=== PATIENT | female | born 1940 | race Caucasian/White ===

== ENCOUNTER 2016-07-26 19:29 | Emergency (ER) | payer MEDICARE ==
[2016-07-26 19:38] VITALS: BP 148/58
--- NOTE | 2016-07-26 20:06 | UC ---
HPI Febrile Illness - History of Current Complaint Chief Complaint: UCGeneralIllness Time Seen by Provider: 07/26/16 19:59 Hx Obtained From: Patient Onset/Duration: Started Days Ago - 9 days ago with UTI symptoms received 7 days of amoxicillin without improvement. Received 2nd antibiotic yesterday and Timing: Constant Initial Severity: Mild Current Severity: Moderate Aggravating Factors: Nothing Alleviating Factors: Nothing Associated Signs and Symptoms: Chills, Dysuria - Risk Factors Serious Bacterial Infection Risk Factors: Negative - Additional Pertinent History Primary Care Physician: NAREHS - Allergy/Home Medications Allergies/Adverse Reactions: Allergies Allergy/AdvReac Type Severity Reaction Status Date / Time Sulfa Drugs Allergy Unknown Unknown Verified 07/26/16 20:18 Reaction Details PMH/Surg Hx/FS Hx/Imm Hx Endocrine/Hematology History: Denies: Hx Diabetes, Hx Thyroid Disease Cardiovascular History: Reports: Hx Hypercholesterolemia, Hx Hypertension Denies: Hx Pacemaker/ICD Respiratory History: Denies: Hx Asthma Comment Only: Hx Chronic Obstructive Pulmonary Disease (COPD) - Alpha 1 antitrypsin GI History: Denies: Hx Ulcer Musculoskeletal History: Denies: Hx Osteoporosis Sensory History: Reports: Hx Deafness - left Denies: Hx Hearing Aid Psychiatric History: Denies: Hx Panic Disorder - Cancer History Cancer Type, Location and Year: MELANOMA 2010 Hx Chemotherapy: No Hx Radiation Therapy: No - Surgical History Surgery Procedure, Year, and Place: hyster/bladder lift 2006, tonsillectomy, Infectious Disease History: Denies: Hx Hepatitis, Hx Human Immunodeficiency Virus (HIV), History Other Infectious Disease, Traveled Outside the [place] in Last 30 Days - Family History Known Family History: Positive: Hypertension Negative: Cardiac Disease, Diabetes - Social History Occupation: Retired Lives: With Family Alcohol Use: None Substance Use Type: Reports: None Smoking Status (MU): Never Smoked Tobacco Review of Systems Constitutional: Fever, Chills All Other Systems Reviewed And Are Negative: Yes Physical Exam Triage Information Reviewed: Yes Appearance: Well-Appearing, No Pain Distress, Ill-Appearing - mild Vital Signs: Initial Vital Signs Temp 101.6 F 07/26/16 19:34 Pulse 85 07/26/16 19:34 Resp 18 07/26/16 19:34 BP 148/58 07/26/16 19:34 Pulse Ox 97 07/26/16 19:34 Vital Signs Reviewed: Yes Eyes: Positive: Conjunctiva Clear ENT: Positive: Pharynx normal, TMs normal - , AD obscurred by obstructing cerumen Neck exam: Normal Respiratory Exam: Normal Cardiovascular: Positive: RRR, No Murmur Abdomen Description: Positive: No Organomegaly. Negative: Nontender - minimal bilateral upper abdominal tenderness., CVA Tenderness (R), CVA Tenderness (L), McBurney's Point Tenderness, Peritoneal Signs Bowel Sounds: Positive: Present Musculoskeletal Exam: Normal Neurological Exam: Normal Psychological Exam: Normal Skin Exam: Normal Course/Dx - Febrile Illness Differential Diagnoses: Abd. Infection, Abscess, Pyelonephritis - Diagnoses Clinic Provider Diagnoses: Pyelonephritis Is Visit Related: No Discharge - Discharge Plan Condition: Stable Disposition: HOME Prescriptions: Ciprofloxacin TAB* [Cipro 500 MG TAB*] 500 mg PO BID #20 tab Patient Education Materials: Kidney Infection (ED), Ciprofloxacin (By mouth) Referrals: Wilson Moody MD [Primary Care Provider] - 2 Weeks (Recheck urine for clearence.)
[2016-07-26] MEDS ORDERED: Ciprofloxacin TAB* 500 MG PO ONE (20:30)
== END 2016-07-26 20:48 | disposition home or self-care (01) ==
LOC: UCEAST 19:29
DX: N12 Tubulo-interstitial nephritis, not specified as acute or chronic (principal); E78.00 Pure hypercholesterolemia, unspecified; I10 Essential (primary) hypertension; H91.92 Unspecified hearing loss, left ear; Z88.2 Allergy status to sulfonamides
CPT/HCPCS: 81003; 87086; 99212; A9270-GY; G0463

== ENCOUNTER 2017-06-29 14:05 | Emergency (ER) | payer MEDICARE ==
[2017-06-29 14:36] VITALS: BP 145/68
--- NOTE | 2017-06-29 14:44 | UC ---
Abdominal Pain Female HPI - HPI Summary HPI Summary: Pt presents with constipation. She is accompanied by her . Both are very poor historians and often get sidetracked or forget what they were speaking about mid-sentence. From what I am able to gather - about 3 weeks ago pt developed generalized abdominal cramping and felt "gassy". She would pass gas and her stomach would feel better. This lasted for about 2 weeks, but has been improved over the last week. During this 3 week period, however, she has had small and hard BMs with some mucus. About 1 week ago she took an OTC "laxative" but is unsure of the name - the next day she had a BM and felt ok. Today she tells me that she is back to small hard stools for the last 3-4 days. Her last colonoscopy was 6.5 years ago and was normal - per pt. Denies fever, chills, SOB, chest pain, abdominal, n/v, dysuria, or back pain. - History of Current Complaint Chief Complaint: UCAbdominalPain Stated Complaint: BOWEL ISSUE Time Seen by Provider: 06/29/17 14:43 Hx Obtained From: Patient, Family/Hourly Shift Manager Onset/Duration: Gradual Onset Severity Currently: None Pain Intensity: 0 Allergies/Adverse Reactions: Allergies Allergy/AdvReac Type Severity Reaction Status Date / Time Sulfa (Sulfonamide Allergy Unknown Verified 06/29/17 14:37 Antibiotics) Reaction Details Home Medications: Home Medications Amlodipine Besylate [Norvasc 5 mg tab] 5 mg PO DAILY 06/29/17 [History Confirmed 06/29/17] Donepezil TAB* [Aricept 5 MG TAB*] 5 mg PO DAILY 06/29/17 [History Confirmed 09/09] PMH/Surg Hx/FS Hx/Imm Hx - Additional Past Medical History Additional PMH: Dementia Overactive bladder Endocrine History: Dyslipidemia Cardiovascular History: Hypertension - Surgical History Surgical History: Yes Surgery Procedure, Year, and Place: hyster/bladder lift 2006, tonsillectomy, - Family History Known Family History: Positive: Hypertension Negative: Cardiac Disease, Diabetes - Social History Occupation: Retired Lives: With Family Alcohol Use: Rare Substance Use Type: None Smoking Status (MU): Never Smoked Tobacco - Immunization History Most Recent Influenza Vaccination: fall 2014 Most Recent Tetanus Shot: Believes to be within 5 years Most Recent Pneumonia Vaccination: <5 yrs Review of Systems Constitutional: Negative Skin: Negative Respiratory: Negative Cardiovascular: Negative Gastrointestinal: Other - Constipation Genitourinary: Frequency Neurovascular: Negative Neurological: Negative Psychological: Negative All Other Systems Reviewed And Are Negative: Yes Physical Exam - Summary Physical Exam Summary: GENERAL: NAD. WDWN. No pain distress. SKIN: No rashes, sores, lesions, or open wounds. NECK: Supple. Nontender. No lymphadenopathy. CHEST: CTAB. No r/r/w. No accessory muscle use. Breathing comfortably and in no distress. CV: RRR. Without m/r/g. Pulses intact. Brisk cap refill. ABDOMEN: Soft. NTTP. No distention or guarding. No organomegaly. No CVA tenderness. Bowel sounds present NEURO: Alert. CN II-XII grossly intact. PSYCH: Age appropriate behavior. Triage Information Reviewed: Yes Vital Signs: Initial Vital Signs Temp 97.8 F 06/29/17 14:31 Pulse 64 06/29/17 14:31 Resp 16 06/29/17 14:31 BP 145/68 06/29/17 14:31 Pulse Ox 98 06/29/17 14:31 Abd Pain Female Course/Dx - Course Course Of Treatment: CT: IMPRESSION: No abnormal masses or fluid collections are noted. No evidence of obstructive. uropathy is noted. Diverticulosis without definite evidence of diverticulitis. Bilateral adrenal hyperplasia is noted. Suspect slow motility constipation. I will try her with daily miralax for at least 1 week and have her follow up with her PCP B[facility] for this and CT findings of b/l adrenal hyperplasia. - Differential Dx/Diagnosis Provider Diagnoses: Constipation Discharge - Sign-Out/Discharge Documenting (check all that apply): Discharge/Admit/Transfer - Discharge Plan Condition: Stable Disposition: HOME Prescriptions: Polyethylene Glycol 3350 BTL* [Miralax] 17 gm PO DAILY PRN #1 [id number] PRN Reason: Constipation Patient Education Materials: Constipation (ED) Referrals: Wilson Moody MD [Primary Care Provider] - As Soon As Possible Additional Instructions: If you develop a fever, shortness of breath, chest pain, new or worsening symptoms - please call your PCP or go to the ED. 1) Please schedule a follow up appointment with Dr. Moody as soon as possible for further evaluation of your abdominal pain and constipation 2) Please call your GI doctor to ask about another colonoscopy. - Billing Disposition and Condition Condition: STABLE Disposition: HOME
--- NOTE | 2017-06-29 15:49 | RAD ---
Indication: Abdominal pain, constipation. CT of the abdomen and pelvis was performed without oral or IV contrast administration. Coronal and sagittal reconstructed images were obtained. Lung bases demonstrate no pleural fluid. Thickening of the fissure on the left is noted. Heart demonstrates no pericardial effusion. Liver is normal in size. No focal lesions or intrahepatic ductal dilatation is noted. The spleen is normal in size. Pancreas demonstrates no mass or pancreatic duct dilatation. The common duct is not dilated. The gallbladder demonstrates no calcified gallstones. No pericholecystic fluid or wall thickening is noted. Adrenal hyperplasia is noted. No hydronephrosis is noted. Cortical cysts are noted in both kidneys. Atherosclerotic aorta is noted. No pelvic adenopathy is noted. CT of the pelvis demonstrates diverticulosis of the colon. No definite diverticulitis is noted. No dilated loops of bowel are noted. No dilated loops of bowel are noted. No pelvic adenopathy is noted. No hernias are noted. IMPRESSION: No abnormal masses or fluid collections are noted. No evidence of obstructive uropathy is noted. Diverticulosis without definite evidence of diverticulitis. Bilateral adrenal hyperplasia is noted.
== END 2017-06-29 16:10 | disposition home or self-care (01) ==
LOC: UCEAST 14:05
DX: K59.00 Constipation, unspecified (principal); E78.5 Hyperlipidemia, unspecified; I10 Essential (primary) hypertension; N32.81 Overactive bladder; F03.90 Unspecified dementia, unspecified severity, without behavioral disturbance, psychotic disturbance, mood disturbance, and anxiety; Z88.2 Allergy status to sulfonamides
CPT/HCPCS: 74176; 81003; 99212; G0463

== ENCOUNTER 2017-07-22 11:09 | Emergency (ER) | payer MEDICARE ==
[2017-07-22 13:42] VITALS: BP 132/67
--- NOTE | 2017-07-22 14:21 | UC ---
Throat Pain/Nasal Ajay HPI - HPI Summary HPI Summary: Sore throat for 2 days - History of Current Complaint Chief Complaint: UCRespiratory Stated Complaint: COUGH Time Seen by Provider: 07/22/17 13:33 Hx Obtained From: Patient ?: No Onset/Duration: Sudden Onset, Lasting Days - 2 Pain Intensity: 0 Cough: None Associated Signs & Symptoms: Positive: Hoarseness - Allergies/Home Medications Allergies/Adverse Reactions: Allergies Allergy/AdvReac Type Severity Reaction Status Date / Time Sulfa (Sulfonamide Allergy Unknown Verified 07/22/17 13:42 Antibiotics) Reaction Details PMH/Surg Hx/FS Hx/Imm Hx Previously Healthy: No Endocrine History: Dyslipidemia Cardiovascular History: Hypertension - Surgical History Surgical History: Yes Surgery Procedure, Year, and Place: hyster/bladder lift 2006, tonsillectomy, - Family History Known Family History: Positive: Hypertension Negative: Cardiac Disease, Diabetes - Social History Occupation: Retired Lives: With Family Alcohol Use: Rare Substance Use Type: None Smoking Status (MU): Never Smoked Tobacco - Immunization History Most Recent Influenza Vaccination: fall 2014 Most Recent Tetanus Shot: Believes to be within 5 years Most Recent Pneumonia Vaccination: <5 yrs Review of Systems Constitutional: Negative Skin: Negative Eyes: Negative ENT: Sore Throat Respiratory: Negative Cardiovascular: Negative Gastrointestinal: Negative Genitourinary: Negative Motor: Negative Neurovascular: Negative Musculoskeletal: Negative Neurological: Negative Psychological: Negative Is Patient Immunocompromised?: No All Other Systems Reviewed And Are Negative: Yes Physical Exam Triage Information Reviewed: Yes Appearance: Well-Appearing, No Pain Distress, Well-Nourished Vital Signs: Initial Vital Signs Temp 99.6 F 07/22/17 13:40 Pulse 75 07/22/17 13:40 Resp 14 07/22/17 13:40 BP 132/67 07/22/17 13:40 Pulse Ox 97 07/22/17 13:40 Vital Signs Reviewed: Yes Eye Exam: Normal Eyes: Positive: Conjunctiva Clear ENT Exam: Normal ENT: Positive: Normal ENT inspection, Hearing grossly normal, Pharynx normal, TMs normal, Uvula midline. Negative: Nasal congestion, Trismus, Muffled voice, Hoarse voice, Dental tenderness, Sinus tenderness Dental Exam: Normal Neck exam: Normal Neck: Positive: Supple, Nontender Respiratory Exam: Normal Respiratory: Positive: Chest non-tender, Lungs clear, Normal breath sounds, No respiratory distress, No accessory muscle use Cardiovascular Exam: Normal Cardiovascular: Positive: RRR, No Murmur, Pulses Normal, Brisk Capillary Refill Musculoskeletal Exam: Normal Musculoskeletal: Positive: Strength Intact, ROM Intact, No Edema Neurological Exam: Normal Neurological: Positive: Alert, Muscle Tone Normal Psychological Exam: Normal Skin Exam: Normal Diagnostics - Laboratory Diagnostic Studies Completed/Ordered: RST (-) Throat Pain/Nasal Course/Dx - Course Assessment/Plan: tylenol, ibuprofen, throat raffy. and spray follow with pcp prn - Differential Dx/Diagnosis Provider Diagnoses: pharyngitis, viral syndrome Discharge - Sign-Out/Discharge Documenting (check all that apply): Discharge/Admit/Transfer, Post-Discharge Follow Up - Discharge Plan Condition: Stable Disposition: HOME Patient Education Materials: Acetaminophen (By mouth), Phenol (By mouth), Pharyngitis (ED), Viral Syndrome (ED) Referrals: Wilson Moody MD [Primary Care Provider] - If Needed - Billing Disposition and Condition Condition: STABLE Disposition: Home
== END 2017-07-22 14:34 | disposition home or self-care (01) ==
LOC: UCEAST 11:09
DX: J02.9 Acute pharyngitis, unspecified (principal); B34.9 Viral infection, unspecified; E78.5 Hyperlipidemia, unspecified; I10 Essential (primary) hypertension; Z88.2 Allergy status to sulfonamides; Z82.49 Family history of ischemic heart disease and other diseases of the circulatory system
CPT/HCPCS: 87651; 99211; G0463

== ENCOUNTER 2017-12-11 19:39 | Emergency (ER) | payer MEDICARE ==
[2017-12-11 19:52] VITALS: BP 114/67
--- NOTE | 2017-12-11 20:30 | UC ---
General HPI - HPI Summary HPI Summary: This patient is a 77 year old F presenting to [facility] with a chief complaint of weakness. On 12/08/17, the patient saw Dr. Gloria who took a sample of her urine. She went to [facility] that same day and returned the following day. On at night, she received a call from Dr. Gloria who said she had a UTI and sent her rx for Augmentin. She took Augmentin yesterday and today. Last night, the patient reports she had chills and rigors. Today, she had a fever up to 103/ 104F but took Tylenol and her fever is now down to 98F. She continues to take her medications but she still doesnt feel good and feeling weak. The patient rates the pain 0/10 in severity. Symptoms aggravated by nothing. Symptoms alleviated by nothing. 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 Onset/Duration: Sudden Onset, Lasting Days, Still Present Current Severity: None Pain Intensity: 0 Aggravating: nothing Alleviating: nothing Associated Signs & Symptoms: Positive: Fever, Weakness, Other - chills, rigors - Allergy/Home Medications Allergies/Adverse Reactions: Allergies Allergy/AdvReac Type Severity Reaction Status Date / Time Sulfa (Sulfonamide Allergy Unknown Verified 12/11/17 19:52 Antibiotics) Reaction Details Home Medications: Home Medications Amoxicillin/Clavulanate TAB* [Augmentin TAB 875*] 875 mg PO BID 12/11/17 [ History Confirmed 12/11/17] PMH/Surg Hx/FS Hx/Imm Hx Endocrine History: Other Other Endocrine History: No DM Cardiovascular History: Hypertension Respiratory History: COPD - Surgical History Surgical History: Yes Surgery Procedure, Year, and Place: hyster/bladder lift 2006, tonsillectomy, CATARACT REPAIR WITH LENS REPLACEMENTS - Family History Known Family History: Positive: Hypertension Negative: Cardiac Disease, Diabetes - Social History Alcohol Use: Rare Substance Use Type: None Smoking Status (MU): Never Smoked Tobacco - Immunization History Most Recent Influenza Vaccination: fall 2014 Most Recent Tetanus Shot: Believes to be within 5 years Most Recent Pneumonia Vaccination: <5 yrs Review of Systems Constitutional: Fever, Chills, Other - rigors Neurological: Weakness All Other Systems Reviewed And Are Negative: Yes Physical Exam - Summary Physical Exam Summary: VITAL SIGNS: Reviewed. GENERAL: Patient is an elderly, well-developed and nourished FEMALE who is lying comfortable in the stretcher. Patient is not in any acute respiratory distress. She seems tired and disheveled. HEAD AND FACE: Normocephalic EYES: PERRLA, EOMI x 2. EARS: Hearing grossly intact. MOUTH: Oropharynx within normal limits. NECK: Supple, trachea is midline, no adenopathy, no JVD, no carotid bruit. CHEST: Symmetric, no tenderness at palpation LUNGS: Clear to auscultation bilaterally. No wheezing or crackles. CVS: Regular rate and rhythm, S1 and S2 present, no murmurs or gallops appreciated. ABDOMEN: Soft, non-tender. Bowel sounds are normal. No abdominal abnormal pulsations. EXTREMITIES: Full ROM in all major joints, no edema, no cyanosis or clubbing. NEURO: Alert and oriented x 3. No acute neurological deficits. Speech is normal and follows commands. Slight hx of dementia. She has R-sided weakness secondary to a stroke. SKIN: Dry and warm Triage Information Reviewed: Yes Vital Signs: Initial Vital Signs Temp 98.7 F 12/11/17 19:43 Pulse 78 12/11/17 19:43 Resp 14 12/11/17 19:43 BP 114/67 12/11/17 19:43 Pulse Ox 96 12/11/17 19:43 Vital Signs Reviewed: Yes Course/Dx - Course Course Of Treatment: Patient is a 77-year-old female who presents to the urgent care with chief complaint of having back pain, fevers, chills and weakness. She reports that she was diagnosed with a UTI and she is taking Augmentin. However she has only taken 3 doses of Augmentin and the symptoms have not improved. This afternoon the patient had a fever 100.3- 100.4 for which the patient took Tylenol. Right now the patient is afebrile. However because of the symptoms the patient will be sent to the emergency department for further workup and management. Patient is hemodynamically stable alert and oriented 3. The patient and the patient's declined ambulance. - Differential Dx - Multi-Symptom Provider Diagnoses: fever, weakness Discharge - Sign-Out/Discharge Documenting (check all that apply): Patient Departure All imaging exams completed and their final reports reviewed: No Studies - Discharge Plan Condition: Stable Disposition: HOME-RECOMMEND TO ED Patient Education Materials: Fever in Adults (ED), Weakness (ED) Referrals: Wilson Moody MD [Primary Care Provider] - Additional Instructions: Patient will be discharged to the emergency department. They declined the ambulance transfer. - Billing Disposition and Condition Condition: STABLE Disposition: Home-Recommend to ED - Attestation Statements Document Initiated by Scribe: Yes Documenting Scribe: Ezekiel Flores Provider For Whom Catherine is Documenting (Include Credential): Wilson Metcalf MD Scribe Attestation: Ezekiel Baca, scribed for Wilson Metcalf MD on 12/11/17 at 2039. Scribe Documentation Reviewed: Yes Provider Attestation: The documentation as recorded by the Ezekiel weston accurately reflects the service I personally performed and the decisions made by me, Wilson Metcalf MD
== END 2017-12-11 20:41 | disposition home health service (06) ==
LOC: UCEAST 19:39
DX: R53.1 Weakness (principal); R50.9 Fever, unspecified; I10 Essential (primary) hypertension; J44.9 Chronic obstructive pulmonary disease, unspecified
CPT/HCPCS: 99212; G0463

== ENCOUNTER 2017-12-11 20:57 | Emergency (ER) | payer MEDICARE ==
--- NOTE | 2017-12-11 21:40 | ED ---
GI/ HPI - HPI Summary HPI Summary: This patient is a 77 year old female presenting to [facility] accompanied by with a chief complaint of urogenital problems since last week. Patient states that she had incontinence last night and has had frequent urination. Patient had general weakness and trouble getting up out of her chair. The pain is rated 0/10 in severity. Symptoms aggravated by nothing. Symptoms alleviated by nothing. Patient additionally reports chills. Patient denies nausea, abd pain. Patient was given abx while recovering from a UTI. 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 Onset/Duration: Still Present Timing: Intermittent, Lasting Days Severity: Mild Current Severity: Mild Pain Intensity: 0 Location of Pain: None Associated Signs and Symptoms: Positive: Negative - abd pain, Other: - weakness incontinence, frequent urination Aggravating Factor(s): Nothing Alleviating Factor(s): Nothing - Additional Pertinent History Primary Care Physician: NARESH - Allergy/Home Medications Allergies/Adverse Reactions: Allergies Allergy/AdvReac Type Severity Reaction Status Date / Time Sulfa (Sulfonamide Allergy Unknown Verified 12/11/17 19:52 Antibiotics) Reaction Details PMH/Surg Hx/FS Hx/Imm Hx Previously Healthy: No Endocrine/Hematology History: Denies: Hx Diabetes, Hx Thyroid Disease Cardiovascular History: Reports: Hx Hypercholesterolemia, Hx Hypertension Denies: Hx Pacemaker/ICD Respiratory History: Reports: Hx Chronic Obstructive Pulmonary Disease (COPD) - Alpha 1 antitrypsin Denies: Hx Asthma GI History: Denies: Hx Ulcer Musculoskeletal History: Denies: Hx Osteoporosis Sensory History: Reports: Hx Deafness - left Denies: Hx Hearing Aid Psychiatric History: Denies: Hx Panic Disorder - Cancer History Cancer Type, Location and Year: melanoma Hx Chemotherapy: No Hx Radiation Therapy: No - Surgical History Surgery Procedure, Year, and Place: hyster/bladder lift 2006, tonsillectomy, CATARACT REPAIR WITH LENS REPLACEMENTS Infectious Disease History: No Infectious Disease History: Denies: Hx Hepatitis, Hx Human Immunodeficiency Virus (HIV), History Other Infectious Disease, Traveled Outside the [place] in Last 30 Days - Family History Known Family History: Positive: Hypertension Negative: Cardiac Disease, Diabetes - Social History Lives: With Family Alcohol Use: Rare Hx Substance Use: No Substance Use Type: Reports: None Hx Tobacco Use: No Smoking Status (MU): Never Smoked Tobacco Review of Systems Positive: Chills. Negative: Fever Negative: Abdominal Pain, Nausea Positive: frequency, incontinence Positive: Weakness All Other Systems Reviewed And Are Negative: Yes Physical Exam - Summary Physical Exam Summary: Appearance: Well-appearing, Well-nourished, lying in bed comfortable Skin: Warm, dry, no obvious rash Eyes: sclera anicteric, no conjunctival pallor ENT: mucous membranes moist Neck: deferred Respiratory: No signs of respiratory distress Cardiovascular: Appears well perfused, pulses are nml Abdomen: deferred Musculoskeletal: Moving all 4 extremities without obvious discomfort Neurological: Awake and alert, mentation is normal, speech is fluent and appropriate Psychiatric: affect is normal, does not appear anxious or depressed Triage Information Reviewed: Yes Vital Signs On Initial Exam: Initial Vitals Temp Pulse Resp BP Pulse Ox 98.7 F 76 18 138/76 95 12/11/17 21:00 12/11/17 21:00 12/11/17 21:00 12/11/17 21:00 12/11/17 21:00 Vital Signs Reviewed: Yes Diagnostics - Vital Signs Vital Signs Temp Pulse Resp BP Pulse Ox 12/11/17 21:00 98.7 F 76 18 138/76 95 - Laboratory Result Diagrams: 12/11/17 21:48 12/11/17 21:48 Lab Statement: Any lab studies that have been ordered have been reviewed, and results considered in the medical decision making process. GIGU Course/Dx - Course Course Of Treatment: This is a 77-year-old woman who was seen and routine follow -up by her urologist last week. A urinalysis and culture was done at that time which subsequently grew Escherichia coli. Because she was away on a trip to [facility], there was a delay in getting her started on antibiotics but she has been on them now since yesterday. Her urinalysis today does not appear infected. White blood cell count is normal. The patient does not appear toxic and is afebrile in triage and on recheck now. The culture and sensitivity results on the urine specimen didn't do show it is sensitive to Augmentin, the antibiotic the patient is taking. She actually is feeling somewhat better today than she did yesterday and I think continuing the antibiotic would be appropriate. She does not appear to require hospitalization at this point. - Diagnoses Provider Diagnoses: Weakness Discharge - Sign-Out/Discharge Documenting (check all that apply): Patient Departure - Discharge Plan Condition: Stable Disposition: HOME Patient Education Materials: Urinary Tract Infection in Women (ED) Referrals: Wilson Moody MD [Primary Care Provider] - Additional Instructions: Continue the antibiotic that was prescribed by your doctor. If you start feeling worse, you should return here. - Billing Disposition and Condition Condition: STABLE Disposition: Home - Attestation Statements Document Initiated by Catherine: Yes Documenting Xiomyibe: Gordo Flores Provider For Whom Catherine is Documenting (Include Credential): Brian Tovar MD Scribe Attestation: Gordo Baca scribed for Brian Tovar MD on 12/12/17 at 0343. Scribe Documentation Reviewed: Yes Provider Attestation: The documentation as recorded by the Gordo weston accurately reflects the service I personally performed and the decisions made by me, Brian Tovar MD
[2017-12-11 21:58] LABS: ABS Basophils 0.1 10^3/ul (0-0.2); ABS Eosinophils 0 10^3/ul (0-0.6); ABS Lymphocytes 1.3 10^3/ul (1.0-4.8); ABS Monocytes 0.4 10^3/ul (0-0.8); ABS Neutrophils 6.8 10^3/ul (1.5-7.7); ABS Nucleated RBC 0 10^3/ul; Eosinophil % 0.5 % (0-6); Hematocrit 40 % (35-47); Hemoglobin 13.2 g/dl (12.0-16.0); Lymphocyte % 15.5 % (25-47); Mean Corpuscular HGB Conc 33 g/dl (31-36); Mean Corpuscular Hemoglobin 32 pg (27-31); Mean Corpuscular Volume 95 fL (80-97); Mean Platelet Volume 7.6 um3 (7.4-10.4); Nucleated Red Blood Cells % 0; Platelet Count 290 10^3/ul (150-450); Red Blood Count 4.18 10^6/ul (4.00-5.40); Red Cell Distribution Width 14 % (10.5-15); White Blood Count 8.6 10^3/ul (3.5-10.8)
[2017-12-11 22:12] LABS: EGFR Non-African American 31.2 (>60)
[2017-12-11] MEDS: NS 0.9% 1000 ML*IV.FLUID IV ONE (22:13)
[2017-12-11 22:29] LABS: Urine Appearance Clear; Urine Blood 2+ (Negative); Urine Color Yellow; Urine Ketones Negative (Negative); Urine Protein Negative (Negative); Urine Red Blood Cell Absent (Absent); Urine Specific Gravity 1.011 (1.010-1.030); Urine Urobilinogen Negative (Negative); Urine White Blood Cell Trace(0-5/hpf) (Absent)
[2017-12-12 00:23] VITALS: BP 149/78
== END 2017-12-12 00:26 | disposition home or self-care (01) ==
LOC: ED 20:57
DX: R53.1 Weakness (principal); I10 Essential (primary) hypertension; J44.9 Chronic obstructive pulmonary disease, unspecified; E78.00 Pure hypercholesterolemia, unspecified; H91.92 Unspecified hearing loss, left ear; R50.9 Fever, unspecified
CPT/HCPCS: 36415; 80053; 81003; 81015; 83605; 85025; 87040; 87086; 96360; 99283

== ENCOUNTER 2017-12-15 11:15 | Inpatient (IN) | payer MEDICARE ==
[2017-12-15 12:00] LABS: Urine Appearance Cloudy; Urine Blood 2+ (Negative); Urine Color Yellow; Urine Ketones Negative (Negative); Urine Protein 1+(30 mg/dL) (Negative); Urine Red Blood Cell 2+(6-10/hpf) (Absent); Urine Specific Gravity 1.015 (1.010-1.030); Urine Urobilinogen Negative (Negative); Urine White Blood Cell Trace(0-5/hpf) (Absent)
--- OUTSIDE RECORDS SUMMARY | 2017-12-15 12:23 | XMS REPORT ---
:1940 External Reference #:[id number] Author Organization [employer] Address [address] [place] [address] [place] [address] Phone [phone] Care Team Providers Name Role Phone Wilson Moody III, MD Primary Care Physician Unavailable Payers Type Date Identification Numbers Payment Provider Subscriber Medicare Primary Effective: Policy Number: Medicare Jennifer Aleman 2004 [id number] PayID: [id number] [address] [place] [address] [facility] Policy Number: [id number] [facility] Jennifer Aleman PayID: [id number] [address] [place] [address] Problems Date Description Provider Status Onset: 11/12/2010 Diverticulitis of colon Wilson Moody M.D. Active Onset: 10/17/2014 Dementia Veronika Hill M.D. Active Onset: 10/17/2014 Cerebral amyloid angiopathy Veronika Hill M.D. Active Onset: 10/17/2014 Altered mental status Veronika Hill M.D. Active Onset: 08/10/2017 Chronic fatigue syndrome Juwan Alexandre M.D. Active Onset: 08/10/2017 Abnormal gait Juwan Alexandre M.D. Active Onset: 08/10/2017 Amnesia Juwan Alexandre M.D. Active Social History Type Date Description Comments Hand Dominance Right-handed Cigarette Use Never Smoked Cigarettes ETOH Use Rarely consumes alcohol Smoking Patient has never smoked Recreational Drug Use Denies Drug Use Daily Caffeine Consumes on average 1 soda per day Exercise Type/Frequency Exercises sporadically Allergies, Adverse Reactions, Alerts Date Description Reaction Status Severity Comments 07/26/2007 Sulfa active hives Medications Medication Date Status Form Strength Qnty SIG Indications Ordering Provider Donepezil HCL 11/11/ Active Tablets 10mg 90tab 1 by F03.90 Tariq Chowdhury 2016 s mouth Tiffany, every day M.D. Amlodipine 02/06/ Active Tablets 5mg 30tab 1 by Zain Besgillian 2014 s mouth YEYO [place] every day Lipitor 12/15/ Active Tablets 20mg 90tab one tab Wilson Lees 2011 s po qhs John Moody Myrbetriq / Active 50mg once a 599.70 Unknown 0000 day Centrum Silver / Active Tablets 50+Women once Unknown 50+Women 0000 daily Augmentin / Active Tablets 875-125mg 1 tablet Unknown 0000 by mouth q12 hours for 10 days Donepezil HCL 10/03/ Hx Tablets 5mg 60tab 1-2 tabs F03.90 Veronika Hernandez 2016 - s by mouth Liz, 11/11/ every day M.D. 2016 as directed Fluticasone 12/23/ Hx Suspension 50mcg/Act 16gm 2 sprays J02.9 Matthew Propionate 2015 - each YEYO Mao 10/02/ nostril 2016 qd. Augmentin 02/06/ Hx Tablets 875-125mg 14tab by mouth N39.0 Zain 2014 - s twice a YEYO [place] 02/27/ day x 7 2015 days Ciprofloxacin 01/30/ Hx Tablets 500mg 14tab 1 tab by R35.0 Zain WILDE 2014 - s mouth YEYO [place] 02/06/ twice a 2014 day x 7 days Ciprofloxacin 10/10/ Hx Tablets 500mg 14tab 1 po Wilson Lees HCL 2014 - s twice a Heidy, 10/16/ day M.D. 2014 Cipro 10/21/ Hx Tablets 500mg 14tab 1 po bid Wilson Lees 2010 - s for 7 Heidy, 11/08/ days M.D. 2010 Robitussin With 12/04/ Hx 6Oz 10 cc qhs Wilson Lees Codeine Elixer 2009 - and q 4 Heidy, 07/31/ hrs prn M.D. 2010 Augmentin 09/19/ Hx Tablets 875-125mg 20tab 1 bid 562.11 Sivananda 2010 - s , Poopal, 2009 Z Pack 07/24/ Hx Tablets 250mg 5tabs as Wilson Lees 2009 - directed. Heidy, 11/08/ M.D. 2010 Lipitor 07/25/ Hx Tablets 10mg 90tab 1 PO QHS Wilson Lees 2007 - s Heidy, M.D. 2011 Asa 07/25/ Hx 81mg 90uni 1 PO qd Wilsno Lees 2007 - ts Heidy, M.D. 2014 Calcium/Vitamin 07/25/ Hx Tablets 600mg 100ta qd Wilson Dias 2007 - bs Heidy, M.D. 2014 Centrum Silver 07/25/ Hx Tablets 1 PO qd Wilson Lees 2007 - Heidy, M.D. 2016 Vitamin B-6 / Hx Tablets 1 po qd Unknown 0000 - 2013 Vitamin B-12 / Hx Tablets Sub 1 po qd Unknown 0000 - 2016 Fish Oil / Hx Capsules 1 po Unknown 0000 - capsules 12/15/ 2011 Cipro /00/ Hx Unknown 0000 - 2014 Immunizations CPT Code Status Date Vaccine Lot # [id number] Given 12/04/2017 Fluzone High Dose 25598 Given 12/10/2016 Influenza Virus Vaccine, Quadrivalent, Split, Preservative Free [id number] Given 12/08/2015 Fluzone High Dose 73778 Given 12/14/2014 Fluzone High Dose 50142 Given 12/08/2013 Flu Vaccine Split Virus Preservative Free For [id number] Indiv 3Yr Older 96857 Given 08/18/2013 Tdap - Tetanus/Diptheria/Acellular Pertussis [id number] 00271 Given 08/18/2013 Pneumococcal Conjugate Vaccine 13 Valent For [id number] Intramuscular Use 17703 Given 12/11/2012 Flu Vaccine Split Virus Preservative Free For Indiv 3Yr Older 60158 Given 03/11/2012 Zoster (Zostavax) [id number] 13110 Given 12/17/2011 Pneumonia Vaccine [id number] Q2037 Given 12/10/2011 Fluvirin Im 3Yrs And Older [id number] Q2038 Given 12/20/2010 Fluzone Vaccine [id number] 90868 Given 12/14/2009 Influenza Virus 3Yrs & Over [id number] 47925 Given 12/13/2008 Influenza Virus 3Yrs & Over 39754 Given 12/20/2007 Influenza Virus 3Yrs & Over 68446 Given 11/30/2006 Influenza Virus 3Yrs & Over 70120 Given 11/30/2006 Influenza Virus 3Yrs & Over 77275 Given 11/30/2006 Influenza Virus 3Yrs & Over [id number] 48200 Given 09/21/2002 Td (History By Patient) 39639 Given 01/04/2002 Pneumovax (History By Patient) 138iu Vital Signs Date Vital Result Comment 12/15/2017 Height 62.25 inches 5'2.25" Weight 147.00 lb Heart Rate 62 /min BP Systolic Sitting 112 mmHg BP Diastolic Sitting 70 mmHg Respiratory Rate 15 /min BMI (Body Mass Index) 26.7 kg/m2 10/07/2017 Height 62.25 inches 5'2.25" Weight 149.00 lb Heart Rate 60 /min BP Systolic Sitting 120 mmHg BP Diastolic Sitting 62 mmHg O2 % BldC Oximetry 97 % BMI (Body Mass Index) 27.0 kg/m2 09/14/2017 Height 62.25 inches 5'2.25" Weight 140.00 lb Heart Rate 66 /min BP Systolic 106 mmHg BP Diastolic 78 mmHg BMI (Body Mass Index) 25.4 kg/m2 08/10/2017 Height 62.25 inches 5'2.25" Weight 140.00 lb Heart Rate 72 /min BP Systolic Sitting 116 mmHg BP Diastolic Sitting 80 mmHg Respiratory Rate 16 /min BMI (Body Mass Index) 25.4 kg/m2 08/04/2017 Height 62.25 inches 5'2.25" Weight 145.00 lb Heart Rate 65 /min BP Systolic Sitting 120 mmHg BP Diastolic Sitting 72 mmHg Body Temperature 98.6 F O2 % BldC Oximetry 96 % BMI (Body Mass Index) 26.3 kg/m2 02/26/2017 Height 62.25 inches 5'2.25" Weight 139.00 lb Heart Rate 74 /min BP Systolic 132 mmHg BP Diastolic 72 mmHg Respiratory Rate 14 /min BMI (Body Mass Index) 25.2 kg/m2 10/03/2016 Height 62.25 inches 5'2.25" Weight 149.00 lb Heart Rate 76 /min BP Systolic Sitting 108 mmHg BP Diastolic Sitting 72 mmHg Respiratory Rate 16 /min Pain Level 0 BMI (Body Mass Index) 27.0 kg/m2 08/27/2016 Weight 155.38 lb Heart Rate 82 /min BP Systolic 136 mmHg BP Diastolic 82 mmHg Body Temperature 97.9 F O2 % BldC Oximetry 97 % 01/31/2016 Height 62.25 inches 5'2.25" Weight 162.00 lb Heart Rate 68 /min BP Systolic Sitting 126 mmHg BP Diastolic Sitting 82 mmHg Respiratory Rate 14 /min BMI (Body Mass Index) 29.4 kg/m2 12/24/2015 Weight 165.00 lb Heart Rate 96 /min BP Systolic Sitting 122 mmHg BP Diastolic Sitting 82 mmHg Respiratory Rate 15 /min Body Temperature 97.7 F O2 % BldC Oximetry 97 % 07/31/2015 Height 62.25 inches 5'2.25" Weight 155.00 lb Heart Rate 64 /min BP Systolic Sitting 122 mmHg BP Diastolic Sitting 86 mmHg Respiratory Rate 14 /min BMI (Body Mass Index) 28.1 kg/m2 07/19/2015 Height 62.25 inches 5'2.25" Weight 160.00 lb Heart Rate 64 /min BP Systolic Sitting 112 mmHg BP Diastolic Sitting 76 mmHg Respiratory Rate 14 /min BMI (Body Mass Index) 29.0 kg/m2 02/27/2015 Height 62.25 inches 5'2.25" Weight 161.00 lb Heart Rate 68 /min BP Systolic 134 mmHg BP Diastolic 60 mmHg Body Temperature 99.2 F O2 % BldC Oximetry 97 % BMI (Body Mass Index) 29.2 kg/m2 02/09/2015 Weight 163.00 lb Heart Rate 78 /min BP Systolic Sitting 134 mmHg BP Diastolic Sitting 70 mmHg Body Temperature 99.1 F 02/06/2015 Height 62.25 inches 5'2.25" Weight 161.00 lb Heart Rate 70 /min BP Systolic 114 mmHg BP Diastolic 70 mmHg Body Temperature 98.7 F BMI (Body Mass Index) 29.2 kg/m2 01/30/2015 Weight 160.00 lb Heart Rate 72 /min BP Systolic Sitting 143 mmHg BP Diastolic Sitting 76 mmHg Body Temperature 98.7 F 10/23/2014 Height 62.25 inches 5'2.25" Weight 159.50 lb Heart Rate 68 /min BP Systolic Sitting 134 mmHg BP Diastolic Sitting 80 mmHg Body Temperature 98.6 F O2 % BldC Oximetry 95 % BMI (Body Mass Index) 28.9 kg/m2 10/17/2014 Height 62.25 inches 5'2.25" Weight 155.00 lb Heart Rate 64 /min BP Systolic Sitting 128 mmHg BP Diastolic Sitting 72 mmHg Respiratory Rate 16 /min BMI (Body Mass Index) 28.1 kg/m2 10/13/2014 Height 62.25 inches 5'2.25" Weight 162.50 lb Heart Rate 75 /min BP Systolic Sitting 122 mmHg BP Diastolic Sitting 60 mmHg Body Temperature 98.5 F O2 % BldC Oximetry 98 % BMI (Body Mass Index) 29.5 kg/m2 10/10/2014 Height 62.25 inches 5'2.25" Weight 165.00 lb Heart Rate 72 /min BP Systolic Sitting 124 mmHg BP Diastolic Sitting 82 mmHg Respiratory Rate 16 /min Body Temperature 98.8 F O2 % BldC Oximetry 94 % BMI (Body Mass Index) 29.9 kg/m2 08/18/2013 Height 62.25 inches 5'2.25" Weight 160.00 lb Heart Rate 70 /min BP Systolic Sitting 132 mmHg BP Diastolic Sitting 80 mmHg Body Temperature 98.6 F BMI (Body Mass Index) 29.0 kg/m2 03/24/2012 Height 62.5 inches 5'2.50" Weight 160.25 lb Heart Rate 76 /min BP Systolic Sitting 128 mmHg BP Diastolic Sitting 76 mmHg Body Temperature 99.5 F O2 % BldC Oximetry 98 % BMI (Body Mass Index) 28.8 kg/m2 12/24/2011 Height 62.5 inches 5'2.50" Weight 165.00 lb Heart Rate 84 /min BP Systolic Sitting 122 mmHg BP Diastolic Sitting 82 mmHg BMI (Body Mass Index) 29.7 kg/m2 12/16/2011 Height 62.25 inches 5'2.25" Weight 163.00 lb Heart Rate 66 /min BP Systolic Sitting 140 mmHg BP Diastolic Sitting 88 mmHg BMI (Body Mass Index) 29.6 kg/m2 01/24/2011 Height 62.5 inches 5'2.50" Weight 158.75 lb Heart Rate 64 /min BP Systolic Sitting 144 mmHg BP Diastolic Sitting 80 mmHg Respiratory Rate 20 /min Body Temperature 98.1 F O2 % BldC Oximetry 92 % BMI (Body Mass Index) 28.6 kg/m2 07/31/2010 Weight 158.00 lb Heart Rate 66 /min BP Systolic Sitting 120 mmHg BP Diastolic Sitting 78 mmHg Body Temperature 97.4 F lt ear 12/04/2009 Weight 150.00 lb Heart Rate 76 /min BP Systolic Sitting 138 mmHg BP Diastolic Sitting 80 mmHg Body Temperature 98.2 F tympanic 09/24/2009 Weight 148.00 lb Heart Rate 69 /min BP Systolic Sitting 128 mmHg BP Diastolic Sitting 80 mmHg 09/19/2009 Weight 152.00 lb Heart Rate 72 /min BP Systolic 106 mmHg BP Diastolic 76 mmHg Body Temperature 100.1 F 07/24/2009 Weight 150.00 lb Heart Rate 68 /min BP Systolic Sitting 128 mmHg BP Diastolic Sitting 74 mmHg Body Temperature 99.5 F 03/21/2008 Heart Rate 68 /min BP Systolic Sitting 144 mmHg BP Diastolic Sitting 76 mmHg Body Temperature 101.2 F 07/26/2007 Height 62.5 inches 5'2.50" Weight 161.00 lb Heart Rate 68 /min BP Systolic Sitting 136 mmHg BP Diastolic Sitting 80 mmHg BMI (Body Mass Index) 29.0 kg/m2 Results Test Date Test Result H/L Range Note Laboratory test finding 12/11/2017 Lactic Acid 0.7 mmol/L 0.5-2.0 1 Comp Metabolic Panel 12/11/2017 Sodium 137 mmol/L 135-145 Potassium 4.1 mmol/L 3.5-5.0 Chloride 102 mmol/L 101-111 Co2 Carbon Dioxide 26 mmol/L 22-32 Anion Gap 9 mmol/L 2-11 Glucose 109 mg/dL High 70-100 Blood Urea Nitrogen 28 mg/dL High 6-24 Creatinine 1.60 mg/dL High 0.51-0.95 BUN/Creatinine Ratio 17.5 8-20 Calcium 9.7 mg/dL 8.6-10.3 Total Protein 7.3 g/dL 6.4-8.9 Albumin 4.4 g/dL 3.2-5.2 Globulin 2.9 g/dL 2-4 Albumin/Globulin Ratio 1.5 1-3 Total Bilirubin 0.60 mg/dL 0.2-1.0 Alkaline Phosphatase 76 U/L 34-104 Alt 32 U/L 7-52 Ast 56 U/L High 13-39 Egfr Non- 31.2 >60 Egfr 37.7 >60 2 CBC Auto Diff 12/11/2017 White Blood Count 8.6 10^3/uL 3.5-10.8 Red Blood Count 4.18 10^6/uL 4.00-5.40 Hemoglobin 13.2 g/dL 12.0-16.0 Hematocrit 40 % 35-47 Mean Corpuscular Volume 95 fL 80-97 Mean Corpuscular Hemoglobin 32 pg High 27-31 Mean Corpuscular HGB Conc 33 g/dL 31-36 Red Cell Distribution Width 14 % 10.5-15 Platelet Count 290 10^3/uL 150-450 Mean Platelet Volume 7.6 um3 7.4-10.4 Abs Neutrophils 6.8 10^3/uL 1.5-7.7 Abs Lymphocytes 1.3 10^3/uL 1.0-4.8 Abs Monocytes 0.4 10^3/uL 0-0.8 Abs Eosinophils 0 10^3/uL 0-0.6 Abs Basophils 0.1 10^3/uL 0-0.2 Abs Nucleated RBC 0 10^3/uL Granulocyte % 78.4 % 38-83 Lymphocyte % 15.5 % Low 25-47 Monocyte % 4.8 % 0-7 Eosinophil % 0.5 % 0-6 Basophil % 0.8 % 0-2 Nucleated Red Blood Cells % 0 Urinalysis Profile 12/11/2017 Urine Color Yellow Urine Appearance Clear Urine Specific [place] 1.011 1.010-1.030 Urine pH 5.0 5-9 Urine Urobilinogen Negative Negative Urine Ketones Negative Negative Urine Protein Negative Negative Urine Leukocytes Negative Negative Urine Blood 2+ Negative Urine Nitrite Negative Negative Urine Bilirubin Negative Negative Urine Glucose Negative Negative Urine White Blood Cell Trace(0-5/hpf) Absent Urine Red Blood Cell Absent Absent Urine Bacteria 1+ Absent Urine Squamous Epithelial Cell Present Absent Urine Renal Epithelial Cells Present Absent Laboratory test finding 12/11/2017 Blood Culture SEE RESULT BELOW 3 Urine Culture And 12/11/2017 Urine Culture SEE RESULT BELOW 4 Sensitivities Vitamin B12 And Folate Serum 08/10/2017 Vitamin B12 614 pg/mL 180-914 5 Folic Acid (Folate) > 20.00 ng/mL >3.99 Laboratory test finding 08/10/2017 C Reactive Protein < 1.00 mg/L < 5.00 6 Erythrocyte Sed Rate 23 mm/Hr 0-40 Laboratory test finding 07/22/2017 Rapid Strep Molecular Negative Negative 7 Poc Urinalysis 06/29/2017 Poc Glucose, Urine Negative Negative Poc Bilirubin, Urine Negative Negative Poc Ketone, Urine Negative Negative Poc Specific [place], Urine 1.020 1.010-1.030 Poc Blood, Urine 2+ Negative Poc pH, Urine 5.0 5-9 Poc Protein, Urine Negative Negative Poc Urobilinogen, Urine 0.2 Negative Poc Nitrite, Urine Negative Negative Poc Leukocytes, Urine Negative Negative Poc Color, Urine Yellow Poc Clarity, Urine Clear 8 Urine Culture And Sensitivities 07/26/2016 Urine Culture SEE RESULT BELOW 9, 10 Urinalysis Profile 02/21/2015 Urine Color Yellow Urine Appearance Clear Urine Specific [place] 1.015 1.010-1.030 Urine pH 5.0 5-9 Urine Urobilinogen Negative Negative Urine Ketones Negative Negative Urine Protein Negative Negative Urine Leukocytes Trace Negative Urine Blood 1+ Negative * * Negative 11 Urine Nitrite Negative Negative Urine Bilirubin Negative Negative Urine Glucose Negative Negative Urine White Blood Cell Trace(0-5/hpf) Absent Urine Red Blood Cell 1+(3-5/hpf) Absent Urine Bacteria Absent Absent Urine Squamous Epithelial Cell Present Absent Laboratory test 02/21/2015 Urine Culture And SEE RESULT BELOW 12 finding Sensitivities Comp Metabolic Panel 02/10/2015 Sodium 134 mmol/L 133-145 Potassium 3.8 mmol/L 3.5-5.0 Chloride 101 mmol/L 101-111 Co2 Carbon Dioxide 24 mmol/L 22-32 Anion Gap 9 mmol/L 2-11 Glucose 106 mg/dL High 70-100 Blood Urea Nitrogen 15 mg/dL 6-24 Creatinine 1.40 mg/dL High 0.51-0.95 BUN/Creatinine Ratio 10.7 8-20 Calcium 9.0 mg/dL 8.6-10.3 Total Protein 6.8 g/dL 6.4-8.9 Albumin 4.0 g/dL 3.2-5.2 Globulin 2.8 g/dL 2-4 Albumin/Globulin Ratio 1.4 1-3 Total Bilirubin 0.60 mg/dL 0.2-1.0 Alkaline Phosphatase 63 U/L 34-104 Alt 15 U/L 7-52 Ast 29 U/L 13-39 Egfr Non- 36.6 >60 Egfr 47.0 >60 13 Laboratory test finding 02/10/2015 C Reactive Protein 4.34 mg/L < 5.00 14 Laboratory test finding 02/10/2015 Rapid Influenza A B SEE RESULT BELOW 15 Antigen Urinalysis Profile 02/10/2015 Urine Color Yellow Urine Appearance Clear Urine Specific [place] 1.012 1.010-1.030 Urine pH 5.0 5-9 Urine Urobilinogen Negative Negative Urine Ketones Negative Negative Urine Protein Negative Negative Urine Leukocytes Negative Negative Urine Blood 3+ Negative Urine Nitrite Negative Negative Urine Bilirubin Negative Negative Urine Glucose Negative Negative Urine White Blood Cell Absent Absent Urine Red Blood Cell 3+(>10/hpf) Absent Urine Bacteria Absent Absent Urine Squamous Epithelial Cell Present Absent CBC Auto Diff 02/10/2015 White Blood Count 8.3 10^3/uL 3.5-10.8 Red Blood Count 4.42 10^6/uL 4.0-5.4 Hemoglobin 13.9 g/dL 12.0-16.0 Hematocrit 42 % 35-47 Mean Corpuscular Volume 96 fL 80-97 Mean Corpuscular Hemoglobin 32 pg High 27-31 Mean Corpuscular HGB Conc 33 g/dL 31-36 Red Cell Distribution Width 13 % 10.5-15 Platelet Count 224 10^3/uL 150-450 Mean Platelet Volume 8 um3 7.4-10.4 Abs Neutrophils 5.1 10^3/uL 1.5-7.7 Abs Lymphocytes 2.4 10^3/uL 1.0-4.8 Abs Monocytes 0.6 10^3/uL 0-0.8 Abs Eosinophils 0.1 10^3/uL 0-0.6 Abs Basophils 0.1 10^3/uL 0-0.2 Abs Nucleated RBC 0.01 10^3/uL Granulocyte % 61.8 % 38-83 Lymphocyte % 29.4 % 25-47 Monocyte % 6.7 % 1-9 Eosinophil % 1.1 % 0-6 Basophil % 1.0 % 0-2 Nucleated Red Blood Cells % 0.1 Laboratory test finding 02/10/2015 Troponin-I (TnI) 0.01 ng/mL <0.03 16 Inr/Protime 02/10/2015 Inr 1.00 0.89-1.11 Rapid Influenza A & B 02/10/2015 Influenza A Molecular NEGATIVE Negative 17 Molecular Influenza B Molecular NEGATIVE Negative Laboratory test finding 02/10/2015 Partial Thrombo Time 31.6 seconds 26.0 -36.3 PTT Lactic Acid 0.7 mmol/L 0.5-2.0 18 Blood Culture SEE RESULT BELOW 19 Ua Routine 02/06/2015 Ua Specific [place] 1.015 Ua PH 5 Ua Color yellow Ua Appera clear Ua WBC positive Ua Protein trace Ua Glucose negative Ua Ketones negative Ua Bilirubin negative Ua Urobilinogen normal Ua Nitrite negative Ua Occult Blood positive Ua Routine 01/30/2015 Ua Specific [place] 1.015 Ua PH 5 Ua Color yellow Ua Appera cloudy Ua WBC positive Ua Protein trace Ua Glucose neg Ua Ketones neg Ua Bilirubin neg Ua Urobilinogen normal Ua Nitrite neg Ua Occult Blood large Laboratory test 01/30/2015 Urine Culture And SEE RESULT BELOW 20 finding Sensitivities Laboratory test 10/19/2014 Margot (Antinuclear Negative Negative finding Antibodies) Erythrocyte Sed Rate 32 mm/Hr 0-40 C Reactive Protein 1.00 mg/L < 5.00 21 Anti Ssa/Ro <0.2 U 22 Anti SSB LA <0.2 U 23 Laboratory test finding 10/19/2014 Urine Culture And SEE RESULT BELOW 24 Sensitivities Urinalysis Profile 10/19/2014 Urine Color Yellow Urine Appearance Cloudy Urine Specific [place] 1.014 1.010-1.030 Urine pH 5.0 5-9 Urine Urobilinogen Negative Negative Urine Ketones Negative Negative Urine Protein Negative Negative Urine Leukocytes 1+ Negative Urine Blood 2+ Negative Urine Nitrite Negative Negative Urine Bilirubin Negative Negative Urine Glucose Negative Negative Urine White Blood Cell Trace(0-5/hpf) Absent Urine Red Blood Cell Trace(0-2/hpf) Absent Urine Bacteria Absent Absent Urine Squamous Epithelial Cell Present Absent Urine Transitional Epithelial Present Absent Vitamin B12 And Folate Serum 10/13/2014 Vitamin B12 > 1450 pg/mL High 180- 914 25 Folic Acid (Folate) > 20.00 ng/mL >3.99 Laboratory test finding 10/13/2014 Lyme Disease Serology Negative Negative 26 Syphilis Screen 10/13/2014 Pediatric/Maternal NO Syphilis IgG Nonreactive Nonreactive 27 RPR TNP Nonreactive RPR Titer TNP CBC Auto Diff 10/11/2014 White Blood Count 7.9 10^3/uL 4.8-10.8 Red Blood Count 3.91 10^6/uL Low 4.0-5.4 Hemoglobin 12.0 g/dL 12.0-16.0 Hematocrit 38 % 35-47 Mean Corpuscular Volume 96 fL 80-97 Mean Corpuscular Hemoglobin 31 pg 27-31 Mean Corpuscular HGB Conc 32 g/dL 31-36 Red Cell Distribution Width 13 % 10.5-15 Platelet Count 268 10^3/uL 150-450 Mean Platelet Volume 8 um3 7.4-10.4 Abs Neutrophils 4.7 10^3/uL 1.5-7.7 Abs Lymphocytes 2.5 10^3/uL 1.0-4.8 Abs Monocytes 0.4 10^3/uL 0-0.8 Abs Eosinophils 0.2 10^3/uL 0-0.6 Abs Basophils 0.1 10^3/uL 0-0.2 Abs Nucleated RBC 0 10^3/uL Granulocyte % 59.6 % 38-83 Lymphocyte % 31.8 % 25-47 Monocyte % 5.7 % 1-9 Eosinophil % 2.2 % 0-6 Basophil % 0.7 % 0-2 Nucleated Red Blood Cells % 0 Comp Metabolic Panel 10/11/2014 Sodium 139 mmol/L 133-145 Potassium 4.1 mmol/L 3.5-5.0 Chloride 104 mmol/L 101-111 Co2 Carbon Dioxide 27 mmol/L 22-32 Anion Gap 8 mmol/L 2-11 Glucose 170 mg/dL High 70-100 Blood Urea Nitrogen 21 mg/dL 6-24 Creatinine 1.52 mg/dL High 0.51-0.95 BUN/Creatinine Ratio 13.8 8-20 Calcium 8.9 mg/dL 8.6-10.3 Total Protein 6.3 g/dL Low 6.4-8.9 Albumin 3.8 g/dL 3.2-5.2 Globulin 2.5 g/dL 2-4 Albumin/Globulin Ratio 1.5 1-3 Total Bilirubin 0.50 mg/dL 0.2-1.0 Alkaline Phosphatase 71 U/L 34-104 Alt 23 U/L 7-52 Ast 36 U/L 13-39 Egfr Non- 33.3 >60 Egfr 42.9 >60 28 Laboratory test finding 10/11/2014 Erythrocyte Sed Rate 50 mm/Hr High 0- 40 C Reactive Protein 13.44 mg/L High < 5.00 29 TSH (Thyroid Stim Horm) 1.51 ?IU/mL 0.34-5.60 Laboratory test finding 10/10/2014 Urine Culture And SEE RESULT BELOW 30 Sensitivities Ua Routine 10/10/2014 Ua Specific [place] 1.005 Ua PH 5 Ua Color yellow Ua Appera clear Ua WBC positive Ua Protein neg Ua Glucose neg Ua Ketones trace Ua Bilirubin neg Ua Urobilinogen neg Ua Nitrite neg Ua Occult Blood positive Throat-Beta Strept 03/24/2014 Throat Beta Strep (SEE NOTE) 31 Culture Urine Culture And Sensitivities 03/24/2014 Urine Culture (SEE NOTE) 32 Vitamin D, 25 Hydroxy 10/06/2013 25-Hydroxy Vitamin D2 <4.0 ng/mL 25-Hydroxy Vitamin D3 60 ng/mL 25-Hydroxy Vitamin D Total 60 ng/mL 33 Laboratory test finding 12/17/2011 TSH (Thyroid Stimulating 2.41 MIU/ML 0.34-5.60 Horm) Erythrocyte Sed Rate 25 MM/HR 0-40 CBC With Manual Diff 12/17/2011 White Blood Count 5.9 10^3/uL 4.8-10.8 Red Blood Count 4.07 10^6/uL 4.0-5.4 Hemoglobin 12.9 g/dL 12.0-16.0 Hematocrit 39 % 35-47 Mean Corpuscular Volume 95 fL 80-97 Mean Corpuscular Hemoglobin 32 pg High 27-31 Mean Corpuscular HGB Conc 33 g/dL 31-36 Red Cell Distribution Width 14 % 10.5-15 Platelet Count 226 10^3/uL 150-450 Mean Platelet Volume 9 um3 7.4-10.4 Abs Neutrophils 3.2 10^3/uL 1.5-7.7 Abs Lymphocytes 2.0 10^3/uL 1.0-4.8 Abs Monocytes 0.4 10^3/uL 0-0.8 Abs Eosinophils 0.3 10^3/uL 0-0.6 Abs Basophils 0.1 10^3/uL 0-0.2 Abs Nucleated RBC 0 10^3/uL Neutrophil % 51.0 % 38-83 Band % 0 % 0-8 Lymphocytes % 37.0 % 25-47 Monocytes % 3.0 % 0-13 Eosinophils % 6.0 % 0-6 Basophil % 0 % 0-2 Reactive Lymph % 3.0 % 0-6 Metamyelocytes % 0 % 0-2 Myelocytes % 0 % 0-1 Promyelocytes % 0 % Blast % 0 % RBC Morphology Normal Normal Comp Metabolic Panel 12/17/2011 Sodium 139 mmol/L 133-145 Potassium 4.2 mmol/L 3.5-5.0 Chloride 106 mmol/L 101-111 Co2 Carbon Dioxide 26.0 mmol/L 22-32 Anion Gap 7.0 mmol/L 2-11 Glucose 99 mg/dL 70-100 Blood Urea Nitrogen 24 mg/dL 6-24 Creatinine 1.20 mg/dL 0.50-1.40 BUN/Creatinine Ratio 20.0 8-20 Calcium 10.1 mg/dL High 8.1-9.9 Total Protein 6.5 GM/DL 6.2-8.1 Albumin 4.0 GM/DL 3.2-5.2 Globulin 2.5 GM/DL 2-4 Albumin/Globulin Ratio 1.6 1-3 Total Bilirubin 0.8 mg/dL 0.1-1.0 34 Alkaline Phosphatase 60 U/L 30-110 Alt 44 U/L 14-54 Ast 65 U/L High 12-42 Egfr Non- 44.2 >60 Egfr 56.8 >60 35 Urinalysis W/Microscopic 11/07/2010 Ua Color YELLOW Yellow Appearance-Urine CLEAR Clear Specific [place]-Ur 1.007 Low 1.010-1.030 Esterase-Urine NEGATIVE Negative Nitrite NEGATIVE Negative [id number] NEGATIVE Negative Protein-Urine NEGATIVE Negative PH-Urine 7.0 5-9 Blood-Urine 1+ Negative Ketones-Urine NEGATIVE Negative Bilirubin-Ur NEGATIVE Negative Glucose-Urine NEGATIVE Negative WBC-Urine 0-2 0-5 RBC-Urine 1-3 0-2 Epith Cells-Ur SMALL None Bacteria-Urine TRACE None Urine Culture & Sensitivi 11/07/2010 Urine Culture Sensitivi NF1 36 Ua W/Microscopic 10/21/2010 Ua Color YELLOW Yellow Appearance-Urine CLEAR Clear Specific [place]-Ur 1.012 1.010-1.030 Esterase-Urine 3+ Negative Nitrite NEGATIVE Negative [id number] NEGATIVE Negative Protein-Urine NEGATIVE Negative PH-Urine 6.5 5-9 Blood-Urine 3+ Negative Ketones-Urine NEGATIVE Negative Bilirubin-Ur NEGATIVE Negative Glucose-Urine NEGATIVE Negative WBC-Urine 25-30 0-5 RBC-Urine TNTC 0-2 Epith Cells-Ur FEW None Bacteria-Urine TRACE None Culture Urine 10/21/2010 Urine Culture Sensitivi SN1 37 Laboratory test finding 09/21/2009 BUN 13 mg/dL 6-24 CBC With Electronic Diff 09/21/2009 White Blood Count 8.1 CUMM 4.8-10.8 Red Cell Count 3.84 CUMM Low 4.2-5.4 Hemoglobin 12.5 g/dL 12.0-16.0 Hematocrit 36 % 35-47 Mean Corpuscular Volume 94 um3 79-97 Mean Corpuscular Hemoglob 33 pg High 27-31 Mean Corpuscular HGB Cone 35 g/dL 32-36 Redcell Distribution WDTH 14 % 10.5-15 Platelet Count 224 CUMM 150-450 Mean Platelet Volume 7.3 um3 Low 7.4-10.4 Gran % 64.1 % 38-83 Lymph % 24.6 % Low 25-47 Mononuclear % 7.1 % 1-9 Eosinophil % 3.8 % 0-6 Basophil % 0.4 % 0-2 Abs Lymphs 2.0 1.0-4.8 Abs Mononuclear 0.6 0-0.8 Absolute Neutrophil Count 5.2 1.5-7.7 Abs Eosinophils 0.3 0-0.6 Abs Basophils 0 0-0.2 Laboratory test finding 09/09/2006 Clotest N^NEGATIVE^REJI 1 [facility] Severe Sepsis and Septic Shock Management Bundle Measure requires all lactic acids initially measuring >2.0 mmol/L be repeated. 2 Because ethnic data is not always readily available, this report includes an eGFR for both -Americans and non- Americans. The National Kidney Disease Education Program (NKDEP) does not endorse the use of the MDRD equation for patients that are not between the ages of 18 and 70, are , have extremes of body size, muscle mass, or nutritional status, or are non- or non-. According to the National Kidney Foundation, irrespective of diagnosis, the stage of the disease is based on the level of kidney function: Stage Description GFR(mL/min/1.73 m(2)) 1 Kidney damage with normal or decreased GFR 90 2 Kidney damage with mild decrease in GFR 60-89 3 Moderate decrease in GFR 30-59 4 Severe decrease in GFR 15-29 5 Kidney failure <15 (or dialysis) 3 SEE RESULT BELOW Name: JENNIFER ALEMAN : [address]: Brian Tovar MD Acct: [id number] Unit: [id number] AGE: 77 Location: ED Re12/11/17 SEX: F Status: DEP ER SPEC: [id number] PHIL: 12/11/[address]: Brian Tovar MD REQ: [id number] RECD: 12/11/17 STATUS: RES OTHR DR: Wilson Moody III, MD _ SOURCE: BLOOD,VENO SPDESC: ORDERED: Blood Cult Procedure Result Reported Site Aerobic Culture Bottle Preliminary 12/14/172218 ML No Growth Day 3 Anaerobic Culture Bottle Preliminary 12/14/172218 ML No Growth Day 3 * ML - Main Lab . END OF REPORT DEPARTMENT OF PATHOLOGY, [address] [place] [address] Chino Hwang M.D. Director [facility] # [id number] 4 SEE RESULT BELOW Name: JENNIFER ALEMAN : [address]: Brian Tovar MD Acct: [id number] Unit: [id number] AGE: 77 Location: ED Re12/11/17 SEX: F Status: DEP ER SPEC: [id number] PHIL: 12/11/17 [facility] DR: Brian Tovar MD REQ: [id number] RECD: 12/11/17 STATUS: JOHNSON PADILLA DR: Wilson Moody III, MD _ SOURCE: URINE SPDESC: ORDERED: Urine Culture Procedure Result Reported Site Urine Culture Final 12/13/17- 818 ML No Growth (<1,000 CFU/mL) * ML - Main Lab . END OF REPORT DEPARTMENT OF PATHOLOGY, [address] [place] [address] Chino Hwang M.D. Director [facility] # [id number] 5 Normal Range 180 to 914 Indeterminate Range 145 to 180 Deficient Range <145 6 Acute inflammation: >10.00 7 Loan Underwriter: [id number] Loan Underwriter: [id number] SEE RESULT BELOW Name: ASHJENNIFER Crystal : [address]: Jhonny Saavedra MD Acct: [id number] Unit: [id number] AGE: 76 Location: [facility] Re07/26/16 SEX: F Status: DEP ER SPEC: [id number] PHIL: 07/26/16-[address]: Jhonny Saavedra MD REQ: [id number] RECD: 07/27/16-1325 STATUS: JOHNSON PADILLA DR: Wilson Moody III, MD _ SOURCE: URINE SPDESC: ORDERED: Urine Culture COMMENTS: [id number] Procedure Result Reported Site Urine Culture Final 07/28/16- 1257 ML No Growth (<1,000 CFU/mL) * ML - MAIN LAB (PSYCHIATRIC1) . END OF REPORT * ML=Testing performed at Main Lab DEPARTMENT OF PATHOLOGY, [address] [place] [address] Chino Hwang M.D. Director [facility] # [id number] 11 *Ascorbic acid is present which may interfere with detection of blood. 12 SEE RESULT BELOW Name: JENNIFER ALEMAN : [address]: Zain Westbrook NP Acct: [id number] Unit: [id number] AGE: 75 Location: [facility] Re02/21/15 SEX: F Status: REG REF SPEC: [id number] PHIL: 02/21/15-1249 [facility] DR: Zain Westbrook NP REQ: [id number] RECD: 02/21/15 STATUS: JOHNSON PADILLA DR: Parag Moody III, MD _ SOURCE: URINE SPDESC: ORDERED: Urine Culture Procedure Result Reported Site Urine Culture Final 02/23/15- 904 ML No growth of clinically significant organisms * ML - [facility] LAB (PSC1) . END OF REPORT * ML=Testing performed at Main Lab DEPARTMENT OF PATHOLOGY, [address] [place] [address] Chino Hwang M.D. Director [facility] # [id number] 13 Because ethnic data is not always readily available, this report includes an eGFR for both -Americans and non- Americans. The National Kidney Disease Education Program (NKDEP) does not endorse the use of the MDRD equation for patients that are not between the ages of 18 and 70, are , have extremes of body size, muscle mass, or nutritional status, or are non- or non-. According to the National Kidney Foundation, irrespective of diagnosis, the stage of the disease is based on the level of kidney function: Stage Description GFR(mL/min/1.73 m(2)) 1 Kidney damage with normal or decreased GFR 90 2 Kidney damage with mild decrease in GFR 60-89 3 Moderate decrease in GFR 30-59 4 Severe decrease in GFR 15-29 5 Kidney failure <15 (or dialysis) 14 Acute inflammation: >10.00 15 SEE RESULT BELOW Name: JENNIFER ALEMAN : [address]: Brian Castellon MD Acct: [id number] Unit: [id number] AGE: 75 Location: ED Re02/10/15 SEX: F Status: REG ER SPEC: [id number] PHIL: 02/10/15-[address]: Brian Castellon MD REQ: [id number] RECD: 02/10/15 STATUS: JOHNSON PADILLA DR: Wilson Moody III, MD _ SOURCE: [facility]: ORDERED: Flu A B Request Procedure Result Reported Site Rapid Influenza A B Request Final 02/10/15- 1336 ML Specimen received for Influenza A/B Molecular testing * ML - MAIN LAB (PSYCHIATRIC1) . END OF REPORT * ML=Testing performed at Main Lab DEPARTMENT OF PATHOLOGY, [address] [place] [address] Chino Hwang M.D. Director [facility] # [id number] 16 Reference Range and Interpretation: TnI (ng/mL) Interpretation Less Than 0.03 ng/mL Not supportive of diagnosis of MA 0.03 - 0.50 ng/mL Indeterminate: suggest serial studies if clinically indicated. Greater than 0.5 ng/mL Consistent with diagnosis of MA 17 Loan Underwriter: [id number] PASQUALE JACINTO 18 [facility] Severe Sepsis and Septic Shock Management Bundle Measure requires all lactic acids initially measuring >2.0mmol/L be repeated. 19 SEE RESULT BELOW Name: ASHJENNIFER Crystal : [address]: Marilyn Carpenter MD Acct: [id number] Unit: [id number] AGE: 75 Location: [place] [address] Re02/11/15 Dis: 02/13/15 SEX: F Status: DIS IN SPEC: [id number] PHIL: 02/10/15 [facility] DR: Magdiel Hughes DO REQ: [id number] RECD: 02/10/15 STATUS: JOHNSON PADILLA DR: Wilson Moody III, MD _ SOURCE: BLOOD,VENO SPDES: ORDERED: Blood Cult Procedure Result Reported Site Aerobic Culture Bottle Final 02/15/15- 2350 ML No Growth Day 5 Anaerobic Culture Bottle Final 02/15/15- 2350 ML No Growth Day 5 * ML - MAIN LAB (PSC1) . END OF REPORT * ML=Testing performed at Main Lab DEPARTMENT OF PATHOLOGY, [address] [place] [address] Chino Hwang M.D. Director [facility] # [id number] 20 SEE RESULT BELOW Name: JENNIFER ALEMAN : [address]: Zain Westbrook NP Acct: [id number] Unit: [id number] AGE: 74 Location: [facility] Re01/30/15 SEX: F Status: REG REF SPEC: [id number] PHIL: 01/30/15-1204 [facility] DR: Zain Westbrook NP REQ: [id number] RECD: 01/30/15 STATUS: COMP _ SOURCE: URINE SPDESC: ORDERED: Urine Culture Procedure Result Reported Site Urine Culture Final 02/02/15- 08 ML Organism 1 KLEBSIELLA PNEUMONIAE Storden Count 75-100,000 (Many) CFU/ML 1. KLEBSIELLA PNEUMONIAE M.I.C. RX --------- ------ Ampicillin >=32 R Cefazolin <=4 S Cefepime <=1 S Ceftriaxone <=1 S Ciprofloxacin <=0.25 S Gentamicin <=1 S Levofloxacin <=0.12 S Meropenem <=0.25 S Nitrofurantoin 64 I Tetracycline >=16 R Pipercillin/Tazobactam <=4 S Trimethoprim/Sulfamethoxazole <=20 S Amoxicillin/Clavulanic Acid <=2 S Aztreonam <=1 S Contact the Microbiology Department for any additional antibiotic reporting. * ML - MAIN LAB ([facility]) . END OF REPORT * ML=Testing performed at Main Lab DEPARTMENT OF PATHOLOGY, [address] [place] [address] Chino Hwang M.D. Director [facility] # [id number] 21 Acute inflammation: >10.00 22 REFERENCE VALUE <1.0 (Negative) Test Performed by: [place] [address] Payment Analyst: Hakeem Cortez II, M.D., Ph.D. 23 REFERENCE VALUE <1.0 (Negative) Test Performed by: [place] [address] Payment Analyst: Hakeem Cortez II, M.D., Ph.D. 24 SEE RESULT BELOW Name: JENNIFER ALEMAN : [address]: Veronika Hill MD Acct: [id number] Unit: [id number] AGE: 74 Location: [facility] Re10/19/14 SEX: F Status: REG REF SPEC: [id number] PHIL: 10/19/14-[address]: Wilson Moody III, MD REQ: [id number] RECD: 10/19/14 STATUS: COMP _ SOURCE: URINE SPDESC: ORDERED: Urine Culture Procedure Result Verified Site Urine Culture Final 08/906 ML Organism 1 STAPHYLOCOCCUS EPIDERMIDIS Storden Count 10-25,000 (Moderate) CFU/ML SIGNIFICANCE QUESTIONED; LOWER COLONY COUNT. ORGANISM MAY BE NORMAL SKIN SANTHOSH 1. STAPHYLOCOCCUS EPIDERMIDIS M.I.C. RX --------- ------ Penicillin >=0.5 R Gentamicin >=16 R Linezolid 1 S Nitrofurantoin <=16 S Oxacillin >=4 R * Quinupristin/Dalfopristin <=0.25 S Rifampin <=0.5 S Tetracycline >=16 R Tigecycline 0.25 S Vancomycin 2 S Imipenem-Deduced R * Ampicillin/Sulbactam-Deduced R Cefazolin-Deduced R CONTINUED ON NEXT PAGE * ML=Testing performed at Main Lab DEPARTMENT OF PATHOLOGY, [address] [place] [address] Chino Hwang M.D. Director [facility] # [id number] Patient: JENNIFER ALEMAN [id number] (Continued) Specimen: [id number] Collected: 10/19/14 Received: 10/19/14 (Continued) Procedure Result Verified Site Urine Culture Final (continued) * These antibiotics are not available in the [facility] Formulary Contact the Microbiology Department for any additional antibiotic reporting. * ML - MAIN LAB ([facility]) . END OF REPORT * ML=Testing performed at Main Lab DEPARTMENT OF PATHOLOGY, [address] [place] [address] Chino Hwang M.D. Director [facility] # [id number] 25 Normal Range 180 to 914 Indeterminate Range 145 to 180 Deficient Range <145 26 Serologic response to B. burgdorferi infection is not detected, but cannot rule out early infection during which low or undetectable antibody levels to B. burgdorferi may be present. If clinically indicated, a new serum specimen should be submitted in 7-14 days. Test Performed by: [address] [address] Payment Analyst: Hakeem Cortez II, M.D., Ph.D. 27 Warning: A positive result is not useful for establishing a diagnosis of syphilis. In most situations, such a result may reflect a prior treated infection; a negative result can exclude a diagnosis of syphilis except for incubating or early primary disease. 28 Because ethnic data is not always readily available, this report includes an eGFR for both -Americans and non- Americans. The National Kidney Disease Education Program (NKDEP) does not endorse the use of the MDRD equation for patients that are not between the ages of 18 and 70, are , have extremes of body size, muscle mass, or nutritional status, or are non- or non-. According to the National Kidney Foundation, irrespective of diagnosis, the stage of the disease is based on the level of kidney function: Stage Description GFR(mL/min/1.73 m(2)) 1 Kidney damage with normal or decreased GFR 90 2 Kidney damage with mild decrease in GFR 60-89 3 Moderate decrease in GFR 30-59 4 Severe decrease in GFR 15-29 5 Kidney failure <15 (or dialysis) 29 Acute inflammation: >10.00 30 SEE RESULT BELOW Name: JENNIFER ALEMAN : [address]: Wilson Moody III, MD Acct: [id number] Unit: [id number] AGE: 74 Location: [facility] Re10/10/14 SEX: F Status: REG REF SPEC: [id number] PHIL: 10/10/14-[address]: Wilson Moody III, MD REQ: [id number] RECD: 10/10/14 STATUS: COMP _ SOURCE: URINE SPDESC: ORDERED: Urine Culture Procedure Result Verified Site Urine Culture Final 10/12/14- 1247 ML No Growth Day 2 (<1,000 CFU/mL) * ML - MAIN LAB (PSYCHIATRIC1) . END OF REPORT * ML=Testing performed at Main Lab DEPARTMENT OF PATHOLOGY, [facility] [employer] [place], [place] [address] Chino Hwang M.D. Director [facility] # [id number] 31 RUN DATE: 03/26/14 [facility] LAB LIVE PAGE 1 RUN TIME: 819 [facility] [employer] [place], [place] [address] Specimen Inquiry Name: JENNIFER ALEMAN : [address]: Angela Cartagena MD Acct: [id number] Unit: [id number] AGE: 74 Location: [facility] Re03/24/14 SEX: F Status: DEP ER SPEC: [id number] PHIL: 03/24/14-1001 [facility] DR: Angela Cartagena MD REQ: [id number] RECD: 03/24/14140 STATUS: JOHNSON PADILLA DR: Parag Moody III, MD _ SOURCE: THROAT SPDESC: ORDERED: Throat Beta Str Procedure Result Verified Site Throat Beta Strep Culture Final 03/26/14- 0820 ML Negative For Group A Beta Streptococcus END OF REPORT * ML=Testing performed at Main Lab DEPARTMENT OF PATHOLOGY, [facility] [employer] [place], [place] [address] Chino Hwang M.D. Director [facility] # [id number] 32 RUN DATE: 03/26/14 [facility] LAB LIVE PAGE 1 RUN TIME: 931 [facility] [employer] [place], [place] [address] Specimen Inquiry Name: JENNIFER ALEMAN : [address]: Angela Cartagena MD Acct: [id number] Unit: [id number] AGE: 74 Location: [facility] Re03/24/14 SEX: F Status: DEP ER SPEC: [id number] PHIL: 03/24/14-1211 [facility] DR: Angela Cartagena MD REQ: [id number] RECD: 03/24/14-150 STATUS: JOHNSON PADILLA DR: Parag Moody III, MD _ SOURCE: URINE SPDESC: ORDERED: Urine Culture Procedure Result Verified Site Urine Culture Final 03/26/14- 930 ML Organism 1 STAPHYLOCOCCUS EPIDERMIDIS Storden Count 50-75,000 (Many) CFU/ML 1. STAPHYLOCOCCUS EPIDERMIDIS M.I.C. RX --------- ------ Penicillin >=0.5 R Gentamicin <=0.5 S Linezolid 1 S Nitrofurantoin <=16 S Oxacillin >=4 R * Quinupristin/Dalfopristin <=0.25 S Rifampin <=0.5 S Tetracycline 4 S Doxycycline - Deduced S * Minocycline - Deduced S Tigecycline 0.5 S Vancomycin 2 S Imipenem-Deduced R * Ampicillin/Sulbactam-Deduced R Cefazolin-Deduced R * These antibiotics are not available in the [facility] Formulary Contact the Microbiology Department for any additional antibiotic reporting. END OF REPORT * ML=Testing performed at Main Lab DEPARTMENT OF PATHOLOGY, [address] [place] [address] Chino Hwang M.D. Director [facility] # [id number] 33 Interpretation: 51-80 ng/mL (increased risk of hypercalciuria) -- REFERENCE VALUE -- 25-HYDROXY D TOTAL (D2+D3) Optimum levels in the healthy population are 20-50, patients with bone disease may benefit from higher levels within this range. Test Performed by: [facility] [address] [address] Payment Analyst: Hal Duque III, M.D. 34 A metabolite of Naproxen, O-desmethylnaproxen, has been shown to interfere with the Jendrassik-Mulino method for measuring total bilirubin. Samples from patients who have taken Naproxen have shown spurious elevation in total bilirubin levels. 35 Because ethnic data is not always readily available, this report includes an eGFR for both -Americans and non- Americans. The National Kidney Disease Education Program (NKDEP) does not endorse the use of the MDRD equation for patients that are not between the ages of 18 and 70, are , have extremes of body size, muscle mass, or nutritional status, or are non- or non-. According to the National Kidney Foundation, irrespective of diagnosis, the stage of the disease is based on the level of kidney function: Stage Description GFR(mL/min/1.73 m(2)) 1 Kidney damage with normal or decreased GFR 90 2 Kidney damage with mild decrease in GFR 60-89 3 Moderate decrease in GFR 30-59 4 Severe decrease in GFR 15-29 5 Kidney failure <15 (or dialysis) 36 SPECIMEN CONTAINS NORMAL URETHRAL OR PERINEAL SANTHOSH AND DOES NOT SUGGEST URINARY TRACT INFECTION 37 SCANT NORMAL URETHRAL OR PERINEAL SANTHOSH Procedures Date CPT Code Description Status Comment 12/04/2017 Mammogram Completed 09/30/2016 Mammogram Completed 09/28/2015 Mammogram Completed 02/12/2015 43194 EEG Recording Awake & Drowsy Completed 09/18/2014 Mammogram Completed 09/15/2013 Bone Mineral Density Test Completed 09/15/2013 Mammogram Completed 03/03/2011 Mammogram Completed 01/24/2011 Diabetic Retinal Eye Exam Completed Document: 01/24/11 - Consult Ophthalmology/[place] 10/14/2010 Bone Mineral Density Test Completed 01/07/2010 Mammogram Completed 12/14/2009 82869 Admin Of Inj Completed 11/28/2008 Mammogram Completed 09/09/2006 Colonoscopy Completed 07/21/2006 Bone Mineral Density Test Completed Encounters Type Date Location Provider CPT E/M Dx Office Visit 10/07/2017 [facility] Wilson Moody, [address] Z02.89 3:00p - Roger Lopez Office Visit 09/14/2017 [facility] Emigdiogarret Baldomero, 60590 R41.1 9:15a [facility] M.D. R26.89 R53.82 Office Visit 08/10/2017 11:15a [facility] Juwan Alexandre, [address]33[address] R41.1 [facility] Of [facility]er M.D. R26.89 R53.82 G93.9 Office Visit 08/04/2017 1:00p [facility] Wilson Moody, [address] K59.00 - Roger Lopez F03.90 Office Visit 02/26/2017 11:15a [facility] Veronika Hill, 48867 F03.90 Services Of Body Designer M.D. Office Visit 10/03/2016 2:00p [place], 14649 F03.90 Neurologic Serv Of M.D. Body Designer Office Visit 08/27/2016 11:40a [facility] Wilson Moody, 31798 R50.9 - Roger Lopez Office Visit 01/31/2016 9:45a [facility] Veronika Hill, 48088 R41.3 Services Of [facility]er M.D. Office Visit 12/24/2015 10:20a [facility] [place] [address] J02.9 - Beba Office Visit 07/31/2015 12:00p [facility] Veronika Hill, 26102 R41.3 Services Of [facility]er M.D. Office Visit 07/19/2015 3:45p [facility] Veronika Hill, 78994 I68.0 Services Of [facility]er M.D. F03.90 Office Visit 02/27/2015 2:40p [facility] Wilson Moody, 648[address] R50.9 - Beba Lopez R31.2 Office Visit 02/13/2015 10:15a [facility] Johann Franklin, 63832 R31.2 Infectious Diseases M.D. F03.90 Z86.73 Z87.440 Office Visit 02/13/2015 9:48a [facility], Marilyn Carpenter, 92902 R40.4 Hospitalists M.D. E86.0 R50.9 Office Visit 02/12/2015 9:40a [facility], Marilyn Carpenter, 11487 R40.4 Hospitalists M.D. E86.0 R50.9 Office Visit 02/12/2015 8:41a [facility] Basilio Franklin, 94850 R50.9 Infectious Diseases M.D. I68.0 R91.8 R41.82 E85.4 Z86.73 Office Visit 02/11/2015 9:39a [facility], Marilyn Carpenter, 13386 R40.4 Hospitalists M.D. E86.0 R50.9 Office Visit 02/10/2015 9:38a [facility], Raad Garcia M.D. 77530 R40.4 Hospitalists E86.0 Office Visit 02/09/2015 1:00p [facility] - Zain Westbrook, YEYO [address] J06.9 [place] Office Visit 02/06/2015 10:40a [facility] - Zain Westbrook, YEY[place] [address] N39.0 [place] R82.99 Office Visit 01/30/2015 11:30a [facility] [place] [address] R35.0 [place] N39.0 J06.9 Office Visit 10/23/2014 10:20a [facility] Wilson Moody, [address]702 599.70 - Beba Lopez 780.97 Office Visit 10/17/2014 9:30a [facility] Veronika Hill, [address] [address] John 780.93 780.97 437.8 Office Visit 10/13/2014 10:40a [facility] Wilson Moody, [address] 780.97 - Beba Lopez 599.0 599.70 Office Visit 10/10/2014 3:40p [facility] Wilson Moody, 39195 599.0 - Beba Lopez 780.97 380.4 Office Visit 08/18/2013 3:40p [facility] Wilson Moody, [address] V72.84 - Beba Lopez 369.9 272.0 733.90 V76.10 V03.82 V06.1 Office Visit 03/24/2012 3:00p [facility] Wilson Moody, [address] 465.9 - Beba Lopez Office Visit 12/24/2011 10:00a [facility] Wilson Moody, 37451 437.7 - Beba Medina.Margret Office Visit 12/16/2011 4:00p [facility] Wilson Moody, 11681 437.7 - Beba Medina.Margret Office Visit 01/24/2011 11:00a DO Not Use [facility] AT [place] Yoana Moody, [address]398 V72.81 Kelsie Lopez 366.9 272.0 Office Visit 07/31/2010 11:20a DO Not Use [facility] [place] Yo[place] Moody, [address] 465.9 [place] Medina.Margret Office Visit 12/04/2009 11:40a DO Not Use Body Designer AT [facility] Yoana Heidy, 17937 466.0 [place] Medina.Margret Office Visit 09/24/2009 11:20a [facility] [address] 562.11 Kelsie GIRON Office Visit 09/19/2009 2:20p [facility] [address] 562.11 Kelsie GIRON Office Visit 07/24/2009 4:00p DO Not Use Body Designer AT [facility] Yoana Moody, 73321 466.0 [facility] Adam.Margret Office Visit 03/21/2008 3:00p [facility], [address] [facility].Margret Office Visit 07/26/2007 10:15a [facility] AT [facility], [address] [facility].Margret Plan of Care Future Appointment(s):02/05/2018 2:00 pm - Juwan Alexandre M.D. at [facility]12/15/2017 - Juwan Alexandre M.D.F03.90 Unspecified dementia without behavioral disturbanceFollow up:Follow up in 6 weeks. MICHELLE for records for Dr. No visit in [facility] sqlmkkheY55.89 Other abnormalities of gait and ybbziqvkV85.0 Cerebral amyloid angiopathy
--- NOTE | 2017-12-15 12:33 | RAD ---
HISTORY: weakness COMPARISONS: February 10, 2015 VIEWS: 1: frontal AP view of the chest at 12:00 PM FINDINGS: LINES AND TUBES: None. CARDIOMEDIASTINAL SILHOUETTE: The cardiomediastinal silhouette is normal for portable technique. PLEURA: The costophrenic angles are sharp. No pleural abnormalities are noted. LUNG PARENCHYMA: The lungs are clear. ABDOMEN: The upper abdomen is clear. There is no subphrenic gas. BONES AND SOFT TISSUES: No bone or soft tissue abnormalities are noted. IMPRESSION: NO ACTIVE CARDIOPULMONARY DISEASE.
[2017-12-15 13:09] LABS: Hematocrit 38 % (35-47); Hemoglobin 12.7 g/dl (12.0-16.0); Mean Corpuscular HGB Conc 33 g/dl (31-36); Mean Corpuscular Hemoglobin 31 pg (27-31); Mean Corpuscular Volume 94 fL (80-97); Mean Platelet Volume 7.6 um3 (7.4-10.4); Platelet Count 246 10^3/ul (150-450); Red Blood Count 4.06 10^6/ul (4.00-5.40); Red Cell Distribution Width 13 % (10.5-15)
[2017-12-15 13:22] LABS: INR 0.9 (0.77-1.02)
[2017-12-15 13:26] LABS: EGFR Non-African American 34.9 (>60)
--- NOTE | 2017-12-15 13:26 | RAD ---
HISTORY: WEAKNESS COMPARISONS: February 10, 2015 TECHNIQUE: Multiple contiguous axial CT scans were obtained of the head without intravenous contrast. FINDINGS: HEMORRHAGE/INFARCT: There is no hemorrhage or acute infarct. MASSES/SHIFT: There is no mass or shift. EXTRA-AXIAL SPACES: There are no extra-axial fluid collections. SULCI AND VENTRICLES: There is diffuse enlargement of the sulci and ventricles, with disproportionate ventriculomegaly compared to the sulcal size.. CEREBRUM: Again noted is a chronic right parietal infarct. BRAINSTEM: There are no focal parenchymal abnormalities. CEREBELLUM: There are no focal parenchymal abnormalities. VESSELS: The vessels are grossly normal. PARANASAL SINUSES: The paranasal sinuses are clear. ORBITS: The orbits are unremarkable. BONES AND SOFT TISSUE: No bone or soft tissue abnormalities are noted. OTHER: None IMPRESSION: 1. 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 2. CHRONIC RIGHT PARIETAL INFARCT
--- NOTE | 2017-12-15 13:27 | RAD ---
Indication: Weakness. CT of the abdomen and pelvis was performed without oral or IV contrast administration. Coronal and sagittal reconstructed images were obtained. Lung bases demonstrate no pleural fluid, nodules or masses. Heart is of normal size without evidence of pericardial effusion. Liver is normal in size. No focal lesions or intrahepatic ductal dilatation is noted. The pancreas images no mass or ductal dilatation. Common duct is not dilated. Gallbladder demonstrates no calcified gallstones, pericholecystic fluid or wall thickening. The spleen is normal in size. No adrenal lesions are noted. The kidneys demonstrate no hydronephrosis. Cortical cyst is noted in the right kidney measuring up to 2.2 cm. Atherosclerotic aorta is noted. No dilated loops of bowel are noted. The stomach is partially collapsed. CT of the pelvis demonstrates diverticulosis without definite evidence of diverticulitis. The patient appears to be status post hysterectomy. Diverticulosis is noted without definite evidence of diverticulitis. Urinary bladder is otherwise unremarkable. The bony structures are otherwise unremarkable. IMPRESSION: Patient is status post hysterectomy. Right renal cyst is noted. No other masses or fluid collections are noted.
[2017-12-15 13:33] LABS: ABS Basophils 0 10^3/ul (0-0.2); ABS Eosinophils 0.1 10^3/ul (0-0.6); ABS Lymphocytes 1.8 10^3/ul (1.0-4.8); ABS Monocytes 0.6 10^3/ul (0-0.8); ABS Neutrophils 4.6 10^3/ul (1.5-7.7)
[2017-12-15 13:35] LABS: ABS Basophils 0.1 10^3/ul (0-0.2); ABS Neutrophils 4.3 10^3/ul (1.5-7.7); Monocytes % 5 % (0-7)
--- NOTE | 2017-12-15 14:45 | ED ---
Complex/Multi-Sys Presentation - HPI Summary HPI Summary: Patient is a 77 y/o F w/ c/o body aches, fatigue, inability to ADLs, incontinence and increased frequency of urination. Twelve days ago, patient's urine culture was positive for E.coli. Patient was placed on antibiotics. She came to ED four days ago after experiencing a rising fever. At the time, she was noted to be negative for urine culture. However, her Sx have persisted. She was seen by Dr. Alexandre today, who was concerned about patient's decline and recommended that patient go to ED for evaluation. In the room, patient's family members note that patient was capable of walking through [facility] by herself and she is now having difficulty getting in/out of bed. Decreased appetite is also reported. She denies recent falls, cough, diarrhea, vomiting, tick bites. Hematuria is noted as well, but this has been a problem for years. On triage, associated severity is rated 5/10, nothing is noted to aggravate/alleviate Sx. Home medications and allergies are reviewed. - History Of Current Complaint Chief Complaint: EDGeneral Time Seen by Provider: 12/15/17 11:18 Hx Obtained From: Patient Onset/Duration: Still Present Timing: Constant Severity Currently: Moderate - 5/10 Aggravating Factor(s): nothing Alleviating Factor(s): nothing Associated Signs And Symptoms: Positive: Other - POSITIVE: body aches, fatigue, inability to ADLs, incontinence and increased frequency of urination, Decreased appetite NEGATIVE: recent tick bites. Negative: Cough, Vomiting, Diarrhea, Recent Trauma - Allergies/Home Medications Allergies/Adverse Reactions: Allergies Allergy/AdvReac Type Severity Reaction Status Date / Time Sulfa (Sulfonamide Allergy Unknown Verified 12/15/17 11:31 Antibiotics) Reaction Details PMH/Surg Hx/FS Hx/Imm Hx Endocrine/Hematology History: Denies: Hx Diabetes, Hx Thyroid Disease Cardiovascular History: Reports: Hx Hypercholesterolemia, Hx Hypertension Denies: Hx Pacemaker/ICD Respiratory History: Reports: Hx Chronic Obstructive Pulmonary Disease (COPD) - Alpha 1 antitrypsin Denies: Hx Asthma GI History: Denies: Hx Ulcer Musculoskeletal History: Denies: Hx Osteoporosis Sensory History: Reports: Hx Deafness - left Denies: Hx Hearing Aid Psychiatric History: Denies: Hx Panic Disorder - Cancer History Cancer Type, Location and Year: melanoma Hx Chemotherapy: No Hx Radiation Therapy: No - Surgical History Surgery Procedure, Year, and Place: hyster/bladder lift 2006, tonsillectomy, CATARACT REPAIR WITH LENS REPLACEMENTS Infectious Disease History: No Infectious Disease History: Denies: Hx Hepatitis, Hx Human Immunodeficiency Virus (HIV), History Other Infectious Disease, Traveled Outside the [place] in Last 30 Days - Family History Known Family History: Positive: Hypertension Negative: Cardiac Disease, Diabetes - Social History Alcohol Use: Rare Hx Substance Use: No Substance Use Type: Reports: None Hx Tobacco Use: No Smoking Status (MU): Never Smoked Tobacco Review of Systems Positive: Fatigue, Other - POSITIVE: body aches NEGATIVE: recent tick bites or trauma . Negative: Fever, Chills Negative: Erythema Negative: Sore Throat Negative: Chest Pain Negative: Shortness Of Breath, Cough Positive: Other - decreased appetite . Negative: Abdominal Pain, Vomiting, Nausea Positive: frequency - increased frequency of urination , hematuria, incontinence. Negative: dysuria Negative: Myalgia, Edema Negative: Rash Neurological: Other - NEGATIVE: dizziness All Other Systems Reviewed And Are Negative: Yes Physical Exam - Summary Physical Exam Summary: Constitutional: Well-developed, Well-nourished, Alert. (-) Distressed Skin: Warm, Dry HENT: Normocephalic; Atraumatic Eyes: Conjunctiva normal Neck: Musculoskeletal ROM normal neck. (-) JVD, (-) Stridor, (-) Tracheal deviation Cardio: Rhythm regular, rate normal, Heart sounds normal; Intact distal pulses; The pedal pulses are 2+ and symmetric. Radial pulses are 2+ and symmetric. (-) Murmur Pulmonary/Chest wall: Effort normal. (-) Respiratory distress, (-) Wheezes, (-) Rales Abd: Soft, (-) epigastric tenderness, (+) suprapubic tenderness (-) Distension, (-) Guarding, (-) Rebound Musculoskeletal: (-) Edema Lymph: (-) Cervical adenopathy Neuro: Alert, Oriented x3 Psych: Mood and affect Normal Triage Information Reviewed: Yes Vital Signs On Initial Exam: Initial Vitals Temp Pulse Resp BP Pulse Ox 98.5 F 67 18 137/60 96 12/15/17 11:25 12/15/17 11:25 12/15/17 11:25 12/15/17 11:25 12/15/17 11:25 Vital Signs Reviewed: Yes Diagnostics - Vital Signs Vital Signs Temp Pulse Resp BP Pulse Ox 12/15/17 14:05 162/61 12/15/17 11:44 177/57 12/15/17 11:25 98.5 F 67 18 137/60 96 - Laboratory Lab Results: Lab Results 12/15/17 12/15/17 12/15/17 Range/Units 11:43 12:58 12:58 WBC 7.0 (3.5-10.8) 10^3/ul RBC 4.06 (4.00-5.40) 10^6/ul Hgb 12.7 (12.0-16.0) g/dl Hct 38 (35-47) % MCV 94 (80-97) fL MCH 31 (27-31) pg MCHC 33 (31-36) g/dl RDW 13 (10.5-15) % Plt Count 246 (150-450) 10^3/ul MPV 7.6 (7.4-10.4) um3 Neut % (Auto) Not Reportable Lymph % (Auto) Not Reportable [place] % (Auto) Not Reportable Eos % (Auto) Not Reportable Baso % (Auto) Not Reportable Absolute Neuts (auto) 4.6 (1.5-7.7) 10^3/ul Absolute Lymphs (auto) 1.8 (1.0-4.8) 10^3/ul Absolute Monos (auto) 0.6 (0-0.8) 10^3/ul Absolute Eos (auto) 0.1 (0-0.6) 10^3/ul Absolute Basos (auto) 0 (0-0.2) 10^3/ul Absolute Nucleated RBC Not Reportable Immature Gran % 2 (0-9) % Neutrophils % 62 (38-83) % Band Neutrophils % 2 (0-8) % Lymphocytes % 29 (25-47) % Monocytes % 5 (0-7) % Eosinophils % 1 (0-6) % Basophils % 1 (0-2) % Nucleated RBC % Not Reportable Abs Neuts (Manual) 4.3 (1.5-7.7) 10^3/ul Abs Lymphs (Manual) 2.0 (1.0-4.8) 10^3/ul Abs Monocytes (Manual) 0.4 (0-0.8) 10^3/ul Absolute Eos (Manual) 0.1 (0-0.6) 10^3/ul Abs Basophils (Manual) 0.1 (0-0.2) 10^3/ul Normal RBC Morphology Normal (Normal) Hem Pathologist Commnt Pending INR (Anticoag Therapy) 0.90 (0.77-1.02) APTT 29.1 (26.0-36.3) seconds Sodium (135-145) mmol/L Potassium (3.5-5.0) mmol/L Chloride (101-111) mmol/L Carbon Dioxide (22-32) mmol/L Anion Gap (2-11) mmol/L BUN (6-24) mg/dL Creatinine (0.51-0.95) mg/dL Est GFR ( Amer) (>60) Est GFR (Non-Af Amer) (>60) BUN/Creatinine Ratio (8-20) Glucose (70-100) mg/dL Lactic Acid (0.5-2.0) mmol/L Calcium (8.6-10.3) mg/dL Total Bilirubin (0.2-1.0) mg/dL AST (13-39) U/L ALT (7-52) U/L Alkaline Phosphatase (34-104) U/L Troponin I (<0.04) ng/mL Total Protein (6.4-8.9) g/dL Albumin (3.2-5.2) g/dL Globulin (2-4) g/dL Albumin/Globulin Ratio (1-3) Urine Color Yellow Urine Appearance Cloudy Urine pH 5.0 (5-9) Ur Specific [place] 1.015 (1.010-1.030) Urine Protein 1+(30 mg/dl) A (Negative) Urine Ketones Negative (Negative) Urine Blood 2+ A (Negative) Urine Nitrate Negative (Negative) Urine Bilirubin Negative (Negative) Urine Urobilinogen Negative (Negative) Ur Leukocyte Esterase Trace A (Negative) Urine WBC (Auto) Trace(0-5/hpf) (Absent) Urine RBC (Auto) 2+(6-10/hpf) A (Absent) Ur Squamous Epith Cells Present A (Absent) Urine Bacteria Absent (Absent) Urine Glucose Negative (Negative) 12/15/17 12/15/17 Range/Units 12:58 12:58 WBC (3.5-10.8) 10^3/ul RBC (4.00-5.40) 10^6/ul Hgb (12.0-16.0) g/dl Hct (35-47) % MCV (80-97) fL MCH (27-31) pg MCHC (31-36) g/dl RDW (10.5-15) % Plt Count (150-450) 10^3/ul MPV (7.4-10.4) um3 Neut % (Auto) Lymph % (Auto) [place] % (Auto) Eos % (Auto) Baso % (Auto) Absolute Neuts (auto) (1.5-7.7) 10^3/ul Absolute Lymphs (auto) (1.0-4.8) 10^3/ul Absolute Monos (auto) (0-0.8) 10^3/ul Absolute Eos (auto) (0-0.6) 10^3/ul Absolute Basos (auto) (0-0.2) 10^3/ul Absolute Nucleated RBC Immature Gran % (0-9) % Neutrophils % (38-83) % Band Neutrophils % (0-8) % Lymphocytes % (25-47) % Monocytes % (0-7) % Eosinophils % (0-6) % Basophils % (0-2) % Nucleated RBC % Abs Neuts (Manual) (1.5-7.7) 10^3/ul Abs Lymphs (Manual) (1.0-4.8) 10^3/ul Abs Monocytes (Manual) (0-0.8) 10^3/ul Absolute Eos (Manual) (0-0.6) 10^3/ul Abs Basophils (Manual) (0-0.2) 10^3/ul Normal RBC Morphology (Normal) Hem Pathologist Commnt INR (Anticoag Therapy) (0.77-1.02) APTT (26.0-36.3) seconds Sodium 140 (135-145) mmol/L Potassium 4.1 (3.5-5.0) mmol/L Chloride 103 (101-111) mmol/L Carbon Dioxide 28 (22-32) mmol/L Anion Gap 9 (2-11) mmol/L BUN 20 (6-24) mg/dL Creatinine 1.45 H (0.51-0.95) mg/dL Est GFR ( Amer) 42.3 (>60) Est GFR (Non-Af Amer) 34.9 (>60) BUN/Creatinine Ratio 13.8 (8-20) Glucose 111 H (70-100) mg/dL Lactic Acid 0.8 (0.5-2.0) mmol/L Calcium 9.5 (8.6-10.3) mg/dL Total Bilirubin 0.50 (0.2-1.0) mg/dL AST 48 H (13-39) U/L ALT 23 (7-52) U/L Alkaline Phosphatase 63 (34-104) U/L Troponin I 0.01 (<0.04) ng/mL Total Protein 6.7 (6.4-8.9) g/dL Albumin 4.1 (3.2-5.2) g/dL Globulin 2.6 (2-4) g/dL Albumin/Globulin Ratio 1.6 (1-3) Urine Color Urine Appearance Urine pH (5-9) Ur Specific [place] (1.010-1.030) Urine Protein (Negative) Urine Ketones (Negative) Urine Blood (Negative) Urine Nitrate (Negative) Urine Bilirubin (Negative) Urine Urobilinogen (Negative) Ur Leukocyte Esterase (Negative) Urine WBC (Auto) (Absent) Urine RBC (Auto) (Absent) Ur Squamous Epith Cells (Absent) Urine Bacteria (Absent) Urine Glucose (Negative) Result Diagrams: 12/15/17 12:58 12/15/17 12:58 Lab Statement: Any lab studies that have been ordered have been reviewed, and results considered in the medical decision making process. - Radiology CXR Radiology Interpretation Completed By: Radiologist Summary of Radiographic Findings: NO ACTIVE CARDIOPULMONARY DISEASE. THIS REPORT WAS REVIEWED BY ED PHYSICIAN. - CT BRAIN CT CT Interpretation Completed By: Radiologist Summary of CT Findings: 1. 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 2. CHRONIC RIGHT PARIETAL INFARCT THIS REPORT WAS REVIEWED BY ED PHYSICIAN. ABD/PEL CT CT Interpretation Completed By: Radiologist Summary of CT Findings: Patient is status post hysterectomy. Right renal cyst is noted. No other masses or fluid collections are noted. Re-Evaluation - Re-Evaluation First Eval Re-Evaluation Time: 15:08 Comment: Admission was discussed with patient, patient is agreeable with admission. Complex Multi-Symp Course/Dx Course Of Treatment: Patient is a 77 y/o F w/ c/o body aches, fatigue, inability to ADLs, incontinence and increased frequency of urination. Twelve days ago, patient's urine culture was positive for E.coli. Patient was placed on antibiotics. She came to ED four days ago after experiencing a rising fever. At the time, she was noted to be negative for urine culture. However, her Sx have persisted. She was seen by PCP Dr. Alexandre today, who was concerned about patient's decline and recommended that patient go to ED for evaluation. In the room, patient's family members note that patient was capable of walking through [facility] by herself and she is now having difficulty getting in/out of bed. Decreased appetite is also reported. She denies recent falls, cough, diarrhea, vomiting, tick bites. Hematuria is noted as well, but this has been a problem for years. Physical exam showed suprapubic tenderness. UA showed 1+ protein, 2+ blood, trace leukocyte esterase, 2+ RBC, squamous epith cells present, no bacteria, no glucose. Labs showed trop 0.01, AST 48, lactic acid 0.8, glucose 111, creatinine 1.45, WBC 7.0. CT abd/pel showed Patient is status post hysterectomy. Right renal cyst is noted. No other masses or fluid collections are noted. BRAIN CT IMPRESSION: 1. 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 PRESENCE OF AN ADULT ONSET COMMUNICATING HYDROCEPHALUS INCLUDING NORMAL PRESSURE. HYDROCEPHALUS. 2. CHRONIC RIGHT PARIETAL INFARCT. CXR SHOWED NO ACTIVE CARDIOPULMONARY DISEASE. 1434 - Patient's case and results of CT were discussed with Dr. Alexandre. He refers to Dr. Allen's opinion, who is solutions architect. 1507 - Dr. Allen suggests admission for further treatment, Dr. Ugarte was consulted on patient's case, Dr. Ugarte accepts for admission. Dx of normal pressure hydrocephalus - Diagnoses Provider Diagnoses: Normal pressure hydrocephalus - Physician Notifications Discussed Care Of Patient With: Korey Alexandre Time Discussed With Above Provider: 14:34 Instructed by Provider To: Other - 1434 - Patient's case and results of CT were discussed with Dr. Alexandre. He refers to Dr. Allen's opinion, who is solutions architect. 1507 - Dr. Allen suggests admission for further treatment, Dr. Ugarte was consulted on patient's case, Dr. Ugarte accepts for admission. Discharge - Sign-Out/Discharge Documenting (check all that apply): Patient Departure - admit All imaging exams completed and their final reports reviewed: Yes - Discharge Plan Condition: Good Disposition: ADMITTED TO [facility] - Attestation Statements Document Initiated by Scribe: Yes Documenting Scribe: Chi Gilmore Provider For Whom Scribe is Documenting (Include Credential): Santana Hummel MD Scribe Attestation: IChi , scribed for Santana Hummel MD on 12/15/17 at 1921.
[2017-12-15] MEDS ORDERED: Magnesium Hydroxide LIQ* 30 ML UDC PO PRN (16:03)
[2017-12-15] MEDS ORDERED: Acetaminophen TAB* 325 MG PO PRN (16:03)
[2017-12-15] MEDS: Amoxicillin/Clavulanate TAB* 875 MG PO SCH (20:12)
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
[2017-12-15] MEDS ORDERED: Heparin VIAL(*) 5000 UNITS/ML VIAL (FIVE THOUSAND) SUBCUT SCH (22:00)
--- NOTE | 2017-12-15 22:32 | HP ---
AMENDED REPORT NOW INCLUDES DESIGNATED COSIGNER CC: Dr. Moody; Dr. Tariq Allen; Dr. Alexandre * ADMISSION HISTORY AND PHYSICAL: DATE OF ADMISSION: 12/15/17 ATTENDING PHYSICIAN: Dr. Lula Guerrero.* (DICTATED BY TASHI YOO, YEYO) PRIMARY CARE PROVIDER: Dr. Wilson Moody. NEUROLOGIST: Dr. Tariq Allen. CHIEF COMPLAINT: Gait instability and recent urinary tract infection. HISTORY OF PRESENT ILLNESS: This is a very pleasant 77-year-old female patient , who has reported history of recurrent UTIs for some time now. The patient does take Myrbetriq and follows with Urology. Her last round of medication, she was placed on Augmentin based on her most recent culture, which showed ESBL with sensitivity to Augmentin. She had started taking this prescription and was feeling better and then had some decompensation over the last 48 hours. The patient's family states that she is normally ambulatory. She does have some neurologic history that is significant. It had been discussed with the patient and her family that there is a potential for Lewy body dementia and Parkinson's disease. She does see a specialist [facility] [place] and does follow with Dr. Chaz Alexandre from local Neurology. The patient then was brought to the ED after a very difficult night at home. The patient's spouse states that she was urinating every 2 hours. She was still very symptomatic from her UTI. She became very dizzy and was having some alterations in mental status and was not sleeping well secondary to all of these symptoms. In the emergency department, a CAT scan of the head does reveal that she has a normal pressure hydrocephalus, which initially was thought to be new; however, on further examination, it appears that an MRI over the summer revealed large ventricles as well. For these reasons, we were asked to evaluate the patient for admission. PAST MEDICAL HISTORY: Significant for hypertension; she was being treated for Alzheimer's disease but as stated earlier, it is appears to be more like a Lewy body dementia; hyperlipidemia; chronic recurrent UTIs; urinary retention. PAST SURGICAL HISTORY: Significant for hysterectomy with bladder lift in 2006, tonsillectomy, cataract excision with lens implantation. FAMILY HISTORY: Parents with hypertension only and are . SOCIAL HISTORY: No significant social history. She does not smoke. Does not use alcohol. Denies any illicit drug use. She lives with her . She does have a daughter, who is at the bedside. is her healthcare proxy. Code status: She is a full code. REVIEW OF SYSTEMS: The patient states that she does have some generalized body aches, significant amount of fatigue, gait instability, inability to perform ADLs, frequent incontinence, and frequency of urination. Denies any shortness of breath. No chest pain, no abdominal pain, no nausea, no vomiting, no fevers or chills, and no further constitutional complaints. PHYSICAL EXAMINATION GENERAL: The patient is alert, oriented x3. Well appearing. VITAL SIGNS: Currently, blood pressure 162/61, heart rate 67, respiratory rate 18, O2 saturation 96% on room air with a temperature of 98.5. HEENT: The patient is atraumatic, normocephalic. PERRLA with nonicteric sclerae. Extraocular movements are intact. Oral mucosa is moist. Tongue is midline. NECK: Supple, nontender, no carotid bruits auscultated. No JVD noted. LUNGS: Clear bilaterally to auscultation with no wheezing, rhonchi, or rales. CARDIOVASCULAR: S1 and S2 are present. No murmurs, gallops, or rubs noted. Rate and rhythm are regular. ABDOMEN: Soft, nontender, and nondistended. Positive bowel sounds in all 4 quadrants. : Deferred. MUSCULOSKELETAL: There is no clubbing, no cyanosis, no edema. She has +2 distal pulses palpable. Gross motor and sensation are intact. She does have focal weakness and some unsteady gait with a 2-person assist upon entering the emergency department. NEUROLOGIC: She is alert and oriented x3. Cranial nerves are grossly intact. She does have gross motor and sensation intact. She has tremor at rest, which is her baseline. PSYCHIATRIC: She is cooperative and appropriate. DIAGNOSTIC STUDIES/LAB DATA: WBC is 7.0, RBC is 4.06, hemoglobin 12.7, hematocrit 38, and platelets 246. Sodium 140, potassium 4.1, chloride 103, CO2 28, BUN 20, creatinine 1.45, GFR is 34.9, glucose 111, lactic acid 0.8, calcium 9.5. Total bilirubin 0.50, AST 48, ALT 23, alk phos 63. Troponin 0.01. Total protein 6.7, albumin of 4.1, globulin 2.6. Urinalysis shows yellow cloudy urine , pH is 5.0, urine specific gravity of 1.015, +1 protein, negative for ketones, 2+ blood, negative for nitrites and bilirubin, trace leukocyte esterase, trace wbc's, 2+ rbc's, and squamous epithelial cells are present, absent bacteria, negative for glucose. CAT scan of the brain, dated 12/15/17, shows ventriculomegaly disproportionate to the focal volume loss, which may indicate the presence of an adult-onset communicating hydrocephalus including normal pressure hydrocephalus, chronic right parietal infarct; actually discussed the parietal infarct with Dr. Allen , he is not convinced that it is a chronic right infarct on the imaging as he interprets it. Please refer to his dictation on impression of the CAT scan on this area of the head. IMPRESSION: This is a 77-year-old female patient with a complicated history of urinary tract infections and some neurologic complications that she is normally followed by Dr. Alexandre and Dr. Gloria that presents with unsteady gait and normal pressure hydrocephalus being admitted for same. DIAGNOSES: 1. Unsteady gait. At this point, the patient has been seen by Neurology. The CAT scan is noted as above. It does appear that she has had ventriculomegaly for some time, although the family was not aware of a diagnosis of normal pressure hydrocephalus. Dr. Allen also feels that the patient does have some component of Lewy body dementia, and perhaps some parkinsonism; however, given her chronic urinary tract infections and likely retention to put her on an anticholinergic at this time probably would be counterproductive. For symptom relief, we will have the patient evaluated by Physical Therapy, but I have also reached out to Anesthesia; they will be doing a lumbar puncture tomorrow and to see if we can alleviate some of the pressure in her ventricles and see if her gait responds favorably to reduced pressure. We will also send cerebrospinal fluid studies for some advanced dementia screening including beta amyloid and also testing for tau. We have discussed this with the laboratory; these will be send-out studies. I have called the Anesthesia; they will do the lumbar puncture tomorrow after she has been seen by Physical Therapy and then we will have Physical Therapy reevaluate post procedure. For now, we will hold her heparin and place her on SCDs in anticipation of this test. 2. For her history of hypertension, we will keep her on her 5 mg of amlodipine daily. Her blood pressure is currently stable. 3. For her current urinary tract infection, her last susceptibility showed Augmentin with good coverage. She has 3 more doses of this medication from her outpatient prescription; this will be continued beginning this evening. 4. For her history of hyperlipidemia, we will keep her on atorvastatin 20 mg daily. 5. For her previous diagnosis of dementia, she is responding well to donepezil as an outpatient; this will be continued. 6. For her urinary retention, the patient has been on Myrbetriq, this is 50 mg daily and will also be continued. Again Physical and Occupational Therapy consults. 7. For diet, she can have a regular unrestricted diet. 8. DVT prophylaxis with SCDs only. 9. She is a full code. The rest of the patient's course will be determined by further diagnostics, laboratories, and any other input from other providers as warranted during this admission. We will continue to monitor the patient's status closely. The patient's family is interested in some sort of rehabilitation given the profound weakness the patient has been experiencing. I have also placed a consult for Social Work to work closely with the family on the safest discharge plan. This plan of care has been discussed with Dr. Lula Guerrero, the attending on this case, and she is in agreement with the plan. Time Spent: 60 minutes TASHI YOO NP [id number]/[facility] #: [id number] APRIL
[2017-12-16 05:22] LABS: ABS Basophils 0 10^3/ul (0-0.2); ABS Eosinophils 0.1 10^3/ul (0-0.6); ABS Lymphocytes 2.1 10^3/ul (1.0-4.8); ABS Monocytes 0.6 10^3/ul (0-0.8); ABS Neutrophils 5.2 10^3/ul (1.5-7.7); ABS Nucleated RBC 0 10^3/ul; Eosinophil % 0.9 % (0-6); Hematocrit 37 % (35-47); Hemoglobin 12.7 g/dl (12.0-16.0); Lymphocyte % 26.2 % (25-47); Mean Corpuscular HGB Conc 34 g/dl (31-36); Mean Corpuscular Hemoglobin 32 pg (27-31); Mean Corpuscular Volume 93 fL (80-97); Mean Platelet Volume 7.6 um3 (7.4-10.4); Nucleated Red Blood Cells % 0; Platelet Count 241 10^3/ul (150-450); Red Cell Distribution Width 13 % (10.5-15); White Blood Count 7.9 10^3/ul (3.5-10.8)
[2017-12-16 05:41] LABS: EGFR Non-African American 35.2 (>60)
[2017-12-16] MEDS ORDERED: Mirabegron (NF) 25 MG TAB PO SCH (09:00)
[2017-12-16] MEDS ORDERED: amLODIPine TAB* 5 MG PO SCH (09:00)
[2017-12-16] MEDS: Amoxicillin/Clavulanate TAB* 875 MG PO SCH ×2 (09:03→20:31)
[2017-12-16] MEDS: Atorvastatin* 20 MG TAB PO SCH (09:04)
[2017-12-16] MEDS: Donepezil TAB* 5 MG PO SCH (09:04)
[2017-12-16] MEDS ORDERED: Bupivacaine 0.25% SDV PF* 10 ML VIAL INJ ONE (09:20)
[2017-12-16] MEDS ORDERED: Midazolam* 1 MG/ML 5 ML VIAL (5 MG) ONE (10:06)
[2017-12-16 10:52] LABS: Body Fluid Source Cerebral Spinal
--- NOTE | 2017-12-16 10:58 | PN ---
Progress Note - Progress Note Date of Service: 12/16/17 Note: Lumbar puncture was done this AM. See written note for details. The OP was 14.5 cm. 30 ml fluid to lab. The pt required 2 mg Versed to do the LP.
[2017-12-16] MEDS ORDERED: amLODIPine TAB* 5 MG PO ONE (13:48)
[2017-12-16] MEDS ORDERED: Vancomycin per Pharmacy* NOTE FOLLOW UP SCH (14:00)
[2017-12-16] MEDS ORDERED: Vancomycin(*) 1,000 MG in NS 0.9% 250 ML* 250 ML IVPB ONE (14:00)
[2017-12-16 14:28] LABS: Body Fluid Source Cerebral Spinal
--- NOTE | 2017-12-16 15:09 | PN ---
Subjective Date of Service: 12/16/17 Interval History: Pt was seen after LP today. sill very confused , able to say one word and then starts mumbling incomprehensibly Objective Active Medications: Acetaminophen (Tylenol Tab*) 650 mg PO Q6H PRN PRN Reason: FEVER/PAIN Amlodipine Besylate (Norvasc Tab*) 10 mg PO DAILY [facility] Amoxicillin/Clavulanate Potassium (Augmentin Tab*) 875 mg PO BID [facility] Stop: 12/16/17 21:01 Last Admin: 12/16/17 09:03 Dose: 875 mg Atorvastatin Calcium (Lipitor*) 20 mg PO DAILY [facility] Last Admin: 12/16/17 09:04 Dose: 20 mg Donepezil HCl (Aricept Tab*) 5 mg PO DAILY [facility] Last Admin: 12/16/17 09:04 Dose: 5 mg Ceftriaxone Sodium 2 gm/ (Sodium Chloride) 100 mls @ 200 mls/hr IVPB Q24H [facility] Vancomycin HCl 1,000 mg/ (Sodium Chloride) 250 mls @ 166.667 mls/hr IVPB ONCE ONE; Protocol Stop: 12/16/17 15:29 Acyclovir Sodium 500 mg/ (Sodium Chloride) 110 mls @ 100 mls/hr IVPB Q12H [facility] Magnesium Hydroxide (Milk Of Magnesia Liq*) 30 ml PO Q4H PRN PRN Reason: CONSTIPATION Mirabegron (Myrbetriq (Nf)) 50 mg PO DAILY [facility] Last Admin: 12/16/17 09:04 Dose: Not Given Pharmacy Consult (Vancomycin Per Pharmacy*) 1 note FOLLOW UP .VANC PER PHARMACY [facility] Vital Signs - 8 hr 12/16/17 12/16/17 07:32 08:00 Temperature 98.2 F Pulse Rate 70 Respiratory 16 18 Rate Blood Pressure 171/72 (mmHg) O2 Sat by Pulse 95 95 Oximetry Oxygen Devices in Use Now: None Appearance: 77 yo F in nAD, confused Eyes: No Scleral Icterus, PERRLA Ears/Nose/Mouth/Throat: NL Teeth, Lips, Gums, Mucous Membranes Moist Neck: NL Appearance and Movements; NL JVP, Trachea Midline Respiratory: Symmetrical Chest Expansion and Respiratory Effort, Clear to Auscultation Cardiovascular: NL Sounds; No Murmurs; No JVD, RRR Abdominal: NL Sounds; No Tenderness; No Distention Lymphatic: No Cervical Adenopathy Extremities: No Edema, No Clubbing, Cyanosis Skin: No Rash or Ulcers, No Nodules or Sclerosis Neurological: NL Muscle Strength and Tone, - - tremor-intentional in b/l UE's noted Result Diagrams: 12/16/17 05:03 12/16/17 05:03 Additional Lab and Data: Lab Results 12/15/17 12/15/17 12/15/17 Range/Units 11:43 12:58 12:58 WBC 7.0 (3.5-10.8) 10^3/ul RBC 4.06 (4.00-5.40) 10^6/ul Hgb 12.7 (12.0-16.0) g/dl Hct 38 (35-47) % MCV 94 (80-97) fL MCH 31 (27-31) pg MCHC 33 (31-36) g/dl RDW 13 (10.5-15) % Plt Count 246 (150-450) 10^3/ul MPV 7.6 (7.4-10.4) um3 Neut % (Auto) Not Reportable Lymph % (Auto) Not Reportable [place] % (Auto) Not Reportable Eos % (Auto) Not Reportable Baso % (Auto) Not Reportable Absolute Neuts (auto) 4.6 (1.5-7.7) 10^3/ul Absolute Lymphs (auto) 1.8 (1.0-4.8) 10^3/ul Absolute Monos (auto) 0.6 (0-0.8) 10^3/ul Absolute Eos (auto) 0.1 (0-0.6) 10^3/ul Absolute Basos (auto) 0 (0-0.2) 10^3/ul Absolute Nucleated RBC Not Reportable Immature Gran % 2 (0-9) % Neutrophils % 62 (38-83) % Band Neutrophils % 2 (0-8) % Lymphocytes % 29 (25-47) % Monocytes % 5 (0-7) % Eosinophils % 1 (0-6) % Basophils % 1 (0-2) % Nucleated RBC % Not Reportable Abs Neuts (Manual) 4.3 (1.5-7.7) 10^3/ul Abs Lymphs (Manual) 2.0 (1.0-4.8) 10^3/ul Abs Monocytes (Manual) 0.4 (0-0.8) 10^3/ul Absolute Eos (Manual) 0.1 (0-0.6) 10^3/ul Abs Basophils (Manual) 0.1 (0-0.2) 10^3/ul Normal RBC Morphology Normal (Normal) Hem Pathologist Commnt Pending INR (Anticoag Therapy) 0.90 (0.77-1.02) APTT 29.1 (26.0-36.3) seconds Sodium (135-145) mmol/L Potassium (3.5-5.0) mmol/L Chloride (101-111) mmol/L Carbon Dioxide (22-32) mmol/L Anion Gap (2-11) mmol/L BUN (6-24) mg/dL Creatinine (0.51-0.95) mg/dL Est GFR ( Amer) (>60) Est GFR (Non-Af Amer) (>60) BUN/Creatinine Ratio (8-20) Glucose (70-100) mg/dL Lactic Acid (0.5-2.0) mmol/L Calcium (8.6-10.3) mg/dL Total Bilirubin (0.2-1.0) mg/dL AST (13-39) U/L ALT (7-52) U/L Alkaline Phosphatase (34-104) U/L Troponin I (<0.04) ng/mL Total Protein (6.4-8.9) g/dL Albumin (3.2-5.2) g/dL Globulin (2-4) g/dL Albumin/Globulin Ratio (1-3) Urine Color Yellow Urine Appearance Cloudy Urine pH 5.0 (5-9) Ur Specific [place] 1.015 (1.010-1.030) Urine Protein 1+(30 mg/dl) A (Negative) Urine Ketones Negative (Negative) Urine Blood 2+ A (Negative) Urine Nitrate Negative (Negative) Urine Bilirubin Negative (Negative) Urine Urobilinogen Negative (Negative) Ur Leukocyte Esterase Trace A (Negative) Urine WBC (Auto) Trace(0-5/hpf) (Absent) Urine RBC (Auto) 2+(6-10/hpf) A (Absent) Ur Squamous Epith Cells Present A (Absent) Urine Bacteria Absent (Absent) Urine Glucose Negative (Negative) 12/15/17 12/15/17 Range/Units 12:58 12:58 WBC (3.5-10.8) 10^3/ul RBC (4.00-5.40) 10^6/ul Hgb (12.0-16.0) g/dl Hct (35-47) % MCV (80-97) fL MCH (27-31) pg MCHC (31-36) g/dl RDW (10.5-15) % Plt Count (150-450) 10^3/ul MPV (7.4-10.4) um3 Neut % (Auto) Lymph % (Auto) [place] % (Auto) Eos % (Auto) Baso % (Auto) Absolute Neuts (auto) (1.5-7.7) 10^3/ul Absolute Lymphs (auto) (1.0-4.8) 10^3/ul Absolute Monos (auto) (0-0.8) 10^3/ul Absolute Eos (auto) (0-0.6) 10^3/ul Absolute Basos (auto) (0-0.2) 10^3/ul Absolute Nucleated RBC Immature Gran % (0-9) % Neutrophils % (38-83) % Band Neutrophils % (0-8) % Lymphocytes % (25-47) % Monocytes % (0-7) % Eosinophils % (0-6) % Basophils % (0-2) % Nucleated RBC % Abs Neuts (Manual) (1.5-7.7) 10^3/ul Abs Lymphs (Manual) (1.0-4.8) 10^3/ul Abs Monocytes (Manual) (0-0.8) 10^3/ul Absolute Eos (Manual) (0-0.6) 10^3/ul Abs Basophils (Manual) (0-0.2) 10^3/ul Normal RBC Morphology (Normal) Hem Pathologist Commnt INR (Anticoag Therapy) (0.77-1.02) APTT (26.0-36.3) seconds Sodium 140 (135-145) mmol/L Potassium 4.1 (3.5-5.0) mmol/L Chloride 103 (101-111) mmol/L Carbon Dioxide 28 (22-32) mmol/L Anion Gap 9 (2-11) mmol/L BUN 20 (6-24) mg/dL Creatinine 1.45 H (0.51-0.95) mg/dL Est GFR ( Amer) 42.3 (>60) Est GFR (Non-Af Amer) 34.9 (>60) BUN/Creatinine Ratio 13.8 (8-20) Glucose 111 H (70-100) mg/dL Lactic Acid 0.8 (0.5-2.0) mmol/L Calcium 9.5 (8.6-10.3) mg/dL Total Bilirubin 0.50 (0.2-1.0) mg/dL AST 48 H (13-39) U/L ALT 23 (7-52) U/L Alkaline Phosphatase 63 (34-104) U/L Troponin I 0.01 (<0.04) ng/mL Total Protein 6.7 (6.4-8.9) g/dL Albumin 4.1 (3.2-5.2) g/dL Globulin 2.6 (2-4) g/dL Albumin/Globulin Ratio 1.6 (1-3) Urine Color Urine Appearance Urine pH (5-9) Ur Specific [place] (1.010-1.030) Urine Protein (Negative) Urine Ketones (Negative) Urine Blood (Negative) Urine Nitrate (Negative) Urine Bilirubin (Negative) Urine Urobilinogen (Negative) Ur Leukocyte Esterase (Negative) Urine WBC (Auto) (Absent) Urine RBC (Auto) (Absent) Ur Squamous Epith Cells (Absent) Urine Bacteria (Absent) Urine Glucose (Negative) Microbiology and Other Data: Microbiology 12/15/17 11:43 Urine Culture - Final Urine No Growth (<1,000 CFU/mL) 12/15/17 12:58 Aerobic Blood Culture - Preliminary Blood Venous No Growth Day 1 Anaerobic Blood Culture - Preliminary No Growth Day 1 12/15/17 11:57 Aerobic Blood Culture - Preliminary Blood Venous No Growth Day 1 Assess/Plan/Problems-Billing Assessment: 77 yo F with h/o mild dementia with parkinsonian features, recent ESBL E. coli treated with Augmentin, HTN presents with unsteady gait and confusion - Patient Problems (1) Altered mental state Comment: s/p large volume spinal tap today. after the proceduer apparently she walked twice as far as prior , but speech still altered and pt still confused. CSF studies show >30 WBC with lymphocytic predominance. Pt was placed on reynaldo spectrum antibiotcs inculing Vanc/Ceftgriaxone /Acyclovir. CSF studies pending Lyme serology pending (2) CKD (chronic kidney disease) stage 3, GFR 30-59 ml/min Comment: creat at baseline (1.2-1.5) for this Pt (3) DVT prophylaxis Comment: heparin sc (4) Overactive bladder Comment: cont Mirabegron (5) HTN (hypertension) Comment: uncontrolled, increasing Norvasc from 5 to 10 mg Status and Disposition: inpatient
[2017-12-16] MEDS: cefTRIAXone(*) 2 GM in NS 0.9% 100 ML* 100 ML IVPB SCH (15:20)
--- NOTE | 2017-12-16 16:41 | CONS ---
CC: Dr. Alexandre * NEUROLOGY FOLLOWUP: DATE OF FOLLOWUP: 12/16/17 LOCATION: She is an inpatient in room 435. HOSPITALIST: Dr. Carpenter. CHIEF COMPLAINT: Dementia, parkinsonism. INTERVAL HISTORY: Since yesterday, Jennifer had a lumbar puncture done this morning by Dr. Zain Ambriz. Opening pressure was 145 mm of water. 30 mL of fluid was withdrawn. The patient was given 2 mg of Versed for the lumbar puncture. According to the family and Dr. Carpenter, she walked perhaps a little bit better after the lumbar puncture than she did prior to that. I read the physical therapist's assessments before and after and there is not a clear change, although there was suggestion of some improvement in gait. However, 2 different physical therapists who assessed her. MEDICATIONS: Reviewed and she is on: 1. Acyclovir. 2. Amlodipine 10 mg p.o. 3. Augmentin tablets p.o. b.i.d. 4. Lipitor 20 mg p.o. q. day. 5. Ceftriaxone 2 g IV q.24 hours. 6. Aricept 5 mg p.o. q. day. 7. Vancomycin 1000 mg IV. PHYSICAL EXAM: She had a temperature of 100.8 last night, 100.1 early this morning, most recently 98.2. Blood pressure most recently 171/72, heart rate is in the 60s. Respiratory rate is 16, oxygen saturation is 95% on room air. She is more confused than when I saw her in the emergency room yesterday. She mumbles somewhat incoherently at times. At other times, she answers questions with a soft voice, but appropriately. She denies headache. She is quite confused. I was able to get her to stand up. She was able to take a few steps with assistance of my holding her hand. She was unsteady on her feet and took small steps and multiple steps to turn. LABORATORY DATA: Notable for spinal fluid results from earlier today remarkable for clear colorless fluid with a white blood cell count of "31.1" cells per microliter. There are 0 red blood cells. Protein is elevated at 74 and glucose is normal at 68. Differential on the concentrated fluid was 6% neutrophils, 72% lymphocytes, 20% monocytes, 1% eosinophils. Chemistry profile today is unremarkable, creatinine is stable at 1.44. CBC today is within normal limits. IMPRESSION AND PLAN: Impression is not a convincing response to large volume lumbar puncture to support a diagnosis of normal pressure hydrocephalus. Surprisingly, she has 30 white blood cells per microliter in her spinal fluid. Her protein is elevated as well. I doubt bacterial meningitis severely, but a chronic meningitis is a possibility. Dr. Carpenter has started her on broad- spectrum antibiotics and acyclovir, which I agree with. Spinal fluid has been sent for herpes PCR, Lyme disease, VDRL. I have added blood work for connective tissue disorders, spinal fluid angiotensin-converting enzyme, and serum CLAUDIA levels. Also, a sed rate and CRP. I have discussed the results with Hakeem Ray and Jennifer's daughter. For now, we will continue her on antibiotics and antiviral agents until some of the microbiological studies come back. We may ask for an infectious disease consult as well. We have also sent spinal fluid for spinal fluid tau and amyloid beta-42. [id number]/[facility] #: [id number] APRIL
[2017-12-16] MEDS: Acyclovir IV(*) 500 MG in NS 0.9% 100 ML* 100 ML IVPB SCH (18:22)
[2017-12-16] MEDS: Heparin VIAL(*) 5000 UNITS/ML VIAL (FIVE THOUSAND) SUBCUT SCH (20:32)
[2017-12-17] MEDS: Acyclovir IV(*) 500 MG in NS 0.9% 100 ML* 100 ML IVPB SCH ×2 (03:08→16:10)
[2017-12-17] MEDS: Heparin VIAL(*) 5000 UNITS/ML VIAL (FIVE THOUSAND) SUBCUT SCH ×3 (05:56→23:38)
[2017-12-17 06:01] LABS: ABS Basophils 0.1 10^3/ul (0-0.2); ABS Eosinophils 0.1 10^3/ul (0-0.6); ABS Monocytes 0.7 10^3/ul (0-0.8); ABS Neutrophils 5.9 10^3/ul (1.5-7.7); ABS Nucleated RBC 0 10^3/ul; Eosinophil % 0.8 % (0-6); Hematocrit 38 % (35-47); Hemoglobin 12.7 g/dl (12.0-16.0); Lymphocyte % 22.5 % (25-47); Mean Corpuscular HGB Conc 33 g/dl (31-36); Mean Corpuscular Hemoglobin 31 pg (27-31); Mean Corpuscular Volume 94 fL (80-97); Mean Platelet Volume 7.9 um3 (7.4-10.4); Nucleated Red Blood Cells % 0; Platelet Count 227 10^3/ul (150-450); Red Blood Count 4.07 10^6/ul (4.00-5.40); Red Cell Distribution Width 13 % (10.5-15); White Blood Count 8.7 10^3/ul (3.5-10.8)
[2017-12-17 06:27] LABS: EGFR Non-African American 34.4 (>60)
--- NOTE | 2017-12-17 08:08 | PN ---
Subjective Date of Service: 12/17/17 Interval History: Pt appears to have more comprehensive speech today, although confused, thought she was in [employer] this AM. Able to recall to month only. Objective Active Medications: Acetaminophen (Tylenol Tab*) 650 mg PO Q6H PRN PRN Reason: FEVER/PAIN Amlodipine Besylate (Norvasc Tab*) 10 mg PO DAILY [facility] Atorvastatin Calcium (Lipitor*) 20 mg PO DAILY [facility] Last Admin: 12/16/17 09:04 Dose: 20 mg Donepezil HCl (Aricept Tab*) 5 mg PO DAILY [facility] Last Admin: 12/16/17 09:04 Dose: 5 mg Heparin Sodium (Porcine) (Heparin Vial(*)) 5,000 units SUBCUT Q8HR [facility] Last Admin: 12/17/17 05:56 Dose: 5,000 units Ceftriaxone Sodium 2 gm/ (Sodium Chloride) 100 mls @ 200 mls/hr IVPB Q24H [facility] Last Admin: 12/16/17 15:20 Dose: 200 mls/hr Acyclovir Sodium 500 mg/ (Sodium Chloride) 110 mls @ 100 mls/hr IVPB Q12H [facility] Last Admin: 12/17/17 03:08 Dose: 100 mls/hr Vancomycin HCl 1,000 mg/ (Sodium Chloride) 250 mls @ 166.667 mls/hr IVPB Q24H [facility] Magnesium Hydroxide (Milk Of Magnesia Liq*) 30 ml PO Q4H PRN PRN Reason: CONSTIPATION Mirabegron (Myrbetriq (Nf)) 50 mg PO DAILY [facility] Pharmacy Consult (Vancomycin Per Pharmacy*) 1 note FOLLOW UP .VANC PER PHARMACY [facility] Pharmacy Profile Note (Vancomycin Trough Check) 1 note FOLLOW UP .ENTER TIME ONE Stop: 12/19/17 15:31 Vital Signs - 8 hr 12/17/17 03:52 Temperature 99.4 F Pulse Rate 68 Respiratory 22 Rate Blood Pressure 141/51 (mmHg) O2 Sat by Pulse 96 Oximetry Oxygen Devices in Use Now: None Appearance: 77 yo F in nAD, awake, confused, speech clear Eyes: No Scleral Icterus, PERRLA Ears/Nose/Mouth/Throat: NL Teeth, Lips, Gums, Mucous Membranes Moist Neck: NL Appearance and Movements; NL JVP, Trachea Midline Respiratory: Symmetrical Chest Expansion and Respiratory Effort, Clear to Auscultation Cardiovascular: NL Sounds; No Murmurs; No JVD, RRR Abdominal: NL Sounds; No Tenderness; No Distention, No Hepatosplenomegaly Lymphatic: No Cervical Adenopathy Extremities: No Edema, No Clubbing, Cyanosis Skin: No Rash or Ulcers, No Nodules or Sclerosis Neurological: NL Muscle Strength and Tone, - - intentional tremor in b/l UE's noted Result Diagrams: 12/17/17 05:41 12/17/17 05:41 Additional Lab and Data: Lab Results 12/15/17 12/15/17 12/15/17 Range/Units 11:43 12:58 12:58 WBC 7.0 (3.5-10.8) 10^3/ul RBC 4.06 (4.00-5.40) 10^6/ul Hgb 12.7 (12.0-16.0) g/dl Hct 38 (35-47) % MCV 94 (80-97) fL MCH 31 (27-31) pg MCHC 33 (31-36) g/dl RDW 13 (10.5-15) % Plt Count 246 (150-450) 10^3/ul MPV 7.6 (7.4-10.4) um3 Neut % (Auto) Not Reportable Lymph % (Auto) Not Reportable [place] % (Auto) Not Reportable Eos % (Auto) Not Reportable Baso % (Auto) Not Reportable Absolute Neuts (auto) 4.6 (1.5-7.7) 10^3/ul Absolute Lymphs (auto) 1.8 (1.0-4.8) 10^3/ul Absolute Monos (auto) 0.6 (0-0.8) 10^3/ul Absolute Eos (auto) 0.1 (0-0.6) 10^3/ul Absolute Basos (auto) 0 (0-0.2) 10^3/ul Absolute Nucleated RBC Not Reportable Immature Gran % 2 (0-9) % Neutrophils % 62 (38-83) % Band Neutrophils % 2 (0-8) % Lymphocytes % 29 (25-47) % Monocytes % 5 (0-7) % Eosinophils % 1 (0-6) % Basophils % 1 (0-2) % Nucleated RBC % Not Reportable Abs Neuts (Manual) 4.3 (1.5-7.7) 10^3/ul Abs Lymphs (Manual) 2.0 (1.0-4.8) 10^3/ul Abs Monocytes (Manual) 0.4 (0-0.8) 10^3/ul Absolute Eos (Manual) 0.1 (0-0.6) 10^3/ul Abs Basophils (Manual) 0.1 (0-0.2) 10^3/ul Normal RBC Morphology Normal (Normal) Hem Pathologist Commnt Pending INR (Anticoag Therapy) 0.90 (0.77-1.02) APTT 29.1 (26.0-36.3) seconds Sodium (135-145) mmol/L Potassium (3.5-5.0) mmol/L Chloride (101-111) mmol/L Carbon Dioxide (22-32) mmol/L Anion Gap (2-11) mmol/L BUN (6-24) mg/dL Creatinine (0.51-0.95) mg/dL Est GFR ( Amer) (>60) Est GFR (Non-Af Amer) (>60) BUN/Creatinine Ratio (8-20) Glucose (70-100) mg/dL Lactic Acid (0.5-2.0) mmol/L Calcium (8.6-10.3) mg/dL Total Bilirubin (0.2-1.0) mg/dL AST (13-39) U/L ALT (7-52) U/L Alkaline Phosphatase (34-104) U/L Troponin I (<0.04) ng/mL Total Protein (6.4-8.9) g/dL Albumin (3.2-5.2) g/dL Globulin (2-4) g/dL Albumin/Globulin Ratio (1-3) Urine Color Yellow Urine Appearance Cloudy Urine pH 5.0 (5-9) Ur Specific [place] 1.015 (1.010-1.030) Urine Protein 1+(30 mg/dl) A (Negative) Urine Ketones Negative (Negative) Urine Blood 2+ A (Negative) Urine Nitrate Negative (Negative) Urine Bilirubin Negative (Negative) Urine Urobilinogen Negative (Negative) Ur Leukocyte Esterase Trace A (Negative) Urine WBC (Auto) Trace(0-5/hpf) (Absent) Urine RBC (Auto) 2+(6-10/hpf) A (Absent) Ur Squamous Epith Cells Present A (Absent) Urine Bacteria Absent (Absent) Urine Glucose Negative (Negative) 12/15/17 12/15/17 Range/Units 12:58 12:58 WBC (3.5-10.8) 10^3/ul RBC (4.00-5.40) 10^6/ul Hgb (12.0-16.0) g/dl Hct (35-47) % MCV (80-97) fL MCH (27-31) pg MCHC (31-36) g/dl RDW (10.5-15) % Plt Count (150-450) 10^3/ul MPV (7.4-10.4) um3 Neut % (Auto) Lymph % (Auto) [place] % (Auto) Eos % (Auto) Baso % (Auto) Absolute Neuts (auto) (1.5-7.7) 10^3/ul Absolute Lymphs (auto) (1.0-4.8) 10^3/ul Absolute Monos (auto) (0-0.8) 10^3/ul Absolute Eos (auto) (0-0.6) 10^3/ul Absolute Basos (auto) (0-0.2) 10^3/ul Absolute Nucleated RBC Immature Gran % (0-9) % Neutrophils % (38-83) % Band Neutrophils % (0-8) % Lymphocytes % (25-47) % Monocytes % (0-7) % Eosinophils % (0-6) % Basophils % (0-2) % Nucleated RBC % Abs Neuts (Manual) (1.5-7.7) 10^3/ul Abs Lymphs (Manual) (1.0-4.8) 10^3/ul Abs Monocytes (Manual) (0-0.8) 10^3/ul Absolute Eos (Manual) (0-0.6) 10^3/ul Abs Basophils (Manual) (0-0.2) 10^3/ul Normal RBC Morphology (Normal) Hem Pathologist Commnt INR (Anticoag Therapy) (0.77-1.02) APTT (26.0-36.3) seconds Sodium 140 (135-145) mmol/L Potassium 4.1 (3.5-5.0) mmol/L Chloride 103 (101-111) mmol/L Carbon Dioxide 28 (22-32) mmol/L Anion Gap 9 (2-11) mmol/L BUN 20 (6-24) mg/dL Creatinine 1.45 H (0.51-0.95) mg/dL Est GFR ( Amer) 42.3 (>60) Est GFR (Non-Af Amer) 34.9 (>60) BUN/Creatinine Ratio 13.8 (8-20) Glucose 111 H (70-100) mg/dL Lactic Acid 0.8 (0.5-2.0) mmol/L Calcium 9.5 (8.6-10.3) mg/dL Total Bilirubin 0.50 (0.2-1.0) mg/dL AST 48 H (13-39) U/L ALT 23 (7-52) U/L Alkaline Phosphatase 63 (34-104) U/L Troponin I 0.01 (<0.04) ng/mL Total Protein 6.7 (6.4-8.9) g/dL Albumin 4.1 (3.2-5.2) g/dL Globulin 2.6 (2-4) g/dL Albumin/Globulin Ratio 1.6 (1-3) Urine Color Urine Appearance Urine pH (5-9) Ur Specific [place] (1.010-1.030) Urine Protein (Negative) Urine Ketones (Negative) Urine Blood (Negative) Urine Nitrate (Negative) Urine Bilirubin (Negative) Urine Urobilinogen (Negative) Ur Leukocyte Esterase (Negative) Urine WBC (Auto) (Absent) Urine RBC (Auto) (Absent) Ur Squamous Epith Cells (Absent) Urine Bacteria (Absent) Urine Glucose (Negative) Microbiology and Other Data: Microbiology 12/15/17 11:43 Urine Culture - Final Urine No Growth (<1,000 CFU/mL) 12/15/17 12:58 Aerobic Blood Culture - Preliminary Blood Venous No Growth Day 1 Anaerobic Blood Culture - Preliminary No Growth Day 1 12/15/17 11:57 Aerobic Blood Culture - Preliminary Blood Venous No Growth Day 1 Assess/Plan/Problems-Billing Assessment: 77 yo F with h/o mild dementia with parkinsonian features, recent ESBL E. coli treated with Augmentin, HTN presents with unsteady gait and confusion - Patient Problems (1) Altered mental state Comment: s/p large volume spinal tap on 12/16/17. After the procedue apparently she walked twice as far as prior , but speech still was still altered altered and pt still confused. today speech clear, confusion still present. CSF studies show >30 WBC with lymphocytic predominance. Pt was placed on broad spectrum antibiotcs including Vanc/Ceftriaxone /Acyclovir. Will ask ID to see CSF studies pending Lyme serology pending (2) CKD (chronic kidney disease) stage 3, GFR 30-59 ml/min Comment: creat at baseline (1.2-1.5) for this Pt (3) Overactive bladder Comment: cont Mirabegron (4) HTN (hypertension) Comment: Norvasc increased from 5 to 10 mg on 12/16/17 (5) History of ESBL E. coli infection Comment: cont augmentin dx pf ESBL E. coli UTI as outpatient (6) DVT prophylaxis Comment: heparin sc Status and Disposition: inpatient
[2017-12-17] MEDS: Donepezil TAB* 5 MG PO SCH (09:57)
[2017-12-17] MEDS: amLODIPine TAB* 5 MG PO SCH (09:57)
[2017-12-17] MEDS: Atorvastatin* 20 MG TAB PO SCH (09:57)
--- NOTE | 2017-12-17 11:24 | CONS ---
CONSULTATION REPORT: DATE OF CONSULT: 12/17/17 REQUESTING PHYSICIAN: Dr. Carpenter. CONSULTING SERVICE: Infectious Disease. REASON FOR CONSULTATION: Encephalopathy. IMPRESSION: 1. About a week of change in mental status in the setting of baseline ill- defined neurologic process. The recent decline has included fever and urinary frequency. As an outpatient, she had some urine studies done that showed red cells, no pyuria. A urine culture grew on 12/03/17 an E. Coli, which is an ESBL technical producer. She was started on Augmentin as an outpatient. Because of progressive neurologic symptoms she was referred to the hospital by Dr. Alexandre. A urinalysis on the showed blood, trace white cells, trace leukocyte esterase, and no nitrites. Urine cultures negative. The differential diagnosis for her acute decompensation includes urinary tract infection, other viral illness, CRYPTOLOGIST infection which include HSV encephalitis in her age group. She has no outdoor exposure to suggest arboviruses. This time of year enteroviruses are always a consideration. 2. CSF pleocytosis, 35 white cells, slight elevation in protein, negative Gram stain and there is no bacterial process. The differential diagnosis includes those noted above as well as neurosyphilis. 3. Chronic dementia. Question of Lewy body dementia, normal pressure hydrocephalus, Parkinsonism. 4. SULFA allergy. RECOMMENDATIONS: 1. Stop vancomycin. Continue ceftriaxone and acyclovir. We will await various CSF and serologic studies that are pending. 2. Check a postvoid residual. We will follow her temperature. HISTORY OF PRESENT ILLNESS: This is a 77-year-old woman with a longstanding neurologic deterioration though managed at home. Her provides the history as she cannot give any. That includes that about a week ago she developed fever and urinary frequency. He had to help her up to the toilet every 2 hours, which was new. She had had no drenching sweats or chills. Her appetite had been fine throughout that process. [facility] and directed to the emergency room on the and had blood and urine cultures taken then. She had been on antibiotic a few days before and finished it for the E. Coli ESBL technical producer. She was taking Augmentin at that time after being seen in the emergency room, where she had another set of specimens taken that included negative urine culture. Her symptoms progressed, though the fever seemed better, she was directed to the hospitalist for admission. She came on the , the urine culture then was negative. Blood cultures negative. CSF was obtained for a diagnostic large volume lumbar puncture. Analysis showed 35 white cells, glucose 68, protein 74. CSF cultures negative. Urinalysis showed blood, trace leukocyte esterase, there were red cells, trace white cells. She had a fever the day of admission, none since. She finished Augmentin yesterday, has just been on vancomycin, ceftriaxone and acyclovir today. The states she is about the same as she has been over the last week. Per nursing, she has not been up as frequently to urinate. PAST MEDICAL HISTORY: 1. Dementia, question Lewy body versus Alzheimer's. 2. Hypertension. 3. Hyperlipidemia. 4. Recurrent urinary tract infections. 5. Urinary retention. 6. Status post hysterectomy in 2006. 7. Status post tonsillectomy. 8. Status post cataract extraction. MEDICATIONS: 1. Tylenol. 2. Amlodipine. 3. Lipitor. 4. Donepezil. 5. Vancomycin. 6. Acyclovir. 7. Ceftriaxone. 8. Myrbetriq. 9. Magnesium. 10. Heparin subcutaneous injection. ALLERGIES: SULFA caused rash as a child. FAMILY HISTORY: Parents both have hypertension. SOCIAL HISTORY: She lives in [place] with her . She has had no travel out of the area. No sick contacts. They have no pets. She does not spent time outdoors, has not been around any little kids. REVIEW OF SYSTEMS: Unobtainable given her mental status. PHYSICAL EXAM: Vital Signs: Temperature 37.4, heart rate 70, respiratory rate 20, blood pressure 140/50, oxygen saturation 96% on room air. In general, she is up sitting in a chair, not in distress, not diaphoretic. Neurologic: She is awake, answers some questions appropriately, follows commands. Moves all extremities. Not oriented to place or year. HEENT: There is no conjunctival hemorrhage. Oropharynx: Without lesions. Neck is supple without mass. Heart: Regular rate and rhythm, without murmurs, rubs or gallops. Lungs: Clear to auscultation bilaterally. Abdomen: Soft, nontender, nondistended. There are bowel sounds present. Skin: There is no rash or splinter hemorrhage. Musculoskeletal: There is no spine tenderness to palpation or joint synovitis. DIAGNOSTIC STUDIES/LAB DATA: White blood cell count 8, hemoglobin 12, platelets 227,000. Creatinine 1.4. CRP 1. Please see impressions and recommendations outlined above. Thank you for asking me to see Flor in consultation. [id number]/[facility] #: [id number] MTDLarissa
[2017-12-17] MEDS: PTO:Mirabegron (NF) 50 MG TAB PO SCH (14:21)
[2017-12-17] MEDS: cefTRIAXone(*) 2 GM in NS 0.9% 100 ML* 100 ML IVPB SCH (14:22)
[2017-12-17 15:50] LABS: CSF VDRL Negative (Negative)
[2017-12-17] MEDS ORDERED: Vancomycin(*) 1,000 MG in NS 0.9% 250 ML* 250 ML IVPB SCH (16:00)
--- NOTE | 2017-12-17 21:38 | CONS ---
CC: Dr. Alexandre * NEUROLOGY FOLLOWUP NOTE: DATE OF FOLLOWUP: 12/17/17 HOSPITALIST: Dr. Carpenter. LOCATION: She is in room 435. CHIEF COMPLAINT: Dementia, Parkinsonism. INTERVAL HISTORY: Since yesterday, Jennifer was seen by Dr. Van in Infectious Disease consultation. He stopped vancomycin, but recommended continuing ceftriaxone and acyclovir. Differential diagnosis included a viral infection including herpes simplex. MEDICATIONS: Are reviewed and she is on: 1. Acyclovir 500 mg IV q.12 hours. 2. Amlodipine 10 mg p.o. daily. 3. Atorvastatin 20 mg p.o. daily. 4. Ceftriaxone 2 g IV q.24 hours. 5. Donepezil 5 mg p.o. daily. 6. Heparin subcutaneous 5,000 units q.8 hours. 7. Myrbetriq 50 mg p.o. daily. PHYSICAL EXAMINATION: She is alert and more hydrated. Temperature 97.7, blood pressure 118/54, heart rate in the 70s and regular, respiratory rate is 14, and oxygen saturation is 100% on room air. Heart is in a regular rhythm without murmurs. Neck is supple. Neurological Exam: Eye movements are full. She has grade 2 to 3 hypomimia. Speech is soft, but clear. She is disoriented to place and time. She has some myoclonic twitching in her upper extremities. There is no rest tremor. DIAGNOSTIC STUDIES/LAB DATA: Laboratory data reviewed and includes a normal sedimentation rate and CRP since yesterday. CBC today is within normal limits. Basic metabolic profile notable for stable creatinine at 1.47 and glucose of 110. A second test spinal fluid tube was counted and still persists an elevated white blood cell count at 41.5, 1.5 red blood cells, 73% lymphocytes, 23% monocytes, 2% neutrophils. I had some spinal tap done yesterday morning. Microbiological data reveals no growth in blood cultures on day 2. CSF culture , no growth after day 1, no organisms seen on Gram stain. Spinal fluid cytology revealed no evidence of neoplasia. There were lymphocytes and macrophage noted indicative of a chronic inflammatory process. Syphilis IgG antibody was negative. IMPRESSION: Parkinsonism with dementia without response to high volume tap for normal pressure hydrocephalus. Clinical picture looks most like diffuse Lewy body disease to me, but that does not explain her spinal fluid abnormalities. There are a number of studies still pending on that. With a normal sedimentation rate and CRP, an immune-mediated pachymeningitis seems not less likely. We will continue to follow along with you. If her spinal fluid studies all come back negative, then the antibiotics and antivirals will be stopped. I would consider doing a contrast MRI scan to look for meningeal enhancement, but with her poor renal function and lumbar puncture yesterday, I think that needs to be at least put off or the future if it is done at all. [id number]/[facility] #: [id number] APRIL
[2017-12-18] MEDS: Acyclovir IV(*) 500 MG in NS 0.9% 100 ML* 100 ML IVPB SCH (04:07)
[2017-12-18] MEDS: Heparin VIAL(*) 5000 UNITS/ML VIAL (FIVE THOUSAND) SUBCUT SCH ×3 (06:03→21:17)
--- NOTE | 2017-12-18 08:39 | PN ---
Subjective Date of Service: 12/18/17 Interval History: Pt appears unchanged, or maybe slightly worse today. UE's tremors are more pronounced to whole upper body twitches. Limited verbalization to one word s. Unable to give me her . Refuses to eat. Eyes closed if not stimulated Objective Active Medications: Acetaminophen (Tylenol Tab*) 650 mg PO Q6H PRN PRN Reason: FEVER/PAIN Amlodipine Besylate (Norvasc Tab*) 10 mg PO DAILY [facility] Last Admin: 12/17/17 09:57 Dose: 10 mg Atorvastatin Calcium (Lipitor*) 20 mg PO DAILY [facility] Last Admin: 12/17/17 09:57 Dose: 20 mg Donepezil HCl (Aricept Tab*) 5 mg PO DAILY [facility] Last Admin: 12/17/17 09:57 Dose: 5 mg Heparin Sodium (Porcine) (Heparin Vial(*)) 5,000 units SUBCUT Q8HR [facility] Last Admin: 12/18/17 06:03 Dose: 5,000 units Magnesium Hydroxide (Milk Of Magnesia Liq*) 30 ml PO Q4H PRN PRN Reason: CONSTIPATION Mirabegron (Myrbetriq (Nf)) 50 mg PO DAILY [facility] Last Admin: 12/17/17 14:21 Dose: Not Given Vital Signs - 8 hr 12/18/17 12/18/17 03:32 07:50 Temperature 98.6 F Pulse Rate 83 Respiratory 20 20 Rate O2 Sat by Pulse 93 Oximetry Oxygen Devices in Use Now: None Appearance: 77 yo F in NAD, eyes closed, opens eyes to command, able to interact , but answers only "yes" or "nor", unable to give me her Eyes: No Scleral Icterus, PERRLA Ears/Nose/Mouth/Throat: NL Teeth, Lips, Gums, Mucous Membranes Moist Neck: NL Appearance and Movements; NL JVP Respiratory: Symmetrical Chest Expansion and Respiratory Effort, Clear to Auscultation Cardiovascular: NL Sounds; No Murmurs; No JVD Abdominal: NL Sounds; No Tenderness; No Distention, No Hepatosplenomegaly Lymphatic: No Cervical Adenopathy Extremities: No Edema, No Clubbing, Cyanosis Skin: No Rash or Ulcers, No Nodules or Sclerosis Neurological: - - disoriented, mumbling, increased spasticity and tremors more pronounced in UE's Result Diagrams: 12/17/17 05:41 12/17/17 05:41 Additional Lab and Data: Lab Results 12/15/17 12/15/17 12/15/17 Range/Units 11:43 12:58 12:58 WBC 7.0 (3.5-10.8) 10^3/ul RBC 4.06 (4.00-5.40) 10^6/ul Hgb 12.7 (12.0-16.0) g/dl Hct 38 (35-47) % MCV 94 (80-97) fL MCH 31 (27-31) pg MCHC 33 (31-36) g/dl RDW 13 (10.5-15) % Plt Count 246 (150-450) 10^3/ul MPV 7.6 (7.4-10.4) um3 Neut % (Auto) Not Reportable Lymph % (Auto) Not Reportable [place] % (Auto) Not Reportable Eos % (Auto) Not Reportable Baso % (Auto) Not Reportable Absolute Neuts (auto) 4.6 (1.5-7.7) 10^3/ul Absolute Lymphs (auto) 1.8 (1.0-4.8) 10^3/ul Absolute Monos (auto) 0.6 (0-0.8) 10^3/ul Absolute Eos (auto) 0.1 (0-0.6) 10^3/ul Absolute Basos (auto) 0 (0-0.2) 10^3/ul Absolute Nucleated RBC Not Reportable Immature Gran % 2 (0-9) % Neutrophils % 62 (38-83) % Band Neutrophils % 2 (0-8) % Lymphocytes % 29 (25-47) % Monocytes % 5 (0-7) % Eosinophils % 1 (0-6) % Basophils % 1 (0-2) % Nucleated RBC % Not Reportable Abs Neuts (Manual) 4.3 (1.5-7.7) 10^3/ul Abs Lymphs (Manual) 2.0 (1.0-4.8) 10^3/ul Abs Monocytes (Manual) 0.4 (0-0.8) 10^3/ul Absolute Eos (Manual) 0.1 (0-0.6) 10^3/ul Abs Basophils (Manual) 0.1 (0-0.2) 10^3/ul Normal RBC Morphology Normal (Normal) Hem Pathologist Commnt Pending INR (Anticoag Therapy) 0.90 (0.77-1.02) APTT 29.1 (26.0-36.3) seconds Sodium (135-145) mmol/L Potassium (3.5-5.0) mmol/L Chloride (101-111) mmol/L Carbon Dioxide (22-32) mmol/L Anion Gap (2-11) mmol/L BUN (6-24) mg/dL Creatinine (0.51-0.95) mg/dL Est GFR ( Amer) (>60) Est GFR (Non-Af Amer) (>60) BUN/Creatinine Ratio (8-20) Glucose (70-100) mg/dL Lactic Acid (0.5-2.0) mmol/L Calcium (8.6-10.3) mg/dL Total Bilirubin (0.2-1.0) mg/dL AST (13-39) U/L ALT (7-52) U/L Alkaline Phosphatase (34-104) U/L Troponin I (<0.04) ng/mL Total Protein (6.4-8.9) g/dL Albumin (3.2-5.2) g/dL Globulin (2-4) g/dL Albumin/Globulin Ratio (1-3) Urine Color Yellow Urine Appearance Cloudy Urine pH 5.0 (5-9) Ur Specific [place] 1.015 (1.010-1.030) Urine Protein 1+(30 mg/dl) A (Negative) Urine Ketones Negative (Negative) Urine Blood 2+ A (Negative) Urine Nitrate Negative (Negative) Urine Bilirubin Negative (Negative) Urine Urobilinogen Negative (Negative) Ur Leukocyte Esterase Trace A (Negative) Urine WBC (Auto) Trace(0-5/hpf) (Absent) Urine RBC (Auto) 2+(6-10/hpf) A (Absent) Ur Squamous Epith Cells Present A (Absent) Urine Bacteria Absent (Absent) Urine Glucose Negative (Negative) 12/15/17 12/15/17 Range/Units 12:58 12:58 WBC (3.5-10.8) 10^3/ul RBC (4.00-5.40) 10^6/ul Hgb (12.0-16.0) g/dl Hct (35-47) % MCV (80-97) fL MCH (27-31) pg MCHC (31-36) g/dl RDW (10.5-15) % Plt Count (150-450) 10^3/ul MPV (7.4-10.4) um3 Neut % (Auto) Lymph % (Auto) [place] % (Auto) Eos % (Auto) Baso % (Auto) Absolute Neuts (auto) (1.5-7.7) 10^3/ul Absolute Lymphs (auto) (1.0-4.8) 10^3/ul Absolute Monos (auto) (0-0.8) 10^3/ul Absolute Eos (auto) (0-0.6) 10^3/ul Absolute Basos (auto) (0-0.2) 10^3/ul Absolute Nucleated RBC Immature Gran % (0-9) % Neutrophils % (38-83) % Band Neutrophils % (0-8) % Lymphocytes % (25-47) % Monocytes % (0-7) % Eosinophils % (0-6) % Basophils % (0-2) % Nucleated RBC % Abs Neuts (Manual) (1.5-7.7) 10^3/ul Abs Lymphs (Manual) (1.0-4.8) 10^3/ul Abs Monocytes (Manual) (0-0.8) 10^3/ul Absolute Eos (Manual) (0-0.6) 10^3/ul Abs Basophils (Manual) (0-0.2) 10^3/ul Normal RBC Morphology (Normal) Hem Pathologist Commnt INR (Anticoag Therapy) (0.77-1.02) APTT (26.0-36.3) seconds Sodium 140 (135-145) mmol/L Potassium 4.1 (3.5-5.0) mmol/L Chloride 103 (101-111) mmol/L Carbon Dioxide 28 (22-32) mmol/L Anion Gap 9 (2-11) mmol/L BUN 20 (6-24) mg/dL Creatinine 1.45 H (0.51-0.95) mg/dL Est GFR ( Amer) 42.3 (>60) Est GFR (Non-Af Amer) 34.9 (>60) BUN/Creatinine Ratio 13.8 (8-20) Glucose 111 H (70-100) mg/dL Lactic Acid 0.8 (0.5-2.0) mmol/L Calcium 9.5 (8.6-10.3) mg/dL Total Bilirubin 0.50 (0.2-1.0) mg/dL AST 48 H (13-39) U/L ALT 23 (7-52) U/L Alkaline Phosphatase 63 (34-104) U/L Troponin I 0.01 (<0.04) ng/mL Total Protein 6.7 (6.4-8.9) g/dL Albumin 4.1 (3.2-5.2) g/dL Globulin 2.6 (2-4) g/dL Albumin/Globulin Ratio 1.6 (1-3) Urine Color Urine Appearance Urine pH (5-9) Ur Specific [place] (1.010-1.030) Urine Protein (Negative) Urine Ketones (Negative) Urine Blood (Negative) Urine Nitrate (Negative) Urine Bilirubin (Negative) Urine Urobilinogen (Negative) Ur Leukocyte Esterase (Negative) Urine WBC (Auto) (Absent) Urine RBC (Auto) (Absent) Ur Squamous Epith Cells (Absent) Urine Bacteria (Absent) Urine Glucose (Negative) Microbiology and Other Data: Microbiology 12/15/17 11:43 Urine Culture - Final Urine No Growth (<1,000 CFU/mL) 12/15/17 12:58 Aerobic Blood Culture - Preliminary Blood Venous No Growth Day 1 Anaerobic Blood Culture - Preliminary No Growth Day 1 12/15/17 11:57 Aerobic Blood Culture - Preliminary Blood Venous No Growth Day 1 Assess/Plan/Problems-Billing Assessment: 77 yo F with h/o mild dementia with parkinsonian features, recent ESBL E. coli treated with Augmentin, HTN presents with unsteady gait and confusion - Patient Problems (1) Altered mental state Comment: s/p large volume spinal tap on 12/16/17. After the procedue apparently she walked twice as far as prior , but speech still was still altered and pt still confused. Today pt apears to have deteriorated. Has not eaten since last night, more spasticity noted, confusion still present. Spoke with Dr. Allen who recommended MRIand without with contrast preferably, but after D/w radiology pt's GFR is too low for contrast. EEG ordered. IVF and fingersticks started CSF studies show >30 WBC with lymphocytic predominance. Pt was placed on broad spectrum antibiotcs including Vanc/Ceftriaxone /Acyclovir. as per ID now will cont Acyclovir and Ceftriaxone (2) CKD (chronic kidney disease) stage 3, GFR 30-59 ml/min Comment: creat at baseline (1.2-1.5) for this Pt (3) Overactive bladder Comment: cont Mirabegron (4) HTN (hypertension) Comment: Norvasc increased from 5 to 10 mg on 12/16/17 (5) History of ESBL E. coli infection Comment: completed tx with Augmentin on 12/16/17 dx pf ESBL E. coli UTI as outpatient (6) DVT prophylaxis Comment: heparin sc Status and Disposition: inpatient
[2017-12-18 09:39] LABS: ABS Basophils 0.1 10^3/ul (0-0.2); ABS Eosinophils 0.1 10^3/ul (0-0.6); ABS Lymphocytes 2.5 10^3/ul (1.0-4.8); ABS Monocytes 0.5 10^3/ul (0-0.8); ABS Neutrophils 5.3 10^3/ul (1.5-7.7); ABS Nucleated RBC 0 10^3/ul; Eosinophil % 0.7 % (0-6); Hematocrit 36 % (35-47); Hemoglobin 12.3 g/dl (12.0-16.0); Lymphocyte % 29.5 % (25-47); Mean Corpuscular HGB Conc 34 g/dl (31-36); Mean Corpuscular Hemoglobin 32 pg (27-31); Mean Corpuscular Volume 93 fL (80-97); Mean Platelet Volume 7.6 um3 (7.4-10.4); Nucleated Red Blood Cells % 0; Platelet Count 255 10^3/ul (150-450); Red Cell Distribution Width 14 % (10.5-15); White Blood Count 8.4 10^3/ul (3.5-10.8)
[2017-12-18] MEDS: Atorvastatin* 20 MG TAB PO SCH (09:47)
[2017-12-18] MEDS: amLODIPine TAB* 5 MG PO SCH (09:47)
[2017-12-18] MEDS: PTO:Mirabegron (NF) 50 MG TAB PO SCH (09:48)
[2017-12-18] MEDS: NS 0.9% 1000 ML* 1,000 ML IV SCH (09:48)
[2017-12-18] MEDS: Donepezil TAB* 5 MG PO SCH (09:48)
[2017-12-18 09:56] LABS: EGFR Non-African American 38.3 (>60)
[2017-12-18] MEDS ORDERED: PPD Reading NOTE* (*USE PPD ORDER SET*) ONE (11:39)
[2017-12-18] MEDS ORDERED: PPD test dose* 5 TU/0.1 ML TEST (*USE PPD ORDER SET*) INTRADERM ONE (12:00)
--- NOTE | 2017-12-18 15:32 | RAD ---
HISTORY: AMS, rapid deterioration COMPARISONS: August 17, 2012, head CT dated December 15, 2017 TECHNIQUE: The following sequences were obtained of the head: Sagittal T1-weighted images, axial T2-weighted images, axial FLAIR images, axial susceptibility weighted images, axial T1-weighted images. Additionally, axial diffusion-weighted images were obtained with calculated apparent diffusion coefficients. FINDINGS: The study is limited by patient motion artifact. HEMORRHAGE/INFARCT: There is no hemorrhage or acute infarct. MASSES/SHIFT: There is no mass or shift. EXTRA-AXIAL SPACES/MENINGES: There are no extra-axial fluid collections. SULCI AND VENTRICLES: There is ex vacuo dilatation of the right lateral ventricle. Again noted is disproportionate enlargement of the ventricles with suspected the sulci CEREBRUM: There is stable right anterior parietal encephalomalacia. BRAINSTEM: There are no focal parenchymal abnormalities. CEREBELLUM: There is stable focus of susceptibility artifact within the left cerebellum suggestive of chronic hemorrhage versus mineralization. The cerebellar tonsils are normal in size and position. SELLA: The sella is normal. PINEAL: The pineal region is clear. CP ANGLE/TEMPORAL BONES: The labyrinthine structures are grossly normal. VESSELS: Normal flow-voids are noted within the visualized vertebral vasculature. DIFFUSION ABNORMALITIES: There are no diffusion abnormalities. PARANASAL SINUSES/MASTOIDS: The paranasal sinuses are clear. ORBITS: The orbits are unremarkable. BONES AND SOFT TISSUE: No bone or soft tissue abnormalities are noted. OTHER: None IMPRESSION: 1. NO RESTRICTED DIFFUSION TO SUGGEST ACUTE INFARCT. 2. STABLE RIGHT PARIETAL ENCEPHALOMALACIA CONSISTENT WITH REMOTE INFARCT. 3. AGAIN NOTED IS DISPROPORTIONATE VENTRICULOMEGALY TO THE DEGREE OF SULCAL ENLARGEMENT WHICH MAY INDICATE THE PRESENCE OF AN ADULT COMMUNICATING HYDROCEPHALUS INCLUDING NORMAL PRESSURE HYDROCEPHALUS.
--- NOTE | 2017-12-19 00:35 | CONS ---
CC: Dr. Alexandre. * NEUROLOGY FOLLOWUP: DATE OF FOLLOWUP: 12/18/17. HOSPITALIST: Dr. Carpenter. LOCATION: She is an inpatient in room 435. CHIEF COMPLAINT: Parkinsonism, dementia. INTERVAL HISTORY: Since yesterday, Jennifer is doing considerably better. She was pretty lethargic yesterday and this morning, but seems to have perked up this afternoon. Currently she states she feels better than yesterday. She is little bit confused but much in the way able to provide ongoing dialogue. MEDICATIONS: Medications were reviewed and she is on: 1. Donepezil 5 mg p.o. q. day. 2. Atorvastatin 20 mg p.o. q. day. 3. Myrbetriq 50 mg p.o. q. day. 4. Heparin 5000 units subcutaneous q.8 hours. PHYSICAL EXAMINATION: She is asleep when I come in, but wakes right up. Temperature 98.4, blood pressure 155/51, heart rate in the 80 and regular, respiratory rate is 19, and oxygen saturation is 95% on room air. Neck is supple. Eyes movements are full. She has grade 2 to 3 hypomimia. Voice is soft , but clear with occasional mumbling. She has some myoclonic like twitching in her hands but no rest tremor. She has mild symmetrical rigidity in the upper extremities without cogwheeling. DIAGNOSTIC STUDIES/LAB DATA: Laboratory data is reviewed. Her serology for Lyme was negative as was her syphilis IgG. Antinuclear antibody was negative. PCR for Herpes simplex virus type 1 and 2 were negative. Spinal fluid VDRL was negative. CBC today is unremarkable. Chemistries today notable for creatinine down a little bit to 1.34. Repeat C-reactive protein today was just 2. Angiotensin converting enzyme level on blood was abnormal at 29. Still pending is spinal fluid, angiotensin converting enzyme level and spinal fluid Tau and amyloid beta 42. IMPRESSION: Strong suspicion for diffuse Lewy body disease. I cannot explain the chronic inflammation in her spinal fluid however. It would be preferable to get an MRI scan of the brain with contrast to look for pachymeningeal enhancement, but her renal function is not very good and it would put her at risk for further renal compromise. Also, we might see diffuse meningeal enhancement just because of a recent lumbar puncture and so in that sense the timing is not right. If she continues to improve perhaps she would be able to be discharged to assisted living which was her Bill's initial plan. Her antibiotics and antivirals have been appropriately stopped as there is no evidence of an ongoing infection. She did not respond to a large volume lumbar puncture in terms of improvement of gait or function, so I think normal pressure hydrocephalus is less likely. If her spinal fluid markers for Alzheimer disease come back negative it might be worth doing an outpatient dopamine transporter scan. Dr. Elli Mckeon will be coming on the service tomorrow and I will ask her to follow up. [id number]/[facility] #: [id number] APRIL
--- NOTE | 2017-12-19 04:58 | EEG ---
ELECTROENCEPHALOGRAM REPORT: DATE OF STUDY: 12/18/17. LOCATION: She is an inpatient in room 435. REFERRING PHYSICIAN: Dr. Carpenter. CHIEF COMPLAINT: Parkinsonism, dementia, decline in mental status. MEDICATIONS: Include: 1. Aricept. 2. Lipitor. 3. Norvasc. 4. Myrbetriq. REPORT: This 16-channel EEG is remarkable for background rhythms consisting of mixed beta and delta activities with a central predominance. Rhythms approaching alpha frequency at about 7 cycles per second are seen posteriorly. Muscle artifact and eye movement artifact is noted occasionally. Activation procedures are not attempted. Sleep stages are not recognized. There are no clinical events. There was no focal, lateralized, or epileptiform abnormalities. INTERPRETATION: Abnormal EEG due to generalized slowing and disorganization of background rhythm consistent with diffuse cerebral dysfunction. There are no focal or epileptiform features to this recording. [id number]/[facility] #: [id number] [facility]
[2017-12-19] MEDS: Heparin VIAL(*) 5000 UNITS/ML VIAL (FIVE THOUSAND) SUBCUT SCH ×3 (05:14→21:59)
[2017-12-19 05:29] LABS: ABS Basophils 0.1 10^3/ul (0-0.2); ABS Eosinophils 0.2 10^3/ul (0-0.6); ABS Lymphocytes 2.8 10^3/ul (1.0-4.8); ABS Monocytes 0.6 10^3/ul (0-0.8); ABS Neutrophils 4.5 10^3/ul (1.5-7.7); ABS Nucleated RBC 0 10^3/ul; Hematocrit 34 % (35-47); Hemoglobin 11.3 g/dl (12.0-16.0); Lymphocyte % 34.5 % (25-47); Mean Corpuscular HGB Conc 34 g/dl (31-36); Mean Corpuscular Hemoglobin 32 pg (27-31); Mean Corpuscular Volume 95 fL (80-97); Mean Platelet Volume 8.1 um3 (7.4-10.4); Nucleated Red Blood Cells % 0; Platelet Count 235 10^3/ul (150-450); Red Blood Count 3.56 10^6/ul (4.00-5.40); Red Cell Distribution Width 13 % (10.5-15); White Blood Count 8.1 10^3/ul (3.5-10.8)
[2017-12-19 05:47] LABS: EGFR Non-African American 35.8 (>60)
[2017-12-19] MEDS: NS 0.9% 1000 ML* 1,000 ML IV SCH ×2 (08:01→10:00)
--- NOTE | 2017-12-19 09:29 | PN ---
Subjective Date of Service: 12/19/17 Interval History: Pt is more alert today, able to tell me her b-day is February 07, still tremors in UE's noted Objective Active Medications: Acetaminophen (Tylenol Tab*) 650 mg PO Q6H PRN PRN Reason: FEVER/PAIN Amlodipine Besylate (Norvasc Tab*) 10 mg PO DAILY [facility] Last Admin: 12/18/17 09:47 Dose: 10 mg Atorvastatin Calcium (Lipitor*) 20 mg PO DAILY [facility] Last Admin: 12/18/17 09:47 Dose: 20 mg Donepezil HCl (Aricept Tab*) 5 mg PO DAILY [facility] Last Admin: 12/18/17 09:48 Dose: 5 mg Heparin Sodium (Porcine) (Heparin Vial(*)) 5,000 units SUBCUT Q8HR [facility] Last Admin: 12/19/17 05:14 Dose: 5,000 units Sodium Chloride (Ns 0.9% 1000 Ml*) 1,000 mls @ 50 mls/hr IV PER RATE [facility] Magnesium Hydroxide (Milk Of Magnesia Liq*) 30 ml PO Q4H PRN PRN Reason: CONSTIPATION Mirabegron (Myrbetriq (Nf)) 50 mg PO DAILY [facility] Last Admin: 12/18/17 09:48 Dose: 50 mg Pharmacy Profile Note (Ppd Reading Note*) 1 note .SEE ORDER .ONCE [facility] Stop: 12/20/17 23:59 Vital Signs - 8 hr 12/19/17 07:48 Temperature 98.3 F Pulse Rate 66 Respiratory 20 Rate Blood Pressure 138/49 (mmHg) O2 Sat by Pulse 95 Oximetry Oxygen Devices in Use Now: None Appearance: 77 yo F in nAD, aAOx1 Eyes: No Scleral Icterus, PERRLA Ears/Nose/Mouth/Throat: NL Teeth, Lips, Gums, Mucous Membranes Moist Neck: NL Appearance and Movements; NL JVP, Trachea Midline Respiratory: Symmetrical Chest Expansion and Respiratory Effort, Clear to Auscultation Cardiovascular: NL Sounds; No Murmurs; No JVD, RRR Abdominal: NL Sounds; No Tenderness; No Distention Lymphatic: No Cervical Adenopathy Extremities: No Edema, No Clubbing, Cyanosis Skin: No Rash or Ulcers, No Nodules or Sclerosis Neurological: - - tremors in b/l UE's noted, oriented to self and occasionally to place Result Diagrams: 12/19/17 05:10 10/27/18 05:10 Additional Lab and Data: Lab Results 12/15/17 12/15/17 12/15/17 Range/Units 11:43 12:58 12:58 WBC 7.0 (3.5-10.8) 10^3/ul RBC 4.06 (4.00-5.40) 10^6/ul Hgb 12.7 (12.0-16.0) g/dl Hct 38 (35-47) % MCV 94 (80-97) fL MCH 31 (27-31) pg MCHC 33 (31-36) g/dl RDW 13 (10.5-15) % Plt Count 246 (150-450) 10^3/ul MPV 7.6 (7.4-10.4) um3 Neut % (Auto) Not Reportable Lymph % (Auto) Not Reportable [place] % (Auto) Not Reportable Eos % (Auto) Not Reportable Baso % (Auto) Not Reportable Absolute Neuts (auto) 4.6 (1.5-7.7) 10^3/ul Absolute Lymphs (auto) 1.8 (1.0-4.8) 10^3/ul Absolute Monos (auto) 0.6 (0-0.8) 10^3/ul Absolute Eos (auto) 0.1 (0-0.6) 10^3/ul Absolute Basos (auto) 0 (0-0.2) 10^3/ul Absolute Nucleated RBC Not Reportable Immature Gran % 2 (0-9) % Neutrophils % 62 (38-83) % Band Neutrophils % 2 (0-8) % Lymphocytes % 29 (25-47) % Monocytes % 5 (0-7) % Eosinophils % 1 (0-6) % Basophils % 1 (0-2) % Nucleated RBC % Not Reportable Abs Neuts (Manual) 4.3 (1.5-7.7) 10^3/ul Abs Lymphs (Manual) 2.0 (1.0-4.8) 10^3/ul Abs Monocytes (Manual) 0.4 (0-0.8) 10^3/ul Absolute Eos (Manual) 0.1 (0-0.6) 10^3/ul Abs Basophils (Manual) 0.1 (0-0.2) 10^3/ul Normal RBC Morphology Normal (Normal) Hem Pathologist Commnt Pending INR (Anticoag Therapy) 0.90 (0.77-1.02) APTT 29.1 (26.0-36.3) seconds Sodium (135-145) mmol/L Potassium (3.5-5.0) mmol/L Chloride (101-111) mmol/L Carbon Dioxide (22-32) mmol/L Anion Gap (2-11) mmol/L BUN (6-24) mg/dL Creatinine (0.51-0.95) mg/dL Est GFR ( Amer) (>60) Est GFR (Non-Af Amer) (>60) BUN/Creatinine Ratio (8-20) Glucose (70-100) mg/dL Lactic Acid (0.5-2.0) mmol/L Calcium (8.6-10.3) mg/dL Total Bilirubin (0.2-1.0) mg/dL AST (13-39) U/L ALT (7-52) U/L Alkaline Phosphatase (34-104) U/L Troponin I (<0.04) ng/mL Total Protein (6.4-8.9) g/dL Albumin (3.2-5.2) g/dL Globulin (2-4) g/dL Albumin/Globulin Ratio (1-3) Urine Color Yellow Urine Appearance Cloudy Urine pH 5.0 (5-9) Ur Specific [place] 1.015 (1.010-1.030) Urine Protein 1+(30 mg/dl) A (Negative) Urine Ketones Negative (Negative) Urine Blood 2+ A (Negative) Urine Nitrate Negative (Negative) Urine Bilirubin Negative (Negative) Urine Urobilinogen Negative (Negative) Ur Leukocyte Esterase Trace A (Negative) Urine WBC (Auto) Trace(0-5/hpf) (Absent) Urine RBC (Auto) 2+(6-10/hpf) A (Absent) Ur Squamous Epith Cells Present A (Absent) Urine Bacteria Absent (Absent) Urine Glucose Negative (Negative) 12/15/17 12/15/17 Range/Units 12:58 12:58 WBC (3.5-10.8) 10^3/ul RBC (4.00-5.40) 10^6/ul Hgb (12.0-16.0) g/dl Hct (35-47) % MCV (80-97) fL MCH (27-31) pg MCHC (31-36) g/dl RDW (10.5-15) % Plt Count (150-450) 10^3/ul MPV (7.4-10.4) um3 Neut % (Auto) Lymph % (Auto) [place] % (Auto) Eos % (Auto) Baso % (Auto) Absolute Neuts (auto) (1.5-7.7) 10^3/ul Absolute Lymphs (auto) (1.0-4.8) 10^3/ul Absolute Monos (auto) (0-0.8) 10^3/ul Absolute Eos (auto) (0-0.6) 10^3/ul Absolute Basos (auto) (0-0.2) 10^3/ul Absolute Nucleated RBC Immature Gran % (0-9) % Neutrophils % (38-83) % Band Neutrophils % (0-8) % Lymphocytes % (25-47) % Monocytes % (0-7) % Eosinophils % (0-6) % Basophils % (0-2) % Nucleated RBC % Abs Neuts (Manual) (1.5-7.7) 10^3/ul Abs Lymphs (Manual) (1.0-4.8) 10^3/ul Abs Monocytes (Manual) (0-0.8) 10^3/ul Absolute Eos (Manual) (0-0.6) 10^3/ul Abs Basophils (Manual) (0-0.2) 10^3/ul Normal RBC Morphology (Normal) Hem Pathologist Commnt INR (Anticoag Therapy) (0.77-1.02) APTT (26.0-36.3) seconds Sodium 140 (135-145) mmol/L Potassium 4.1 (3.5-5.0) mmol/L Chloride 103 (101-111) mmol/L Carbon Dioxide 28 (22-32) mmol/L Anion Gap 9 (2-11) mmol/L BUN 20 (6-24) mg/dL Creatinine 1.45 H (0.51-0.95) mg/dL Est GFR ( Amer) 42.3 (>60) Est GFR (Non-Af Amer) 34.9 (>60) BUN/Creatinine Ratio 13.8 (8-20) Glucose 111 H (70-100) mg/dL Lactic Acid 0.8 (0.5-2.0) mmol/L Calcium 9.5 (8.6-10.3) mg/dL Total Bilirubin 0.50 (0.2-1.0) mg/dL AST 48 H (13-39) U/L ALT 23 (7-52) U/L Alkaline Phosphatase 63 (34-104) U/L Troponin I 0.01 (<0.04) ng/mL Total Protein 6.7 (6.4-8.9) g/dL Albumin 4.1 (3.2-5.2) g/dL Globulin 2.6 (2-4) g/dL Albumin/Globulin Ratio 1.6 (1-3) Urine Color Urine Appearance Urine pH (5-9) Ur Specific [place] (1.010-1.030) Urine Protein (Negative) Urine Ketones (Negative) Urine Blood (Negative) Urine Nitrate (Negative) Urine Bilirubin (Negative) Urine Urobilinogen (Negative) Ur Leukocyte Esterase (Negative) Urine WBC (Auto) (Absent) Urine RBC (Auto) (Absent) Ur Squamous Epith Cells (Absent) Urine Bacteria (Absent) Urine Glucose (Negative) Microbiology and Other Data: Microbiology 12/15/17 11:43 Urine Culture - Final Urine No Growth (<1,000 CFU/mL) 12/15/17 12:58 Aerobic Blood Culture - Preliminary Blood Venous No Growth Day 1 Anaerobic Blood Culture - Preliminary No Growth Day 1 12/15/17 11:57 Aerobic Blood Culture - Preliminary Blood Venous No Growth Day 1 Assess/Plan/Problems-Billing Assessment: 77 yo F with h/o mild dementia with parkinsonian features, recent ESBL E. coli treated with Augmentin, HTN presents with unsteady gait and confusion - Patient Problems (1) Altered mental state Comment: s/p large volume spinal tap on 12/16/17. After the procedue apparently she walked twice as far as prior , but speech still was still altered and pt still confused. Deteriorated on 12/17/17 in PM on 12/18 she was back to baseline confusion, but no back to baseline from 1 week ago. CSF studies show >30 WBC with lymphocytic predominance. Pt was placed on broad spectrum antibiotcs including Vanc/Ceftriaxone /Acyclovir. Due to neg cx antibiotics d/c'd on 12/18/17. Today will cont PO/OT and to monitor Neurology and ID following (2) CKD (chronic kidney disease) stage 3, GFR 30-59 ml/min Comment: creat at baseline (1.2-1.5) for this Pt (3) Overactive bladder Comment: cont Mirabegron (4) HTN (hypertension) Comment: Norvasc increased from 5 to 10 mg on 12/16/17 (5) History of ESBL E. coli infection Comment: completed tx with Augmentin on 12/16/17 dx pf ESBL E. coli UTI as outpatient (6) DVT prophylaxis Comment: heparin sc Status and Disposition: inpatient
[2017-12-19] MEDS: PTO:Mirabegron (NF) 50 MG TAB PO SCH (09:31)
[2017-12-19] MEDS: amLODIPine TAB* 5 MG PO SCH (09:32)
[2017-12-19] MEDS: Atorvastatin* 20 MG TAB PO SCH (09:32)
[2017-12-19] MEDS: Donepezil TAB* 5 MG PO SCH (09:32)
[2017-12-19] MEDS ORDERED: Vancomycin Trough Check NOTE FOLLOW UP ONE (15:30)
--- NOTE | 2017-12-19 15:33 | PN ---
CC: Dr. Juwan Alexandre; Dr. Wilson Moody; Dr. No at [facility] Neurology DATE OF FOLLOWUP: 12/19/17 SUBJECTIVE: Jennifer Ray is a 77-year-old woman with a history of decline in memory, followed by Dr. No at [place] and questioned to be late onset Alzheimer 's disease, and followed by Dr. Alexandre in [place], who was admitted with acute decline in the setting of urinary tract infection with continued decline despite treatment. Jennifer's indicates that her cognitive decline originally started about 3 years ago, and was acute in onset when they were traveling. In the last several years, her reports 3 episodes of significant decline of unclear etiology. She had been down in [facility] with him last week and had seen Dr. No and had a Mini-Mental Status of 30/30. She came back to [place] and started getting worse. She was found to have a urinary tract infection and was treated with Augmentin. She continued to have frequent urination, decreased sleep, and complaints of dizziness. She was admitted to hospital with further decline. Her CT scan showed enlarged ventricles which were confirmed on MRI of the brain. This was performed without contrast because of her kidney function. An old right parietal area of encephalomalacia was noted suggestive of a previous stroke. There was also ventriculomegaly. On my review, I agree with these findings, in addition no significant atrophy. I question whether there could be some trapped ventricles up high. Dark areas on SWI were noted in the left cerebellum and right frontal regions. She had an EEG, which showed slowing and disorganization. She went on to have spinal fluid, which showed an opening pressure of 145. 30 cc were removed. She went from walking 100 feet to walking around the nursing floor with assistance. Her cognition did not improve. It actually got worse with time. Her spinal fluid also showed 41.5 white blood cells on tube #3 with 73% lymphs, 23% monos, 2% basophils, 2% neutrophils. Her CSF protein was 74, glucose was 68. On tube #4, she had 31.1 white blood cells. Her CSF HSV 1 and 2 PCR was negative, VDRL was negative. She had a C-reactive protein of 2, an CLAUDIA level of 29, JOHN was 0.2, syphilis IgG was negative. Her CSF and blood cultures have been negative to date. She was seen by Infectious Disease. She was initially placed on acyclovir, ceftriaxone, and vancomycin. These have been stopped. Her spinal fluid has been sent for amyloid and tau. It has also been sent for 14-3-3 protein for the possibility of Creutzfeldt-Christophe. Her clinical course has slowly shown improvement. This occurs in the setting of a history of hypertension, hyperlipidemia, recurrent UTIs, hysterectomy with bladder lift, tonsillectomy, and cataract extraction. EXAMINATION: Her vital signs on today's visit include a temperature of 98.3 degrees Fahrenheit, pulse was 66 and regular, respiratory rate was 20, saturation was 95%, blood pressure was 138/49. She had a regular cardiac rhythm. Her lungs were clear to auscultation. There was no evidence of peripheral edema. No petechiae were noted. Her pulses in her feet were present. She was awake, appeared tired, but was able to tell me she was at [facility]. She knew that it was November 2017 and guessed it was or . She was aware that Saleem Strong was the president. She was able to name months forward. She could only name 3 months backwards. She named one out of 3 objects on recall. Her pupils were small making difficult to visualize her fundi, evidence of previous cataract repair with lens implantation was noted. She had full extraocular movements with saccadic intrusions. Her facial expression, sensation, and hearing were equal. Palate was upgoing, tongue was midline. Sternocleidomastoid and trapezius were 5/5 in strength. She had no pronator drift. She did have myoclonic jerking, which was more prominent with holding arms or hands in position or trying to move legs. She gave good strength in her upper and lower extremities. There was no clear dysmetria with ygqzss-[id number] and fdrc-am-[id number] movements. Her reflexes were 2+ in the upper extremity, absent in the lower extremities. She stated that she could still feel vibration of the toes, but it was clearly diminished at the toes and ankles. She denied any asymmetries to pinprick, cold, or light touch. Gait was not tested at this time. Toes were equivocal when testing Babinski. DATA REVIEWED: Included the chart and neurology notes, admission note, progress notes, and direct review of the MRI of the brain as well as laboratory testing. CSF test as noted above. Of note, she did have a Lyme serology which was negative. MAR: reviewed IMPRESSION: A 77-year-old woman with a history of neurologic decline, which has been questioned to be Alzheimer's disease, as well as Parkinson's disease versus Lewy body type syndrome had been raised by the neurology team, with a history of acute onset about 3 years ago and episodes of decline with confusion , this time after urinary tract infection. She does have significant brain atrophy as well significantly enlarged ventricles. She did have a spinal tap looking for normal pressure hydrocephalus with some improvement in gait, but no improvement in cognition. Her lumbar puncture shows elevated white blood cell count and protein with no clear evidence of infection today. In addition to workup which has been done to date, amyloid and tau and 14-3- 3 protein are pending on CSF. II have suggested adding autoimmune encephalitis panel on CSF and serum. I have spoken to the lab and they are able to add this to the CSF, and serum has been ordered. This certainly is on differential diagnosis given her CSF findings. Her original acute onset with waxing and waning course, and now worsening condition in the setting of urinary tract infection which would challenge her immune system does raise question on whether we are dealing with an autoimmune/ paraneoplastic encephalitis. There is no history of weight loss, drenching night sweats, or high fevers to suggest constitutional symptoms of an underlying neoplasm. There is no known neoplasm. Further workup for this differential could be considered based on results Differential also includes viral encephalitis that is resolving. She is already improving. They are considering sending her to [facility] as an outpatient which would be an excellent place for rehabilitation and attentive nursing care until she can be at home. Her is very devoted, but is elderly and caregiving can take a toll. When she is back to her baseline, I would consider repeat large volume tap given the motor improvement that was noted in hospital and the findings on MRI. This would also allow for re- evaluation of CSF in a non-acute state. Acute decline may have clouded the interpretation of the response to large volume tap. Over an hour was spent in [id number] with the patient care with education of family and over an xyex-sqx-nd-half was spent in review of the chart, images, and discussion with the laboratory group, as well as Dr. Carpenter in coordination of care. All questions were answered. [id number]/[facility] #: [id number] MTDD
[2017-12-19] MEDS: Polyethylene Glycol 3350* 17 GM PACKET PO SCH (17:58)
[2017-12-19] MEDS: Docusate CAP* 100 MG PO SCH (21:59)
[2017-12-20] MEDS: NS 0.9% 1000 ML* 1,000 ML IV SCH (05:23)
[2017-12-20] MEDS: Heparin VIAL(*) 5000 UNITS/ML VIAL (FIVE THOUSAND) SUBCUT SCH ×3 (05:54→22:21)
[2017-12-20] MEDS ORDERED: PPD Reading 48-72 HRS NOTE SCH (06:00)
--- NOTE | 2017-12-20 08:18 | PN ---
Subjective Date of Service: 12/20/17 Interval History: Pt appears similar to yesterday. Remembered the month and the day of her birthday with no problems, still struggling with the year. Knows she is in hospital in [place]. Denies pain Objective Active Medications: Acetaminophen (Tylenol Tab*) 650 mg PO Q6H PRN PRN Reason: FEVER/PAIN Amlodipine Besylate (Norvasc Tab*) 10 mg PO DAILY [facility] Last Admin: 12/19/17 09:32 Dose: 10 mg Atorvastatin Calcium (Lipitor*) 20 mg PO DAILY [facility] Last Admin: 12/19/17 09:32 Dose: 20 mg Docusate Sodium (Colace Cap*) 100 mg PO BID [facility] Last Admin: 12/19/17 21:59 Dose: 100 mg Donepezil HCl (Aricept Tab*) 5 mg PO DAILY [facility] Last Admin: 12/19/17 09:32 Dose: 5 mg Heparin Sodium (Porcine) (Heparin Vial(*)) 5,000 units SUBCUT Q8HR [facility] Last Admin: 12/20/17 05:54 Dose: 5,000 units Sodium Chloride (Ns 0.9% 1000 Ml*) 1,000 mls @ 50 mls/hr IV PER RATE [facility] Last Admin: 12/20/17 05:23 Dose: 50 mls/hr Magnesium Hydroxide (Milk Of Magnesia Liq*) 30 ml PO Q4H PRN PRN Reason: CONSTIPATION Mirabegron (Myrbetriq (Nf)) 50 mg PO DAILY [facility] Last Admin: 12/19/17 09:31 Dose: 50 mg Pharmacy Profile Note (Ppd Reading Note*) 1 note .SEE ORDER .ONCE DANIELLE Stop: 12/20/17 23:59 Polyethylene Glycol/Electrolytes (Miralax*) 17 gm PO DAILY [facility] Last Admin: 12/19/17 17:58 Dose: 17 gm Vital Signs - 8 hr 12/20/17 07:53 Temperature 98.4 F Pulse Rate 70 Respiratory 16 Rate Blood Pressure 134/58 (mmHg) O2 Sat by Pulse 97 Oximetry Oxygen Devices in Use Now: None Appearance: 77 yo F in nAD, aAOx2 Eyes: No Scleral Icterus, PERRLA Ears/Nose/Mouth/Throat: NL Teeth, Lips, Gums, Mucous Membranes Moist Neck: NL Appearance and Movements; NL JVP, Trachea Midline Respiratory: Symmetrical Chest Expansion and Respiratory Effort, Clear to Auscultation Cardiovascular: NL Sounds; No Murmurs; No JVD, RRR Abdominal: NL Sounds; No Tenderness; No Distention Lymphatic: No Cervical Adenopathy Extremities: No Edema, No Clubbing, Cyanosis Skin: No Rash or Ulcers, No Nodules or Sclerosis Neurological: NL Muscle Strength and Tone, - - baseline tremor, intentional in b /l UE's Result Diagrams: 12/19/17 05:10 12/19/17 05:10 Additional Lab and Data: Lab Results 12/15/17 12/15/17 12/15/17 Range/Units 11:43 12:58 12:58 WBC 7.0 (3.5-10.8) 10^3/ul RBC 4.06 (4.00-5.40) 10^6/ul Hgb 12.7 (12.0-16.0) g/dl Hct 38 (35-47) % MCV 94 (80-97) fL MCH 31 (27-31) pg MCHC 33 (31-36) g/dl RDW 13 (10.5-15) % Plt Count 246 (150-450) 10^3/ul MPV 7.6 (7.4-10.4) um3 Neut % (Auto) Not Reportable Lymph % (Auto) Not Reportable [place] % (Auto) Not Reportable Eos % (Auto) Not Reportable Baso % (Auto) Not Reportable Absolute Neuts (auto) 4.6 (1.5-7.7) 10^3/ul Absolute Lymphs (auto) 1.8 (1.0-4.8) 10^3/ul Absolute Monos (auto) 0.6 (0-0.8) 10^3/ul Absolute Eos (auto) 0.1 (0-0.6) 10^3/ul Absolute Basos (auto) 0 (0-0.2) 10^3/ul Absolute Nucleated RBC Not Reportable Immature Gran % 2 (0-9) % Neutrophils % 62 (38-83) % Band Neutrophils % 2 (0-8) % Lymphocytes % 29 (25-47) % Monocytes % 5 (0-7) % Eosinophils % 1 (0-6) % Basophils % 1 (0-2) % Nucleated RBC % Not Reportable Abs Neuts (Manual) 4.3 (1.5-7.7) 10^3/ul Abs Lymphs (Manual) 2.0 (1.0-4.8) 10^3/ul Abs Monocytes (Manual) 0.4 (0-0.8) 10^3/ul Absolute Eos (Manual) 0.1 (0-0.6) 10^3/ul Abs Basophils (Manual) 0.1 (0-0.2) 10^3/ul Normal RBC Morphology Normal (Normal) Hem Pathologist Commnt Pending INR (Anticoag Therapy) 0.90 (0.77-1.02) APTT 29.1 (26.0-36.3) seconds Sodium (135-145) mmol/L Potassium (3.5-5.0) mmol/L Chloride (101-111) mmol/L Carbon Dioxide (22-32) mmol/L Anion Gap (2-11) mmol/L BUN (6-24) mg/dL Creatinine (0.51-0.95) mg/dL Est GFR ( Amer) (>60) Est GFR (Non-Af Amer) (>60) BUN/Creatinine Ratio (8-20) Glucose (70-100) mg/dL Lactic Acid (0.5-2.0) mmol/L Calcium (8.6-10.3) mg/dL Total Bilirubin (0.2-1.0) mg/dL AST (13-39) U/L ALT (7-52) U/L Alkaline Phosphatase (34-104) U/L Troponin I (<0.04) ng/mL Total Protein (6.4-8.9) g/dL Albumin (3.2-5.2) g/dL Globulin (2-4) g/dL Albumin/Globulin Ratio (1-3) Urine Color Yellow Urine Appearance Cloudy Urine pH 5.0 (5-9) Ur Specific Odin 1.015 (1.010-1.030) Urine Protein 1+(30 mg/dl) A (Negative) Urine Ketones Negative (Negative) Urine Blood 2+ A (Negative) Urine Nitrate Negative (Negative) Urine Bilirubin Negative (Negative) Urine Urobilinogen Negative (Negative) Ur Leukocyte Esterase Trace A (Negative) Urine WBC (Auto) Trace(0-5/hpf) (Absent) Urine RBC (Auto) 2+(6-10/hpf) A (Absent) Ur Squamous Epith Cells Present A (Absent) Urine Bacteria Absent (Absent) Urine Glucose Negative (Negative) 12/15/17 12/15/17 Range/Units 12:58 12:58 WBC (3.5-10.8) 10^3/ul RBC (4.00-5.40) 10^6/ul Hgb (12.0-16.0) g/dl Hct (35-47) % MCV (80-97) fL MCH (27-31) pg MCHC (31-36) g/dl RDW (10.5-15) % Plt Count (150-450) 10^3/ul MPV (7.4-10.4) um3 Neut % (Auto) Lymph % (Auto) [place] % (Auto) Eos % (Auto) Baso % (Auto) Absolute Neuts (auto) (1.5-7.7) 10^3/ul Absolute Lymphs (auto) (1.0-4.8) 10^3/ul Absolute Monos (auto) (0-0.8) 10^3/ul Absolute Eos (auto) (0-0.6) 10^3/ul Absolute Basos (auto) (0-0.2) 10^3/ul Absolute Nucleated RBC Immature Gran % (0-9) % Neutrophils % (38-83) % Band Neutrophils % (0-8) % Lymphocytes % (25-47) % Monocytes % (0-7) % Eosinophils % (0-6) % Basophils % (0-2) % Nucleated RBC % Abs Neuts (Manual) (1.5-7.7) 10^3/ul Abs Lymphs (Manual) (1.0-4.8) 10^3/ul Abs Monocytes (Manual) (0-0.8) 10^3/ul Absolute Eos (Manual) (0-0.6) 10^3/ul Abs Basophils (Manual) (0-0.2) 10^3/ul Normal RBC Morphology (Normal) Hem Pathologist Commnt INR (Anticoag Therapy) (0.77-1.02) APTT (26.0-36.3) seconds Sodium 140 (135-145) mmol/L Potassium 4.1 (3.5-5.0) mmol/L Chloride 103 (101-111) mmol/L Carbon Dioxide 28 (22-32) mmol/L Anion Gap 9 (2-11) mmol/L BUN 20 (6-24) mg/dL Creatinine 1.45 H (0.51-0.95) mg/dL Est GFR ( Amer) 42.3 (>60) Est GFR (Non-Af Amer) 34.9 (>60) BUN/Creatinine Ratio 13.8 (8-20) Glucose 111 H (70-100) mg/dL Lactic Acid 0.8 (0.5-2.0) mmol/L Calcium 9.5 (8.6-10.3) mg/dL Total Bilirubin 0.50 (0.2-1.0) mg/dL AST 48 H (13-39) U/L ALT 23 (7-52) U/L Alkaline Phosphatase 63 (34-104) U/L Troponin I 0.01 (<0.04) ng/mL Total Protein 6.7 (6.4-8.9) g/dL Albumin 4.1 (3.2-5.2) g/dL Globulin 2.6 (2-4) g/dL Albumin/Globulin Ratio 1.6 (1-3) Urine Color Urine Appearance Urine pH (5-9) Ur Specific Odin (1.010-1.030) Urine Protein (Negative) Urine Ketones (Negative) Urine Blood (Negative) Urine Nitrate (Negative) Urine Bilirubin (Negative) Urine Urobilinogen (Negative) Ur Leukocyte Esterase (Negative) Urine WBC (Auto) (Absent) Urine RBC (Auto) (Absent) Ur Squamous Epith Cells (Absent) Urine Bacteria (Absent) Urine Glucose (Negative) Microbiology and Other Data: Microbiology 12/15/17 11:43 Urine Culture - Final Urine No Growth (<1,000 CFU/mL) 12/15/17 12:58 Aerobic Blood Culture - Preliminary Blood Venous No Growth Day 1 Anaerobic Blood Culture - Preliminary No Growth Day 1 12/15/17 11:57 Aerobic Blood Culture - Preliminary Blood Venous No Growth Day 1 Assess/Plan/Problems-Billing Assessment: 77 yo F with h/o mild dementia with parkinsonian features, recent ESBL E. coli treated with Augmentin, HTN presents with unsteady gait and confusion - Patient Problems (1) Altered mental state Comment: s/p large volume spinal tap on 12/16/17. After the procedue apparently she walked twice as far as prior , but speech still was still altered and pt still confused. Deteriorated on 12/17/17 in PM on 12/18 she was back to baseline confusion, but no back to baseline from [address] Mckeon's consult. Autoimmune encephalitis panel pending. Pt may be able to go to [facility] for tomorrow CSF studies show >30 WBC with lymphocytic predominance. Pt was placed on broad spectrum antibiotics including Vanc/Ceftriaxone /Acyclovir. Due to neg cx antibiotics d/c'd on 12/18/17. Neurology and ID following (2) CKD (chronic kidney disease) stage 3, GFR 30-59 ml/min Comment: creat at baseline (1.2-1.5) for this Pt (3) Overactive bladder Comment: cont Mirabegron small to moderate post void bladder volumes noted 100- 200 ml (4) HTN (hypertension) Comment: Norvasc increased from 5 to 10 mg on 12/16/17 (5) History of ESBL E. coli infection Comment: completed tx with Augmentin on 12/16/17, repeat urine cx neg dx pf ESBL E. coli UTI as outpatient (6) DVT prophylaxis Comment: heparin sc Status and Disposition: inpatient, possible d/c to [place] tomorrow
[2017-12-20] MEDS: Polyethylene Glycol 3350* 17 GM PACKET PO SCH (08:26)
[2017-12-20] MEDS: PTO:Mirabegron (NF) 50 MG TAB PO SCH (08:27)
[2017-12-20] MEDS: Docusate CAP* 100 MG PO SCH ×2 (08:27→21:24)
[2017-12-20] MEDS: Donepezil TAB* 5 MG PO SCH (08:27)
[2017-12-20] MEDS: amLODIPine TAB* 5 MG PO SCH (08:27)
[2017-12-20] MEDS: Atorvastatin* 20 MG TAB PO SCH (08:27)
[2017-12-20 12:41] LABS: Hematocrit 39 % (35-47); Hemoglobin 12.8 g/dl (12.0-16.0); Mean Corpuscular HGB Conc 33 g/dl (31-36); Mean Corpuscular Hemoglobin 31 pg (27-31); Mean Corpuscular Volume 95 fL (80-97); Mean Platelet Volume 7.9 um3 (7.4-10.4); Platelet Count 268 10^3/ul (150-450); Red Blood Count 4.06 10^6/ul (4.00-5.40); Red Cell Distribution Width 14 % (10.5-15); White Blood Count 8.3 10^3/ul (3.5-10.8)
[2017-12-20 13:35] LABS: ABS Basophils 0 10^3/ul (0-0.2); Monocytes % 2 % (0-7)
--- NOTE | 2017-12-21 03:07 | PN ---
CC: Dr. Juwan Alexandre; Dr. No at [facility] Neurology * FOLLOWUP NOTE: DATE OF FOLLOWUP: 12/20/17 SUBJECTIVE: On today's visit, Jennifer Ray had decreased verbal response. Her family has noted decline since yesterday. From nursing staff, history was obtained of owning last night with spitting toothpaste at nurses. Yesterday , family indicates that she was doing quite well and she was interacting up in a chair and had many quality hours. Today, she is sleepy and slept through much of the visit. We reviewed her history dating back to 2014 with original symptoms of infection and increased confusion as well as admission in January 2015 with question of urinary tract infection, respiratory infection and again decline. She was doing quite well when she was in [facility] 10 days ago, and now has declined in the setting of urinary tract infection as well as inflammation in the spinal fluid raising question of differential diagnosis of viral condition versus inflammatory condition. EXAMINATION: On examination today, her temperature was 98.4 degrees Fahrenheit with a pulse of 70 and regular, respiratory rate was 16, saturation was 97%, blood pressure was 134/58. She had a regular cardiac rhythm. Her lungs were clear to auscultation. There was no evidence of rash. No petechiae. She would answer questions, but often drift off to sleep. She was aware she was at [facility]. She could not remember the month, could not remember the president. She had full extraocular movements with saccadic intrusions. She was able to count fingers in all alexander, albeit very slow. Her facial expression was symmetric. There was no dysarthria. She had no pronator drift. She did give good resistance in her arms and legs. She had a little bit of myoclonic jerk, but not as much as noted yesterday. She had difficulty understanding gadggk-[id number]-dlpj and tzyt-ig-dkmh movements, which she was able to do yesterday. Reflexes continued to be 1+ in the upper extremities, absent in the lower extremities. Toes were upgoing bilaterally. The patient slept during most of the visit. Data:Thus far, CSF and blood cultures remain negative. Outpatient neurology chart was reviewed. MAR was reviewed and includes: 1. Acetaminophen 650 mg p.o. q.6 hours p.r.n. fever or pain. 2. Norvasc 10 mg p.o. daily. 3. Atorvastatin 20 mg p.o. daily. 4. Colace 100 mg p.o. b.i.d. 5. Aricept 5 mg p.o. daily. 6. Heparin 5000 units subcu q.8 hours. 7. Milk of magnesia 30 mL p.o. q.4 hours p.r.n. constipation. 8. Mirabegron 50 mg p.o. daily. 9. MiraLAX 17 g p.o. daily. IMPRESSION: A 77-year-old woman with history of memory difficulties, for which she follows with Dr. No at [facility] and Dr. Alexandre in [place], who was admitted with acute decline in the setting of urinary tract infection with continued decline despite treatment. She was found to have elevated protein and white count in CSF raising differential diagnosis of a viral process versus inflammation. She has pending CSF amyloid and tau as well as 14-3-3 protein. Yesterday, autoimmune encephalitis panel was added on CSF and serum. She did have a lumbar puncture looking at differential diagnosis of normal pressure hydrocephalus with some improvement in gait, but no clear improvement in cognition in the setting of acute decline, admission, and abnormal spinal fluid. On today's visit, we reviewed her history dating back to 2014. Education was given regarding differential diagnosis to date, evaluation which has been performed, unclear disposition and prognosis. Family had many questions regarding each of these topics. They also had questions regarding resources in [facility]. They are considering a discharge to [facility] when she is stabilized with eventually potentially she and her moving into [facility]. How much better she was doing yesterday gives hope for continued improvement. Cause for this decline is still unclear. There may be more than one cause for decline including urinary tract infection in the setting of neurodegenerative process. There also appears to be a CSF process which may be a recent viral infection versus it could also be inflammation such as an autoimmune encephalitis. Cytology on CSF was not performed. Laboratory tests are pending. If she continues to improve, and no cause is found for changes in spinal fluid, I would suggest repeat high volume tap as outpatient looking for improvement with LP, as well as re-evaluating CSF protein, glucose, cell count, and getting cytology and flow cytometry. If she continues to decline, repeat LP as inpatient may need to be considered. Given her fluctuation, I have asked that family allow her to sleep today as we may be dealing with decline in the setting of increased stimulation, decreased sleep. We spoke about potential of hospitalizations causing increased confusion / owning. For differential diagnosis of her decline, we will check an EEG tomorrow. If there is acute sign to suggest seizure, we will call in the team earlier. This is looking for subclinical seizure. I have asked for repeat CBC with differential and complete metabolic panel to look for other causes of cognitive decline as well as a TSH. Further laboratory work could be sent according to results. Original plan had been to discharge her to the [facility] on Thursday. At this point , timing of discharge is becoming unclear as she has had a significant clinical decline from yesterday. Again, we will proceed with the above workup, and will continue supportive care. I have talked to the hospitalist team about her case and asked that Physical Therapy reassess her tomorrow. Family is asking about rehabilitation in house. Yesterday, she was doing so well, she could have participated, but may have been even too good for rehab. Today, she is lethargic and will be difficult to participate. TIME SPENT: Over an hour and a half was spent in direct [id number] patient care and coordination of care. Over 50% of the time was spent in education and counseling regarding above issues. All questions were answered. [id number]/[facility] #: [id number] APRIL
[2017-12-21 05:47] LABS: ABS Basophils 0.1 10^3/ul (0-0.2); ABS Eosinophils 0.2 10^3/ul (0-0.6); ABS Lymphocytes 2.7 10^3/ul (1.0-4.8); ABS Monocytes 0.5 10^3/ul (0-0.8); ABS Neutrophils 3.8 10^3/ul (1.5-7.7); ABS Nucleated RBC 0 10^3/ul; Hematocrit 37 % (35-47); Hemoglobin 12.3 g/dl (12.0-16.0); Lymphocyte % 36.7 % (25-47); Mean Corpuscular HGB Conc 33 g/dl (31-36); Mean Corpuscular Hemoglobin 32 pg (27-31); Mean Corpuscular Volume 95 fL (80-97); Mean Platelet Volume 7.8 um3 (7.4-10.4); Nucleated Red Blood Cells % 0; Platelet Count 254 10^3/ul (150-450); Red Blood Count 3.91 10^6/ul (4.00-5.40); Red Cell Distribution Width 14 % (10.5-15); White Blood Count 7.2 10^3/ul (3.5-10.8)
[2017-12-21 06:06] LABS: EGFR Non-African American 36.4 (>60)
[2017-12-21] MEDS: Heparin VIAL(*) 5000 UNITS/ML VIAL (FIVE THOUSAND) SUBCUT SCH ×3 (06:21→21:42)
[2017-12-21] MEDS: Atorvastatin* 20 MG TAB PO SCH (08:34)
[2017-12-21] MEDS: Docusate CAP* 100 MG PO SCH ×2 (08:34→21:40)
[2017-12-21] MEDS: PTO:Mirabegron (NF) 50 MG TAB PO SCH (08:34)
[2017-12-21] MEDS: Polyethylene Glycol 3350* 17 GM PACKET PO SCH (08:34)
[2017-12-21] MEDS: amLODIPine TAB* 5 MG PO SCH (08:34)
[2017-12-21] MEDS: Donepezil TAB* 5 MG PO SCH (08:34)
--- NOTE | 2017-12-21 13:19 | PN ---
PROGRESS NOTE: DATE OF SERVICE: 12/21/17 PRIMARY PROVIDER: Marilyn Carpenter MD CHIEF COMPLAINT: Memory problems and increased confusion. BRIEF SUMMARY: I had the pleasure of meeting Ms. Jennifer Ray today for the first time. She is a pleasant 77-year-old female who has had a 3-year history of slow cognitive decline, ventriculomegaly noticed on an MRI from 2011, remote right parietal ischemic infarction, intracranial susceptibility changes seen in the left cerebellum and left frontal hemisphere consistent with small microhemorrhages, who presented to [facility] on 12/15/17 with increased confusion. The patient follows up with Dr. Alexandre as an outpatient and also sees Dr. No at [facility]. She was diagnosed with questionable late onset Alzheimer disease. She was admitted to the hospital for urinary tract infection and decline in her cognition. She was admitted on 12/15/17 and she was doing well until last Thursday on 12/19/17 where she developed increasing confusion. She was thought to be sundowning. She was lethargic all throughout Thursday and sleeping during the day. I have reviewed her brain CT results from 12/15/17 that showed diffuse cerebral atrophy with evidence of right chronic middle cerebral artery infarction. I also reviewed the brain MRI that also revealed a remote ischemic infarction in the right parietal lobe, disproportional ventriculomegaly to the cerebral sulci without any transependymal flow on T2 images. She had an EEG done on 12/18/[address] Allen as diffuse cerebral slowing suggestive of underlying mild encephalopathy. The patient had a lumbar puncture completed on 12/16/17 to look for any infectious pathology. Fluid WBC was 41 and CSF total protein is 74 with normal RBC, total cell count of 100, fluid neutrophils of 2% and fluid lymphocytes of 73%. With further evaluation and questioning, the patient stated that she has had headache for 1 day over the last 2 weeks, but currently denied any headache or nuchal rigidity. Her CSF glucose was 68. CSF, VDRL, HSV1, HSV2 were all negative. She was started on antibiotics and antiviral agents with acyclovir but that was all appropriately discontinued recently. SUBJECTIVE: Today, the patient stated that she slept well last night. She remembers meeting Dr. Mckeon over the weekend. She asked me if I am the same doctor as Dr. Allen who is a neurologist. She also requested that she be taken to the bathroom, so she could have both a bowel movement and urinate. The bedside nurse and aide assisted the patient to the bathroom. When I returned to revaluate her, she remembered meeting me earlier on just half an hour ago. She is very pleasant to talk to, but appears confused and concerned. She denied any headaches or visual disturbance. She complains of chronic left shoulder pain after trying to fling her jacket and dislocating/hurting her left shoulder. She appeared oriented and comfortable. The following labs and workup is pending. CSF, autoimmune panel, amyloid and tau proteins, and 14-3-3 protein. MEDICATIONS: 1. Acetaminophen 650 mg p.o. q.6 hours as needed for fever or pain. 2. Amlodipine 10 mg p.o. daily. 3. Atorvastatin 20 mg p.o. daily. 4. Docusate 100 mg p.o. twice daily. 5. Aricept 5 mg p.o. daily. 6. Heparin 5000 units subcutaneously every 8 hours. 7. Milk of magnesia 30 mL p.o. every 4 hours as needed for constipation. 8. Mirabegron 50 mg p.o. daily. 9. MiraLAX 17 g p.o. daily. REVIEW OF SYSTEMS: The patient denied any headaches, visual disturbance, focal weakness, chest pain, shortness of breath, or palpitations. PHYSICAL EXAMINATION: Vitals: Temperature of 98.0, pulse of 72, respiratory rate of 16, oxygen saturation of 97%, blood pressure 135/53. General: Well- nourished, well-developed female in no acute distress. Head: Atraumatic, normocephalic. Eyes: Conjunctivae/corneas are clear. Neck is supple and symmetrical. No carotid bruits. Lungs are clear to auscultation bilaterally, nonlabored breathing. Cardiovascular: Regular rhythm with normal S1, S2. Extremities: Normal range of motion with no cyanosis. Skin: No skin lesions or lacerations. Neurological: Mental Status: Awake and she is oriented to self , place, and time. She was confused as to why she is currently in the hospital. She also was worried about people walking around the hallways and she noticed that there are patients in rooms lying in bed. She was able to walk with physical therapy today independently. She did have visuospatial and executive function impairment as she was unable to draw the clock. She had moderately poor spacing, she omits numbers, she is unable to write numbers accurately, and she has a severe level of disorganization. She was unable to also perform the puzzles to connect letters and numbers. She was unable to copy the cue. She had no problem with naming. She recalled 2 out of 5 words after 2 minutes. She did have intact attention with number recall. She had trouble with serial 7s and was unable to calculate from 100 to 93. She did have trouble repeating complex sentences, for instance instead of saying "the cat always hid under the couch when dogs were in the room" she stated "cats hid under the couch when the dog was there." She was unable to state 11 words that began with the letter F after 1 minute. Again, orientation to date, month, year , day, place, city as well as address and phone numbers were all intact. Cranial nerves testing: Pupils equal, round and reactive to light and she has got very small constricted pupils, but are symmetrical bilaterally. She had left inferior quadrantanopia. No facial asymmetry. Tongue is symmetric and midline without any atrophy or fasciculation. Motor examination: She has no abnormal movements. She did have increasing tone in the left upper and lower extremities. Otherwise, she was able to move all 4 extremities against resistance symmetrically. Reflexes: Right/left brachioradialis 1/1, biceps 1/1, triceps 1/1, patella 1/0, ankle 0/0. Plantar flexor bilaterally. Sensation is intact to light touch throughout. She had tactile extension on the left upper and lower extremities. Coordination bradykinetic but normal [id number] bilaterally. Gait: Wide-based with no ataxia. ASSESSMENT AND RECOMMENDATION: Ms. Jennifer Ray is a pleasant 77-year-old female with a 3-year history of memory difficulty with episodes of worsening memory dysfunction and delirium in the setting of urinary tract infection. The patient has rested well overnight. She seems like she is in good spirits and slowly recovering. This is quite a complicated case which seems to have progressed over the last 3 years. During this hospitalization, the patient had an extensive workup with a repeat MRI of the brain, lumbar puncture, and evaluation by physical therapy. We are unable to conclude and are still pending further workup and evaluation, and her diagnosis of an underlying neurodegenerative disorder in the realm of late onset Alzheimer disease is the likely diagnosis. She does have areas of susceptibility or changes on MRI consistent with small microhemorrhages, which can also correlate with underlying amyloid angiopathy increasing her risk for Alzheimer's. We are pending an autoimmune encephalitis panel on the CSF. We are also waiting on the CSF amyloid and tau protein as well as the 14-3-3 protein to check for Creutzfeldt- Christophe disease. She will require rehabilitation after this hospitalization and she is pending evaluation by [facility]. 1. I suspect the patient has hospitalization-induced delirium superimposed to her dementia - this is slowly improving. Unfortunately, with every hospitalization and increased episodes of delirium, the patient may not return to her baseline status and her dementia will progress over time. 2. Abnormal lumbar puncture suggestive of a viral encephalopathy/encephalitis versus an inflammatory reaction - we are still pending an autoimmune workup. An LP should be repeated within the next 2 to 4 weeks. If the protein and WBC has normalized, then we may suspect that she had an underlying viral illness than an autoimmune inflammatory process. 3. Remote left MCA vascular territory infarction - this also complicates the process given that she may also have underlying vascular dementia given her remote history of stroke. If there is no absolute contraindication, the patient should be on small dose of antiplatelet therapy. There is no absolute contraindication to aspirin 81 mg in the setting of the hemosiderin deposition in the brain. Continue atorvastatin. 4. Ventriculomegaly concerning for underlying NPH. It is unclear if her cognition actually improved after the large volume lumbar puncture, but clearly it deteriorated again over the last 48 hours. Given the improvement today, NPH is low on the differential. Plus, I reviewed the images dating back from 2011 and it seems like she has always had this ventriculomegaly and therefore, I do not suspect this is a new finding. However, further evaluation is warranted as an outpatient and a cisternogram can be considered if her cognition continues to deteriorate. 5. We do not have any further neurologic workup at this point. She should follow up with Dr. Juwan Alexandre in 2 to 3 weeks. TIME SPENT: I spent a total of 60 minutes and greater than 50% was spent directly viewing the medical chart, obtaining history, examining the patient, education, counseling, and discussing the treatment plan with the primary team. [id number]/[facility] #: [id number] [facility] PARTNERSLarissa
--- NOTE | 2017-12-21 14:10 | PN ---
Subjective Date of Service: 12/21/17 Interval History: Patient seen today. I spoke with neurology. She is doing much better today. She is awake, alert. I did speak to patient's and daughter in the room. they were made aware of the transfer possibility for tomorrow. Daughter asked if the patient can shower, and I did not oppose to it. Past Medical History: Unchanged from Admission Objective Active Medications: Acetaminophen (Tylenol Tab*) 650 mg PO Q6H PRN PRN Reason: FEVER/PAIN Amlodipine Besylate (Norvasc Tab*) 10 mg PO DAILY [facility] Last Admin: 12/21/17 08:34 Dose: 10 mg Atorvastatin Calcium (Lipitor*) 20 mg PO DAILY [facility] Last Admin: 12/21/17 08:34 Dose: 20 mg Docusate Sodium (Colace Cap*) 100 mg PO BID [facility] Last Admin: 12/21/17 08:34 Dose: 100 mg Donepezil HCl (Aricept Tab*) 5 mg PO DAILY [facility] Last Admin: 12/21/17 08:34 Dose: 5 mg Heparin Sodium (Porcine) (Heparin Vial(*)) 5,000 units SUBCUT Q8HR [facility] Last Admin: 12/21/17 13:16 Dose: 5,000 units Magnesium Hydroxide (Milk Of Magnesia Liq*) 30 ml PO Q4H PRN PRN Reason: CONSTIPATION Last Admin: 12/20/17 08:27 Dose: 30 ml Mirabegron (Myrbetriq (Nf)) 50 mg PO DAILY [facility] Last Admin: 12/21/17 08:34 Dose: 50 mg Polyethylene Glycol/Electrolytes (Miralax*) 17 gm PO DAILY [facility] Last Admin: 12/21/17 08:34 Dose: 17 gm Vital Signs - 8 hr 12/21/17 12/21/17 06:51 07:59 Temperature 98.0 F Pulse Rate 72 Respiratory 16 16 Rate Blood Pressure 135/53 (mmHg) O2 Sat by Pulse 97 Oximetry Oxygen Devices in Use Now: None Appearance: Awake, alert. confused to time. but able to tell me in the hospital. Eyes: No Scleral Icterus, - - EOMI Ears/Nose/Mouth/Throat: Clear Oropharnyx, Mucous Membranes Moist Neck: NL Appearance and Movements; NL JVP, Trachea Midline Respiratory: Symmetrical Chest Expansion and Respiratory Effort, Clear to Auscultation Cardiovascular: NL Sounds; No Murmurs; No JVD, RRR Abdominal: NL Sounds; No Tenderness; No Distention Extremities: No Edema Skin: No Rash or Ulcers Result Diagrams: 12/21/17 05:37 12/21/17 05:37 Additional Lab and Data: Lab Results 12/15/17 12/15/17 12/15/17 Range/Units 11:43 12:58 12:58 WBC 7.0 (3.5-10.8) 10^3/ul RBC 4.06 (4.00-5.40) 10^6/ul Hgb 12.7 (12.0-16.0) g/dl Hct 38 (35-47) % MCV 94 (80-97) fL MCH 31 (27-31) pg MCHC 33 (31-36) g/dl RDW 13 (10.5-15) % Plt Count 246 (150-450) 10^3/ul MPV 7.6 (7.4-10.4) um3 Neut % (Auto) Not Reportable Lymph % (Auto) Not Reportable Gibson % (Auto) Not Reportable Eos % (Auto) Not Reportable Baso % (Auto) Not Reportable Absolute Neuts (auto) 4.6 (1.5-7.7) 10^3/ul Absolute Lymphs (auto) 1.8 (1.0-4.8) 10^3/ul Absolute Monos (auto) 0.6 (0-0.8) 10^3/ul Absolute Eos (auto) 0.1 (0-0.6) 10^3/ul Absolute Basos (auto) 0 (0-0.2) 10^3/ul Absolute Nucleated RBC Not Reportable Immature Gran % 2 (0-9) % Neutrophils % 62 (38-83) % Band Neutrophils % 2 (0-8) % Lymphocytes % 29 (25-47) % Monocytes % 5 (0-7) % Eosinophils % 1 (0-6) % Basophils % 1 (0-2) % Nucleated RBC % Not Reportable Abs Neuts (Manual) 4.3 (1.5-7.7) 10^3/ul Abs Lymphs (Manual) 2.0 (1.0-4.8) 10^3/ul Abs Monocytes (Manual) 0.4 (0-0.8) 10^3/ul Absolute Eos (Manual) 0.1 (0-0.6) 10^3/ul Abs Basophils (Manual) 0.1 (0-0.2) 10^3/ul Normal RBC Morphology Normal (Normal) Hem Pathologist Commnt Pending INR (Anticoag Therapy) 0.90 (0.77-1.02) APTT 29.1 (26.0-36.3) seconds Sodium (135-145) mmol/L Potassium (3.5-5.0) mmol/L Chloride (101-111) mmol/L Carbon Dioxide (22-32) mmol/L Anion Gap (2-11) mmol/L BUN (6-24) mg/dL Creatinine (0.51-0.95) mg/dL Est GFR ( Amer) (>60) Est GFR (Non-Af Amer) (>60) BUN/Creatinine Ratio (8-20) Glucose (70-100) mg/dL Lactic Acid (0.5-2.0) mmol/L Calcium (8.6-10.3) mg/dL Total Bilirubin (0.2-1.0) mg/dL AST (13-39) U/L ALT (7-52) U/L Alkaline Phosphatase (34-104) U/L Troponin I (<0.04) ng/mL Total Protein (6.4-8.9) g/dL Albumin (3.2-5.2) g/dL Globulin (2-4) g/dL Albumin/Globulin Ratio (1-3) Urine Color Yellow Urine Appearance Cloudy Urine pH 5.0 (5-9) Ur Specific [place] 1.015 (1.010-1.030) Urine Protein 1+(30 mg/dl) A (Negative) Urine Ketones Negative (Negative) Urine Blood 2+ A (Negative) Urine Nitrate Negative (Negative) Urine Bilirubin Negative (Negative) Urine Urobilinogen Negative (Negative) Ur Leukocyte Esterase Trace A (Negative) Urine WBC (Auto) Trace(0-5/hpf) (Absent) Urine RBC (Auto) 2+(6-10/hpf) A (Absent) Ur Squamous Epith Cells Present A (Absent) Urine Bacteria Absent (Absent) Urine Glucose Negative (Negative) 12/15/17 12/15/17 Range/Units 12:58 12:58 WBC (3.5-10.8) 10^3/ul RBC (4.00-5.40) 10^6/ul Hgb (12.0-16.0) g/dl Hct (35-47) % MCV (80-97) fL MCH (27-31) pg MCHC (31-36) g/dl RDW (10.5-15) % Plt Count (150-450) 10^3/ul MPV (7.4-10.4) um3 Neut % (Auto) Lymph % (Auto) Gibson % (Auto) Eos % (Auto) Baso % (Auto) Absolute Neuts (auto) (1.5-7.7) 10^3/ul Absolute Lymphs (auto) (1.0-4.8) 10^3/ul Absolute Monos (auto) (0-0.8) 10^3/ul Absolute Eos (auto) (0-0.6) 10^3/ul Absolute Basos (auto) (0-0.2) 10^3/ul Absolute Nucleated RBC Immature Gran % (0-9) % Neutrophils % (38-83) % Band Neutrophils % (0-8) % Lymphocytes % (25-47) % Monocytes % (0-7) % Eosinophils % (0-6) % Basophils % (0-2) % Nucleated RBC % Abs Neuts (Manual) (1.5-7.7) 10^3/ul Abs Lymphs (Manual) (1.0-4.8) 10^3/ul Abs Monocytes (Manual) (0-0.8) 10^3/ul Absolute Eos (Manual) (0-0.6) 10^3/ul Abs Basophils (Manual) (0-0.2) 10^3/ul Normal RBC Morphology (Normal) Hem Pathologist Commnt INR (Anticoag Therapy) (0.77-1.02) APTT (26.0-36.3) seconds Sodium 140 (135-145) mmol/L Potassium 4.1 (3.5-5.0) mmol/L Chloride 103 (101-111) mmol/L Carbon Dioxide 28 (22-32) mmol/L Anion Gap 9 (2-11) mmol/L BUN 20 (6-24) mg/dL Creatinine 1.45 H (0.51-0.95) mg/dL Est GFR ( Amer) 42.3 (>60) Est GFR (Non-Af Amer) 34.9 (>60) BUN/Creatinine Ratio 13.8 (8-20) Glucose 111 H (70-100) mg/dL Lactic Acid 0.8 (0.5-2.0) mmol/L Calcium 9.5 (8.6-10.3) mg/dL Total Bilirubin 0.50 (0.2-1.0) mg/dL AST 48 H (13-39) U/L ALT 23 (7-52) U/L Alkaline Phosphatase 63 (34-104) U/L Troponin I 0.01 (<0.04) ng/mL Total Protein 6.7 (6.4-8.9) g/dL Albumin 4.1 (3.2-5.2) g/dL Globulin 2.6 (2-4) g/dL Albumin/Globulin Ratio 1.6 (1-3) Urine Color Urine Appearance Urine pH (5-9) Ur Specific [place] (1.010-1.030) Urine Protein (Negative) Urine Ketones (Negative) Urine Blood (Negative) Urine Nitrate (Negative) Urine Bilirubin (Negative) Urine Urobilinogen (Negative) Ur Leukocyte Esterase (Negative) Urine WBC (Auto) (Absent) Urine RBC (Auto) (Absent) Ur Squamous Epith Cells (Absent) Urine Bacteria (Absent) Urine Glucose (Negative) Microbiology and Other Data: Microbiology 12/15/17 11:43 Urine Culture - Final Urine No Growth (<1,000 CFU/mL) 12/15/17 12:58 Aerobic Blood Culture - Preliminary Blood Venous No Growth Day 1 Anaerobic Blood Culture - Preliminary No Growth Day 1 12/15/17 11:57 Aerobic Blood Culture - Preliminary Blood Venous No Growth Day 1 Assess/Plan/Problems-Billing Assessment: 77 yo F with h/o mild dementia with parkinsonian features, recent ESBL E. coli treated with Augmentin, HTN presents with unsteady gait and confusion - Patient Problems (1) Alzheimer disease Current Visit: Yes Status: Acute Code(s): G30.9 - ALZHEIMER'S DISEASE, UNSPECIFIED; F02.80 - DEMENTIA IN OTH DISEASES CLASSD ELSWHR W/O BEHAVRL DISTURB SNOMED Code(s): 64323151 Comment: Aricept 5 mg daily (2) Cerebral ventriculomegaly Current Visit: Yes Status: Acute Code(s): G93.89 - OTHER SPECIFIED DISORDERS OF BRAIN SNOMED Code(s): 528510678 Comment: - s/p COMPUTATIONAL LINGUIST shunts (3) History of ESBL E. coli infection Current Visit: Yes Status: Acute Code(s): Z86.19 - PERSONAL HISTORY OF OTHER INFECTIOUS AND PARASITIC DISEASES SNOMED Code(s): 329186031 Comment: No acute UTI on presentations completed tx with Augmentin on 12/16/17, repeat urine cx neg dx pf ESBL E. coli UTI as outpatient (4) Altered mental state Current Visit: No Status: Acute Priority: Medium Code(s): R41.82 - ALTERED MENTAL STATUS, UNSPECIFIED SNOMED Code(s): 376396455 Comment: s/p large volume spinal tap on 12/16/17. After the procedue apparently she walked twice as far as prior , but speech still was still altered and pt still confused. Deteriorated on 12/17/17 in PM on 12/18 she was back to baseline confusion, but no back to baseline from 1 week ago. Autoimmune encephalitis panel pending. CSF studies show >30 WBC with lymphocytic predominance. Pt was placed on broad spectrum antibiotics including Vanc/Ceftriaxone /Acyclovir. Due to neg cx antibiotics d/c'd on 12/18/17. Neurology today recommend discharge and outpatient follow up with outpatient LP which will be arranged by Dr. Alexandre office in about 2-3 weeks (5) CKD (chronic kidney disease) stage 3, GFR 30-59 ml/min Current Visit: No Status: Acute Code(s): N18.3 - CHRONIC KIDNEY DISEASE, STAGE 3 (MODERATE) SNOMED Code(s): 409271401 Comment: creat at baseline (1.2-1.5) for this Pt (6) H/O: CVA (cerebrovascular accident) Current Visit: No Status: Chronic Priority: Medium Code(s): Z86.73 - PRSNL HX OF TIA (TIA), AND CEREB INFRC W/O RESID DEFICITS SNOMED Code(s): 050437742 Comment: - no acute interventions. ASA was not recommended by neurology in 2015 due to hemosiderin deposit and microinfarctions (7) HTN (hypertension) Current Visit: Yes Status: Acute Code(s): I10 - ESSENTIAL (PRIMARY) HYPERTENSION SNOMED Code(s): 60417499 Comment: Continue Norvasc increased dosne from 5 to 10 mg on 12/16/17 (8) Hyperlipidemia Current Visit: Yes Status: Acute Code(s): E78.5 - HYPERLIPIDEMIA, UNSPECIFIED SNOMED Code(s): 59167221 Comment: - Continue lipitor 20mg HS; (9) DVT prophylaxis Current Visit: No Status: Acute Priority: Medium Code(s): CWV8301 - SNOMED Code(s): 904941414 Comment: heparin sc Status and Disposition: inpatient, possible d/c to [facility] tomorrow
--- NOTE | 2017-12-22 03:07 | EEG ---
ELECTROENCEPHALOGRAPHY: DATE OF SERVICE: 12/21/17 ORDERING PROVIDER: Elli Mckeon MD CLINICAL PROBLEM: Mrs. Ray is a 77-year-old female with history of dementia , who has intermittent confusion. There has been no reported seizure like activity. This EEG was obtained to evaluate for the degree of encephalopathy or epileptiform abnormalities. MEDICATIONS: 1. Norvasc. 2. Lipitor. 3. Colace. 4. Aricept. 5. Mirabegron. 6. MiraLAX. 7. Heparin. 8. Atenolol. CLINICAL STATE: Awake and drowsy. REPORT: The background consisted of mixed frequency, high amplitude slowing in the delta and theta range with some areas with appropriate organization and clearly defined anterior-posterior voltage gradient. There was waking slow background rhythm of 7 Hz, which was symmetrical and showed normal activity. Anteriorly, there were intermittent, high amplitude frontally predominant delta activity, which was semi-arrhythmic lasting for 3-10 seconds and was mostly present during drowsing state. Attenuation of the occipital rhythm accompanied drowsiness. Photic stimulation, hyperventilation were not performed. Throughout the recording, there were no clear electrographic seizures. CLINICAL IMPRESSION: This is an abnormal awake and drowsy EEG due to diffuse background slowing with prominent frontal intermittent and rhythmic delta activity. Otherwise, there was normal organization reactivity during wake state. These findings are suggestive of a mild-moderate nonspecific encephalopathy with FIRDA can be seen in the elderly deep structural abnormality or toxic/metabolic encephalopathy. There were no epileptiform abnormalities. [id number]/[facility] #: [id number] [facility]
[2017-12-22] MEDS: Heparin VIAL(*) 5000 UNITS/ML VIAL (FIVE THOUSAND) SUBCUT SCH (05:49)
[2017-12-22] MEDS: PTO:Mirabegron (NF) 50 MG TAB PO SCH (08:11)
[2017-12-22] MEDS: Atorvastatin* 20 MG TAB PO SCH (08:11)
[2017-12-22] MEDS: Donepezil TAB* 5 MG PO SCH (08:11)
[2017-12-22] MEDS: amLODIPine TAB* 5 MG PO SCH (08:11)
[2017-12-22] MEDS: Docusate CAP* 100 MG PO SCH (08:11)
[2017-12-22] MEDS: Polyethylene Glycol 3350* 17 GM PACKET PO SCH (08:16)
[2017-12-22 09:56] VITALS: BP 103/57
--- NOTE | 2017-12-23 09:43 | DS ---
DISCHARGE SUMMARY: DATE OF ADMISSION: 12/15/17 DATE OF DISCHARGE: 12/22/17 PRIMARY CARE PROVIDER: Dr. Wilson Moody. OUTPATIENT NEUROLOGIST: Dr. Tariq Allen. ADMITTING PROVIDER: Elizabet Goddard, YEYO ATTENDING ON THE DAY OF DISCHARGE: Dr. Fermín Simmons. CHIEF COMPLAINT: Fevers, altered mental status, gait instability, generalized weakness. PRINCIPAL DIAGNOSES: urinary tract infection, which showed ESBL Escherichia coli UTI versus components of Lewy body dementia or other type of inflammatory or infectious process, specifically viral. HISTORY OF PRESENT ILLNESS AND HOSPITAL COURSE: Jennifer Ray is a 77-year-old female with past medical history of pelvic organ prolapse, status post surgery approximately 10 years prior; frequent urinary tract infections; hypertension; hyperlipidemia; recent concern for Alzheimer's versus Lewy body dementia. She has been having generalized weakness for a few weeks but a week prior to admission was able to travel to [facility], 12 flights of stairs. She follows up with Dr. No, neurologist, in [facility] along with Dr. Allen, who has been doing testing on her and increasing her Aricept. She notably has had MRIs in 2011 and 2014, which showed concern for increased size of her ventricles. The prior to admission on 12/10/17, she presented to Urgent Care with fevers and she was contacted by her urologist, who had collected urine sample a week prior and it was noted that they had sent in a prescription for antibiotics but they did not get this message while they were traveling to [facility], so she then started to take the Augmentin for which the ESBL E. coli was sensitive. She seemed to improve from frequent urinary frequency. She was here to follow up with Dr. Juwan Alexandre, who referred her to the emergency room for further workup on 12/15/17. She had been having dizzy spells and altered mental status, was not sleeping well. She was seen by neurology consulting service first Dr. Allen followed by Dr. Mckeon and Dr. Cyr. 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 She had a brain MRI on 12/18/17, which showed no restricted diffusion to suggest acute infarct but with evidence of stable right parietal encephalomalacia consistent with remote infarct. Again was noted disproportion of ventriculomegaly to the degree of focal enlargement which may indicate the presence of normal pressure hydrocephalus. She had a lumbar puncture performed on 12/16/17, which demonstrated WBCs of 41.5, lymphocytes were 73%, monocytes 23%, glucose was 68, total protein was high at 74. She had an JOHN, which was 0.2 (negative). Syphilis IgG antibody, which was nonreactive. Lyme disease serology, which was negative. A 14-3-3 protein (beta and forms) less than 2.0, which was negative. CSF-VDRL was negative. CSF HSV1 and 2, PCRs were negative and angiotensin converting enzyme was 1.2, which was within normal limits. CSF cultures have been no growth to date x4 days. Blood cultures negative x5. Her repeat urine culture on was also no growth but notably she had already completed course of Augmentin for the prior ESBL E. coli from 12/03/17. Also, had additional negative blood and urine cultures from 12/11/17 when she presented to Urgent Care. Plans to follow up with Neurology and get a repeat lumbar puncture. Of note, also she had the spinal tap on 12/16/17 which was of large volume and she was noted to be able to walk farther than prior but her speech was still altered and confused and she deteriorate again on 12/17/17. Of note, autoimmune encephalitis panel was also sent and is pending. Dr. Mckeon also recommended getting cytology and flow cytometry in the future, CSF studies as an outpatient. She was not felt to be manageable by her elderly at home given her current physical conditioning and waxing and waning mental status and was discharged to [facility] for further physical therapy. She hopes to return home after a period of rehabilitation. The patient received empiric antibiotics and antivirals including Augmentin 3 doses between 12/15/17 and ; ceftriaxone for 2 days, 12/16/17 to 12/17/17; vancomycin on 12/16/17; acyclovir 3 doses between 12/16/17 and 12/17/17. DISCHARGE MEDICATIONS: Include: 1. Tylenol 650 mg p.o. q.6 hours p.r.n. 2. Amlodipine 5 mg p.o. daily. 3. Atorvastatin 20 mg p.o. daily. 4. Docusate 100 mg p.o. b.i.d. 5. Aricept 5 mg p.o. daily. 6. Myrbetriq 50 mg p.o. daily. 7. MiraLAX 17 g p.o. daily. 8. Multivitamin 1 tab p.o. daily. DISCHARGE DIET: Unrestricted. FOLLOWUP: Please follow up with Dr. Juwan Alexandre within 2 to 3 weeks, Dr. Wilson Moody within 7 days. TIME SPENT ON DISCHARGE: Forty-five minutes. [id number]/[facility] #: [id number] APRIL
== END 2017-12-22 11:40 | DRG 57 ==
LOC: ED 11:15 → MEDTELE 16:29
PROVIDERS: ADMIT Internal Medicine; ATTEND Internal Medicine
PROC: 009U3ZX Drainage of Spinal Canal, Percutaneous Approach, Diagnostic (ICD-10-PCS; principal; 2017-12-16 09:50)
DX: G31.83 Neurocognitive disorder with Lewy bodies (principal); N39.0 Urinary tract infection, site not specified; G91.2 (Idiopathic) normal pressure hydrocephalus; G93.40 Encephalopathy, unspecified; G30.1 Alzheimer's disease with late onset; G93.89 Other specified disorders of brain; N18.3 Chronic kidney disease, stage 3 (moderate); F02.80 Dementia in other diseases classified elsewhere, unspecified severity, without behavioral disturbance, psychotic disturbance, mood disturbance, and anxiety; E78.5 Hyperlipidemia, unspecified; B96.29 Other Escherichia coli [E. coli] as the cause of diseases classified elsewhere; R26.81 Unsteadiness on feet; R33.9 Retention of urine, unspecified; I12.9 Hypertensive chronic kidney disease with stage 1 through stage 4 chronic kidney disease, or unspecified chronic kidney disease; M25.512 Pain in left shoulder; R41.0 Disorientation, unspecified; N32.81 Overactive bladder; Z86.73 Personal history of transient ischemic attack (TIA), and cerebral infarction without residual deficits; Z82.49 Family history of ischemic heart disease and other diseases of the circulatory system; Z79.899 Other long term (current) drug therapy; Z88.2 Allergy status to sulfonamides
CPT/HCPCS: 36415; 62270; 70450; 70551; 71045; 74176; 80048; 80053; 80353; 81003; 81015; 82164; 82945; 83519; 83605; 84157; 84443; 84484; 85025; 85060; 85610; 85652; 85730; 86038; 86140; 86141; 86255; 86341; 86592; 86618; 87040; 87070; 87086; 87205; 87529; 89051; 95816; 95819; 99283; A9270-GY; G0480; G8978-GP-CK; G8979-GP-CI; G8987-GO-CM; G8988-GO-CJ; J0133; J0696; J1644; J2250; J3370; J3490

== ENCOUNTER 2017-12-26 20:38 | Emergency (ER) | payer MEDICARE ==
[2017-12-26 21:00] VITALS: BP 158/70
[2017-12-26] MEDS ORDERED: Ibuprofen TAB* 400 MG PO ONE (21:41)
--- NOTE | 2017-12-26 21:43 | UC ---
Lower Extremity/Ankle HPI - HPI Summary HPI Summary: left foot pain fifth toe, hit on a door stop this evening, bruising a tenderness left 5th toe - History of Current Complaint Chief Complaint: UCLowerExtremity Stated Complaint: TOE INJURY Time Seen by Provider: 12/26/17 21:30 Hx Obtained From: Patient, Family/Clinic Receptionist Hx From Patient Unobtainable Due To: Dementia Hx Last Menstrual Period: post menopause ?: No Onset/Duration: Sudden Onset Pain Intensity: 2 Pain Scale Used: 0-10 Numeric Aggravating Factor(s): Standing, Ambulation Alleviating Factor(s): Rest, Elevation Able to Bear Weight: Yes - Allergies/Home Medications Allergies/Adverse Reactions: Allergies Allergy/AdvReac Type Severity Reaction Status Date / Time Sulfa (Sulfonamide Allergy Unknown Verified 12/15/17 11:31 Antibiotics) Reaction Details PMH/Surg Hx/FS Hx/Imm Hx Endocrine History: Dyslipidemia Cardiovascular History: Hypertension Neurological History: Dementia - Surgical History Surgical History: Yes Surgery Procedure, Year, and Place: hyster/bladder lift 2006, tonsillectomy, CATARACT REPAIR WITH LENS REPLACEMENTS - Family History Known Family History: Positive: Hypertension Negative: Cardiac Disease, Diabetes - Social History Occupation: Retired Lives: Assisted Living Alcohol Use: Rare Substance Use Type: None Smoking Status (MU): Never Smoked Tobacco - Immunization History Most Recent Influenza Vaccination: November 2017 Most Recent Tetanus Shot: Believes to be within 5 years Most Recent Pneumonia Vaccination: <5 yrs Review of Systems Constitutional: Negative Skin: Bruising - left 5th toe Eyes: Negative ENT: Negative Respiratory: Negative Cardiovascular: Negative Gastrointestinal: Negative Genitourinary: Negative Motor: Negative Neurovascular: Negative Musculoskeletal: Arthralgia - left fifth toe Neurological: Negative Psychological: Negative Is Patient Immunocompromised?: No All Other Systems Reviewed And Are Negative: Yes Physical Exam Triage Information Reviewed: Yes Appearance: Well-Appearing, No Pain Distress, Well-Nourished Vital Signs: Initial Vital Signs Temp 97.2 F 12/26/17 20:50 Pulse 84 12/26/17 20:50 Resp 16 12/26/17 20:50 BP 158/70 12/26/17 20:50 Pulse Ox 97 12/26/17 20:50 Vital Signs Reviewed: Yes Eye Exam: Normal Eyes: Positive: Conjunctiva Clear ENT Exam: Normal ENT: Positive: Normal ENT inspection, Hearing grossly normal. Negative: Trismus , Muffled voice, Hoarse voice Dental Exam: Normal Neck exam: Normal Neck: Positive: Supple, Nontender Respiratory Exam: Normal Respiratory: Positive: Chest non-tender, No respiratory distress, No accessory muscle use Cardiovascular Exam: Normal Cardiovascular: Positive: RRR, Pulses Normal, Brisk Capillary Refill Musculoskeletal Exam: Other Musculoskeletal: Positive: Edema @ - left fifth toe, Other: - bruising left great toe Neurological Exam: Normal Neurological: Positive: Alert Psychological Exam: Normal Skin Exam: Normal Diagnostics - Radiology No standard instances Radiology Interpretation Completed By: ED Physician - fracture proximal 5th toe Lower Extremity Course/Dx - Course Course Of Treatment: cassie wrap, salima tape, ibuprofen ice, firm shoes (cam boot and post op shoe not used due to patients shuffling gait) follow with orthopedic MD - Differential Dx/Diagnosis Provider Diagnoses: minimially displaced left fifth toe fracture Discharge - Sign-Out/Discharge Documenting (check all that apply): Patient Departure All imaging exams completed and their final reports reviewed: No - Discharge Plan Condition: Stable Disposition: HOME Patient Education Materials: Toe Fracture (ED), R.I.C.E. Treatment (ED) Referrals: Wilson Moody MD [Primary Care Provider] - 2 Weeks Tye Ruiz MD [Medical Doctor] - 3 Days - Billing Disposition and Condition Condition: STABLE Disposition: Home
--- NOTE | 2017-12-27 08:22 | RAD ---
INDICATION: Left small toe pain after traumatic injury COMPARISON: None. TECHNIQUE: 4 views of the left foot were obtained. FINDINGS: There is a minimally displaced fracture involving the proximal metaphysis and diaphysis of the left small toe proximal phalanx. Remaining visualized bones are intact and appropriately aligned. Increased density overlying the lateral aspect of the left small toe metatarsal phalangeal joint is more likely a chronic process. IMPRESSION: MINIMALLY DISPLACED FRACTURE INVOLVING THE PROXIMAL PHALANX OF THE LEFT SMALL TOE. If the patient's symptoms persist, follow-up imaging is recommended. R0
--- NOTE | 2017-12-27 08:55 | UC ---
- Progress Note Progress Note: RADIOLOGY REPORT REVIEWED. CONFIRMS MINIMALLY DISPLACED FRACTURE INVOLVING THE PROXIMAL PHALANX OF THE LEFT SMALL TOE. NO CHANGE IN MGMT. Discharge - Sign-Out/Discharge Documenting (check all that apply): Post-Discharge Follow Up All imaging exams completed and their final reports reviewed: Yes - Discharge Plan Condition: Stable Disposition: HOME Patient Education Materials: Toe Fracture (ED), R.I.C.E. Treatment (ED) Referrals: Tye Ruiz MD [Medical Doctor] - 3 Days Wilson Moody MD [Primary Care Provider] - 2 Weeks - Billing Disposition and Condition Condition: STABLE Disposition: Home
== END 2017-12-26 22:00 | disposition home or self-care (01) ==
LOC: UCEAST 20:38
DX: S92.502A Displaced unspecified fracture of left lesser toe(s), initial encounter for closed fracture (principal); I10 Essential (primary) hypertension; F03.90 Unspecified dementia, unspecified severity, without behavioral disturbance, psychotic disturbance, mood disturbance, and anxiety; Z88.2 Allergy status to sulfonamides
CPT/HCPCS: 99212; A9270-GY; G0463

== ENCOUNTER 2018-02-12 11:35 | Emergency (ER) | payer MEDICARE ==
--- NOTE | 2018-02-12 11:39 | UC ---
Hand/Wrist HPI - HPI Summary HPI Summary: 78 yo female presents with finger pain. She tells me that last night around 2100 she was getting into bed and stumbled off the bed. She remembers the event well and did not hit her head or have LOC. She was able to get to her feet immediately following the event. She injured her left ring finger. This morning noticed bruising and swelling to the finger and had to have her ring cut off. Denies numbness, tingling, or decreased ROM to the finger/hand. - History Of Current Complaint Stated Complaint: FINGER INJURY Time Seen by Provider: 02/12/18 11:38 Hx Obtained From: Patient Hx Last Menstrual Period: post menopause Onset/Duration: Sudden Onset Severity Initially: Mild Severity Currently: Mild Pain Intensity: 2 Pain Scale Used: 0-10 Numeric - Allergies/Home Medications Allergies/Adverse Reactions: Allergies Allergy/AdvReac Type Severity Reaction Status Date / Time Sulfa (Sulfonamide Allergy Unknown Verified 02/12/18 11:41 Antibiotics) Reaction Details Home Medications: Home Medications Docusate CAP* [Colace Cap*] 100 mg PO DAILY 02/12/18 [History Confirmed 02/12/18 ] PMH/Surg Hx/FS Hx/Imm Hx Endocrine History: Dyslipidemia Cardiovascular History: Hypertension Neurological History: CVA, Dementia, Other - Alzheimer's - Surgical History Surgical History: Yes Surgery Procedure, Year, and Place: hyster/bladder lift 2006, tonsillectomy, CATARACT REPAIR WITH LENS REPLACEMENTS - Family History Known Family History: Positive: Hypertension Negative: Cardiac Disease, Diabetes - Social History Occupation: Retired Lives: With Family Alcohol Use: Rare Substance Use Type: None Smoking Status (MU): Never Smoked Tobacco - Immunization History Most Recent Influenza Vaccination: November 2017 Most Recent Tetanus Shot: Believes to be within 5 years Most Recent Pneumonia Vaccination: <5 yrs Review of Systems All Other Systems Reviewed And Are Negative: Yes Constitutional: Positive: Negative Skin: Positive: Bruising - left ring finger Respiratory: Positive: Negative Cardiovascular: Positive: Negative Neurovascular: Positive: Negative Musculoskeletal: Positive: Other: - left ring finger pain Neurological: Positive: Negative Psychological: Positive: Negative Physical Exam - Summary Physical Exam Summary: GENERAL: NAD. WDWN. No pain distress. SKIN: No rashes, sores, lesions, or open wounds. CHEST: No accessory muscle use. Breathing comfortably and in no distress. CV: Pulses intact radial and ulnar. Cap refill <2seconds MSK: Left ring finger: Mild ecchymosis about whole finger extending to MCP. Mild edema at PIP. FROM at MCP, PIP, and DIP with mild pain at PIP. NEURO: Alert. Sensations intact hand and all fingers. PSYCH: Age appropriate behavior. Triage Information Reviewed: Yes Vital Signs: Vital Signs: Temp Pulse Resp BP Pulse Ox 97.7 F 67 16 141/64 97 02/12/18 11:43 02/12/18 11:43 02/12/18 11:43 02/12/18 11:43 02/12/18 11:43 Vital Signs Reviewed: Yes Hand/Wrist Course/Dx - Course Course Of Treatment: XR: IMPRESSION: Degenerative changes of the proximal interphalangeal joint of the fourth. digit. No fracture. Discussed results with pt. Provided with a finger splint for use prn pain/discomfort. Advised to ice the area and f/u prn. - Differential Dx/Diagnosis Provider Diagnosis: Finger sprain Discharge - Sign-Out/Discharge Documenting (check all that apply): Patient Departure All imaging exams completed and their final reports reviewed: Yes - Discharge Plan Condition: Stable Disposition: HOME Patient Education Materials: Contusion in Adults (ED) Referrals: Wilson Moody MD [Primary Care Provider] - Additional Instructions: If you develop a fever, shortness of breath, chest pain, new or worsening symptoms - please call your PCP or go to the ED. Your blood pressure was mildly elevated at todays visit. Please see your primary provider within 4 weeks for recheck and re-evaluation. 1) Rest and ice your finger to reduce pain and swelling 2) Use the finger splint as needed for protection and pain relief - Billing Disposition and Condition Condition: STABLE Disposition: Home - Attestation Statements Provider Attestation: I was available for consult. This patient was seen by the JEANNA. The patient was not presented to, seen by, or examined by me. -Cheryl
--- OUTSIDE RECORDS SUMMARY | 2018-02-12 11:41 | XMS REPORT | Continuity of Care Document ---
:1940 External Reference #:[id number] Author Name Joslyn Mares Care Team Providers Name Role Phone Wilson Moody III, MD Primary Care Physician Unavailable Payers Type Date Identification Numbers Payment Provider Subscriber Effective: 2004 Policy Number: [id number] Medicare Jennifer Aleman PayID: [id number] [address] [place] [address] Policy Number: [id number] [facility] Jennifer Aleman PayID: [id number] [address] [place] [address] Advance Directives Description No Information Available Problems Date Description Provider Status Onset: 11/12/2010 Diverticulitis of colon Wilson Moody M.D. Active Onset: 10/17/2014 Dementia Veronika Hill M.D. Active Onset: 10/17/2014 Cerebral amyloid angiopathy Veronika Hill M.D. Active Onset: 10/17/2014 Altered mental status Veronika Hill M.D. Active Onset: 08/10/2017 Amnesia Juwan Alexandre M.D. Active Onset: 08/10/2017 Abnormal gait Juwan Alexandre M.D. Active Onset: 08/10/2017 Chronic fatigue syndrome Juwan Alexandre M.D. Active Onset: 12/15/2017 Urinary tract infectious disease Elizabet Goddard NP Active Onset: 12/15/2017 Essential hypertension Elizabet Goddard NP Active Onset: 12/16/2017 Chronic kidney disease stage 3 Marilyn Carpenter M.D. Active Onset: 12/16/2017 Bladder muscle dysfunction - Marilyn Carpenter M.D. Active overactive Onset: 12/16/2017 Parkinson's disease Marilyn Carpenter M.D. Active Onset: 12/18/2017 Hypertensive chronic kidney Marilyn Carpenter M.D. Active disease with stage 1 through stage 4 chronic kidney disease, or unspecified chronic kidney disease Onset: 12/21/2017 Alzheimer's disease Bruce Perez M.D. Active Onset: 02/05/2018 Other abnormal findings in Juwan Alexandre M.D. Active cerebrospinal fluid Family History Description No Information Available Social History Type Date Description Comments Sex Unknown Hand Dominance Right-handed Tobacco Use Start: Unknown Never Smoked Cigarettes ETOH Use Rarely consumes alcohol Tobacco Use Start: Unknown Patient has never smoked Recreational Drug Use Denies Drug Use Smoking Status Reviewed: 02/05/18 Patient has never smoked Exercise Type/Frequency Exercises sporadically Allergies, Adverse Reactions, Alerts Date Description Reaction Status Severity Comments 07/26/2007 Sulfa Active hives Medications Medication Date Status Form Strength Qnty SIG Indications Ordering Provider Melatonin 01/20/ Active Tablets 3mg 30tab po q day Wilson EKelsi 2017 s @ John Moody Colace 01/20/ Active Capsules 100mg 90cap 1 cap po Wilson Lees 2017 s bid John Moody Tylenol 01/20/ Active Tablets 325mg 90tab take 2 Wilson Lees 2017 s tabs as lexus Moody M.D. every 6 hours for pain/feve r Donepezil HCL 11/11/ Active Tablets 10mg 90tab 1 by F03.90 Tariq Chowdhury 2016 s mouth Tiffany, every day MKelsiDKelsi Amlodipine 02/06/ Active Tablets 5mg 30tab 1 by Zain Mack 2014 s mouth Pietro, [employer] every day Lipitor 12/15/ Active Tablets 20mg 90tab one tab Wilson Lees 2011 s po qhs John Moody Myrbetriq / Active 50mg once a 599.70 Unknown 0000 day Centrum Silver / Active Tablets 50+Women 90tab once Wilson Lees 50+Women 0000 s daily John Moody Amoxicillin/Cla 01/04/ Hx Tablets 875-125mg 10tab 1 by Wilson levy 2017 - s mouth Heidy, Potassium 02/04/ twice a M.D. 2017 day Augmentin 01/03/ Hx Tablets 875-125mg 10tab 1 tablet Wilson Lees 2017 - s by mouth Heidy, 01/04/ q12 hours M.D. 2017 Donepezil HCL 10/03/ Hx Tablets 5mg 60tab 1-2 tabs F03.90 Veronika Hernandez 2017 - s by mouth Sarthakman, 11/11/ every day M.D. 2017 as directed Fluticasone 12/23/ Hx Suspension 50mcg/Act 16gm 2 sprays J02.9 Matthew Propionate 2015 - each Mayco, [employer] 10/02/ nostril 2016 qd. Augmentin 02/06/ Hx Tablets 875-125mg 14tab by mouth N39.0 Zain 2014 - s twice a Pietro, [employer] 02/27/ day x 7 2015 days Ciprofloxacin 01/30/ Hx Tablets 500mg 14tab 1 tab by R35.0 Zain WILDE 2014 - s mouth Pietro, [employer] 02/06/ twice a 2014 day x 7 days Ciprofloxacin 10/10/ Hx Tablets 500mg 14tab 1 po Wilson Lees HCL 2014 - s twice a Heidy, 10/16/ day M.D. 2014 Cipro 10/21/ Hx Tablets 500mg 14tab 1 po bid Wilson Lees 2010 - s for 7 Heidy, 11/08/ days M.D. 2010 Robitussin With 12/04/ Hx 6Oz 10 cc qhs Wilson Lees Codeine Abhishek 2009 - and q 4 Heidy, 07/31/ hrs prn M.D. 2010 Augmentin 09/19/ Hx Tablets 875-125mg 20tab 1 bid 562.11 Sivananda 2009 - s , Poopal, 12/04/ 2009 Z Pack 07/24/ Hx Tablets 250mg 5tabs as Wilson Lees 2009 - directed. Heidy, 11/08/ M.D. 2011 Lipitor 07/25/ Hx Tablets 10mg 90tab 1 PO QHS Wilson Lees 2007 - s Heidy, 12/15/ M.D. 2012 Asa 07/25/ Hx 81mg 90uni 1 PO qd Wilson Lees 2007 - ts Heidy, 02/06/ M.D. 2015 Calcium/Vitamin 07/25/ Hx Tablets 600mg 100ta qd Wilson Dias 2007 - oni Moody, M.DKelsi 2014 Centrum Silver 07/25/ Hx Tablets 1 PO qd Wilson Lees 2007 - Heidy, M.D. 2016 Vitamin B-6 /00/ Hx Tablets 1 po qd Unknown 0000 - 2013 Vitamin B-12 /00/ Hx Tablets Sub 1 po qd Unknown 0000 - 2016 Fish Oil / Hx Capsules 1 po Unknown 0000 - capsules 2011 Cipro /00/ Hx Unknown 0000 - 2014 Augmentin 00/ Hx Tablets 875-125mg 1 tablet Unknown 0000 - by mouth 12/30/ q12 hours 2018 for 10 days Immunizations CPT Code Status Date Vaccine Lot # [id number] Given 12/04/2017 Fluzone High Dose 94357 Given 12/10/2016 Influenza Virus Vaccine, Quadrivalent, Split, Preservative Free [id number] Given 12/08/2015 Fluzone High Dose 69449 Given 12/14/2014 Fluzone High Dose 56264 Given 12/08/2013 Flu Vaccine Split Virus Preservative Free For [id number] Indiv 3Yr Older 04347 Given 08/18/2013 Tdap - Tetanus/Diptheria/Acellular Pertussis [id number] 30412 Given 08/18/2013 Pneumococcal Conjugate Vaccine 13 Valent For [id number] Intramuscular Use 37770 Given 12/11/2012 Flu Vaccine Split Virus Preservative Free For Indiv 3Yr Older 25529 Given 03/11/2012 Zoster (Zostavax) [id number] 16167 Given 12/17/2011 Pneumonia Vaccine [id number] Q2037 Given 12/10/2011 Fluvirin Im 3Yrs And Older [id number] Q2038 Given 12/20/2010 Fluzone Vaccine [id number] 80193 Given 12/14/2009 Influenza Virus 3Yrs & Over [id number] 47977 Given 12/13/2008 Influenza Virus 3Yrs & Over 17675 Given 12/20/2007 Influenza Virus 3Yrs & Over 46371 Given 11/30/2006 Influenza Virus 3Yrs & Over 55895 Given 11/30/2006 Influenza Virus 3Yrs & Over 12303 Given 11/30/2006 Influenza Virus 3Yrs & Over [id number] 57951 Given 09/21/2002 Td (History By Patient) 65375 Given 01/04/2002 Pneumovax (History By Patient) 138iu Vital Signs Date Vital Result Comment 02/05/2018 2:09pm Height 62.25 inches 5'2.25" Weight 147.00 lb Heart Rate 67 /min BP Systolic 122 mmHg BP Diastolic 78 mmHg BMI (Body Mass Index) 26.7 kg/m2 12/30/2017 1:10pm Height 62.25 inches 5'2.25" Weight 144.00 lb Heart Rate 84 /min BP Systolic Sitting 118 mmHg BP Diastolic Sitting 84 mmHg O2 % BldC Oximetry 95 % BMI (Body Mass Index) 26.1 kg/m2 12/15/2017 10:14am Height 62.25 inches 5'2.25" Weight 147.00 lb Heart Rate 62 /min BP Systolic Sitting 112 mmHg BP Diastolic Sitting 70 mmHg Respiratory Rate 15 /min BMI (Body Mass Index) 26.7 kg/m2 10/07/2017 3:02pm Height 62.25 inches 5'2.25" Weight 149.00 lb Heart Rate 60 /min BP Systolic Sitting 120 mmHg BP Diastolic Sitting 62 mmHg O2 % BldC Oximetry 97 % BMI (Body Mass Index) 27.0 kg/m2 09/14/2017 9:23am Height 62.25 inches 5'2.25" Weight 140.00 lb Heart Rate 66 /min BP Systolic 106 mmHg BP Diastolic 78 mmHg BMI (Body Mass Index) 25.4 kg/m2 08/10/2017 11:18am Height 62.25 inches 5'2.25" Weight 140.00 lb Heart Rate 72 /min BP Systolic Sitting 116 mmHg BP Diastolic Sitting 80 mmHg Respiratory Rate 16 /min BMI (Body Mass Index) 25.4 kg/m2 08/04/2017 1:01pm Height 62.25 inches 5'2.25" Weight 145.00 lb Heart Rate 65 /min BP Systolic Sitting 120 mmHg BP Diastolic Sitting 72 mmHg Body Temperature 98.6 F O2 % BldC Oximetry 96 % BMI (Body Mass Index) 26.3 kg/m2 02/26/2017 11:12am Height 62.25 inches 5'2.25" Weight 139.00 lb Heart Rate 74 /min BP Systolic 132 mmHg BP Diastolic 72 mmHg Respiratory Rate 14 /min BMI (Body Mass Index) 25.2 kg/m2 10/03/2016 1:40pm Height 62.25 inches 5'2.25" Weight 149.00 lb Heart Rate 76 /min BP Systolic Sitting 108 mmHg BP Diastolic Sitting 72 mmHg Respiratory Rate 16 /min Pain Level 0 BMI (Body Mass Index) 27.0 kg/m2 08/27/2016 11:45am Weight 155.38 lb Heart Rate 82 /min BP Systolic 136 mmHg BP Diastolic 82 mmHg Body Temperature 97.9 F O2 % BldC Oximetry 97 % 01/31/2016 9:43am Height 62.25 inches 5'2.25" Weight 162.00 lb Heart Rate 68 /min BP Systolic Sitting 126 mmHg BP Diastolic Sitting 82 mmHg Respiratory Rate 14 /min BMI (Body Mass Index) 29.4 kg/m2 12/24/2015 10:14am Weight 165.00 lb Heart Rate 96 /min BP Systolic Sitting 122 mmHg BP Diastolic Sitting 82 mmHg Respiratory Rate 15 /min Body Temperature 97.7 F O2 % BldC Oximetry 97 % 07/31/2015 12:07pm Height 62.25 inches 5'2.25" Weight 155.00 lb Heart Rate 64 /min BP Systolic Sitting 122 mmHg BP Diastolic Sitting 86 mmHg Respiratory Rate 14 /min BMI (Body Mass Index) 28.1 kg/m2 07/19/2015 3:48pm Height 62.25 inches 5'2.25" Weight 160.00 lb Heart Rate 64 /min BP Systolic Sitting 112 mmHg BP Diastolic Sitting 76 mmHg Respiratory Rate 14 /min BMI (Body Mass Index) 29.0 kg/m2 02/27/2015 3:11pm Height 62.25 inches 5'2.25" Weight 161.00 lb Heart Rate 68 /min BP Systolic 134 mmHg BP Diastolic 60 mmHg Body Temperature 99.2 F O2 % BldC Oximetry 97 % BMI (Body Mass Index) 29.2 kg/m2 02/09/2015 12:57pm Weight 163.00 lb Heart Rate 78 /min BP Systolic Sitting 134 mmHg BP Diastolic Sitting 70 mmHg Body Temperature 99.1 F 02/06/2015 10:45am Height 62.25 inches 5'2.25" Weight 161.00 lb Heart Rate 70 /min BP Systolic 114 mmHg BP Diastolic 70 mmHg Body Temperature 98.7 F BMI (Body Mass Index) 29.2 kg/m2 01/30/2015 11:39am Weight 160.00 lb Heart Rate 72 /min BP Systolic Sitting 143 mmHg BP Diastolic Sitting 76 mmHg Body Temperature 98.7 F 10/23/2014 10:16am Height 62.25 inches 5'2.25" Weight 159.50 lb Heart Rate 68 /min BP Systolic Sitting 134 mmHg BP Diastolic Sitting 80 mmHg Body Temperature 98.6 F O2 % BldC Oximetry 95 % BMI (Body Mass Index) 28.9 kg/m2 10/17/2014 9:21am Height 62.25 inches 5'2.25" Weight 155.00 lb Heart Rate 64 /min BP Systolic Sitting 128 mmHg BP Diastolic Sitting 72 mmHg Respiratory Rate 16 /min BMI (Body Mass Index) 28.1 kg/m2 10/13/2014 10:34am Height 62.25 inches 5'2.25" Weight 162.50 lb Heart Rate 75 /min BP Systolic Sitting 122 mmHg BP Diastolic Sitting 60 mmHg Body Temperature 98.5 F O2 % BldC Oximetry 98 % BMI (Body Mass Index) 29.5 kg/m2 10/10/2014 3:58pm Height 62.25 inches 5'2.25" Weight 165.00 lb Heart Rate 72 /min BP Systolic Sitting 124 mmHg BP Diastolic Sitting 82 mmHg Respiratory Rate 16 /min Body Temperature 98.8 F O2 % BldC Oximetry 94 % BMI (Body Mass Index) 29.9 kg/m2 08/18/2013 3:41pm Height 62.25 inches 5'2.25" Weight 160.00 lb Heart Rate 70 /min BP Systolic Sitting 132 mmHg BP Diastolic Sitting 80 mmHg Body Temperature 98.6 F BMI (Body Mass Index) 29.0 kg/m2 03/24/2012 3:04pm Height 62.5 inches 5'2.50" Weight 160.25 lb Heart Rate 76 /min BP Systolic Sitting 128 mmHg BP Diastolic Sitting 76 mmHg Body Temperature 99.5 F O2 % BldC Oximetry 98 % BMI (Body Mass Index) 28.8 kg/m2 12/24/2011 9:52am Height 62.5 inches 5'2.50" Weight 165.00 lb Heart Rate 84 /min BP Systolic Sitting 122 mmHg BP Diastolic Sitting 82 mmHg BMI (Body Mass Index) 29.7 kg/m2 12/16/2011 4:21pm Height 62.25 inches 5'2.25" Weight 163.00 lb Heart Rate 66 /min BP Systolic Sitting 140 mmHg BP Diastolic Sitting 88 mmHg BMI (Body Mass Index) 29.6 kg/m2 01/24/2011 11:17am Height 62.5 inches 5'2.50" Weight 158.75 lb Heart Rate 64 /min BP Systolic Sitting 144 mmHg BP Diastolic Sitting 80 mmHg Respiratory Rate 20 /min Body Temperature 98.1 F O2 % BldC Oximetry 92 % BMI (Body Mass Index) 28.6 kg/m2 07/31/2010 11:27am Weight 158.00 lb Heart Rate 66 /min BP Systolic Sitting 120 mmHg BP Diastolic Sitting 78 mmHg Body Temperature 97.4 F lt ear 12/04/2009 12:15pm Weight 150.00 lb Heart Rate 76 /min BP Systolic Sitting 138 mmHg BP Diastolic Sitting 80 mmHg Body Temperature 98.2 F tympanic 09/24/2009 11:41am Weight 148.00 lb Heart Rate 69 /min BP Systolic Sitting 128 mmHg BP Diastolic Sitting 80 mmHg 09/19/2009 2:23pm Weight 152.00 lb Heart Rate 72 /min BP Systolic 106 mmHg BP Diastolic 76 mmHg Body Temperature 100.1 F 07/24/2009 4:40pm Weight 150.00 lb Heart Rate 68 /min BP Systolic Sitting 128 mmHg BP Diastolic Sitting 74 mmHg Body Temperature 99.5 F 03/21/2008 3:04pm Heart Rate 68 /min BP Systolic Sitting 144 mmHg BP Diastolic Sitting 76 mmHg Body Temperature 101.2 F 07/26/2007 10:30am Height 62.5 inches 5'2.50" Weight 161.00 lb Heart Rate 68 /min BP Systolic Sitting 136 mmHg BP Diastolic Sitting 80 mmHg BMI (Body Mass Index) 29.0 kg/m2 Results Test Date Facility Test Result H/L Range Note Urinalysis Profile 01/02/2018 [facility] Urine Color Lois [address] [place] [address] [phone] Urine Appearance Turbid Urine Specific [place] 1.014 N 1.010-1.030 Urine pH 5.0 N 5-9 Urine Urobilinogen Negative Negative Urine Ketones Negative Negative Urine Protein 1+(30 mg/dL) Abnormal Negative Urine Leukocytes 3+ Abnormal Negative Urine Blood 2+ Abnormal Negative * * Abnormal Negative 1 Urine Nitrite Negative Negative Urine Bilirubin Negative Negative Urine Glucose Negative Negative Urine White Blood Cell 3+(>20/hpf) Abnormal Absent Urine Red Blood Cell Trace(0-2/hpf) Absent Urine Bacteria 1+ Abnormal Absent Urine Culture And 01/02/2018 [facility] Urine Culture SEE RESULT [address] [place] [address] [phone] Laboratory test 12/15/2017 [facility] Lactic Acid 1.1 mmol/L N 0.5-2. [address] [place] [address] [phone] Urinalysis Profile 12/15/2017 [facility] Urine Color Yellow [address] [place] [address] [phone] Urine Appearance Cloudy Urine Specific [place] 1.015 N 1.010-1.030 Urine pH 5.0 N 5-9 Urine Urobilinogen Negative Negative Urine Ketones Negative Negative Urine Protein 1+(30 mg/dL) Abnormal Negative Urine Leukocytes Trace Abnormal Negative Urine Blood 2+ Abnormal Negative Urine Nitrite Negative Negative Urine Bilirubin Negative Negative Urine Glucose Negative Negative Urine White Blood Cell Trace(0-5/hpf) Absent Urine Red Blood Cell 2+(6-10/hpf) Abnormal Absent Urine Bacteria Absent Absent Urine Squamous Epithelial Cell Present Abnormal Absent CBC Auto Diff 12/15/2017 [facility] White Blood 7.0 10^3/uL N 3.5-10.[address] [place] [address] [phone] Red Blood Count 4.06 10^6/uL N 4.00-5.40 Hemoglobin 12.7 g/dL N 12.0-16.0 Hematocrit 38 % N 35-47 Mean Corpuscular Volume 94 fL N 80-97 Mean Corpuscular Hemoglobin 31 pg N 27-31 Mean Corpuscular HGB Conc 33 g/dL N 31-36 Red Cell Distribution Width 13 % N 10.5-15 Platelet Count 246 10^3/uL N 150-450 Mean Platelet Volume 7.6 um3 N 7.4-10.4 Abs Neutrophils 4.6 10^3/uL N 1.5-7.7 Abs Lymphocytes 1.8 10^3/uL N 1.0-4.8 Abs Monocytes 0.6 10^3/uL N 0-0.8 Abs Eosinophils 0.1 10^3/uL N 0-0.6 Abs Basophils 0 10^3/uL N 0-0.2 Manual Differential 12/15/2017 [facility] Immature 2 % N 0-[address] [address] [phone] Neutrophil % 62 % N 38-83 Band % 2 % N 0-8 Lymphocytes % 29 % N 25-47 Monocytes % 5 % N 0-7 Eosinophils % 1 % N 0-6 Basophil % 1 % N 0-2 Abs Neutrophils 4.3 10^3/uL N 1.5-7.7 Abs Lymphocytes 2.0 10^3/uL N 1.0-4.8 Abs Monocytes 0.4 10^3/uL N 0-0.8 Abs Eosinophils 0.1 10^3/uL N 0-0.6 Abs Basophils 0.1 10^3/uL N 0-0.2 RBC Morphology Normal Normal Comp Metabolic Panel 12/15/2017 [facility] Sodium 140 mmol/L N 135-[address] [place] [address] [phone] Potassium 4.1 mmol/L N 3.5-5.0 Chloride 103 mmol/L N 101-111 Co2 Carbon Dioxide 28 mmol/L N 22-32 Anion Gap 9 mmol/L N 2-11 Glucose 111 mg/dL High 70-100 Blood Urea Nitrogen 20 mg/dL N 6-24 Creatinine 1.45 mg/dL High 0.51-0.95 BUN/Creatinine Ratio 13.8 N 8-20 Calcium 9.5 mg/dL N 8.6-10.3 Total Protein 6.7 g/dL N 6.4-8.9 Albumin 4.1 g/dL N 3.2-5.2 Globulin 2.6 g/dL N 2-4 Albumin/Globulin Ratio 1.6 N 1-3 Total Bilirubin 0.50 mg/dL N 0.2-1.0 Alkaline Phosphatase 63 U/L N 34-104 Alt 23 U/L N 7-52 Ast 48 U/L High 13-39 Egfr Non- 34.9 >60 Egfr 42.3 >60 4 Laboratory test 12/15/2017 [facility] Troponin-I 0.01 ng/mL < 0.[address] (TnI) [place] [address] [phone] Inr/Protime 12/15/2017 [facility] Inr 0.90 N 0.77-1.[address] [place] [address] [phone] Laboratory test 12/15/2017 [facility] Partial Thrombo 29.1 seconds N 26.0-36.[address] [place] [address] [phone] Lactic Acid 0.8 mmol/L N 0.5-2.0 5 Pathologist Review (SEE NOTE) 6 Blood Culture SEE RESULT BELOW 7 Urine Culture And 12/15/2017 [facility] Urine Culture SEE RESULT [address] [place] [address] [phone] Laboratory test 12/11/2017 [facility] Lactic Acid 0.7 mmol/L N 0.5-2. [address] [place] [address] [phone] Comp Metabolic 12/11/2017 [facility] Sodium 137 mmol/L N 135- [address] [place] [address] [phone] Potassium 4.1 mmol/L N 3.5-5.0 Chloride 102 mmol/L N 101-111 Co2 Carbon Dioxide 26 mmol/L N 22-32 Anion Gap 9 mmol/L N 2-11 Glucose 109 mg/dL High 70-100 Blood Urea Nitrogen 28 mg/dL High 6-24 Creatinine 1.60 mg/dL High 0.51-0.95 BUN/Creatinine Ratio 17.5 N 8-20 Calcium 9.7 mg/dL N 8.6-10.3 Total Protein 7.3 g/dL N 6.4-8.9 Albumin 4.4 g/dL N 3.2-5.2 Globulin 2.9 g/dL N 2-4 Albumin/Globulin Ratio 1.5 N 1-3 Total Bilirubin 0.60 mg/dL N 0.2-1.0 Alkaline Phosphatase 76 U/L N 34-104 Alt 32 U/L N 7-52 Ast 56 U/L High 13-39 Egfr Non- 31.2 >60 Egfr 37.7 >60 10 CBC Auto Diff 12/11/2017 [facility] White Blood 8.6 10^3/uL N 3.5-10.[address] [place] [address] [phone] Red Blood Count 4.18 10^6/uL N 4.00-5.40 Hemoglobin 13.2 g/dL N 12.0-16.0 Hematocrit 40 % N 35-47 Mean Corpuscular Volume 95 fL N 80-97 Mean Corpuscular Hemoglobin 32 pg High 27-31 Mean Corpuscular HGB Conc 33 g/dL N 31-36 Red Cell Distribution Width 14 % N 10.5-15 Platelet Count 290 10^3/uL N 150-450 Mean Platelet Volume 7.6 um3 N 7.4-10.4 Abs Neutrophils 6.8 10^3/uL N 1.5-7.7 Abs Lymphocytes 1.3 10^3/uL N 1.0-4.8 Abs Monocytes 0.4 10^3/uL N 0-0.8 Abs Eosinophils 0 10^3/uL N 0-0.6 Abs Basophils 0.1 10^3/uL N 0-0.2 Abs Nucleated RBC 0 10^3/uL Granulocyte % 78.4 % N 38-83 Lymphocyte % 15.5 % Low 25-47 Monocyte % 4.8 % N 0-7 Eosinophil % 0.5 % N 0-6 Basophil % 0.8 % N 0-2 Nucleated Red Blood Cells % 0 Urinalysis Profile 12/11/2017 [facility] Urine Color Yellow [address] [place] [address] [phone] Urine Appearance Clear Urine Specific [place] 1.011 N 1.010-1.030 Urine pH 5.0 N 5-9 Urine Urobilinogen Negative Negative Urine Ketones Negative Negative Urine Protein Negative Negative Urine Leukocytes Negative Negative Urine Blood 2+ Abnormal Negative Urine Nitrite Negative Negative Urine Bilirubin Negative Negative Urine Glucose Negative Negative Urine White Blood Cell Trace(0-5/hpf) Absent Urine Red Blood Cell Absent Absent Urine Bacteria 1+ Abnormal Absent Urine Squamous Epithelial Cell Present Abnormal Absent Urine Renal Epithelial Cells Present Abnormal Absent Laboratory test 12/11/2017 [facility] Blood Culture SEE RESULT [address] [place] [address] [phone] Urine Culture And 12/11/2017 [facility] Urine Culture SEE RESULT [address] [place] [address] [phone] Vitamin B12 And 08/10/2017 [facility] Vitamin B12 614 pg/mL N 180-9 13 Folate Serum [address] [place], [place] [id number] [phone] Folic Acid (Folate) > 20.00 ng/mL >3.99 Laboratory test 08/10/2017 [facility] C Reactive < 1.00 N < 5.00 [address] Protein mg/[place] [address] [phone] Erythrocyte Sed Rate 23 mm/Hr N 0-40 Laboratory test 07/22/2017 [facility] Rapid Strep Negative Negative [address] Molecular [place], [place] [address] [phone] Poc Urinalysis 06/29/2017 [facility] Poc Glucose, Negative Negative [address] [place] [address] [phone] Poc Bilirubin, Urine Negative Negative Poc Ketone, Urine Negative Negative Poc Specific [place], Urine 1.020 N 1.010-1.030 Poc Blood, Urine 2+ Abnormal Negative Poc pH, Urine 5.0 N 5-9 Poc Protein, Urine Negative Negative Poc Urobilinogen, Urine 0.2 Negative Poc Nitrite, Urine Negative Negative Poc Leukocytes, Urine Negative Negative Poc Color, Urine Yellow Poc Clarity, Urine Clear 16 Urine Culture And 07/26/2016 [facility] Urine Culture SEE RESULT 17, [address] [place] [address] [phone] Urinalysis Profile 02/21/2015 [facility] Urine Color Yellow N [address] [place] [address] [phone] Urine Appearance Clear N Urine Specific [place] 1.015 N 1.010-1.030 Urine pH 5.0 N 5-9 Urine Urobilinogen Negative N Negative Urine Ketones Negative N Negative Urine Protein Negative N Negative Urine Leukocytes Trace Abnormal Negative Urine Blood 1+ Abnormal Negative * * Abnormal Negative 19 Urine Nitrite Negative N Negative Urine Bilirubin Negative N Negative Urine Glucose Negative N Negative Urine White Blood Cell Trace(0-5/hpf) N Absent Urine Red Blood Cell 1+(3-5/hpf) Abnormal Absent Urine Bacteria Absent N Absent Urine Squamous Epithelial Cell Present Abnormal Absent Laboratory test 02/21/2015 [facility] Urine Culture And SEE RESULT [address] [place] [address] [phone] Comp Metabolic 02/10/2015 [facility] Sodium 134 mmol/L N 133- [address] [place] [address] [phone] Potassium 3.8 mmol/L N 3.5-5.0 Chloride 101 mmol/L N 101-111 Co2 Carbon Dioxide 24 mmol/L N 22-32 Anion Gap 9 mmol/L N 2-11 Glucose 106 mg/dL High 70-100 Blood Urea Nitrogen 15 mg/dL N 6-24 Creatinine 1.40 mg/dL High 0.51-0.95 BUN/Creatinine Ratio 10.7 N 8-20 Calcium 9.0 mg/dL N 8.6-10.3 Total Protein 6.8 g/dL N 6.4-8.9 Albumin 4.0 g/dL N 3.2-5.2 Globulin 2.8 g/dL N 2-4 Albumin/Globulin Ratio 1.4 N 1-3 Total Bilirubin 0.60 mg/dL N 0.2-1.0 Alkaline Phosphatase 63 U/L N 34-104 Alt 15 U/L N 7-52 Ast 29 U/L N 13-39 Egfr Non- 36.6 N >60 Egfr 47.0 N >60 21 Laboratory test 02/10/2015 [facility] C Reactive 4.34 mg/L N < 5.00 [address] [place] [address] [phone] Urinalysis 02/10/2015 [facility] Urine Color Yellow N Profile [address] [place] [address] [phone] Urine Appearance Clear N Urine Specific [place] 1.012 N 1.010-1.030 Urine pH 5.0 N 5-9 Urine Urobilinogen Negative N Negative Urine Ketones Negative N Negative Urine Protein Negative N Negative Urine Leukocytes Negative N Negative Urine Blood 3+ Abnormal Negative Urine Nitrite Negative N Negative Urine Bilirubin Negative N Negative Urine Glucose Negative N Negative Urine White Blood Cell Absent N Absent Urine Red Blood Cell 3+(>10/hpf) Abnormal Absent Urine Bacteria Absent N Absent Urine Squamous Epithelial Cell Present Abnormal Absent CBC Auto Diff 02/10/2015 [facility] White Blood 8.3 10^3/uL N 3.5-10.[address] [place] [address] [phone] Red Blood Count 4.42 10^6/uL N 4.0-5.4 Hemoglobin 13.9 g/dL N 12.0-16.0 Hematocrit 42 % N 35-47 Mean Corpuscular Volume 96 fL N 80-97 Mean Corpuscular Hemoglobin 32 pg High 27-31 Mean Corpuscular HGB Conc 33 g/dL N 31-36 Red Cell Distribution Width 13 % N 10.5-15 Platelet Count 224 10^3/uL N 150-450 Mean Platelet Volume 8 um3 N 7.4-10.4 Abs Neutrophils 5.1 10^3/uL N 1.5-7.7 Abs Lymphocytes 2.4 10^3/uL N 1.0-4.8 Abs Monocytes 0.6 10^3/uL N 0-0.8 Abs Eosinophils 0.1 10^3/uL N 0-0.6 Abs Basophils 0.1 10^3/uL N 0-0.2 Abs Nucleated RBC 0.01 10^3/uL N Granulocyte % 61.8 % N 38-83 Lymphocyte % 29.4 % N 25-47 Monocyte % 6.7 % N 1-9 Eosinophil % 1.1 % N 0-6 Basophil % 1.0 % N 0-2 Nucleated Red Blood Cells % 0.1 N Laboratory test 02/10/2015 [facility] Troponin-I 0.01 ng/mL N <0.03 [address] (TnI) [place] [address] [phone] Inr/Protime 02/10/2015 [facility] Inr 1.00 N 0.89-1.[address] [place] [address] [phone] Laboratory test 02/10/2015 [facility] Partial Thrombo 31.6 N 26.0-36.[address] [place] [address] [phone] Lactic Acid 0.7 mmol/L N 0.5-2.0 24 Blood Culture SEE RESULT BELOW 25 Rapid Influenza 02/10/2015 [facility] Influenza A NEGATIVE N Negative 26 A & B Molecular [address] [place] [address] [phone] Influenza B Molecular NEGATIVE N Negative Laboratory test 02/10/2015 [facility] Rapid Influenza SEE RESULT [address] [place] [address] [phone] Ua Routine 02/06/2015 [facility] Ua Specific 1.015 [place] Ua PH 5 Ua Color yellow Ua Appera clear Ua WBC positive Ua Protein trace Ua Glucose negative Ua Ketones negative Ua Bilirubin negative Ua Urobilinogen normal Ua Nitrite negative Ua Occult Blood positive Laboratory test 01/30/2015 [facility] Urine Culture And SEE RESULT [address] [place] [address] [phone] Ua Routine 01/30/2015 [facility] Ua Specific [place] 1.015 Ua PH 5 Ua Color yellow Ua Appera cloudy Ua WBC positive Ua Protein trace Ua Glucose neg Ua Ketones neg Ua Bilirubin neg Ua Urobilinogen normal Ua Nitrite neg Ua Occult Blood large Urinalysis Profile 10/19/2014 [facility] Urine Color Yellow N [address] [place] [address] [phone] Urine Appearance Cloudy N Urine Specific [place] 1.014 N 1.010-1.030 Urine pH 5.0 N 5-9 Urine Urobilinogen Negative N Negative Urine Ketones Negative N Negative Urine Protein Negative N Negative Urine Leukocytes 1+ Abnormal Negative Urine Blood 2+ Abnormal Negative Urine Nitrite Negative N Negative Urine Bilirubin Negative N Negative Urine Glucose Negative N Negative Urine White Blood Cell Trace(0-5/hpf) N Absent Urine Red Blood Cell Trace(0-2/hpf) N Absent Urine Bacteria Absent N Absent Urine Squamous Epithelial Cell Present Abnormal Absent Urine Transitional Epithelial Present Abnormal Absent Laboratory 10/19/2014 [facility] Urine Culture And SEE RESULT 29 test finding [address] [place] [address] [phone] Laboratory 10/19/2014 [facility] (Antinuclear Negative N Negative test finding Antibodies) Erythrocyte Sed Rate 32 mm/Hr N 0-40 C Reactive Protein 1.00 mg/L N < 5.00 30 Anti Ssa/Ro <0.2 U N 31 Anti SSB LA <0.2 U N 32 Vitamin B12 10/13/2014 [facility] Vitamin B12 > 1450 High 180- 914 33 [address] Folate [address] pg/[place] [address] [phone] Folic Acid (Folate) > 20.00 ng/mL N >3.99 Laboratory test 10/13/2014 [facility] Lyme Disease Negative N Negative [address] [place] [address] [phone] Syphilis Screen 10/13/2014 [facility] Pediatric/Mate NO N [address] [place] [address] [phone] Syphilis IgG Nonreactive N Nonreactive 35 RPR TNP N Nonreactive RPR Titer TNP N CBC Auto Diff 10/11/2014 White Blood Count 7.9 10^3/uL N 4.8-10.8 Red Blood Count 3.91 10^6/uL Low 4.0-5.4 Hemoglobin 12.0 g/dL N 12.0-16.0 Hematocrit 38 % N 35-47 Mean Corpuscular Volume 96 fL N 80-97 Mean Corpuscular Hemoglobin 31 pg N 27-31 Mean Corpuscular HGB Conc 32 g/dL N 31-36 Red Cell Distribution Width 13 % N 10.5-15 Platelet Count 268 10^3/uL N 150-450 Mean Platelet Volume 8 um3 N 7.4-10.4 Abs Neutrophils 4.7 10^3/uL N 1.5-7.7 Abs Lymphocytes 2.5 10^3/uL N 1.0-4.8 Abs Monocytes 0.4 10^3/uL N 0-0.8 Abs Eosinophils 0.2 10^3/uL N 0-0.6 Abs Basophils 0.1 10^3/uL N 0-0.2 Abs Nucleated RBC 0 10^3/uL N Granulocyte % 59.6 % N 38-83 Lymphocyte % 31.8 % N 25-47 Monocyte % 5.7 % N 1-9 Eosinophil % 2.2 % N 0-6 Basophil % 0.7 % N 0-2 Nucleated Red Blood Cells % 0 N Comp Metabolic Panel 10/11/2014 Sodium 139 mmol/L N 133-145 Potassium 4.1 mmol/L N 3.5-5.0 Chloride 104 mmol/L N 101-111 Co2 Carbon Dioxide 27 mmol/L N 22-32 Anion Gap 8 mmol/L N 2-11 Glucose 170 mg/dL High 70-100 Blood Urea Nitrogen 21 mg/dL N 6-24 Creatinine 1.52 mg/dL High 0.51-0.95 BUN/Creatinine Ratio 13.8 N 8-20 Calcium 8.9 mg/dL N 8.6-10.3 Total Protein 6.3 g/dL Low 6.4-8.9 Albumin 3.8 g/dL N 3.2-5.2 Globulin 2.5 g/dL N 2-4 Albumin/Globulin Ratio 1.5 N 1-3 Total Bilirubin 0.50 mg/dL N 0.2-1.0 Alkaline Phosphatase 71 U/L N 34-104 Alt 23 U/L N 7-52 Ast 36 U/L N 13-39 Egfr Non- 33.3 N >60 Egfr 42.9 N >60 36 Laboratory test finding 10/11/2014 Erythrocyte Sed Rate 50 mm/Hr High 0- 40 C Reactive Protein 13.44 mg/L High < 5.00 37 TSH (Thyroid Stim Horm) 1.51 ?IU/mL N 0.34-5.60 Laboratory test 10/10/2014 [facility] Urine Culture And SEE RESULT [address] [place] [address] [phone] Ua Routine 10/10/2014 [facility] Ua Specific [place] 1.005 Ua PH 5 Ua Color yellow Ua Appera clear Ua WBC positive Ua Protein neg Ua Glucose neg Ua Ketones trace Ua Bilirubin neg Ua Urobilinogen neg Ua Nitrite neg Ua Occult Blood positive Throat-Beta Strept 03/24/2014 [facility] Throat Beta (SEE NOTE) [address] [place] [address] [phone] Urine Culture And 03/24/2014 [facility] Urine Culture (SEE NOTE ) [address] [place] [address] [phone] Vitamin D, 25 10/06/2013 [facility] 25-Hydroxy <4.0 ng/mL N Hydroxy [address] Vitamin D2 [place] [address] [phone] 25-Hydroxy Vitamin D3 60 ng/mL N 25-Hydroxy Vitamin D Total 60 ng/mL N 41 Laboratory test 12/17/2011 [facility] TSH (Thyroid 2.41 0.34- 5.[address] Stimulating MIU/[place] [address] Horm) [phone] Erythrocyte Sed Rate 25 MM/HR 0-40 CBC With 12/17/2011 [facility] White Blood 5.9 10^3/uL 4.8- 10.8 Manual Diff [address] [place] [address] [phone] Red Blood Count 4.07 10^6/uL 4.0-5.4 Hemoglobin [...] Morphology Normal Normal Comp Metabolic Panel 12/17/2011 [facility] Sodium 139 mmol/L 133-[address] [place] [address] [phone] Potassium 4.2 mmol/L 3.5-5.0 Chloride 106 mmol/L [...] 1.6 1-3 Total Bilirubin 0.8 mg/dL 0.1-1.0 42 Alkaline Phosphatase 60 U/L 30-110 Alt 44 U/L 14-54 Ast 65 U/L High 12-42 Egfr Non- 44.2 >60 Egfr 56.8 >60 43 Urinalysis W/Microscopic 11/07/2010 [facility] Ua Color YELLOW Yellow [address] [place], [place] [address] [phone] Appearance-Urine CLEAR Clear Specific [place]-Ur 1.007 Low 1.010-1.030 Esterase-Urine NEGATIVE Negative Nitrite NEGATIVE Negative Fcobzeqshxlp-Em-PUR NEGATIVE Negative Protein-Urine NEGATIVE Negative PH-Urine 7.0 5-9 Blood-Urine 1+ Abnormal Negative Ketones-Urine NEGATIVE Negative Bilirubin-Ur NEGATIVE Negative Glucose-Urine NEGATIVE Negative WBC-Urine 0-2 0-5 RBC-Urine 1-3 0-2 Epith Cells-Ur SMALL None Bacteria-Urine TRACE None Urine Culture & 11/07/2010 [facility] Urine Culture NF1 [address] [place] [address] [phone] Ua W/Microscopic 10/21/2010 [facility] Ua Color YELLOW Yellow [address] [place] [address] [phone] Appearance-Urine CLEAR Clear Specific [place]-Ur 1.012 1.010-1.030 Esterase-Urine 3+ Abnormal Negative Nitrite NEGATIVE Negative Wwmxyllbchra-Wu-BOO NEGATIVE Negative Protein-Urine NEGATIVE Negative PH-Urine 6.5 5-9 Blood-Urine 3+ Abnormal Negative Ketones-Urine NEGATIVE Negative Bilirubin-Ur NEGATIVE Negative Glucose-Urine NEGATIVE Negative WBC-Urine 25-30 Abnormal 0-5 RBC-Urine TNTC Abnormal 0-2 Epith Cells-Ur FEW None Bacteria-Urine TRACE None Culture Urine 10/21/2010 [facility] Urine Culture SN1 [address] [facility] [place] [address] [phone] CBC With 09/21/2009 [facility] White Blood 8.1 CUMM 4.8-10 Electronic Diff [address] Count [address]8 [place] [address] [phone] Red Cell Count 3.84 CUMM Low 4.2-5.4 [...] 0-0.6 Abs Basophils 0 0-0.2 Laboratory test 09/21/2009 [facility] BUN 13 mg/dL 6-24 finding [address] [place] [address] [phone] Laboratory test 09/09/2006 [facility] Clotest N^NEGATIVE^REJI finding [address] [place] [address] [phone] 1 *Ascorbic acid is present which may interfere with detection of blood. 2 SEE RESULT BELOW Name: ASH,JENNIFER Crystal : [address]: Wilson Moody III, MD Acct: [id number] Unit: [id number] AGE: 77 Location: [facility] Re01/02/18 SEX: F Status: REG REF SPEC: [id number] PHIL: 01/02/18-1015 [facility] DR: Wilson Moody III, MD REQ: [id number] RECD: 01/02/18 STATUS: JOHNSON PADILL[facility] DR: Braulio Phillip _ SOURCE: URINE SPDESC: ORDERED: Urine Culture Procedure Result Reported Site Urine Culture Final 01/04/18- 0839 ML Organism 1 ESCHERICHIA COLI Dillon Count 50-75,000 (Many) CFU/ML 1. ESCHERICHIA COLI M.I.C. RX --------- ------ Ampicillin 4 S Cefazolin <=4 S Cefepime <=1 S Ceftriaxone <=1 S Ciprofloxacin <=0.25 S Gentamicin <=1 S Levofloxacin <=0.12 S Meropenem <=0.25 S Nitrofurantoin <=16 S Tetracycline <=1 S Pipercillin/Tazobactam <=4 S Trimethoprim/Sulfamethoxazole <=20 S Amoxicillin/Clavulanic Acid <=2 S Aztreonam <=1 S Contact the Microbiology Department for any additional antibiotic reporting. * ML - Main Lab . END OF REPORT DEPARTMENT OF PATHOLOGY, [address] [place] [address] Chino Hwang M.D. Director [facility] # [id number] 3 [facility] Severe Sepsis and Septic Shock Management Bundle Measure requires all lactic acids initially measuring >2.0 mmol/L be repeated. 4 Because ethnic data is not always readily [...] 15-29 5 Kidney failure <15 (or dialysis) 5 [facility] Severe Sepsis and Septic Shock Management Bundle Measure requires all lactic acids initially measuring >2.0 mmol/L be repeated. 6 Normal smear. Reviewed by Pina Clinton MD 7 SEE RESULT BELOW Name: JENNIFER ALEMAN : [address]: Marilyn Carpenter MD Acct: [id number] Unit: [id number] AGE: 77 Location: [place] [address] Re12/15/17 SEX: F Status: ADM IN SPEC: [id number] PHIL: 12/15/17 [facility] DR: Santana Hummel MD REQ: [id number] RECD: 12/15/17 STATUS: JOHNSON PADILLA DR: Wilson Moody III, MD _ SOURCE: BLOOD,VENO SPDESC: ORDERED: Blood Cult Procedure Result Reported Site Aerobic Culture Bottle Final 12/20/17- 1306 ML No Growth Day 5 Anaerobic Culture Bottle Final 12/20/17- 1306 ML No Growth Day 5 * ML - Main Lab . END OF REPORT DEPARTMENT OF PATHOLOGY, [address] [place] [address] Chino Hwang M.D. Director [facility] # [id number] 8 SEE RESULT BELOW Name: JENNIFER ALEMAN : [address]: Marilyn Carpenter MD Acct: [id number] Unit: [id number] AGE: 77 Location: [place] [address] Re12/15/17 SEX: F Status: ADM IN SPEC: [id number] PHIL: 12/15/[address]: Santana Hummel MD REQ: [id number] RECD: 12/15/17 STATUS: JOHNSON PADILLA DR: Wilson Moody III, MD _ SOURCE: URINE SPDESC: ORDERED: Urine Culture Procedure Result Reported Site Urine Culture Final 12/16/17- 1326 ML No Growth (<1,000 CFU/mL) * ML - Main Lab . END OF REPORT DEPARTMENT OF PATHOLOGY, [address] [place] [address] Chino Hwang M.D. Director [facility] # [id number] 9 [facility] Severe Sepsis and Septic Shock Management Bundle Measure requires all lactic acids initially measuring >2.0 mmol/L be repeated. 10 Because ethnic data is not always readily [...] 15-29 5 Kidney failure <15 (or dialysis) 11 SEE RESULT BELOW Name: JENNIFER ALEMAN : [address]: Brian Tovar MD Acct: [id number] Unit: [id number] AGE: 77 Location: ED Re12/11/17 SEX: F Status: DEP ER SPEC: [id number] PHIL: 12/11/17 [facility] DR: Brian Tovar MD REQ: [id number] RECD: 12/11/17 STATUS: JOHNSON PADILLA DR: Wilson Moody III, MD _ SOURCE: BLOOD,VENO SPDESC: ORDERED: Blood Cult Procedure Result Reported Site Aerobic Culture Bottle Final 12/16/17- 8 ML No Growth Day 5 Anaerobic Culture Bottle Final 12/16/17- 2217 ML No Growth Day 5 * ML - Main Lab . END OF REPORT DEPARTMENT OF PATHOLOGY, [address] [place] [address] Chino Hwang M.D. Director [facility] # [id number] 12 SEE RESULT BELOW Name: JENNIFER ALEMAN : [address]: Brian Tovar MD Acct: [id number] Unit: [id number] AGE: 77 Location: ED Re12/11/17 SEX: F Status: DEP ER SPEC: [id number] PHIL: 12/11/17 [facility] DR: Brian Tovar MD REQ: [id number] RECD: 12/11/17 STATUS: JOHNSON PADILLA DR: Wilson Moody III, MD _ SOURCE: URINE SPDESC: ORDERED: Urine Culture Procedure Result Reported Site Urine Culture Final 12/13/17818 ML No Growth (<1,000 CFU/mL) * ML - Main Lab . END OF REPORT DEPARTMENT OF PATHOLOGY, [address] [place] [address] Chino Hwang M.D. Director [facility] # [id number] 13 Normal Range 180 to 914 Indeterminate Range 145 to 180 Deficient Range <145 14 Acute inflammation: >10.00 15 Brand Development Manager: [id number] Brand Development Manager: [id number] 18 SEE RESULT BELOW Name: JENNIFER ALEMAN : [address]: Jhonny Saavedra MD Acct: [id number] Unit: [id number] AGE: 76 Location: [facility] Re07/26/16 SEX: F Status: DEP ER SPEC: [id number] PHIL: 07/26/16-2021 [facility] DR: Jhonny Saavedra MD REQ: [id number] RECD: 07/27/16 STATUS: JOHNSON PADILLA DR: Wilson Moody III, MD _ SOURCE: URINE SPDESC: ORDERED: Urine Culture COMMENTS: [id number] Procedure Result Reported Site Urine Culture Final 07/28/16- 1257 ML No Growth (<1,000 CFU/mL) * ML - MAIN LAB ([facility]) . END OF REPORT * ML=Testing performed at Main Lab DEPARTMENT OF PATHOLOGY, [address] [place] [address] Chino Hwang M.D. Director [facility] # [id number] 19 *Ascorbic acid is present which may interfere with detection of blood. 20 SEE RESULT BELOW Name: JENNIFER ALEMAN : [address]: Zain Westbrook NP Acct: [id number] Unit: [id number] AGE: 75 Location: [facility] Re02/21/15 SEX: F Status: REG REF SPEC: [id number] PHIL: 02/21/15-1249 [facility] DR: Zain Westbrook NP REQ: [id number] RECD: 02/21/15 STATUS: JOHNSON PADILLA DR: Parag Moody III, MD _ SOURCE: URINE SPDESC: ORDERED: Urine Culture Procedure Result Reported Site Urine Culture Final 02/23/15- 904 ML No growth of clinically significant organisms * ML - MAIN LAB ([facility]) . END OF REPORT * ML=Testing performed at Main Lab DEPARTMENT OF PATHOLOGY, [address] [place] [address] Chino Hwang M.D. Director [facility] # [id number] 21 Because ethnic data is not always readily [...] 15-29 5 Kidney failure <15 (or dialysis) 22 Acute inflammation: >10.00 23 Reference Range and Interpretation: TnI (ng/mL) Interpretation Less Than 0.03 ng/mL Not supportive of diagnosis of [place] 0.03 - 0.50 ng/mL Indeterminate: suggest serial studies if clinically indicated. Greater than 0.5 ng/mL Consistent with diagnosis of [place] 24 [facility] Severe Sepsis and Septic Shock Management Bundle Measure requires all lactic acids initially measuring >2.0mmol/L be repeated. 25 SEE RESULT BELOW Name: JENNIFER ALEMAN Crystal : [address]: Marilyn Carpenter MD Acct: [id number] Unit: [id number] AGE: 75 Location: [place] [address] Re02/11/15 Dis: 02/13/15 SEX: F Status: DIS IN SPEC: [id number] PHIL: 02/10/156047 [facility] DR: Magdiel Hughes DO REQ: [id number] RECD: 02/10/15733 STATUS: JOHNSON PADILLA DR: Wilson Moody III, MD _ SOURCE: BLOOD,VENO SPDESC: ORDERED: Blood Cult Procedure Result Reported Site Aerobic Culture Bottle Final 02/15/15- 2350 ML No Growth Day 5 Anaerobic Culture Bottle Final 02/15/15- 2350 ML No Growth Day 5 * ML - MAIN LAB ([facility]) . END OF REPORT * ML=Testing performed at Main Lab DEPARTMENT OF PATHOLOGY, [address] [place] [address] Chino Hwang M.D. Director [facility] # [id number] 26 Brand Development Manager: [id number] PASQUALE JACINTO 27 SEE RESULT BELOW Name: JENNIFER ALEMAN Crystal : [address]: Brian Castellon MD Acct: [id number] Unit: [id number] AGE: 75 Location: ED Re02/10/15 SEX: F Status: REG ER SPEC: [id number] PHIL: 02/10/15-1314 [facility] DR: Brian Castellon MD REQ: [id number] RECD: 02/10/15 STATUS: JOHNSON PADILLA DR: Wilson Moody III, MD _ SOURCE: [facility]: ORDERED: Flu A B Request Procedure Result Reported Site Rapid Influenza A B Request Final 02/10/151336 ML Specimen received for Influenza A/B Molecular testing * ML - MAIN LAB ([facility]) . END OF REPORT * ML=Testing performed at Main Lab DEPARTMENT OF PATHOLOGY, [address] [place] [address] Chino Hwang M.D. Director [facility] # [id number] 28 SEE RESULT BELOW Name: JENNIFER ALEMAN : [address]: Zain Westbrook NP Acct: [id number] Unit: [id number] AGE: 74 Location: [facility] Re01/30/15 SEX: F Status: REG REF SPEC: [id number] PHIL: 01/30/15-[address]: Zain Westbrook NP REQ: [id number] RECD: 01/30/15 STATUS: COMP _ SOURCE: URINE SPDESC: ORDERED: Urine Culture Procedure Result Reported Site Urine Culture Final 02/02/15- 0819 ML Organism 1 KLEBSIELLA PNEUMONIAE Dillon Count 75-100,000 (Many) CFU/ML 1. KLEBSIELLA PNEUMONIAE [...] antibiotic reporting. * ML - MAIN LAB ([facility]) . END OF REPORT * ML=Testing performed at Main Lab DEPARTMENT OF PATHOLOGY, [address] [place] [address] Chino Hwang M.D. Director [facility] # [id number] 29 SEE RESULT BELOW Name: ASH,JENNIFER S : [address]: Veronika Hill MD Acct: [id number] Unit: [id number] AGE: 74 Location: [facility] Re10/19/14 SEX: F Status: REG REF SPEC: [id number] PHIL: 10/19/[address]: Wilson Moody III, MD REQ: [id number] RECD: 10/19/14 STATUS: COMP _ SOURCE: URINE SPDESC: ORDERED: Urine Culture Procedure Result Verified Site Urine Culture Final 10/22/14- 0907 ML Organism 1 STAPHYLOCOCCUS EPIDERMIDIS Dillon Count 10-25,000 (Moderate) CFU/ML SIGNIFICANCE QUESTIONED; LOWER [...] performed at Main Lab DEPARTMENT OF PATHOLOGY, [address] [place] [address] Chino Hwang M.D. Director [facility] # [id number] Patient: JENNIFER ALEMAN [id number] (Continued) Specimen: [id number] Collected: 10/19/14 Received: 10/19/14 (Continued) Procedure Result Verified Site Urine Culture Final (continued) * These antibiotics are not available in the [facility] Formulary Contact the Microbiology Department for any additional antibiotic reporting. * ML - [facility] ([facility]) . END OF REPORT * ML=Testing performed at Main Lab DEPARTMENT OF PATHOLOGY, [address] [place] [address] Chino Hwang M.D. Director [facility] # [id number] 30 Acute inflammation: >10.00 31 REFERENCE VALUE <1.0 (Negative) Test Performed by: [place] [address] Displayer: Hakeem Cortez II, M.D., Ph.D. 32 REFERENCE VALUE <1.0 (Negative) Test Performed by: [place] [address] Displayer: Hakeem Cortez II, M.D., Ph.D. 33 Normal Range 180 to 914 Indeterminate Range 145 to 180 Deficient Range <145 34 Serologic response to B. burgdorferi infection is not detected, but cannot rule out early infection during which low or undetectable antibody levels to B. burgdorferi may be present. If clinically indicated, a new serum specimen should be submitted in 7-14 days. Test Performed by: [place] [address] Displayer: Hakeem Cortez II, M.D., Ph.D. 35 Warning: A positive result is not useful for establishing a diagnosis of syphilis. In most situations, such a result may reflect a prior treated infection; a negative result can exclude a diagnosis of syphilis except for incubating or early primary disease. 36 Because ethnic data is not always readily [...] 15-29 5 Kidney failure <15 (or dialysis) 37 Acute inflammation: >10.00 38 SEE RESULT BELOW Name: JENNIFER ALEMAN : [address]: Wilson Moody III, MD Acct: [id number] Unit: [id number] AGE: 74 Location: [facility] Re10/10/14 SEX: F Status: REG REF SPEC: [id number] PHIL: 10/10/14-1624 [facility] DR: Wilson Moody III, MD REQ: [id number] RECD: 10/10/14 STATUS: COMP _ SOURCE: URINE SPDESC: ORDERED: Urine Culture Procedure Result Verified Site Urine Culture Final 10/12/14- 1247 ML No Growth Day 2 (<1,000 CFU/mL) * ML - MAIN LAB ([facility]) . END OF REPORT * ML=Testing performed at Main Lab DEPARTMENT OF PATHOLOGY, [facility] [employer] [place], [place] [address] Chnio Hwang M.D. Director [facility] # [id number] 39 RUN DATE: 03/26/14 [facility] LAB LIVE PAGE 1 RUN TIME: 819 [facility] [employer] [place], [place] [address] Specimen Inquiry Name: JENNIFER ALEMAN : [address]: Angela Cartagena MD Acct: [id number] Unit: [id number] AGE: 74 Location: [facility] Re03/24/14 SEX: F Status: DEP ER SPEC: [id number] PHIL: 03/24/14-1002 [facility] DR: Angela Cartagena MD REQ: [id number] RECD: 03/24/14-1405 STATUS: JOHNSON PADILLA DR: Parag Moody III, MD _ SOURCE: THROAT SPDESC: ORDERED: Throat Beta Str Procedure Result Verified Site Throat Beta Strep Culture Final 03/26/14- 0820 ML Negative For Group A Beta Streptococcus END OF REPORT * ML=Testing performed at Main Lab DEPARTMENT OF PATHOLOGY, [facility] [employer] [place], [place] [address] Chino Hwang M.D. Director [facility] # [id number] 40 RUN DATE: 03/26/14 [facility] LAB LIVE PAGE 1 RUN TIME: 931 [facility] [employer] [place], [place] [address] Specimen Inquiry Name: JENNIFER ALEMAN : [address]: Angela Cartagena MD Acct: [id number] Unit: [id number] AGE: 74 Location: [facility] Re03/24/14 SEX: F Status: DEP ER SPEC: [id number] PHIL: 03/24/14-[address]: Angela Cartagena MD REQ: [id number] RECD: 03/24/14 STATUS: JOHNSON PADILLA DR: Parag Moody III, MD _ SOURCE: [facility]: ORDERED: Urine Culture Procedure Result Verified Site Urine Culture Final 03/26/14- 31 ML Organism 1 STAPHYLOCOCCUS EPIDERMIDIS Dillon Count 50-75,000 (Many) CFU/ML 1. STAPHYLOCOCCUS EPIDERMIDIS [...] These antibiotics are not available in the [facility] Formulary Contact the Microbiology Department for any additional antibiotic reporting. END OF REPORT * ML=Testing performed at Main Lab DEPARTMENT OF PATHOLOGY, [address] [place] [address] Chino Hwang M.D. Director [facility] # [id number] 41 Interpretation: 51-80 ng/mL (increased risk of hypercalciuria) -- REFERENCE VALUE -- 25-HYDROXY D TOTAL (D2+D3) Optimum levels in the healthy population are 20-50, patients with bone disease may benefit from higher levels within this range. Test Performed by: [facility] [place] [place] [address] Displayer: Hal Duque III, M.D. 42 A metabolite of Naproxen, O-desmethylnaproxen, has been shown to interfere with the Jendrassik-Esha method for measuring total bilirubin. Samples from patients who have taken Naproxen have shown spurious elevation in total bilirubin levels. 43 Because ethnic data is not always readily [...] 15-29 5 Kidney failure <15 (or dialysis) 44 SPECIMEN CONTAINS NORMAL URETHRAL OR PERINEAL SANTHOSH AND DOES NOT SUGGEST URINARY TRACT INFECTION 45 SCANT NORMAL URETHRAL OR PERINEAL SANTHOSH Procedures Date Code Description Status 12/21/2017 64947 EEG Recording Awake & Drowsy Completed 12/18/2017 61659 EEG Recording Awake & Drowsy Completed 12/04/2017 [id number] Mammogram Completed 09/30/2016 [id number] Mammogram Completed 09/28/2015 [id number] Mammogram Completed 02/12/2015 84347 EEG Recording Awake & Drowsy Completed 09/18/2014 [id number] Mammogram Completed 09/15/2013 [id number] Bone Mineral Density Test Completed 09/15/2013 [id number] Mammogram Completed 03/03/2011 [id number] Mammogram Completed 01/24/2011 [id number] Diabetic Retinal Eye Exam Completed 10/14/2010 [id number] Bone Mineral Density Test Completed 01/07/2010 [id number] Mammogram Completed 12/14/2009 10715 Admin Of Inj Completed 11/28/2008 [id number] Mammogram Completed 09/09/2006 [id number] Colonoscopy Completed 07/21/2006 [id number] Bone Mineral Density Test Completed Encounters Type Date Location Provider Dx Diagnosis Office Visit 02/05/2018 [place] [facility] Juwan Alexandre, R41.82 Altered mental 2:00p Services Of Som Lopez status, unspecified 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 R83.8 Other abnormal findings in cerebrospinal fluid Office Visit 12/22/2017 8:58a [facility] Fermín Simmons R41.82 Altered mental Assoc,mayte GIRON status, Hospitalists unspecified 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 diseases classd Hospitalists elszeus w behavioral disturb G30.9 Alzheimer's disease, unspecified R41.82 Altered mental status, unspecified N18.3 Chronic kidney disease, stage 3 (moderate) I12.9 Hypertensive chronic kidney disease w stg 1-4/unsp chr kdny Office Visit 12/20/2017 [facility] Elli R41.82 Altered mental 7:00a Girma Mckeon M.D. status, unspecified G93.89 Other specified disorders of brain R83.8 Other abnormal findings in cerebrospinal fluid Office Visit 12/20/2017 [facility] Marilyn Carpenter, R41.82 Altered mental 8:58a mayte Howe M.D. 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 [place] R41.82 Altered mental 8:58a mayte Howe M.D. 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 status, unspecified R83.8 Other abnormal findings in cerebrospinal fluid G93.89 Other specified disorders of brain Office Visit 12/18/2017 [facility] [place], R41.82 Altered mental 8:57a mayte Howe M.D. status, Hospitalists unspecified N18.3 Chronic kidney disease, stage 3 (moderate) I12.9 Hypertensive chronic kidney disease w stg 1-4/unsp chr kdny F02.80 Dementia in oth diseases classd elswhr w/o behavrl disturb Office Visit 12/17/2017 8:57a [facility] [place], F02.80 Dementia in mayte Howe M.D. oth diseases Hospitalists classd elswhr w/o behavrl disturb R41.82 Altered mental status, unspecified N18.3 Chronic kidney disease, stage 3 (moderate) N32.81 Overactive bladder Office Visit 12/17/2017 8:23a [facility] Basilio Oswald R41.82 Altered mental For Infectious John Franklin status, Diseases unspecified N39.0 Urinary tract infection, site not specified R83.9 Unspecified abnormal finding in cerebrospinal fluid F03.90 Unspecified dementia without behavioral disturbance Office Visit 12/17/2017 7:00a [facility] Tariq Chowdhury R53.1 Sarah Allen M.D. R41.0 Disorientation, unspecified R83.8 Other abnormal findings in cerebrospinal fluid G93.89 Other specified disorders of brain Office Visit 12/16/2017 [facility] Tariq Chowdhury G93.89 Other 7:00a Clinic John Allen specified disorders of brain R53.1 Weakness R41.0 Disorientation, unspecified R83.8 Other abnormal findings in cerebrospinal fluid Office Visit 12/16/2017 [facility] Marilyn Carpenter, R41.82 Altered mental 8:57a mayte Howe M.D. status, Hospitalists unspecified N18.3 Chronic kidney disease, stage 3 (moderate) N32.81 Overactive bladder F02.80 Dementia in oth diseases classd elswhr w/o behavrl disturb G20 Parkinson's disease Office Visit 12/15/2017 7:00a [facility] Tariq Chowdhury R53.1 Sarah Allen M.D. R41.0 Disorientation, unspecified G93.89 Other specified disorders of brain Office Visit 12/15/2017 [facility] Elizabet R26.81 Unsteadiness on 8:56a Assmayte heaton, [facility] Hospitalists [employer] GR[employer]ER N39.0 Urinary tract infection, site not specified I10 Essential (primary) hypertension F02.80 Dementia in oth diseases classd elswhr w/o behavrl disturb Office Visit 12/15/2017 [place] Juwan Alexandre, F03.90 Unspecified 10:15a Neurologic John dementia without Services [facility] behavioral disturbance R26.89 Other abnormalities of gait and mobility I68.0 Cerebral amyloid angiopathy Office Visit 10/07/2017 [facility] Internal Wilson Lees Z02.89 Encounter for other 3:00p Laure Moody M.D. 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 Services [facility] R26.89 Other abnormalities of gait and mobility R53.82 Chronic fatigue, unspecified Office Visit 08/10/2017 Adri Alexandre, R41.1 Anterograde 11:15a Neurologic John amnesia Services [facility] R26.89 Other abnormalities of gait and mobility R53.82 Chronic fatigue, unspecified G93.9 Disorder of brain, unspecified Office Visit 08/04/2017 1:00p [facility] Internal Wilson Lees K59.00 Constipation, Laure Moody M.D. unspecified [place] F03.90 Unspecified dementia without behavioral disturbance Office Visit 02/26/2017 11:15a Adri Hernandez F03.90 Unspecified Neurologic [place] dementia without [facility] behavioral disturbance Office Visit 10/03/2016 2:00p [place]/Adri Hernandez F03.90 Unspecified Neurologic Serv [place] dementia without Of [facility] behavioral disturbance Office Visit 08/27/2016 11:40a [facility] Internal Wilson Lees R50.9 Fever, Laure Moody M.D. unspecified [place] Office Visit 01/31/2016 9:45a Adri Hernandez R41.3 Other amnesia Loren Hill M.D. Services [facility] Office Visit 12/24/2015 10:20a [facility] Internal Matthew Mao NP J02.9 Acute Medicine - pharyngitis, [place] unspecified Office Visit 07/31/2015 12:00p Adri Hernandez R41.3 Other amnesia Loren Hill M.D. Services [facility] Office Visit 07/19/2015 3:45p Adri Hernandez I68.0 Cerebral amyloid Loren Hill M.D. angiopathy Services [facility] F03.90 Unspecified dementia without behavioral disturbance Office Visit 02/27/2015 2:40p [facility] Internal Wilson Lees R50.9 Fever, unspecified Laure Moody M.D. [place] R31.2 Other microscopic hematuria Office Visit 02/13/2015 10:15a [place] Peter Oswald R31.2 Other microscopic Infectious [place] hematuria Diseases F03.90 Unspecified dementia without behavioral disturbance Z86.73 Prsnl hx of TIA (TIA), and cereb infrc w/o resid deficits Z87.440 Personal history of urinary (tract) infections Office Visit 02/13/2015 9:48a [facility] Marilyn Carpenter, R40.4 Transient Assoc,pc MKelsiD. 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 alteration of Hospitalists awareness E86.0 Dehydration R50.9 Fever, unspecified Office Visit 02/10/2015 9:38a [facility] Raad Garcia, R40.4 Transient Assoc,pc M.D. alteration of Hospitalists awareness E86.0 Dehydration Office Visit 02/09/2015 1:00p [facility] Internal Zain Westbrook, J06.9 Acute 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 - HEAD [employer] GRINDER respiratory [place] infection, unspecified Office Visit 02/06/2015 10:40a [facility] Internal Zain Westbrook, N39.0 Urinary tract Medicine - HEAD [employer] infection, site [place] not specified R82.99 Other abnormal findings in urine Office Visit 01/30/2015 11:30a [facility] Internal Zain Westbrook, R35.0 Frequency of Medicine - HEAD [employer] GR[employer] micturition Stre[place] N39.0 Urinary tract infection, site not specified J06.9 Acute upper respiratory infection, unspecified Office Visit 10/23/2014 10:20a [facility] Internal Wilson Lees 599.70 Hematuria, Laure Moody M.D. Unspecified [place] 780.97 Altered Mental Status Office Visit 10/17/2014 [facility] Veronika Godoy Unspecified 9:30a Clinic [place] Intellectual Disabilities 780.93 Memory Loss 780.97 Altered Mental Status 437.8 Cerebrovascular Disease Other Office Visit 10/13/2014 10:40a [facility] Internal Wilson E. 780.97 Altered Mental Laure Moody M.D. Status [place] 599.0 UTI Urinary Tract Infection Site Not Spec 599.70 Hematuria, Unspecified Office Visit 10/10/2014 3:40p [facility] Internal Wilson E. 599.0 UTI Urinary Laure Moody M.D. Tract Infection [place] Site Not Spec 780.97 Altered Mental Status 380.4 Impacted Cerumen Office Visit 08/18/2013 3:40p [facility] Internal Wilson E. V72.84 Examination Medicine Cruz Moody M.D. Preoperative [place] Unspec 369.9 Visual Loss Unspec 272.0 Hypercholesterolemia Pure 733.90 Bone & Cartilage Disorder Unspec V76.10 Screening For Malignant Neoplasm Breast V03.82 Streptococcus Pneumoniae Vaccination Spec Other V06.1 Ncvftrrmsh-Yryxphy-Oofbtslo Combined (DTaP) Office Visit 03/24/2012 3:00p [facility] Wilson E. 465.9 URI Upper Laure Moody M.D. Respiratory [place] Infections Acute Unspec Sites Office Visit 12/24/2011 10:00a [facility] Internal Wilson E. 437.7 Amnmookie Moody M.D. Transient [place] Office Visit 12/16/2011 4:00p [facility] Internal Wilson EKelsi 437.7 Becca Moody M.D. Transient [place] Office Visit 01/24/2011 11:00a DO Not Use [place] Wilson E. V72.81 Examination AT Kelsie Moody M.D. Preoperative Cardiovascular 366.9 Cataract Unspec 272.0 Hypercholesterolemia Pure Office Visit 07/31/2010 11:20a DO Not Use [place]lower Wilson E. 465.9 URI Upper AT Kelsie Moody M.D. Respiratory Infections Acute Unspec Sites Office Visit 12/04/2009 11:40a DO Not Use Mold Blower Wilson E. 466.0 Bronchitis Acute AT Kelsie Moody M.D. Office Visit 09/24/2009 11:20a DO Not Use Mold Blower Gokulananda, 562.11 Diverticulitis Colon AT [place] lilia Richards MD W/O Hemorrhage Office Visit 09/19/2009 2:20p DO Not Use [place] Chet 562.11 Diverticulitis Colon AT [place] lilia Richards MD W/O Hemorrhage Office Visit 07/24/2009 4:00p DO Not Use [place] Wilson Yoana 466.0 Bronchitis Acute AT Kelsie Moody M.D. Office Visit 03/21/2008 3:00p [place] [facility] Wilson E. 558.9 Gastroenteritis & Assoc AT John Moody Colitis Noninfectious [facility] Other Office Visit 07/26/2007 10:15a [place] [facility] Wilson E. 466.0 Bronchitis Acute Assoc AT John Moody [facility] Plan of Treatment Future Appointment(s):03/10/2018 9:15 am - Juwan Alexandre M.D. at [facility] Veubdt6612/30/2017 - Wilson Moody M.D.R41.82 Altered mental status, unspecifiedComments:Hospital eval for acute change in mental status with no clear dx. (+) recent UTI, but blood cultures (-) for urosepsis. Some labs still pending and neuro recheck scheduled for next month. Pt at [facility] now for rehab so far with no [id number] Urinary tract infection, site not specifiedComments:(+) UTI with recent routine urine test with pt's urology recheck, but no urinary sx at the time. Ptstarted antibiotics as prescribed and her repeat urine cukture on admission showed no growth. No new urinary sx now, so observation on her usual meds advised
[2018-02-12 11:50] VITALS: BP 141/64
== END 2018-02-12 12:31 | disposition home or self-care (01) ==
LOC: UCEAST 11:35
DX: S63.615A Unspecified sprain of left ring finger, initial encounter (principal); I10 Essential (primary) hypertension; G30.9 Alzheimer's disease, unspecified; F02.80 Dementia in other diseases classified elsewhere, unspecified severity, without behavioral disturbance, psychotic disturbance, mood disturbance, and anxiety; Z88.2 Allergy status to sulfonamides; W22.03XA Walked into furniture, initial encounter; Y92.9 Unspecified place or not applicable
CPT/HCPCS: 73140; 99211; G0463

== ENCOUNTER 2018-08-22 15:43 | Emergency (ER) | payer MEDICARE ==
[2018-08-22] MEDS ORDERED: Acetaminophen TAB* 325 MG PO ONE (18:09)
--- NOTE | 2018-08-22 18:09 | ED ---
Adult Trauma - HPI Summary HPI Summary: 78-year-old male presents with fall today. States that she slipped going downstairs and fell on her buttocks and then onto her back. She complains of tailbone and back pain. She also admits complains of bilateral rib pain. She denies any chest pain or breath. No abdominal pain. No hip pain. No pains in legs. Denies any head injury. No loss consciousness. Her was with her and states that she did not hit her head. Does have a history of dementia. She is at her baseline mental status. She is not on blood thinners. - History of Current Complaint Chief Complaint: EDFall Stated Complaint: "FALL PER " Time Seen by Provider: 08/22/18 17:45 Hx Last Menstrual Period: post menopause Pain Intensity: 4 - Additional Pertinent History Primary Care Physician: NARESH - Allergy/Home Medications Allergies/Adverse Reactions: Allergies Allergy/AdvReac Type Severity Reaction Status Date / Time Sulfa (Sulfonamide Allergy Unknown Verified 08/22/18 16:52 Antibiotics) Reaction Details PMH/Surg Hx/FS Hx/Imm Hx Endocrine/Hematology History: Denies: Hx Anticoagulant Therapy, Hx Diabetes, Hx Thyroid Disease Cardiovascular History: Reports: Hx Hypercholesterolemia, Hx Hypertension Denies: Hx Pacemaker/ICD Respiratory History: Reports: Hx Chronic Obstructive Pulmonary Disease (COPD) - Alpha 1 antitrypsin Denies: Hx Asthma GI History: Denies: Hx Ulcer Musculoskeletal History: Denies: Hx Osteoporosis Sensory History: Reports: Hx Deafness - left Denies: Hx Contacts or Glasses, Hx Hearing Aid Opthamlomology History: Denies: Hx Contacts or Glasses Neurological History: Reports: Hx Dementia - ? Lewy body Psychiatric History: Denies: Hx Panic Disorder - Cancer History Cancer Type, Location and Year: melanoma Hx Chemotherapy: No Hx Radiation Therapy: No - Surgical History Surgery Procedure, Year, and Place: hyster/bladder lift 2006, tonsillectomy, CATARACT REPAIR WITH LENS REPLACEMENTS Infectious Disease History: No Infectious Disease History: Denies: Hx Hepatitis, Hx Human Immunodeficiency Virus (HIV), History Other Infectious Disease, Traveled Outside the [place] in Last 30 Days - Family History Known Family History: Positive: Hypertension Negative: Cardiac Disease, Diabetes - Social History Alcohol Use: None Hx Substance Use: No Substance Use Type: Reports: None Hx Tobacco Use: No Smoking Status (MU): Never Smoked Tobacco Review of Systems Negative: Fever Negative: Chest Pain Negative: Shortness Of Breath Positive: Myalgia - back and rib pain All Other Systems Reviewed And Are Negative: Yes Physical Exam Triage Information Reviewed: Yes Vital Signs On Initial Exam: Initial Vitals Temp Pulse Resp BP Pulse Ox 98.5 F 73 18 152/62 93 08/22/18 15:48 08/22/18 15:48 08/22/18 15:48 08/22/18 15:48 08/22/18 15:48 Vital Signs Reviewed: Yes Appearance: Positive: Well-Appearing Skin: Positive: Warm, Dry Head/Face: Positive: Normal Head/Face Inspection Eyes: Positive: Normal, EOMI, JAVIER, Conjunctiva Clear ENT: Positive: Normal ENT inspection, Pharynx normal, TMs normal Neck: Positive: Other: - nontender neck Respiratory/Lung Sounds: Positive: Clear to Auscultation, Breath Sounds Present , Other - tenderness over bilateral ribs Cardiovascular: Positive: Normal, RRR Abdomen Description: Positive: Nontender, Soft Bowel Sounds: Positive: Present Musculoskeletal: Positive: Other - nontender hips and lower leg, tenderness back and tailbone, good pulses, sensation grossly intact Neurological: Positive: Normal Psychiatric: Positive: Normal Diagnostics - Vital Signs Vital Signs Temp Pulse Resp BP Pulse Ox 08/22/18 15:48 98.5 F 73 18 152/62 93 - Laboratory Lab Statement: Any lab studies that have been ordered have been reviewed, and results considered in the medical decision making process. - Radiology rib Radiology Interpretation Completed By: ED Physician Summary of Radiographic Findings: no displaced fracture - CT neck CT Interpretation Completed By: Radiologist Summary of CT Findings: IMPRESSION: No acute C-spine fractures. Moderate degenerative changes. thoracic CT Interpretation Completed By: Radiologist Summary of CT Findings: IMPRESSION: Mild anterior compression of T10 vertebral body. lumbar CT Interpretation Completed By: Radiologist Summary of CT Findings: IMPRESSION: No acute fractures. Mild to moderate degenerative changes, with moderate central canal and. foraminal narrowing at L3-4. pelvis CT Interpretation Completed By: Radiologist Summary of CT Findings: IMPRESSION: No acute pelvic fractures. Normal sacrum and coccyx. Mild DJD of hips. Moderate degenerative changes of lower lumbar spine. Re-Evaluation - Re-Evaluation First Eval Re-Evaluation Time: 19:39 Comment: able to ambulate in ED. Adult Trauma Course/Dx - Course Course Of Treatment: 78-year-old male presents with fall today. States that she slipped going downstairs and fell on her buttocks and then onto her back. She complains of tailbone and back pain. She also admits complains of bilateral rib pain. She denies any chest pain or breath. No abdominal pain. No hip pain. No pains in legs. Denies any head injury. No loss consciousness. Her was with her and states that she did not hit her head. Does have a history of dementia. She is at her baseline mental status. She is not on blood thinners. On exam has tenderness over bilateral ribs. Tenderness with lower back. Neurovascularly intact. CT neck no acute findings. CT hips no fracture. CT thoracic T10 compression fracture. CT lumbar degenerative changes. xray no displaced rib fracture. apply lidocaine patch. will placed on short course of steriods. will give referral to PT. patient was able to ambulate in the ED. will have follow up with primary. pateint understand and agrees with plan. - Diagnoses Differential Diagnosis/HQI/PQRI: Positive: Abrasion(s), Contusion(s), Fracture Provider Diagnoses: Fall, Compression fracture of T10 vertebra, Rib contusion Discharge - Sign-Out/Discharge Documenting (check all that apply): Patient Departure Patient Received Moderate/Deep Sedation with Procedure: No - Discharge Plan Condition: Good Disposition: HOME Prescriptions: Lidocaine PATCH 5%* [Lidoderm 5% Patch*] 1 patch TRANSDERM DAILY #6 patch methylPREDNISolone [Medrol Dosepak 4 MG*] 4 mg PO .SEE JOHANNA INSTRUCTION #1 packet Patient Education Materials: Vertebral Compression Fracture (ED) Referrals: Wilson Moody MD [Primary Care Provider] - [facility] [place],PT [Medical Doctor] - Additional Instructions: Follow directions on package for Medrol pack Apply lidocaine patches to area for up to 12 hours in one 24 hour period Use Tylenol for pain every 6 hours ice/heat area, move as much as possible Follow up with primary within 5 days follow up with PT Return to ED if develop any new or worsening symptoms - Billing Disposition and Condition Condition: GOOD Disposition: Home
[2018-08-22] MEDS ORDERED: Lidocaine PATCH 5%* 1 PATCH TRANSDERM ONE (19:20)
[2018-08-22 19:54] VITALS: BP 0/0
[2018-08-22] MEDS ORDERED: Lidocaine Patch REMOVE* 1 NOTE MISC SCH (21:00)
== END 2018-08-22 19:51 | disposition home or self-care (01) ==
LOC: ED 15:43
DX: S22.078A Other fracture of T9-T10 vertebra, initial encounter for closed fracture (principal); S20.219A Contusion of unspecified front wall of thorax, initial encounter; W10.9XXA Fall (on) (from) unspecified stairs and steps, initial encounter; M51.36 Other intervertebral disc degeneration, lumbar region; M16.0 Bilateral primary osteoarthritis of hip
CPT/HCPCS: 71110; 72125; 72128; 72131; 72192; 99282; A9270-GY

== ENCOUNTER 2018-08-30 18:17 | Emergency (ER) | payer MEDICARE ==
--- NOTE | 2018-08-30 18:28 | ED ---
Adult Trauma - HPI Summary HPI Summary: This pt is a 78 y/o female, accompanied by her daughter, presenting to [facility] via EMS for a fall today. Daughter reports aides were attempting to transfer the pt from one chair to another when pt fell and tumbled onto the floor. Pt c/ o left knee pain and abrasion on left hand. Denies LOC. Denies head strike. Denies any other injuries from her fall. PMHx: fractured left fingers (February 2018), fractured vertebrae (from fall last week). Daughter states pt was seen at Urgent Care for fractures in left fingers where pt only had a wrist XR but no fingers XR. Per daughter, Urgent Care did not see her finger fractures and now her left fingers have contractures. Per daughter, pt had a lidocaine patch but was taken off yesterday and is on Tylenol now. - History of Current Complaint Stated Complaint: FALL PER EMS Time Seen by Provider: 08/30/18 18:24 Hx Obtained From: Patient, Family/Tongue Lining Stitcher - Daughter Hx Last Menstrual Period: post menopause Mechanism of Injury: Fall Loss of Consciousness: no loss of consciousness Onset/Duration: Started Hours Ago, Traumatic, Still Present Onset of Pain: Hours Current Severity: Moderate Pain Intensity: 6 Pain Scale Used: 0-10 Numeric Location: Extremities - Left knee Aggravating Factor(s): Nothing Alleviating Factor(s): Nothing Associated Signs & Symptoms: Positive: Other: - POSITIVE: left knee pain, abrasion on left hand. Negative: Loss of Consciousness - Additional Pertinent History Primary Care Physician: NARESH - Allergy/Home Medications Allergies/Adverse Reactions: Allergies Allergy/AdvReac Type Severity Reaction Status Date / Time Sulfa (Sulfonamide Allergy Unknown Verified 08/22/18 16:52 Antibiotics) Reaction Details Home Medications: Home Medications Bismuth Subsalicylate [Pepto-Bismol Max Strength] 30 ml PO Q6HR PRN 08/30/18 [ History Confirmed 08/30/18] Lactobacillus Acidophilus [Probiotic] 1 cap PO DAILY 08/30/18 [History Confirmed 08/30/18] Loperamide CAP* [Imodium CAP*] 4 mg PO BID PRN 08/30/18 [History Confirmed 08/30] Melatonin (NF) 3 mg PO BEDTIME 08/30/18 [History Confirmed 08/30/18] Multivitamins/Minerals TAB* [Theragran/minerals TAB*] 1 tab PO DAILY 08/30/18 [ History Confirmed 08/30/18] Solifenacin(NF) [Vesicare(NF)] 5 mg PO BEDTIME 08/30/18 [History Confirmed 08/30] amLODIPine TAB* [Norvasc 5 mg TAB*] 5 mg PO DAILY 08/30/18 [History Confirmed ] PMH/Surg Hx/FS Hx/Imm Hx Endocrine/Hematology History: Denies: Hx Anticoagulant Therapy, Hx Diabetes, Hx Thyroid Disease Cardiovascular History: Reports: Hx Hypercholesterolemia, Hx Hypertension Denies: Hx Pacemaker/ICD Respiratory History: Reports: Hx Chronic Obstructive Pulmonary Disease (COPD) - Alpha 1 antitrypsin Denies: Hx Asthma GI History: Denies: Hx Ulcer Musculoskeletal History: Denies: Hx Osteoporosis Sensory History: Reports: Hx Deafness - left Denies: Hx Contacts or Glasses, Hx Hearing Aid Opthamlomology History: Denies: Hx Contacts or Glasses Neurological History: Reports: Hx Dementia - ? Lewy body Psychiatric History: Denies: Hx Panic Disorder - Cancer History Cancer Type, Location and Year: melanoma Hx Chemotherapy: No Hx Radiation Therapy: No - Surgical History Surgery Procedure, Year, and Place: hyster/bladder lift 2006, tonsillectomy, CATARACT REPAIR WITH LENS REPLACEMENTS Infectious Disease History: Denies: Hx Hepatitis, Hx Human Immunodeficiency Virus (HIV), History Other Infectious Disease - Family History Known Family History: Positive: Hypertension Negative: Cardiac Disease, Diabetes - Social History Alcohol Use: None Hx Substance Use: No Substance Use Type: Reports: None Hx Tobacco Use: No Smoking Status (MU): Never Smoked Tobacco Review of Systems Negative: Fever, Chills Musculoskeletal: Other - POSITIVE: left knee pain Skin: Other - POSITIVE: abrasions on the left hand All Other Systems Reviewed And Are Negative: Yes Physical Exam - Summary Physical Exam Summary: Appearance: The patient is well-nourished in no acute distress and in no acute pain. Skin: The skin is warm and dry. Abrasion and some swelling in the inferior aspect of the left knee. Superficial abrasions over the knuckles of the left hand. HEENT: The head is normocephalic and atraumatic. The pupils are equal and reactive. The conjunctivae are clear and without drainage. Nares are patent and without drainage. Mouth reveals moist mucous membranes and the throat is without erythema and exudate. The external ears are intact. The ear canals are patent and without drainage. The tympanic membranes are intact. Neck: the neck is supple with full range of motion and non-tender. There are no carotid bruits. There is no neck vein distension. Respiratory: Chest is non-tender. Lungs are clear to auscultation and breath sounds are symmetrical and equal. Cardiovascular: Heart is regular rate and rhythm. There is no murmur or rub auscultated. Abdomen: The abdomen is soft and non-tender. There are normal bowel sounds heard in all four quadrants and there is no organomegaly palpated. Musculoskeletal: Abrasion and some swelling in the inferior aspect of the left knee. Superficial abrasions over the knuckles of the left hand. Neurological: Patient is alert and oriented to person, place and time. The patient has symmetrical motor strength in all four extremities. Psychiatric: The patient has an appropriate affect and does not exhibit any anxiety or depression. Triage Information Reviewed: Yes Vital Signs On Initial Exam: Initial Vitals Temp Pulse Resp BP Pulse Ox 99.1 F 66 18 175/106 96 08/30/18 18:34 08/30/18 18:34 08/30/18 18:34 08/30/18 18:34 08/30/18 18:34 Vital Signs Reviewed: Yes Diagnostics - Laboratory Lab Statement: Any lab studies that have been ordered have been reviewed, and results considered in the medical decision making process. - Radiology Left knee XR Radiology Interpretation Completed By: ED Physician Summary of Radiographic Findings: No acute process, poor quality XR Left hand XR Radiology Interpretation Completed By: ED Physician Summary of Radiographic Findings: No acute process, poor quality XR Re-Evaluation - Re-Evaluation First Eval Re-Evaluation Time: 20:01 Comment: Reviewed XR results with the pt and daughter. Adult Trauma Course/Dx - Course Course Of Treatment: Ms. Ray is very unsteady on her feet and the situation was been worsened by recent vertebral fractures. She is supposed to be using a walker but has a great deal of difficulty with some retraction in her hands. She fell today and injured her left knee. She had some mild swelling and ecchymosis. X-ray was negative and I did not think she could manage with a knee immobilizer. I think this is all external contusion and an Chris wrap will suffice. She is going to try forearm extensions on her walker which are available at [facility]. - Diagnoses Provider Diagnoses: Knee contusion Discharge - Sign-Out/Discharge Documenting (check all that apply): Patient Departure - Discharge home Patient Received Moderate/Deep Sedation with Procedure: No - Discharge Plan Condition: Stable Disposition: HOME Patient Education Materials: Contusion in Adults (ED) Referrals: Wilson Moody MD [Primary Care Provider] - Additional Instructions: Medline Walker Attachment is available and can be obtained at [employer]. The product # is [id number]. Follow up with your primary care provider in 2-3 days. RETURN TO THE ED FOR ANY WORSENING OR NEW SYMPTOMS. - Billing Disposition and Condition Condition: STABLE Disposition: Home - Attestation Statements Document Initiated by Catherine: Yes Documenting Scribe: Ina Rogers Provider For Whom Catherine is Documenting (Include Credential): Brian Castellon MD Scribe Attestation: Ina Baca scribed for Brian Castellon MD on 08/30/18 at 2137. Scribe Documentation Reviewed: Yes Provider Attestation: The documentation as recorded by the Ina weston accurately reflects the service I personally performed and the decisions made by me, Brian Castellon MD Status of Scribe Document: Viewed
--- OUTSIDE RECORDS SUMMARY | 2018-08-30 19:15 | XMS REPORT | Continuity of Care Document ---
:1940 External Reference #:[id number] Author Name Trini Dugan Care Team Providers Name Role Phone Wilson Moody III, MD Primary Care Physician Unavailable Payers Date Identification Numbers Payment Provider Subscriber Effective: 2004 Policy Number: [id number] Medicare Jennifer Aleman PayID: [id number] [address] [place] [address] Policy Number: [id number] [facility] Jennifer Aleman PayID: [id number] [address] [place] [address] Problems Active Problems Provider Date Diverticulitis of colon Wilson Moody M.D. Onset: 11/12/2010 Dementia Veronika Hill M.D. Onset: 10/17/2014 Cerebral amyloid angiopathy Veronika Hill M.D. Onset: 10/17/2014 Altered mental status Veronika Hill M.D. Onset: 10/17/2014 Amnesia Juwan Alexandre M.D. Onset: 08/10/2017 Abnormal gait Juwan Alexandre M.D. Onset: 08/10/2017 Chronic fatigue syndrome Juwan Alexandre M.D. Onset: 08/10/2017 Urinary tract infectious disease Elizabte Goddard NP Onset: 12/15/2017 Essential hypertension Elizabet Goddard NP Onset: 12/15/2017 Chronic kidney disease stage 3 Marilyn Carpenter M.D. Onset: 12/16/2017 Bladder muscle dysfunction - overactive Marilyn Carpenter M.D. Onset: 2017 Parkinson's disease Marilyn Carpenter M.D. Onset: 12/16/2017 Hypertensive chronic kidney disease with Marilyn Carpenter M.D. Onset: 2017 stage 1 through stage 4 chronic kidney disease, or unspecified chronic kidney disease Alzheimer's disease Bruce Perez M.D. Onset: 12/21/2017 Other abnormal findings in cerebrospinal Juwan Alexandre M.D. Onset: 2017 fluid Malaise and fatigue Juwan Alexandre M.D. 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 leave on for 12 hours and then off for 12 hours. Raw Probiotic Take 1 Capsule By 30units Wilson Lees 07/22/2018 Vaginal Care Cap Mouth Every Day John Moody Dok Take 1 Capsule By 90caps Wilson Lees 07/08/2018 100mg Capsules Mouth Two Times John Moody Daily Raw Probiotic For 50 billion 1 30units Wilson Lees 04/15/2018 Vaginal Health capsule by mouth John Moody daily Melatonin po q day @ hs 30tabs Wilson Lees 01/20/2018 3mg John Moody Tablets Tylenol take 2 tabs as 90tabs Wilson Lees 01/20/2018 325mg needed every 6 John Moody Tablets hours for pain/fever Donepezil HCL 1 by mouth every 90tabs F03.90 Tariq Chowdhury 11/11/2016 10mg day John Allen Tablets Amlodipine Besylate 1 by mouth every 30tabs Zain Westbrook YEYO 02/06/2015 day 5mg Tablets Lipitor one tab po qhs 90tabs Wilson Lees 12/16/2011 20mg John Moody Tablets Pepto-Bismol Max 30 milliliters by Wilson Lees Strength mouth every 30 mins John Moody 525mg/15ML as needed Suspension Loperamide HCL 2 caps by mouth 90caps Wilson Lees 2mg after first loose John Moody Capsules stool; 1 cap after each subsequent loose stool Vesicare 1 by mouth every Unknown 10mg day Tablets Centrum Silver once daily 90tabs Wilson Lees 50+Women John Moody 50+Women Tablets Myrbetriq once a day 30tabs R31.9 Wilson Lees 50mg John Moody Tablets ER 24HR History Medications Amoxicillin/Clavulanate 1 by mouth 14tabs Wilson Lees 02/13/2018 - Potassium twice a day John Moody 03/31/2018 875-125mg Tablets Colace 1 cap by mouth 90caps Wilson Lees 01/20/2018 - 100mg Capsules twice a day John Moody 07/08/2018 Amoxicillin/Clavulanate 1 by mouth 10tabs Wilson Lees 01/04/2018 - Potassium twice a day John Moody 02/04/2018 875-125mg Tablets Augmentin 1 tablet by 10taoni Lees 01/03/2018 - 875-125mg Tablets mouth q12 John Moody 01/04/2018 hours Donepezil HCL 1-2 tabs by 60tabs F03.90 Veronika Hernandez 10/03/2016 - 5mg Tablets mouth every Stack, 11/11/2016 day as John directed Fluticasone Propionate 2 sprays each 16gm J02.9 Matthew Mao, 12/24/2015 - 50mcg/Act nostril qd. 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 10/02/2016 Suspension Augmentin by mouth twice 14tabs N39.0 Zain Westbrook, 02/06/2015 - 875-125mg Tablets a day x 7 days 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 02/27/2015 Ciprofloxacin HCL 1 tab by mouth 14tabs R35.0 Zain Westbrook, 01/30/2015 - 500mg Tablets twice a day x 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 02/06/2015 7 days Ciprofloxacin HCL 1 po twice a 14tabs Wilson Lees 10/10/2014 - 500mg Tablets day John Moody 10/16/2014 Cipro 1 po bid for 7 14tabs Wilson Lees 10/21/2010 - 500mg Tablets days John Moody 11/08/2010 Robitussin With Codeine 10 cc qhs and 6Oz Wilson Lees 12/04/2009 - Elixer q 4 hrs prn John Moody 07/31/2010 Augmentin 1 bid 20tabs 562.11 Chet, 09/19/2009 - 875-125mg Tablets MD Susie 12/04/2009 Z Pack as directed. 5tabs Wilson Lees 07/24/2009 - 250mg Tablets John Moody 11/08/2010 Centrum Silver 1 PO qd Wilson Lees 07/26/2007 - Tablets John Moody 10/01/2016 Calcium/Vitamin D qd 100tabs Wilson Lees 07/26/2007 - 600mg Tablets John Moody 10/16/2014 Asa 81mg 1 PO qd 90units Wilson Lees 07/26/2007 - John Moody 02/06/2015 Lipitor 1 PO QHS 90tabs Wilson Lees 07/26/2007 - 10mg Tablets John Moody 12/16/2011 Vitamin B-6 1 po qd Unknown - Tablets 08/18/2013 Vitamin B-12 1 po qd Unknown - Tablets Sub 10/02/2016 Fish Oil 1 po capsules Unknown - Capsules daily 12/16/2011 Cipro Unknown - 10/10/2014 Augmentin 1 tablet by Unknown - 875-125mg Tablets mouth q12 12/30/2017 hours for 10 days Medications Administered in Office Medication SIG Qnty Indications Ordering Provider Date Depomedrol 40MG Delmy Murguia M.D. 03/24/2018 Injection Depomedrol 40MG Delmy Murguia M.D. 03/24/2018 Injection Immunizations CPT Code Status Date Vaccine Lot # [id number] Given 12/04/2017 Fluzone High Dose 61074 Given 12/10/2016 Influenza Virus Vaccine, Quadrivalent, Split, Preservative Free 35694 Given 12/08/2015 Fluzone High Dose 48565 Given 12/14/2014 Fluzone High Dose 15710 Given 12/08/2013 Flu Vaccine Split Virus Preservative Free For [id number] Indiv 3Yr Older 24356 Given 08/18/2013 Tdap - Tetanus/Diptheria/Acellular Pertussis [id number] 94032 Given 08/18/2013 Pneumococcal Conjugate Vaccine 13 Valent For [id number] Intramuscular Use 69936 Given 12/11/2012 Flu Vaccine Split Virus Preservative Free For Indiv 3Yr Older 09688 Given 03/11/2012 Zoster (Zostavax) [id number] 42596 Given 12/17/2011 Pneumonia Vaccine [id number] Given 12/10/2011 Fluvirin Im 3Yrs And Older [id number] Q2038 Given 12/20/2010 Fluzone Vaccine [id number] 59122 Given 12/14/2009 Influenza Virus 3Yrs & Over [id number] 51558 Given 12/13/2008 Influenza Virus 3Yrs & Over 61426 Given 12/20/2007 Influenza Virus 3Yrs & Over 13048 Given 11/30/2006 Influenza Virus 3Yrs & Over 98853 Given 11/30/2006 Influenza Virus 3Yrs & Over 42144 Given 11/30/2006 Influenza Virus 3Yrs & Over [id number] 27424 Given 09/21/2002 Td (History By Patient) 30004 Given 01/04/2002 Pneumovax (History By Patient) 138iu Vital Signs Date Vital Result Comment 08/25/2018 3:53pm Height 62.25 inches 5'2.25" Weight 168.00 lb Heart Rate 72 /min BP Systolic 127 mmHg BP Diastolic 70 mmHg O2 % BldC Oximetry 94 % BMI (Body Mass Index) 30.5 kg/m2 07/13/2018 10:25am Height 62.25 inches 5'2.25" Weight 166.50 lb Heart Rate 76 /min BP Systolic Sitting 144 mmHg BP Diastolic Sitting 82 mmHg Respiratory Rate 24 /min BMI (Body Mass Index) 30.2 kg/m2 05/17/2018 10:31am Height 62.25 inches 5'2.25" Heart Rate 64 /min BP Systolic 124 mmHg BP Diastolic 60 mmHg Respiratory Rate 20 /min Body Temperature 98.0 F Pain Level 6 04/14/2018 9:32am Height 62.25 inches 5'2.25" Weight 150.00 lb Patient stated Heart Rate 60 /min BP Systolic 110 mmHg BP Diastolic 72 mmHg Respiratory Rate 16 /min Pain Level 8 BMI (Body Mass Index) 27.2 kg/m2 04/01/2018 11:59am Height 62.25 inches 5'2.25" Weight 150.00 lb Heart Rate 70 /min BP Systolic 132 mmHg BP Diastolic 80 mmHg BMI (Body Mass Index) 27.2 kg/m2 03/24/2018 11:14am Height 62.25 inches 5'2.25" Weight 154.00 lb Heart Rate 68 /min BP Systolic 134 mmHg BP Diastolic 70 mmHg Body Temperature 98.9 F Pain Level 6 BMI (Body Mass Index) 27.9 kg/m2 03/18/2018 2:08pm Height 62.25 inches 5'2.25" Weight 157.00 lb Heart Rate 79 /min BP Systolic Sitting 122 mmHg BP Diastolic Sitting 70 mmHg O2 % BldC Oximetry 96 % BMI (Body Mass Index) 28.5 kg/m2 03/10/2018 9:10am Height 62.25 inches 5'2.25" Weight 148.00 lb Heart Rate 70 /min BP Systolic Sitting 120 mmHg BP Diastolic Sitting 70 mmHg Respiratory Rate 16 /min BMI (Body Mass Index) 26.8 kg/m2 02/05/2018 2:09pm Height 62.25 inches 5'2.25" Weight [...] Date Facility Test Result H/L Range Note Protein 04/29/2018 [facility] Total 68 mg/24h <229 1 Electrophoresis Urine [address] Protein(Pep) (24HR) [place] [address] Urine [phone] Collection Duration 24 h Urine Volume 850 mL Total Protein Concentration 8 mg/dL Albumin 42 % 2 Alpha-1 Globulin 4 % 3 Alpha-2 Globulin 11 % 4 Beta Globulin 19 % 5 Gamma Globulin 24 % 6 Albumin/Globulin Ratio 0.73 Impression See Comment 7 Protein 04/11/2018 [facility] Total 84 mg/24h <229 [address] Protein(Pep) Urine (24HR) [place] [address] Urine [phone] Collection Duration 24 h Urine Volume 700 mL Total Protein Concentration 12 mg/dL Albumin 56 % 9 Alpha-1 Globulin 7 % 10 Alpha-2 Globulin 7 % 11 Beta Globulin 12 % 12 Gamma Globulin 18 % 13 Albumin/Globulin Ratio 1.25 Impression See Comment 14 Urinalysis Profile 03/23/2018 [facility] Urine Color Straw [address] [place] [address] [phone] Urine Appearance Clear Urine Specific Grady 1.011 N 1.010-1.030 Urine pH 5.0 N 5-9 Urine Urobilinogen Negative Negative Urine Ketones Negative Negative Urine Protein Negative Negative Urine Leukocytes Negative Negative Urine Blood Negative Negative Urine Nitrite Negative Negative Urine Bilirubin Negative Negative Urine Glucose Negative Negative Basic Metabolic Panel 03/16/2018 [facility] Sodium 140 mmol/L N 135-[address] [place] [address] [phone] Potassium 4.5 mmol/L N 3.5-5.0 Chloride 108 mmol/L N 101-111 Co2 Carbon Dioxide 24 mmol/L N 22-32 Anion Gap 8 mmol/L N 2-11 Glucose 96 mg/dL N 70-100 Blood Urea Nitrogen 29 mg/dL High 6-24 Creatinine 1.49 mg/dL High 0.51-0.95 BUN/Creatinine Ratio 19.5 N 8-20 Calcium 9.8 mg/dL N 8.6-10.3 Egfr Non- 33.8 >60 Egfr 40.8 >60 16 Laboratory test 03/16/2018 [facility] Viral Culture Non See Comment [address] [place] [address] [phone] Mycobacterial Culture See Comment 18 CSF Immunoglobulin 03/16/2018 [facility] CSF Immunoglobulin 0.50 <=0.85 G (Igg) [address] [place] [address] [phone] CSF Igg 3.1 mg/dL <=8.1 CSF Albumin 38.2 mg/dL Abnormal <=27.0 19 CSF IgG/Albumin Ratio 0.08 <=0.21 CSF Immunoglobulin G Synthesis 1.23 mg/24h <=12 Immunoglobulin G 671 mg/dL Abnormal 767 - 1590 Albumin 4250 mg/dL 20 Serum IgG/Albumin Ratio 0.16 <=0.40 21 Laboratory test 03/16/2018 [facility] CSF Angiotension 1.3 U/L 0.0-2.5 [address] [place] [address] [phone] CSF West Nile 03/16/2018 [facility] CSF West Nile Negative Negative Igg/Igm [address] [place] [address] [phone] CSF West Nile Virus IgM Ab Negative Negative CSF West Nile Interpretation See Comment 23 CSF West Nile PCR 03/16/2018 [facility] West Nile Virus Source CSF [address] [place] [address] [phone] CSF West Nile Virus Rna (PCR) Negative Negative 24 Herpes Simplex 03/16/2018 [facility] HSV 1 PCR, Negative Negative Virus PCR CSF [address] [place] [address] [phone] HSV 2 PCR, CSF Negative Negative 25 CSF Cell Count 03/16/2018 [facility] Body Fluid Cerebral Spinal [address] [place] [address] [phone] Body Fluid Appearance Clear Body Fluid Color Colorless CSF Tube # 4 Body Fluid Volume 2 mL Body Fluid WBC 1 /mcL Body Fluid RBC 126 /mcL Body Fluid Neutrophils 10 % Body Fluid Lymph 76 % Body Fluid Mckean 12 % Body Fluid Eosinophil 2 % Body Fluid Total Cells Counted 50 Body Fluid Comment (SEE NOTE) 26 Fluid Reviewed By MD (SEE NOTE) 27 CSF Culture & 03/16/2018 [facility] CSF Culture SEE RESULT [address] [place] [address] [phone] Laboratory test 03/16/2018 [facility] CSF Protein 59 mg/dL High 15-[address] [place] [address] [phone] CSF Glucose 65 mg/dL N 40-70 Protein 03/16/2018 [facility] Total 6.9 g/dL 6.3 - Electrophoresis [address] Protein(Pep) 7.9 [place] [address] [phone] Albumin 3.3 g/dL Abnormal 3.4-4.7 Alpha-1 Globulin 0.2 g/dL 0.1-0.3 Alpha-2 Globulin 1.3 g/dL Abnormal 0.6-1.0 Beta Globulin 1.2 g/dL 0.7-1.2 Gamma Globulin 0.9 g/dL 0.6-1.6 Albumin/Globulin Ratio 0.93 Impression See Comment 29 Immunofixation See Comment 30 Oligoclonal Bands 03/16/2018 [facility] CSF Oligoclonal [address] [place] [address] [phone] Serum Oligoclonal Bands 11 bands Oligoclonal Proteins Interpret 0 bands <4 31 CSF Studies 03/16/2018 [facility] CSF Protein <pending> [address] [place] [address] [phone] CSF Glucose <pending> CSF Immunoglobulin G (Igg) <pending> CSF Angiotension Conv Enz <pending> Viral Culture Non Respiratory <pending> Urinalysis Profile 02/13/2018 [facility] Urine Color Yellow [address] [place] [address] [phone] Urine Appearance Cloudy Urine Specific Grady 1.016 N 1.010-1.030 Urine pH 5.0 N 5-9 Urine Urobilinogen Negative Negative Urine Ketones Negative Negative Urine Protein Negative Negative Urine Leukocytes Trace Abnormal Negative Urine Blood 1+ Abnormal Negative * * Abnormal Negative 32 Urine Nitrite Negative Negative Urine Bilirubin Negative Negative Urine Glucose Negative Negative Urine White Blood Cell Trace(0-5/hpf) Absent Urine Red Blood Cell 1+(3-5/hpf) Abnormal Absent Urine Bacteria Absent Absent Urine Squamous Epithelial Cell Present Abnormal Absent Urine Culture And 02/13/2018 [facility] Urine Culture SEE RESULT [address] [place], [place] [id number] [phone] Urinalysis Profile 01/02/2018 [facility] Urine Color Lois [address] [place] [address] [phone] Urine Appearance Turbid Urine Specific Grady 1.014 N 1.010-1.030 Urine pH 5.0 N 5-9 Urine Urobilinogen Negative Negative Urine Ketones Negative Negative Urine Protein 1+(30 mg/dL) Abnormal Negative Urine Leukocytes 3+ Abnormal Negative Urine Blood 2+ Abnormal Negative * * Abnormal Negative 34 Urine Nitrite Negative Negative Urine Bilirubin Negative Negative Urine Glucose Negative Negative Urine White Blood Cell 3+(>20/hpf) Abnormal Absent Urine Red Blood Cell Trace(0-2/hpf) Absent Urine Bacteria 1+ Abnormal Absent Urine Culture And 01/02/2018 [facility] Urine Culture SEE RESULT [address] [place] [address] [phone] Urine Culture And 12/15/2017 [facility] Urine Culture SEE RESULT [address] [place] [address] [phone] Laboratory test 12/15/2017 [facility] Partial 29.1 seconds N 26.0- finding [address] Thrombo Time 36.3 [place] [address] [phone] Lactic Acid 0.8 mmol/L N 0.5-2.0 37 Pathologist Review (SEE NOTE) 38 Blood Culture SEE RESULT BELOW 39 Inr/Protime 12/15/2017 [facility] Inr 0.90 N 0.77-1.[address] [place], [place] [address] [phone] Laboratory test 12/15/2017 [facility] Lactic Acid 1.1 mmol/L N 0.5-2.0 40 finding [address] [place] [address] [phone] Urinalysis 12/15/2017 [facility] Urine Color Yellow Profile [address] [place] [address] [phone] Urine Appearance Cloudy Urine Specific Grady 1.015 N 1.010-1.030 Urine pH 5.0 N [...] Present Abnormal Absent CBC Auto Diff 12/15/2017 [facility] White Blood 7.0 10^3/uL N 3.5-10.8 101 [facility] [place] [address] [phone] Red Blood Count 4.06 10^6/uL N 4.00-5.40 [...] 0-0.6 Abs Basophils 0 10^3/uL N 0-0.2 Laboratory test 12/15/2017 [facility] Troponin-I (TnI) 0.01 ng/ mL <0.04 finding [address] [place] [address] [phone] Comp Metabolic 12/15/2017 [facility] Sodium 140 mmol/L N 135- 145 Panel 101 [facility] [place] [address] [phone] Potassium 4.1 mmol/L N 3.5-5.0 Chloride 103 [...] Egfr Non- 34.9 >60 Egfr 42.3 >60 41 Manual Differential 12/15/2017 [facility] Immature 2 % N 0-[address] [place] [address] [phone] Neutrophil % 62 % N 38-83 Band [...] 10^3/uL N 0-0.2 RBC Morphology Normal Normal Urine Culture And 12/11/2017 [facility] Urine Culture SEE RESULT [address] [place] [address] [phone] Laboratory test 12/11/2017 [facility] Lactic Acid 0.7 mmol/L N 0.5-2 [address] .0 [place] [address] [phone] Comp Metabolic 12/11/2017 [facility] Sodium 137 mmol/L N 135- [address] [place] [address] [phone] Potassium 4.1 mmol/L N 3.5-5.0 Chloride 102 [...] Egfr Non- 31.2 >60 Egfr 37.7 >60 44 CBC Auto Diff 12/11/2017 [facility] White Blood 8.6 10^3/uL N 3.5-10.[address] [place] [address] [phone] Red Blood Count 4.18 10^6/uL N 4.00-5.40 [...] 0-2 Nucleated Red Blood Cells % 0 Laboratory test 12/11/2017 [facility] Blood Culture SEE RESULT [address] [place] [address] [phone] Urinalysis Profile 12/11/2017 [facility] Urine Color Yellow [address] [place] [address] [phone] Urine Appearance Clear Urine Specific Grady 1.011 N 1.010-1.030 Urine pH 5.0 N [...] Urine Renal Epithelial Cells Present Abnormal Absent Vitamin B12 And 08/10/2017 [facility] Vitamin B12 614 pg/mL N 180-914 46 Folate Serum [address] [place] [address] [phone] Folic Acid (Folate) > 20.00 ng/mL >3.99 Laboratory test 08/10/2017 [facility] C Reactive < 1.00 N < 5.00 [address] Protein mg/[place] [address] [phone] Erythrocyte Sed Rate 23 mm/Hr N 0-40 Laboratory test 07/22/2017 [facility] Rapid Strep Negative Negative [address] [place] [address] [phone] Poc Urinalysis 06/29/2017 [facility] Poc Glucose, Negative Negative [address] [place] [address] [phone] Poc Bilirubin, Urine Negative Negative Poc Ketone, Urine Negative Negative Poc Specific Grady, Urine 1.020 N 1.010-1.030 Poc Blood, Urine 2+ Abnormal Negative Poc pH, Urine 5.0 N 5-9 Poc Protein, Urine Negative Negative Poc Urobilinogen, Urine 0.2 Negative Poc Nitrite, Urine Negative Negative Poc Leukocytes, Urine Negative Negative Poc Color, Urine Yellow Poc Clarity, Urine Clear 49 Urine Culture And 07/26/2016 [facility] Urine Culture SEE RESULT 50, [address] [place] [address] [phone] Urinalysis Profile 02/21/2015 [facility] Urine Color Yellow N [address] [place] [address] [phone] Urine Appearance Clear N Urine Specific Grady 1.015 N 1.010-1.030 Urine pH 5.0 N 5-9 Urine Urobilinogen Negative N Negative Urine Ketones Negative N Negative Urine Protein Negative N Negative Urine Leukocytes Trace Abnormal Negative Urine Blood 1+ Abnormal Negative * * Abnormal Negative 52 Urine Nitrite Negative N Negative Urine Bilirubin Negative N Negative Urine Glucose Negative N Negative Urine White Blood Cell Trace(0-5/hpf) N Absent Urine Red Blood Cell 1+(3-5/hpf) Abnormal Absent Urine Bacteria Absent N Absent Urine Squamous Epithelial Cell Present Abnormal Absent Laboratory test 02/21/2015 [facility] Urine Culture And SEE RESULT [address] [place] [address] [phone] Comp Metabolic 02/10/2015 [facility] Sodium 134 mmol/L N 133- [address] [place] [address] [phone] Potassium 3.8 mmol/L N 3.5-5.0 Chloride 101 [...] 36.6 N >60 Egfr 47.0 N >60 54 Laboratory test 02/10/2015 [facility] C Reactive 4.34 mg/L N < 5.00 [address] [place] [address] [phone] Urinalysis 02/10/2015 [facility] Urine Color Yellow N Profile [address] [place] [address] [phone] Urine Appearance Clear N Urine Specific Grady 1.012 N 1.010-1.030 Urine pH 5.0 N [...] Present Abnormal Absent CBC Auto Diff 02/10/2015 [facility] White Blood 8.3 10^3/uL N 3.5-10.[address] [place] [address] [phone] Red Blood Count 4.42 10^6/uL N 4.0-5.4 [...] Cells % 0.1 N Laboratory test 02/10/2015 [facility] Troponin-I 0.01 ng/mL N <0.[address] (TnI) [place], [place] [address] [phone] Inr/Protime 02/10/2015 [facility] Inr 1.00 N 0.89-1.[address] [place] [address] [phone] Laboratory test 02/10/2015 [facility] Partial Thrombo 31.6 N 26.0-36.[address] [place] [address] [phone] Lactic Acid 0.7 mmol/L N 0.5-2.0 57 Blood Culture SEE RESULT BELOW 58 Rapid Influenza 02/10/2015 [facility] Influenza A NEGATIVE N Negative 59 A & B Molecular [address] [place] [address] [phone] Influenza B Molecular NEGATIVE N Negative Laboratory test 02/10/2015 [facility] Rapid Influenza SEE RESULT [address] [place] [address] [phone] Ua Routine 02/06/2015 [facility] Therapy Resident In House Ua Specific 1.015 Grady Ua PH 5 Ua Color yellow Ua Appera clear Ua WBC positive Ua Protein trace Ua Glucose negative Ua Ketones negative Ua Bilirubin negative Ua Urobilinogen normal Ua Nitrite negative Ua Occult Blood positive Ua Routine 01/30/2015 Physical Therapy Resident In House Ua Specific Grady 1.015 Ua PH 5 Ua Color yellow Ua Appera cloudy Ua WBC positive Ua Protein trace Ua Glucose neg Ua Ketones neg Ua Bilirubin neg Ua Urobilinogen normal Ua Nitrite neg Ua Occult Blood large Laboratory 01/30/2015 [facility] Urine Culture And SEE RESULT 61 test finding [address] [place] [address] [phone] Laboratory 10/19/2014 [facility] Urine Culture And SEE RESULT 62 test finding [address] [place] [address] [phone] Laboratory 10/19/2014 [facility] (Antinuclear Negative N Negative test finding Antibodies) Erythrocyte Sed Rate 32 mm/Hr N 0-40 C Reactive Protein 1.00 mg/L N < 5.00 63 Anti Ssa/Ro <0.2 U N 64 Anti SSB LA <0.2 U N 65 Urinalysis Profile 10/19/2014 [facility] Urine Color Yellow N [address] [place] [address] [phone] Urine Appearance Cloudy N Urine Specific Grady 1.014 N 1.010-1.030 Urine pH 5.0 N [...] Absent Urine Transitional Epithelial Present Abnormal Absent Vitamin B12 10/13/2014 [facility] Vitamin B12 > 1450 High 180- 914 [address] pg/[place] [address] [phone] Folic Acid (Folate) > 20.00 ng/mL N >3.99 Laboratory test 10/13/2014 [facility] Lyme Disease Negative N Negative [address] [place] [address] [phone] Syphilis Screen 10/13/2014 [facility] Pediatric/Mate NO N [address] [place] [address] [phone] Syphilis IgG Nonreactive N Nonreactive 68 RPR TNP N Nonreactive RPR Titer TNP N Comp Metabolic Panel 10/11/2014 Sodium 139 [...] 33.3 N >60 Egfr 42.9 N >60 69 Laboratory test finding 10/11/2014 Erythrocyte Sed Rate 50 mm/Hr High 0- 40 C Reactive Protein 13.44 mg/L High < 5.00 70 TSH (Thyroid Stim Horm) 1.51 ?IU/mL N 0.34-5.60 CBC Auto Diff 10/11/2014 White Blood Count [...] Nucleated Red Blood Cells % 0 N Laboratory test 10/10/2014 [facility] Urine Culture And SEE RESULT [address] [place] [address] [phone] Ua Routine 10/10/2014 Physical Therapy Resident In House Ua Specific Grady 1.005 Ua PH 5 Ua Color yellow Ua Appera clear Ua WBC positive Ua Protein neg Ua Glucose neg Ua Ketones trace Ua Bilirubin neg Ua Urobilinogen neg Ua Nitrite neg Ua Occult Blood positive Urine Culture And 03/24/2014 [facility] Urine Culture (SEE NOTE ) [address] [place] [address] [phone] Throat-Beta Strept 03/24/2014 [facility] Throat Beta (SEE NOTE) [address] [place] [address] [phone] Vitamin D, 25 10/06/2013 [facility] 25-Hydroxy <4.0 ng/mL N Hydroxy [address] Vitamin D2 [place] [address] [phone] 25-Hydroxy Vitamin D3 60 ng/mL N 25-Hydroxy Vitamin D Total 60 ng/mL N 74 CBC With 12/17/2011 [facility] White Blood 5.9 10^3/uL 4.8- 10.8 Manual Diff [address] [place] [address] [phone] Red Blood Count 4.07 10^6/uL 4.0-5.4 Hemoglobin [...] % 0 % RBC Morphology Normal Normal Laboratory test 12/17/2011 [facility] TSH (Thyroid 2.41 0.34- 5.[address] Stimulating MIU/[place] [address] Horm) [phone] Erythrocyte Sed Rate 25 MM/HR 0-40 Comp Metabolic Panel 12/17/2011 [facility] Sodium 139 mmol/L 133-[address] [place] [address] [phone] Potassium 4.2 mmol/L 3.5-5.0 Chloride 106 mmol/L [...] 1.6 1-3 Total Bilirubin 0.8 mg/dL 0.1-1.0 75 Alkaline Phosphatase 60 U/L 30-110 Alt 44 U/L 14-54 Ast 65 U/L High 12-42 Egfr Non- 44.2 >60 Egfr 56.8 >60 76 Urinalysis W/Microscopic 11/07/2010 [facility] Ua Color YELLOW Yellow [address] [place] [address] [phone] Appearance-Urine CLEAR Clear Specific Grady-Ur 1.007 Low 1.010-1.030 Esterase-Urine NEGATIVE Negative Nitrite NEGATIVE Negative Txbdjxjjnodi-Gl-JIA NEGATIVE Negative Protein-Urine NEGATIVE Negative PH-Urine 7.0 5-9 Blood-Urine 1+ Abnormal Negative Ketones-Urine NEGATIVE Negative Bilirubin-Ur NEGATIVE Negative Glucose-Urine NEGATIVE Negative WBC-Urine 0-2 0-5 RBC-Urine 1-3 0-2 Epith Cells-Ur SMALL None Bacteria-Urine TRACE None Urine Culture & 11/07/2010 [facility] Urine Culture NF1 [address] [place] [address] [phone] Culture Urine 10/21/2010 [facility] Urine Culture SN1 [address] [place] [address] [phone] Ua W/Microscopic 10/21/2010 [facility] Ua Color YELLOW Yellow [address] [place] [address] [phone] Appearance-Urine CLEAR Clear Specific Grady-Ur 1.012 1.010-1.030 Esterase-Urine 3+ Abnormal Negative Nitrite NEGATIVE Negative Skngqrbaxctj-Ko-ZOY NEGATIVE Negative Protein-Urine NEGATIVE Negative PH-Urine 6.5 5-9 Blood-Urine 3+ Abnormal Negative Ketones-Urine NEGATIVE Negative Bilirubin-Ur NEGATIVE Negative Glucose-Urine NEGATIVE Negative WBC-Urine 25-30 Abnormal 0-5 RBC-Urine TNTC Abnormal 0-2 Epith Cells-Ur FEW None Bacteria-Urine TRACE None Laboratory test 09/21/2009 [facility] BUN 13 mg/dL 6-[address] [place] [address] [phone] CBC With 09/21/2009 [facility] White Blood 8.1 CUMM 4.8-10.8 Electronic Diff [address] [place] [address] [phone] Red Cell Count 3.84 CUMM Low 4.2-5.4 [...] 0-0.6 Abs Basophils 0 0-0.2 Laboratory test 09/09/2006 [facility] Clotest N^NEGATIVE^REJI finding [address] [place] [address] [phone] ADDITIONAL INFORMATION On 08/19/2016 the total protein assay method changed resulting in approximately a 15% increase in protein values. 2 29 mg/24 h 3 3 mg/24 h 4 7 mg/24 h 5 13 mg/24 h 6 16 mg/24 h 7 RESULT: All fractions present, no apparent M-spike. Test Performed by: [address] [address] 8 ADDITIONAL INFORMATION On 08/19/2016 the total protein assay method changed resulting in approximately a 15% increase in protein values. 9 47 mg/24 h 10 6 mg/24 h 11 6 mg/24 h 12 10 mg/24 h 13 15 mg/24 h 14 All fractions present, no apparent M-spike. Insufficient urine volume submitted to maximally concentrate urine. If clinically indicated, submit new sample with adequate volume. Test Performed by: [address] [address] 15 [id number] Because ethnic data is not always readily [...] 15-29 5 Kidney failure <15 (or dialysis) 17 SOURCE: CEREBROSPINAL FLUID VIRAL CULTURE, NON RESPIRATORY FINAL No growth after 14 days of incubation. Test Performed by: [address], [place] [address] 18 SOURCE: CEREBROSPINAL FLUID MYCOBACTERIAL CULTURE FINAL No growth after 42 days of incubation. Test Performed by: [facility] - [address] [address] 19 ADDITIONAL INFORMATION This test has been modified from the historian research assistant's instructions. Its performance characteristics were determined by [facility] in a manner consistent with CLIA requirements. This test has not been cleared or approved by the U.S. Food and Drug Administration. 20 REFERENCE VALUE [phone] 21 Test Performed by: [facility] - [address] [address] 22 This test was developed and its performance characteristics determined by [employer]. The U.S. Food and Drug Administration has not approved or cleared this test; however, FDA clearance or approval is not currently required for clinical use. The results are not intended to be used as the sole means for clinical diagnosis or patient management decisions. Performed by [facility], [address] [place] [address] [id number] [email or web address], Boris Garcia MD - Lab. Director Test Performed by: [facility] [address] [place] [address] 23 No antibodies to WNV detected. Repeat testing in 10-14 days if clinical suspicion persists. ADDITIONAL INFORMATION This test has been modified from the historian research assistant's instructions. Its performance characteristics were determined by [facility] in a manner consistent with CLIA requirements. This test has not been cleared or approved by the U.S. Food and Drug Administration. Test Performed by: [facility] - [facility] [address] [place] [address] 24 ADDITIONAL INFORMATION This test was developed and its performance characteristics determined by [facility] in a manner consistent with CLIA requirements. This test has not been cleared or approved by the U.S. Food and Drug Administration. Test Performed by: [facility] - [address] [address] 25 Test Performed by: [facility] - [address] [address] 26 Differential performed on concentrated smear. 27 No evidence of malignancy or acute inflammatory response. No microorganisms seen. Reviewed by Dr. Hwang 28 SEE RESULT BELOW Name: JENNIFER ALEMAN : [address]: Sesar Looney MD Acct: [id number] Unit: [id number] AGE: 78 Location: PAIN Re03/16/18 SEX: F Status: REG REF SPEC: [id number] PHIL: 03/16/18-1218 [facility] DR: Sesar Looney MD REQ: [id number] RECD: 03/16/18124 STATUS: JOHNSON PADILLA DR: Wilson Moody III, MD _ SOURCE: CSF SPDESC: ORDERED: CSF Cult/GS, AFB Cult Smear Procedure Result Reported Site CSF Gram Stain Final 03/16/18- 1329 ML No Neutrophils Observed No Organisms Seen Preparation By Cytospin Smear CSF Culture Final 03/20/18- 0857 ML No Growth Day 4 Acid Fast Stain - Direct Final 03/16/18- 1350 ML AFB Smear Result No Acid Fast Bacillus Present (Negative) Preparation By Cytospin Smear Due to limited sensitivity of the smear, results should be used as an adjunct in evaluating the patient's status. This specimen has been sent to referral laboratory for mycobacterial culture. * ML - Main Lab . END OF REPORT DEPARTMENT OF PATHOLOGY, [address] [place] [address] Chino Hwang M.D. Director [facility] # [id number] 29 Small abnormality in gamma fraction. See Immunofixation. Test Performed by: [address] [address] 30 Biclonal Gammopathy. (Small monoclonal IgA lambda within the beta fraction plus a small monoclonal IgG lambda within the gamma fraction). Suggest repeat testing in 6-12 months if clinically indicated. Suggest quantitative immunoglobulin level to assist in following monoclonal protein. Test Performed by: [place] [address] [place] [address] 31 The oligoclonal band assay detected 3 or fewer unique IgG bands in the CSF. This is a negative result. Test Performed by: [address] [address] 32 *Ascorbic acid is present which may interfere with detection of blood. 33 SEE RESULT BELOW Name: JENNIFER ALEMAN : [address]: Wilson Moody III, MD Acct: [id number] Unit: [id number] AGE: 78 Location: [facility] Re02/13/18 SEX: F Status: REG REF SPEC: [id number] PHIL: 02/13/18-1330 [facility] DR: Wilson Moody III, MD REQ: [id number] RECD: 02/13/18 STATUS: JOHNSON PADILLA DR: Braulio Phillip _ SOURCE: URINE SPDESC: ORDERED: Urine Culture Procedure Result Reported Site Urine Culture Final 02/15/18- 0804 ML No growth of clinically significant organisms * ML - Main Lab . END OF REPORT DEPARTMENT OF PATHOLOGY, [address] [place] [address] Chino Hwang M.D. Director [facility] # [id number] 34 *Ascorbic acid is present which may interfere with detection of blood. 35 SEE RESULT BELOW Name: JENNIFER ALEMAN : [address]: Wilson Moody III, MD Acct: [id number] Unit: [id number] AGE: 77 Location: [facility] Re01/02/18 SEX: F Status: REG REF SPEC: [id number] PHIL: 01/02/18-5 [facility] DR: Wilson Moody III, MD REQ: [id number] RECD: 01/02/18 STATUS: JOHNSON PADILLA DR: Braulio Phillip _ SOURCE: URINE SPDESC: ORDERED: Urine Culture Procedure Result Reported Site Urine Culture Final 01/04/18- 0839 ML Organism 1 ESCHERICHIA COLI Howells Count 50-75,000 (Many) CFU/ML 1. ESCHERICHIA COLI [...] Department for any additional antibiotic reporting. * - [facility] Lab . END OF REPORT DEPARTMENT OF PATHOLOGY, [address] [place] [address] Chino Hwang M.D. Director [facility] # [id number] 36 SEE RESULT BELOW Name: JENNIFER ALEMAN : [address]: Marilyn Carpenter MD Acct: [id number] Unit: [id number] AGE: 77 Location: [place] [address] Re12/15/17 SEX: F Status: ADM IN SPEC: [id number] PHIL: 12/15/17 [facility] DR: Santana Hummel MD REQ: [id number] RECD: 12/15/17 STATUS: JOHNSON PADILLA DR: Wilson Moody III, MD _ SOURCE: URINE SPDESC: ORDERED: Urine Culture Procedure Result Reported Site Urine Culture Final 12/16/17- 1326 ML No Growth (<1,000 CFU/mL) * ML - Main Lab . END OF REPORT DEPARTMENT OF PATHOLOGY, [address] [place] [address] Chino Hwang M.D. Director [facility] # [id number] 37 [facility] Severe Sepsis and Septic Shock Management Bundle Measure requires all lactic acids initially measuring >2.0 mmol/L be repeated. 38 Normal smear. Reviewed by Pina Clinton MD 39 SEE RESULT BELOW Name: JENNIFER ALEMAN : [address]: Marilyn Carpenter MD Acct: [id number] Unit: [id number] AGE: 77 Location: [place] [address] Re12/15/17 SEX: F Status: ADM IN SPEC: [id number] PHIL: 12/15/17 [facility] DR: Santana Hummel MD REQ: [id number] RECD: 12/15/17 STATUS: JOHNSON PADILLA DR: Wilson Moody III, MD _ SOURCE: BLOOD,VENO SPDES: ORDERED: Blood Cult Procedure Result Reported Site Aerobic Culture Bottle Final 12/20/17- 1306 ML No Growth Day 5 Anaerobic Culture Bottle Final 12/20/17- 1306 ML No Growth Day 5 * ML - Main Lab . END OF REPORT DEPARTMENT OF PATHOLOGY, [address] [place] [address] Chino Hwang M.D. Director [facility] # [id number] 40 [facility] Severe Sepsis and Septic Shock Management Bundle Measure requires all lactic acids initially measuring >2.0 mmol/L be repeated. 41 Because ethnic data is not always readily [...] 15-29 5 Kidney failure <15 (or dialysis) 42 SEE RESULT BELOW Name: JENNIFER ALEMAN : [address]: Brian Tovar MD Acct: [id number] Unit: [id number] AGE: 77 Location: ED Re12/11/17 SEX: F Status: DEP ER SPEC: [id number] PHIL: 12/11/17 [facility] DR: Brian Tovar MD REQ: [id number] RECD: 12/11/17 STATUS: JOHNSON PADILLA DR: Wilson Moody III, MD _ SOURCE: URINE SPDESC: ORDERED: Urine Culture Procedure Result Reported Site Urine Culture Final 12/13/17 08 ML No Growth (<1,000 CFU/mL) * ML - Main Lab . END OF REPORT DEPARTMENT OF PATHOLOGY, [address] [place] [address] Chino Hwang M.D. Director [facility] # [id number] 43 [facility] Severe Sepsis and Septic Shock Management Bundle Measure requires all lactic acids initially measuring >2.0 mmol/L be repeated. 44 Because ethnic data is not always readily [...] 15-29 5 Kidney failure <15 (or dialysis) 45 SEE RESULT BELOW Name: JENNIFER ALEMAN : [address]: Brian Tovar MD Acct: [id number] Unit: [id number] AGE: 77 Location: ED Re12/11/17 SEX: F Status: DEP ER SPEC: [id number] PHIL: 12/11/[address]: Brian Tovar MD REQ: [id number] RECD: 12/11/17 STATUS: JOHNSON PADILLA DR: Wilson Moody III, MD _ SOURCE: BLOOD,VENO SPDESC: ORDERED: Blood Cult Procedure Result Reported Site Aerobic Culture Bottle Final 18- 2218 ML No Growth Day 5 Anaerobic Culture Bottle Final 12/16/17- 2218 ML No Growth Day 5 * ML - Main Lab . END OF REPORT DEPARTMENT OF PATHOLOGY, [address] [place] [address] Chino Hwang M.D. Director [facility] # [id number] 46 Normal Range 180 to 914 Indeterminate Range 145 to 180 Deficient Range <145 47 Acute inflammation: >10.00 48 Diamond Cutter: [id number] Diamond Cutter: [id number] 51 SEE RESULT BELOW Name: JENNIFER ALEMAN : [address]: Jhonny Saavedra MD Acct: [id number] Unit: [id number] AGE: 76 Location: [facility] Re07/26/16 SEX: F Status: DEP ER SPEC: [id number] PHIL: 07/26/16-[address]: Jhonny Saavedra MD REQ: [id number] RECD: 07/27/16-1325 STATUS: JOHNSON PADILLA DR: Wilson Moody III, MD _ SOURCE: URINE SPDESC: ORDERED: Urine Culture COMMENTS: [id number] Procedure Result Reported Site Urine Culture Final 07/28/16- 1257 ML No Growth (<1,000 CFU/mL) * ML - MAIN LAB ([facility]) . END OF REPORT * ML=Testing performed at Main Lab DEPARTMENT OF PATHOLOGY, [address] [place] [address] Chino Hwang M.D. Director [facility] # [id number] 52 *Ascorbic acid is present which may interfere with detection of blood. 53 SEE RESULT BELOW Name: ASH,JENNIFER S : [address]: Zain Westbrook NP Acct: [id number] Unit: [id number] AGE: 75 [facility] Re02/21/15 SEX: F Status: REG REF SPEC: [id number] PHIL: 02/21/15-[address]: Zain Westbrook 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 REQ: [id number] RECD: 02/21/15 STATUS: JOHNSON PADILLA DR: Parag Moody III, MD _ SOURCE: URINE SPDESC: ORDERED: Urine Culture Procedure Result Reported Site Urine Culture Final 02/23/15- 904 ML No growth of clinically significant organisms * ML - MAIN LAB ([facility]) . END OF REPORT * ML=Testing performed at Main Lab DEPARTMENT OF PATHOLOGY, [address] [place] [address] Chino Hwang M.D. Director [facility] # [id number] 54 Because ethnic data is not always readily [...] 15-29 5 Kidney failure <15 (or dialysis) 55 Acute inflammation: >10.00 56 Reference Range and Interpretation: TnI (ng/mL) Interpretation Less Than 0.03 ng/mL Not supportive of diagnosis of [place] 0.03 - 0.50 ng/mL Indeterminate: suggest serial studies if clinically indicated. Greater than 0.5 ng/mL Consistent with diagnosis of [place] 57 [place] Severe Sepsis and Septic Shock Management Bundle Measure requires all lactic acids initially measuring >2.0mmol/L be repeated. 58 SEE RESULT BELOW Name: JENNIFER ALEMAN : [address]: Marilyn Carpenter MD Acct: [id number] Unit: [id number] AGE: 75 Location: [place] [address] Re02/11/15 Dis: 02/13/15 SEX: F Status: DIS IN SPEC: [id number] PHIL: 02/10/15-3850 [facility] [address]: Magdiel Hughes DO REQ: [id number] RECD: 02/10/15859 STATUS: JOHNSON PADILLA DR: Wilson Moody III, MD _ SOURCE: BLOOD,VENO SPDESC: ORDERED: Blood Cult Procedure Result Reported Site Aerobic Culture Bottle Final 02/15/15- 2350 ML No Growth Day 5 Anaerobic Culture Bottle Final 02/15/15- 2350 ML No Growth Day 5 * ML - MAIN LAB ([facility]) . END OF REPORT * ML=Testing performed at Main Lab DEPARTMENT OF PATHOLOGY, [address] [place] [address] Chino Hwang M.D. Director [facility] # [id number] 59 Diamond Cutter: [id number] PASQUALE JACINTO 60 SEE RESULT BELOW Name: JENNIFER ALEMAN : [address]: Brian Castellon MD Acct: [id number] Unit: [id number] AGE: 75 Location: ED Re02/10/15 SEX: F Status: REG ER SPEC: [id number] PHIL: 02/10/15-1314 [facility] [address]: Brian Castellon MD REQ: [id number] RECD: 02/10/15 STATUS: JOHNSON PADILLA DR: Wilson Moody III, MD _ SOURCE: [facility]: ORDERED: Flu A B Request Procedure Result Reported Site Rapid Influenza A B Request Final 02/10/15- 1336 ML Specimen received for Influenza A/B Molecular testing * ML - MAIN LAB ([facility]) . END OF REPORT * ML=Testing performed at Main Lab DEPARTMENT OF PATHOLOGY, [address] [place] [address] Chino Hwang M.D. Director [facility] # [id number] 61 SEE RESULT BELOW Name: JENNIFER ALEMAN : [address]: Zain Westbrook NP Acct: [id number] Unit: [id number] AGE: 74 Location: [facility] Re01/30/15 SEX: F Status: REG REF SPEC: [id number] PHIL: 01/30/15-[address]: Zain Westbrook NP REQ: [id number] RECD: 01/30/15 STATUS: COMP _ SOURCE: URINE SPDESC: ORDERED: Urine Culture Procedure Result Reported Site Urine Culture Final 02/02/15- 818 ML Organism 1 KLEBSIELLA PNEUMONIAE Howells Count 75-100,000 (Many) CFU/ML 1. KLEBSIELLA PNEUMONIAE [...] antibiotic reporting. * ML - MAIN LAB ([facility]) . END OF REPORT * ML=Testing performed at Main Lab DEPARTMENT OF PATHOLOGY, [address] [place] [address] Chino Hwang M.D. Director [facility] # [id number] 62 SEE RESULT BELOW Name: JENNIFER ALEMAN : [address]: eVronika Hill MD Acct: [id number] Unit: [id number] AGE: 74 Location: [facility] Re10/19/14 SEX: F Status: REG REF SPEC: [id number] PHIL: 10/19/[address]: Wilson Moody III, MD REQ: [id number] RECD: 10/19/14 STATUS: COMP _ SOURCE: URINE SPDESC: ORDERED: Urine Culture Procedure Result Verified Site Urine Culture Final 10/22/14- 0907 ML Organism 1 STAPHYLOCOCCUS EPIDERMIDIS [place] Count 10-25,000 (Moderate) CFU/ML SIGNIFICANCE QUESTIONED; LOWER [...] performed at Main Lab DEPARTMENT OF PATHOLOGY, [address] [place] [address] Chino Hwang M.D. Director [facility] # [id number] Patient: JENNIFER ALEMAN [id number] (Continued) Specimen: [id number] Collected: 10/19/14 Received: 10/19/14 (Continued) Procedure Result Verified Site Urine Culture Final (continued) * These antibiotics are not available in the [facility] Formulary Contact the Microbiology Department for any additional antibiotic reporting. * ML - [facility] ([facility]) . END OF REPORT * ML=Testing performed at Main [facility] DEPARTMENT OF PATHOLOGY, [address] [place] [address] Chino Hwang M.D. Director [facility] # [id number] 63 Acute inflammation: >10.00 64 REFERENCE VALUE <1.0 (Negative) Test Performed by: [place] [id number] [employer] Teacher: Hakeem Cortez II, M.D., Ph.D. 65 REFERENCE VALUE <1.0 (Negative) Test Performed by: [address] [address] [employer] Engineering Teacher: Hakeem Cortez II, M.D., Ph.D. 66 Normal Range 180 to 914 Indeterminate Range 145 to 180 Deficient Range <145 67 Serologic response to B. burgdorferi infection is not detected, but cannot rule out early infection during which low or undetectable antibody levels to B. burgdorferi may be present. If clinically indicated, a new serum specimen should be submitted in 7-14 days. Test Performed by: [address] [address] [employer] Engineering Teacher: Hakeem Cortez II, M.D., Ph.D. 68 Warning: A positive result is not useful for establishing a diagnosis of syphilis. In most situations, such a result may reflect a prior treated infection; a negative result can exclude a diagnosis of syphilis except for incubating or early primary disease. 69 Because ethnic data is not always readily [...] 15-29 5 Kidney failure <15 (or dialysis) 70 Acute inflammation: >10.00 71 SEE RESULT BELOW Name: JENNIFER ALEMAN : [address]: Wilson Moody III, MD Acct: [id number] Unit: [id number] AGE: 74 Location: [facility] Re10/10/14 SEX: F Status: REG REF SPEC: [id number] PHIL: 10/10/14 [facility] DR: Wilson Moody III, MD REQ: [id number] RECD: 10/10/14 STATUS: COMP _ SOURCE: URINE SPDESC: ORDERED: Urine Culture Procedure Result Verified Site Urine Culture Final 10/12/14- 1247 ML No Growth Day 2 (<1,000 CFU/mL) * ML - MAIN LAB ([facility]) . END OF REPORT * ML=Testing performed at Main Lab DEPARTMENT OF PATHOLOGY, [address] [place] [address] Chino Hwang M.D. Director [facility] # [id number] 72 RUN DATE: 03/26/14 [facility] LAB LIVE PAGE 1 RUN TIME: [address] [place] [address] Specimen Inquiry Name: JENNIFER ALEMAN : [address]: Angela Cartagena MD Acct: [id number] Unit: [id number] AGE: 74 Location: [facility] Re03/24/14 SEX: F Status: DEP ER SPEC: [id number] PHIL: 03/24/14-1211 [facility] [address]: Angela Cartagena MD REQ: [id number] RECD: 03/24/14-150 STATUS: JOHNSON PADILLA DR: Parag Moody III, MD _ SOURCE: URINE SPDESC: ORDERED: Urine Culture Procedure Result Verified Site Urine Culture Final 03/26/14- 0931 ML Organism 1 STAPHYLOCOCCUS EPIDERMIDIS Howells Count 50-75,000 (Many) CFU/ML 1. STAPHYLOCOCCUS EPIDERMIDIS [...] These antibiotics are not available in the [facility] Formulary Contact the Microbiology Department for any additional antibiotic reporting. END OF REPORT * ML=Testing performed at Main Lab DEPARTMENT OF PATHOLOGY, [facility] [place], [place] [address] Chino Hwang M.D. Director [facility] # [id number] 73 RUN DATE: 03/26/14 [facility] LAB LIVE PAGE 1 RUN TIME: 819 [facility] [place], [place] [address] Specimen Inquiry Name: JENNIFER ALEMAN : [address]: Angela Cartagena MD Acct: [id number] Unit: [id number] AGE: 74 Location: [facility] Re03/24/14 SEX: F Status: DEP ER SPEC: [id number] PHIL: 03/24/14-1001 [facility] [address]: Angela Cartagena MD REQ: [id number] RECD: 03/24/14140 STATUS: JOHNSON PADILLA DR: Parag Moody III, MD _ SOURCE: THROAT SPDESC: ORDERED: Throat Beta Str Procedure Result Verified Site Throat Beta Strep Culture Final 03/26/14- 0820 ML Negative For Group A Beta Streptococcus END OF REPORT * ML=Testing performed at Main Lab DEPARTMENT OF PATHOLOGY, [address] [place] [address] Chino Hwang M.D. Director [facility] # [id number] 74 Interpretation: 51-80 ng/mL (increased risk of hypercalciuria) -- REFERENCE VALUE -- 25-HYDROXY D TOTAL (D2+D3) Optimum levels in the healthy population are 20-50, patients with bone disease may benefit from higher levels within this range. Test Performed by: [facility] [place] [place] [address] Marine Engineering Teacher: Hal Duque III, M.D. 75 A metabolite of Naproxen, O-desmethylnaproxen, has been shown to interfere with the [place] method for measuring total bilirubin. Samples from patients who have taken Naproxen have shown spurious elevation in total bilirubin levels. 76 Because ethnic data is not always readily [...] 15-29 5 Kidney failure <15 (or dialysis) 77 SPECIMEN CONTAINS NORMAL URETHRAL OR PERINEAL SANTHOSH AND DOES NOT SUGGEST URINARY TRACT INFECTION 78 SCANT NORMAL URETHRAL OR PERINEAL SANTHOSH Procedures Date Code Description Status 03/24/2018 Inject Tendon Sheath Or Ligament Aponeurosis Eg Completed Plantar Fascia 03/24/2018 Inject Tendon Sheath Or Ligament Aponeurosis Eg Completed Plantar Fascia 12/21/2017 82762 EEG Recording Awake & Drowsy Completed 12/18/2017 44053 EEG Recording Awake & Drowsy Completed 12/04/2017 [id number] Mammogram Completed 09/30/2016 [id number] Mammogram Completed 09/28/2015 [id number] Mammogram Completed 02/12/2015 80034 EEG Recording Awake & Drowsy Completed 09/18/2014 [id number] Mammogram Completed 09/15/2013 [id number] Bone Mineral Density Test Completed 09/15/2013 [id number] Mammogram Completed 03/03/2011 [id number] Mammogram Completed 01/24/2011 [id number] Diabetic Retinal Eye Exam Completed 10/14/2010 [id number] Bone Mineral Density Test Completed 01/07/2010 [id number] Mammogram Completed 12/14/2009 68330 Admin Of Inj Completed 11/28/2008 [id number] Mammogram Completed 09/09/2006 [id number] Colonoscopy Completed 07/21/2006 [id number] Bone Mineral Density Test Completed Encounters Type Date Location Provider Dx Diagnosis Office Visit 07/13/2018 Neurohospitalist Juwan Alexandre, R26.81 Unsteadiness on 10:15a Clinic M.D. feet F03.90 Unspecified dementia without behavioral disturbance Office Visit 05/17/2018 10:15a Orthopedic Delmy Murguia, S62.645D Nondisp fx of [facility] prox phalanx C.M.A. of l rng fngr, 7thD M24.542 Contracture, left hand M25.512 Pain in left shoulder Office Visit 04/14/2018 9:30a Orthopedic Delmy S62.645A Nondisp fx of [facility] Murguia proximal C.M.A. phalanx of left ring finger, init M24.542 Contracture, left hand Office Visit 04/01/2018 [facility] Juwan Alexandre, F03.90 Unspecified 12:00p Neurologic M.D. dementia without [facility] behavioral disturbance R53.1 Weakness R26.89 Other abnormalities of gait and mobility Office Visit 03/24/2018 10:45a Orthopedic Delmy Farfan2.645A Nondisp fx of [facility] Murguia proximal C.M.A. phalanx of left ring finger, init M24.542 Contracture, left hand M65.332 Trigger finger, left middle finger M65.342 Trigger finger, left ring finger M65.352 Trigger finger, left little finger Office 03/18/2018 [facility] Internal Wilson E. M25.542 Pain in joints Visit 2:00p Ahsan Moody M.D. 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 diseases classd Hospitalists jose guadalupe crespo behavioral disturb G30.9 Alzheimer's disease, unspecified R41.82 Altered mental status, unspecified N18.3 Chronic kidney disease, stage 3 (moderate) I12.9 Hypertensive chronic kidney disease w stg 1-4/unsp chr kdny Office Visit 12/20/2017 Neurohospitalist Elli R41.82 Altered mental 7:00a Clinic Linda M.D. status, unspecified G93.89 Other specified disorders of brain R83.8 Other abnormal findings in cerebrospinal fluid Office Visit 12/20/2017 [facility] Marilyn Carpenter, R41.82 Altered mental 8:58a mayte [...] findings in cerebrospinal fluid Office Visit 12/19/2017 [facility] Marilyn Carpenter, R41.82 Altered mental 8:58a mayte Howe M.D. 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 status, unspecified R83.8 Other abnormal findings in cerebrospinal fluid G93.89 Other specified disorders of brain Office Visit 12/18/2017 [facility] Marilyn Carpenter, R41.82 Altered mental 8:57a mayte Howe M.D. status, Hospitalists unspecified N18.3 Chronic kidney disease, stage 3 (moderate) I12.9 Hypertensive chronic kidney disease w stg 1-4/unsp chr kdny F02.80 Dementia in oth diseases classd elswhr w/o behavrl disturb Office Visit 12/17/2017 8:57a [facility] Marilyn Carpenter, F02.80 Dementia in mayte Howe M.D. oth diseases Hospitalists classd elswhr w/o behavrl disturb R41.82 Altered mental status, unspecified N18.3 Chronic kidney disease, stage 3 (moderate) N32.81 Overactive bladder Office Visit 12/17/2017 8:23a [facility] Basilio Oswald R41.82 Altered mental For Derian Franklin M.D. status, Diseases unspecified N39.0 Urinary tract infection, site not specified R83.9 Unspecified abnormal finding in cerebrospinal fluid F03.90 Unspecified dementia without behavioral disturbance Office Visit 12/17/2017 7:00a Neurohospitalist Clinic Tariq Chowdhury R53.1 Weakness John Allen R41.0 Disorientation, unspecified R83.8 Other abnormal findings in cerebrospinal fluid G93.89 Other specified disorders of brain Office Visit 12/16/2017 Neurohospitalist Tariq Chowdhury G93.89 Other 7:00a Clinic John Allen specified disorders of brain R53.1 Weakness R41.0 Disorientation, unspecified R83.8 Other abnormal findings in cerebrospinal fluid Office Visit 12/16/2017 [facility] Marilyn Carpenter, R41.82 Altered mental 8:57a Assmayte heaton M.D. 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 dementia without [facility] behavioral disturbance R26.89 Other abnormalities of gait and mobility I68.0 Cerebral amyloid angiopathy Office 10/07/2017 M[facility] Internal Wilson Lees Z02.89 Encounter for Visit 3:00p Ahsan Moody M.D. 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 unspecified F03.90 Unspecified dementia without behavioral disturbance Office Visit 02/26/2017 11:15a Adri Hernandez F03.90 Unspecified Neurologic [place] dementia without [facility] behavioral disturbance Office Visit 10/03/2016 2:00p [place]/Adri Hernandez F03.90 Unspecified Neurologic Serv [place] dementia without [facility] behavioral disturbance Office Visit 08/27/2016 11:40a [facility] Wilson Lees R50.9 Fever, Internal John Moody unspecified Medicine-Arrowwo od Office Visit 01/31/2016 9:45a Adri Hernandez R41.3 Other amnesia Loren Hill M.D. [facility] Office Visit 12/24/2015 10:20a [facility] Internal Matthew Mao NP J02.9 Acute Medicine - [facility] pharyngitis, unspecified Office Visit 07/31/2015 12:00p Adri Hernandez R41.3 Other amnesia Neurologic [place] [facility] Office Visit 07/19/2015 3:45p Adri Hernandez I68.0 Cerebral amyloid Neurologic [place] angiopathy [facility] F03.90 Unspecified dementia without behavioral disturbance Office Visit 02/27/2015 2:40p [facility] Internal Wilson Lees R50.9 Fever, unspecified Medicine - Ccmashley Moody M.D. R31.2 Other microscopic hematuria Office Visit 02/13/2015 10:15a [facility] Johann Oswald R31.2 Other microscopic Infectious John [place] hematuria Diseases F03.90 Unspecified dementia without behavioral disturbance Z86.73 Prsnl hx of TIA (TIA), and cereb infrc w/o resid deficits Z87.440 Personal history of urinary (tract) infections Office Visit 02/13/2015 9:48a [facility] Marilyn Carpenter, R40.4 Transient Assoc,mayte Lopez alteration of Hospitalists awareness E86.0 Dehydration R50.9 Fever, unspecified Office Visit 02/12/2015 9:40a [facility] Marilyn Carpenter, R40.4 Transient Assoc,mayte Lopez alteration of Hospitalists awareness E86.0 Dehydration R50.9 Fever, unspecified Office Visit 02/12/2015 8:41a [facility] Basilio Oswald R50.9 Fever, Infectious John Franklin unspecified Diseases I68.0 Cerebral amyloid angiopathy R91.8 Other nonspecific abnormal finding of lung field R41.82 Altered mental status, unspecified 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), and cereb infrc w/o resid deficits Office Visit 02/11/2015 9:39a [facility] Marilyn Carpenter, R40.4 Transient Assoc,pc MKelsiDKelsi alteration of Hospitalists awareness E86.0 Dehydration R50.9 Fever, unspecified Office Visit 02/10/2015 9:38a [facility] Raad Garcia, R40.4 Transient Assoc,mayte M.DKelsi alteration of Hospitalists awareness E86.0 Dehydration Office Visit 02/09/2015 1:00p [facility] Zain Westbrook, J06.9 Acute 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 - [facility] 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 Unspecified [facility] 780.97 Altered Mental Status Office Visit 10/17/2014 Neurohospitalist Veronika Godoy Unspecified 9:30a Clinic [place] Intellectual Disabilities 780.93 Memory Loss 780.97 Altered Mental Status 437.8 Cerebrovascular Disease Other Office Visit 10/13/2014 10:40a [facility] Internal Wilson Lees 780.97 Altered Mental Medicine - William Moody M.D. Status 599.0 UTI Urinary Tract Infection Site Not Spec 599.70 Hematuria, Unspecified Office Visit 10/10/2014 3:40p [facility] Internal Wilson Lees 599.0 UTI Urinary Tract Laure - William Moody M.D. Infection Site Not Spec 780.97 Altered Mental Status 380.4 Impacted Cerumen Office Visit 08/18/2013 3:40p [facility] Internal Wilson Lees V72.84 Examination Laure Moody M.D. Preoperative Unspec [facility] 369.9 Visual Loss Unspec 272.0 Hypercholesterolemia Pure 733.90 Bone & Cartilage Disorder Unspec V76.10 Screening For Malignant Neoplasm Breast V03.82 Streptococcus Pneumoniae Vaccination Spec Other V06.1 Cuyywunjye-Lxauxxa-Josfqvfn Combined (DTaP) Office Visit 03/24/2012 3:00p [facility] Internal Wilson Lees 465.9 URI Upper Laure Moody M.D. Respiratory [facility] Infections Acute Unspec Sites Office Visit 12/24/2011 10:00a [facility] Wilson Lees 437.7 Becca Moody M.D. Transient [facility] Office Visit 12/16/2011 4:00p [facility] Internal Wilson Lees 437.7 Amnmookie Moody M.D. Transient [facility] Office Visit 01/24/2011 11:00a DO Not Use Physical Therapy Resident Wilson E. V72.81 Examination AT Kelsie Moody M.D. Preoperative Cardiovascular 366.9 Cataract Unspec 272.0 Hypercholesterolemia Pure Office Visit 07/31/2010 11:20a DO Not Use Physical Therapy Resident Wilson E. 465.9 URI Upper AT Kelsie Moody M.D. Respiratory Infections Acute Unspec Sites Office Visit 12/04/2009 11:40a DO Not Use Physical Therapy Resident Wilson E. 466.0 Bronchitis Acute AT Kelsie Moody M.D. Office Visit 09/24/2009 11:20a DO Not Use Physical Therapy Resident Gokulananda, 562.11 Diverticulitis Colon AT [facility] MD Susie W/O Hemorrhage Office Visit 09/19/2009 2:20p DO Not Use Physical Therapy Resident Gokulananda, 562.11 [facility] Susie [facility]/O Hemorrhage Office Visit 07/24/2009 4:00p DO Not Use Physical Therapy Resident Wilson Lees 466.0 Bronchitis Acute AT Kelsie Moody M.D. Office Visit 03/21/2008 3:00p [facility] Wilson Lees 558.9 Gastroenteritis & Assoc AT John Moody Colitis Noninfectious [facility] Other Office Visit 07/26/2007 10:15a [facility] Wilson Lees 466.0 Bronchitis Acute Assoc AT John Moody [facility] Plan of Treatment Future Appointment(s):10/14/2018 8:30 am - Juwan Alexandre M.D. at [facility]08/25/2018 - Wilson Moody M.D.S22.070S Wedge compression fracture of T9-T10 vertebra, sequelaNew Medication:Lidocaine 5 % - apply 1 patch to the affected area daily. leave on for 12 hours and then off for 12 hours.Comments:Fall 08/22 with ? new mild T10 compression fracture on CT. Pt with some back pain over the area thatwould indicate this is a new injury. Pt with some c/o pain, but mild so far. Continue rest, Tylenol and topical Lidocaine patches as needed. PT eval already underway prior to the fall, and pt can resume when she is feeling better. PT eval for any recommended assistive devices
[2018-08-30 21:11] VITALS: BP 178/69
== END 2018-08-30 21:09 | disposition home or self-care (01) ==
LOC: ED 18:17
DX: S80.02XA Contusion of left knee, initial encounter (principal); W04.XXXA Fall while being carried or supported by other persons, initial encounter; Z88.2 Allergy status to sulfonamides; Z79.899 Other long term (current) drug therapy; E78.00 Pure hypercholesterolemia, unspecified; I10 Essential (primary) hypertension; J44.9 Chronic obstructive pulmonary disease, unspecified; M17.12 Unilateral primary osteoarthritis, left knee; M19.042 Primary osteoarthritis, left hand
CPT/HCPCS: 99283